=== PATIENT | male | born 1935 | race Caucasian/White ===

== ENCOUNTER 2016-09-28 02:10 | Inpatient (IN) | payer OTHER, MEDICARE ==
--- NOTE | 2016-09-28 02:35 | PDOC ---
History of Present Illness - General History Source: Patient <Alfonzo Thomson - Last Filed: 09/28/16 04:03> - General History Source: Patient Exam Limitations: No Limitations - History of Present Illness Initial Comments: 09/28/16 03:01 The patient is a 80 year old morbidly obese male with significant past medical history of hypertension, hyperlipidemia, CHF, CAD s/p stents x2, PAD, diabetes, CKD, COPD, and GI bleeds who presents to the ED with midsternal chest pain few hours prior to arrival. Patient reports he ate dinner around 7:30 last night and subsequently went to bed. He states he was awoken around 10pm with midsternal chest pain and associated diaphoresis and SOB. He denies lightheadedness, jaw pain, shoulder pain, arm pain, nausea, or vomiting. Subsequently, after going to the bathroom, he started to see black and blue, which lasted about 5 minutes and resolved on its own. He also states his prevention rn has recently been adjusting his lasix dosage. The patient denies fever, chills, cough, abdominal pain, and diarrhea. Allergies: NKDA Social History: No alcohol, tobacco, or drug use reported. Past Surgical History: hernia repair, cardiac stents x2 (March 2014), colonoscopy (2010), endoscopy (August 2014) PCP: Dr. Tucker Lin Cardio: Dr. Rola Del Toro <Dianne Simpson - Last Filed: 09/28/16 04:22> - General Chief Complaint: Chest Pain Stated Complaint: ABD PAIN Time Seen by Provider: 09/28/16 02:35 Past History - Past Medical History Anemia: No Asthma: Yes Cancer: No Cardiac Disorders: Yes (stents) CVA: No COPD: Yes (DIFFICULTY BREATHING) CHF: Yes Dementia: No Diabetes: Yes GI Disorders: Yes (GIB, INTESTINAL OBSTRUCTION, COLON POLYPS) HTN: Yes Hypercholesterolemia: Yes Seizures: No - Surgical History Abdominal Surgery: Yes (HERNIA) Cardiac Surgery: Yes (STENT X 2) - Immunization History Immunization Up to Date: Yes - Psycho/Social/Smoking Cessation Hx Anxiety: No Suicidal Ideation: No Smoking Status: No Smoking History: Never smoked Have you smoked in the past 12 months: No Number of Cigarettes Smoked Daily: 0 If you are a former smoker, when did you quit?: 15 years ago Information on smoking cessation initiated: No Hx Alcohol Use: No Drug/Substance Use Hx: No Substance Use Type: None Hx Substance Use Treatment: No <Alfonzo Thomson - Last Filed: 09/28/16 04:03> <Dianne Simpson - Last Filed: 09/28/16 04:22> - Past Medical History Allergies/Adverse Reactions: Allergies Allergy/AdvReac Type Severity Reaction Status Date / Time No Known Allergies Allergy Verified 09/28/16 02:31 Home Medications: Ambulatory Orders Lisinopril [Prinivil] 2.5 mg PO DAILY 03/26/14 Metoprolol Succinate [Toprol XL -] 50 mg PO DAILY 03/26/14 Albuterol 2.5/Ipratropium 0.5 [Duoneb -] 1 neb NEB Q4H 09/04/15 Atorvastatin Ca [Lipitor] 20 mg PO HS 09/04/15 Dexlansoprazole [Dexilant -] 60 mg PO DAILY 09/04/15 Fluticasone/Salmeterol [Advair 250-50 Diskus] 1 each IH BID 09/04/15 Furosemide 40 mg PO DAILY 09/04/15 Tiotropium [place] [Spiriva] 18 mcg IH DAILY 09/04/15 Ascorbate Calcium [Vitamin C] 500 mg PO DAILY 11/15/15 Clopidogrel Bisulfate [Plavix -] 75 mg PO DAILY #0 11/15/15 Ferrous Sulfate [Feosol] 325 mg PO DAILY 11/15/15 Review of Systems - Review of Systems Able to Perform ROS?: Yes Comments:: 09/28/16 03:01 CONSTITUTIONAL: +diaphoresis Absent: fever, chills, generalized weakness, malaise, loss of appetite HEENT: +visual changes Absent: rhinorrhea, nasal congestion, throat pain, throat swelling, difficulty swallowing, mouth swelling, ear pain, eye pain CARDIOVASCULAR: +midsternal chest pain Absent: syncope, palpitations, irregular heart rate, lightheadedness, peripheral edema RESPIRATORY: +SOB Absent: cough, orthopnea, wheezing, stridor, hemoptysis GASTROINTESTINAL: Absent: abdominal pain, abdominal distension, nausea, vomiting, diarrhea, constipation, melena, hematochezia GENITOURINARY: Absent: dysuria, frequency, urgency, hesitancy, hematuria, flank pain, genital pain MUSCULOSKELETAL: Absent: myalgia, arthralgia, joint swelling SKIN: Absent: rash, itching, pallor NEUROLOGIC: Absent: headache, focal weakness or paresthesias, dizziness, unsteady gait, seizure, mental status changes, bladder or bowel incontinence PSYCHIATRIC: Absent: anxiety, depression, suicidal or homicidal ideation, hallucinations. <Dianne Simpson - Last Filed: 09/28/16 04:22> *Physical Exam - Vital Signs Last Vital Signs Temp Pulse Resp BP Pulse Ox 98.3 F 71 20 118/53 99 09/28/16 02:31 09/28/16 02:31 09/28/16 02:31 09/28/16 02:31 09/28/16 02:31 <Alfonzo Thomson - Last Filed: 09/28/16 04:03> - Vital Signs Last Vital Signs Temp Pulse Resp BP Pulse Ox 98.3 F 71 20 118/53 99 09/28/16 02:31 09/28/16 02:31 09/28/16 02:31 09/28/16 02:31 09/28/16 02:31 - Physical Exam Comments: 09/28/16 03:01 GENERAL: Morbidly obese. Well developed, well nourished. Awake and alert. No acute distress. HEENT: Normocephalic, atraumatic. PERRLA, EOMI. No conjunctival pallor. Sclera are non- icteric. Moist mucous membranes. Oropharynx is clear. NECK: Supple. Full ROM. No JVD. Carotid pulses 2+ and symmetric, without bruits. No thyromegaly. No lymphadenopathy. CARDIOVASCULAR: Regular rate and rhythm. 4/6 systolic murmur. PULMONARY: Mild respiratory distress. Slight decreased breath sounds. No conversational. No retractions. No wheezing, rales or rhonchi. ABDOMINAL: Soft. Non-tender. Non-distended. No rebound or guarding. No organomegaly. Normoactive bowel sounds. MUSCULOSKELETAL Normal range of motion at all joints. No bony deformities or tenderness. No CVA tenderness. EXTREMITIES: No cyanosis. No clubbing. 3+ pitting edema bilateral lower extremities. No calf tenderness. SKIN: Warm and dry. Normal capillary refill. No rashes. No jaundice. NEUROLOGICAL: Alert, awake, appropriate. Cranial nerves 2-12 intact. Moving all extremities. No gross focal neurological deficits. PSYCHIATRIC: Cooperative. Good eye contact. Appropriate mood and affect. <Dianne Simpson - Last Filed: 09/28/16 04:22> Heart Score/ECG Review - ECG Impressions Comment:: 09/28/16 02:43 NSR @76bpm Left axis deviation RBBB Cannot r/o inferior infarct, age undetermined Abnormal ECG <Dianne Simpson - Last Filed: 09/28/16 04:22> ED Treatment Course - LABORATORY CBC & Chemistry Diagram: 09/28/16 02:30 09/28/16 02:30 - RADIOLOGY Radiology Studies Ordered: Category Date Time Status CHEST X-RAY PORTABLE* [RAD] Stat Radiology 09/28/16 02:34 Ordered <Alfonzo Thomson - Last Filed: 09/28/16 04:03> - LABORATORY CBC & Chemistry Diagram: 09/28/16 02:30 09/28/16 02:30 <Dianne Simpson - Last Filed: 09/28/16 04:22> Medical Decision Making - Medical Decision Making 09/28/16 04:03 Dr. Thomson: The scribe's documentation has been prepared under my direction and personally reviewed by me in its entirery. I confirm that the note above accurately reflects all work, treatment, procedures, and medical decision making performed by me. <Alfonzo Thomson - Last Filed: 09/28/16 04:03> - Medical Decision Making 09/28/16 03:[address] Manuel Tinajero who is covering for Dr. Real Booker who is covering for Dr. Tucker Lin (via answering service) at 3:58 Awaiting call back 09/28/16 04:22 Patient's case discussed with Dr. Tinajero at 4:22 <Dianne Simpson - Last Filed: 09/28/16 04:22> *DC/Admit/Observation/Transfer - Discharge Dispostion Admit: Yes <Alfonzo Thomson - Last Filed: 09/28/16 04:03> - Attestations Scribe Attestion: 09/28/16 03:02 Documentation prepared by Dianne Simpson, acting as medical concierge for Alfonzo Thomson MD <Bharrat,Dianne - Last Filed: 09/28/16 04:22> Diagnosis at time of Disposition: Obesity Qualifiers: Obesity severity: morbid Chest pain Qualifiers: Chest pain type: precordial pain Qualified Code(s): R07.2 - Precordial pain - Referrals Referrals: Tucker Lin MD [Primary Care Provider] -
[2016-09-28 02:45] LABS: BASOPHIL 0.6 % (0-2.0); EOSINOPHIL 4.5 % (0-4.5); MCH 25.2 pg (25.7-33.7); MEAN CELL VOLUME 78.8 fl (80-96); MEAN PLT VOLUME 8.8 fl (7.5-11.1); NEUTROPHILS 65.4 % (42.8-82.8); PLATELET COUNT 166 K/MM3 (134-434)
[2016-09-28 03:00] LABS: INR 1.04 (0.82-1.09); PROTHROMBIN TIME (PATIENT) 11.4 SEC (9.98-11.88)
[2016-09-28 03:09] LABS: ALBUMIN 3.3 g/dl (3.4-5.0); BILIRUBIN,TOTAL 0.3 mg/dL (0.2-1.0); CALCIUM 8.5 mg/dL (8.5-10.1); CREATININE 1.3 mg/dL (0.7-1.3); TOT PROT 6.5 g/dl (6.4-8.2)
[2016-09-28 03:12] LABS: TROPONIN I 0.02 ng/ml (0.00-0.05)
[2016-09-28 07:02] VITALS: BMI 38.5
[2016-09-28] MEDS ORDERED: ACETAMINOPHEN 325 MG TABLET (FP) PO PRN (07:20)
[2016-09-28] MEDS ORDERED: ALBUTEROL SO4 2.5/IPRATROPIUM 0.5 INH SOL 3 ML VIAL.NEB. NEB PRN (07:30)
[2016-09-28 09:22] LABS: TROPONIN I 0.07 ng/ml (0.00-0.05)
[2016-09-28] MEDS ORDERED: METOPROLOL SUCCINATE 50 MG TAB.SR.24H (FP) PO SCH (10:00)
[2016-09-28] MEDS ORDERED: LISINOPRIL 5 MG TABLET (FP) PO SCH (10:00)
[2016-09-28] MEDS ORDERED: FUROSEMIDE 20 MG TABLET (FP) PO SCH (10:00)
[2016-09-28] MEDS ORDERED: FERROUS SO4 325 MG TABLET (FP) PO SCH (10:00)
[2016-09-28] MEDS ORDERED: PANTOPRAZOLE 40 MG TABLET (FP) PO SCH (10:00)
[2016-09-28] MEDS ORDERED: CLOPIDOGREL BISULFATE 75 MG TABLET (FP) PO SCH (10:00)
[2016-09-28] MEDS ORDERED: PT OWN MED DRAWER 7, Y5N ONE (10:05)
[2016-09-28] MEDS: ACLIDINIUM BROMIDE 400 MCG/INH AERO.POWD IH SCH ×2 (10:15→21:15)
[2016-09-28] MEDS: BUDESONIDE/FORMETEROL FUMARATE 80/4.5 mcg INHALER IH SCH ×2 (10:15→21:15)
--- NOTE | 2016-09-28 11:25 | CON.CARD ---
Cardiology Consult (text) - Consultation Consultation Note: cc: cp hpi: 80 m hx cad s/p pci (most recent was leonides to mRCA 03/23/14), htn, dm, hld, chronic venuous insuff with le edema, dCHF, severe , HCM with LVOT obstruction , pad s/p right common iliac stent 2008, copd here with cp. Ate dinner last night and then went to bed. He woke up around 10pm with midsternal chest pain and associated diaphoresis and SOB. He also felt a little dizzy. No palps, loc , pnd, orthopnea. LE edema chronic, stable. Sxs occurred intermittently a few times so came to ER. Today feels better, no further cp. He sees Dr Del Toro for Cardio. pmh: per hpi psh: hernia repair ros: per hpi; no nvd, cough, nasal congestion, pruett, vision changes, gib, hematuria, rash, muscle pain social: ex tob fam: non contrib, no premature cad/scd meds: Home Medications Medication Instructions Recorded Lisinopril [Prinivil] 2.5 mg PO DAILY 03/26/14 Metoprolol Succinate [Toprol XL -] 50 mg PO DAILY 03/26/14 Albuterol 2.5/Ipratropium 0.5 1 neb NEB Q4H 09/04/15 [Duoneb -] Atorvastatin Ca [Lipitor] 20 mg PO HS 09/04/15 Dexlansoprazole [Dexilant -] 60 mg PO DAILY 09/04/15 Fluticasone/Salmeterol [Advair 1 each IH BID 09/04/15 250-50 Diskus] Furosemide 40 mg PO DAILY 09/04/15 Tiotropium [place] [Spiriva] 18 mcg IH DAILY 09/04/15 Clopidogrel Bisulfate [Plavix -] 75 mg PO DAILY #0 11/15/15 Ferrous Sulfate [Feosol] 325 mg PO DAILY 11/15/15 pe: Vital Signs Period Temp Pulse Resp BP Sys/Benito Pulse Ox Last 24 Hr 97.4 F-98.3 F 71-74 18-25 108-135/51-74 95-99 nad, no jvd rrr s1 s2 + murmur scattered mild exp wheeze, nl eff aaox3 trace/1+ le edema b/l, no c/c abd nt nd pos bs pos dp/pt no carotid bruits no diaphoresis/jaundice Laboratory Last Values WBC 6.0 K/mm3 (4.0-10.0) 09/28/16 02:30 RBC 4.89 M/mm3 (4.00-5.60) 09/28/16 02:30 Hgb 12.3 GM/dL (11.7-16.9) 09/28/16 02:30 Hct 38.5 % (35.4-49) 09/28/16 02:30 MCV 78.8 fl (80-96) L 09/28/16 02:30 MCHC 32.0 g/dl (32.0-35.9) 09/28/16 02:30 RDW 19.0 % (11.9-15.9) H D 09/28/16 02:30 Plt Count 166 K/MM3 (134-434) D 09/28/16 02:30 MPV 8.8 fl (7.5-11.1) 09/28/16 02:30 Neutrophils % 65.4 % (42.8-82.8) 09/28/16 02:30 Lymphocytes % 20.5 % (8-40) D 09/28/16 02:30 Monocytes % 9.0 % (3.8-10.2) 09/28/16 02:30 Eosinophils % 4.5 % (0-4.5) 09/28/16 02:30 Basophils % 0.6 % (0-2.0) 09/28/16 02:30 INR 1.04 (0.82-1.09) 09/28/16 02:30 Sodium 141 mmol/L (136-145) 09/28/16 02:30 Potassium 4.4 mmol/L (3.5-5.1) 09/28/16 02:30 Chloride 95 mmol/L (98-107) L 09/28/16 02:30 Carbon Dioxide 36 mmol/L (21-32) H 09/28/16 02:30 Anion Gap 10 (8-16) 09/28/16 02:30 BUN 27 mg/dL (7-18) H D 09/28/16 02:30 Creatinine 1.3 mg/dL (0.7-1.3) D 09/28/16 02:30 Creat Clearance w eGFR 52.98 (>60) 09/28/16 02:30 Random Glucose 243 mg/dL (74-106) H D 09/28/16 02:30 Calcium 8.5 mg/dL (8.5-10.1) 09/28/16 02:30 Total Bilirubin 0.3 mg/dL (0.2-1.0) D 09/28/16 02:30 AST 16 U/L (15-37) 09/28/16 02:30 ALT 16 U/L (12-78) 09/28/16 02:30 Alkaline Phosphatase 72 U/L (45-117) 09/28/16 02:30 Creatine Kinase 87 IU/L (39-308) 09/28/16 08:00 Troponin I 0.07 ng/ml (0.00-0.05) H D 09/28/16 08:00 B-Natriuretic Peptide 672.16 pg/ml (5-450) H 09/28/16 02:30 Total Protein 6.5 g/dl (6.4-8.2) 09/28/16 02:30 Albumin 3.3 g/dl (3.4-5.0) L 09/28/16 02:30 cardiac mri 07/2016: moderate basal septal hypertrophy (1.6 cm), nl lv size/fcn , +LVOT obstruction with carlos, nl rv, no scar, mild mr, mild-mod , mild LAE, ao root 3.9 echo 07/2016: majo, nl lvef, mod-sev lvot obst, mild rv dil, nl rv fcn, ana, mild ar, severe , mac, minimal functional MS, mild mr, mild-mod tr, mod-sev phtn echo 07/2014: nl lv/rv, mild ana, mild tr/mr, mod ecg 09/28/16: sr, nl intervals, RBBB (old), no ischemic changes tele: sr, occ pvcs cxr: clear lungs a/p: 80 m hx cad s/p pci (most recent was leonides to mRCA 03/23/14), htn, dm, hld, chronic venuous insuff with le edema, dCHF, severe , HCM with LVOT obstruction , pad s/p right common iliac stent 2008, copd here with cp. cp, sob, dizzy, , HOCM: -so far no signs acs. ecg similar to priors. ce's neg x2. Would continue to trend troponin as in borderline range. monitor on tele. -no signs chf/pulm edema -likely sxs are related to severe , HOCM -pt has been recommended as outpt to be evaluated for and HOCM repair but has been declining. Today he says he will go for eval but wants to go to [facility] because [facility]. Will discuss with his daughter (pt asked that we speak with her) to further clarify preferences/plans. cad, remote pci: -as per above -cont statin, plavix, bb, kota -nl lvef on recent outpt echo htn: -cont home meds hld: -cont statin chronic diastolic chf, le edema: -stable on current po lasix -no signs pulm edema and le edema mild/stable pad, le stent: -stable, cont home cardiac meds
[2016-09-28 14:36] LABS: TROPONIN I 0.07 ng/ml (0.00-0.05)
--- NOTE | 2016-09-28 17:05 | EKG ---
Test Reason : Blood Pressure : / mmHG Vent. Rate : 076 BPM Atrial Rate : 076 BPM P-R Int : 178 ms QRS Dur : 132 ms QT Int : 406 ms P-R-T Axes : 113 -38 009 degrees QTc Int : 456 ms POOR DATA QUALITY, INTERPRETATION MAY BE ADVERSELY AFFECTED NORMAL SINUS RHYTHM LEFT AXIS DEVIATION RIGHT BUNDLE BRANCH BLOCK CANNOT RULE OUT INFERIOR INFARCT (CITED ON OR BEFORE 04-SEP-2015) ABNORMAL ECG WHEN COMPARED WITH ECG OF 04-SEP-2015 18:46, MINIMAL CRITERIA FOR ANTERIOR INFARCT ARE NO LONGER PRESENT ST NOW DEPRESSED IN LATERAL LEADS Confirmed by JULIANNA CAREY MD ([id number]) on 09/28/2016 5:04:43 PM Referred By: Confirmed By:JULIANNA CAREY MD
[2016-09-28] MEDS ORDERED: ATORVASTATIN CA 20 MG TABLET (FP) PO SCH (22:00)
[2016-09-29 06:26] VITALS: BP 109/53; PULSE 65; TEMP 98.1
[2016-09-29 06:41] LABS: BASOPHIL 0.6 % (0-2.0); EOSINOPHIL 4.7 % (0-4.5); MCH 25.1 pg (25.7-33.7); MEAN CELL VOLUME 78.5 fl (80-96); MEAN PLT VOLUME 9.2 fl (7.5-11.1); NEUTROPHILS 62.2 % (42.8-82.8); PLATELET COUNT 157 K/MM3 (134-434); RDW 18.9 % (11.9-15.9); WHITE BLOOD COUNT 5.5 K/mm3 (4.0-10.0)
[2016-09-29 06:46] LABS: ALBUMIN 2.9 g/dl (3.4-5.0); CALCIUM 8.5 mg/dL (8.5-10.1); CREATININE 1.2 mg/dL (0.7-1.3); TOT PROT 5.8 g/dl (6.4-8.2)
[2016-09-29 06:50] LABS: BILIRUBIN,TOTAL 0.3 mg/dL (0.2-1.0)
== END 2016-09-29 08:08 | disposition short-term general hospital (02) | DRG 303 ==
LOC: JER 02:10 → JERBED 04:01 → UNDOADMIN 04:11 → J4W 06:28
PROVIDERS: ADMIT Specialist; ATTEND Specialist
DX: I25.10 Atherosclerotic heart disease of native coronary artery without angina pectoris (principal); I13.0 Hypertensive heart and chronic kidney disease with heart failure and stage 1 through stage 4 chronic kidney disease, or unspecified chronic kidney disease; I50.32 Chronic diastolic (congestive) heart failure; I35.0 Nonrheumatic aortic (valve) stenosis; E78.5 Hyperlipidemia, unspecified; I73.89 Other specified peripheral vascular diseases; K63.5 Polyp of colon; I42.2 Other hypertrophic cardiomyopathy; J44.9 Chronic obstructive pulmonary disease, unspecified; Z95.5 Presence of coronary angioplasty implant and graft; E66.01 Morbid (severe) obesity due to excess calories; Z68.38 Body mass index [BMI] 38.0-38.9, adult; Z71.3 Dietary counseling and surveillance; N18.9 Chronic kidney disease, unspecified; E11.9 Type 2 diabetes mellitus without complications
CPT/HCPCS: 36415; 71010-TC; 80053; 82550; 83880; 84484; 85025; 85610; 93005; 93010; 99285-25

== ENCOUNTER 2019-03-30 12:02 | Inpatient (IN) | payer OTHER, MEDICARE ==
--- NOTE | 2019-03-30 13:51 | PDOC ---
History of Present Illness - General Chief Complaint: Shortness of Breath Stated Complaint: FOOT PAIN Time Seen by Provider: 03/30/19 13:31 History Source: Patient Exam Limitations: No Limitations - History of Present Illness Initial Comments: 03/30/19 13:33 HPI: 80yo obese male with significant past medical history of hypertension, hyperlipidemia, CHF, CAD s/p stents x2, PAD, diabetes, CKD, COPD, and GI bleeds , gout presenting with 2 days of inability to bear weight on left leg 2/2 pain s /p cortisone injection on Sunday. Pain gradually worsened since Sunday - patient currently off indomethacin and on a prednisone taper as of Sunday. No pain control at home including OTC medication. Patient has not been ambulating due to the pain, swelling, warmth, and redness have spread gradually. Feels worse than his typical gout flares. The patient denies fever, chills, cough, diarrhea, or recent illness. Reports unchanged, chronic shortness of breath. No chest or abdominal pain. Allergies: NKDA Social History: Denies alcohol, tobacco, or drug use Past Surgical History: hernia repair, cardiac stents x2 (March 2014), colonoscopy (2010), endoscopy (August 2014) PCP: Dr. Tucker Lin Past History - Travel Traveled outside of the country in the last 30 days: No Close contact w/someone who was outside of country & ill: No - Past Medical History Allergies/Adverse Reactions: Allergies Allergy/AdvReac Type Severity Reaction Status Date / Time No Known Allergies Allergy Verified 09/28/16 02:31 Home Medications: Ambulatory Orders Metoprolol Succinate [Toprol XL -] 100 mg PO BID 03/26/14 Atorvastatin Ca [Lipitor] 20 mg PO HS 09/04/15 Colchicine [Colcrys] 0.6 mg PO DAILY 03/30/19 Glimepiride [Amaryl -] 4 mg PO BID 03/30/19 Indomethacin 25 mg PO TID 03/30/19 Nystatin Cream [Mycostatin Cream -] 1 applic TP PRN PRN 03/30/19 Pantoprazole Sodium [Protonix] 40 mg PO DAILY 03/30/19 Torsemide 2 tab PO HS 03/30/19 metFORMIN HCL [Metformin HCl] 500 mg PO BID 03/30/19 Anemia: Yes Asthma: Yes Cancer: No Cardiac Disorders: Yes (stents) CVA: No COPD: Yes (DIFFICULTY BREATHING) CHF: Yes Dementia: No Diabetes: Yes (NIDDM) GI Disorders: Yes (GIB, INTESTINAL OBSTRUCTION, COLON POLYPS) HTN: Yes Hypercholesterolemia: Yes Seizures: No - Surgical History Abdominal Surgery: Yes (HERNIA) Cardiac Surgery: Yes (STENT X 2, PPM) - Immunization History Immunization Up to Date: Yes - Psycho Social/Smoking Cessation Hx Smoking Status: No Smoking History: Never smoked Have you smoked in the past 12 months: No Number of Cigarettes Smoked Daily: 0 If you are a former smoker, when did you quit?: 15 years ago Hx Alcohol Use: No Drug/Substance Use Hx: No Substance Use Type: None Hx Substance Use Treatment: No Review of Systems - Review of Systems Able to Perform ROS?: Yes Is the patient limited Icelandic proficient: Yes Constitutional: Yes: Unintentional Wgt. Loss (patient eats less due to loss of flavor of foods). No: Chills, Diaphoresis, Fever, Night Sweats, Weakness HEENTM: No: Eye Pain, Recent change in vision, Nose Congestion, Hearing Loss, Throat Pain Respiratory: Yes: Shortness of Breath (chronic, unchanged). No: Cough, Wheezing Cardiac (ROS): Yes: Edema (chronic, baseline). No: Chest Pain, Irregular Heart Rate, Palpitations, Syncope, Chest Tightness ABD/GI: No: Blood Streaked Bowels, Constipated, Diarrhea, Nausea, Rectal Bleeding, Vomiting, Tarry Stools : No: Burning, Dysuria, Frequency Musculoskeletal: Yes: Gout, Joint Pain, Joint Stiffness. No: Back Pain Integumentary: Yes: Erythema (left foot). No: Pruritus, Rash Neurological: No: Headache, Numbness, Tingling, Weakness, Unsteady Gait Psychiatric: Yes: Change in Appetite (2/2 food lacking flavor ). No: Stressors , Emotional Problems, Mood Swings Endocrine: Yes: Change in Weight (see above). No: Excessive Sweating, Flushing Hematologic/Lymphatic: No: Anemia, Blood Clots, Easy Bleeding, Easy Bruising All Other Systems: Reviewed and Negative *Physical Exam - Vital Signs Last Vital Signs Temp Pulse Resp BP Pulse Ox 73 20 108/51 L 97 03/30/19 12:08 03/30/19 12:08 03/30/19 12:08 03/30/19 12:44 - Physical Exam Comments: 03/30/19 13:56 Vitals reviewed, notable for relative hypotension in a baseline hypertensive Gen: obese elderly man, sitting reclined in bed, no acute distress CV: RRR, nls1s2, holosystolic murmur apprecaited Pulm: Breathing comfortably on 2L NC, speaking full sentences, no cough, no accessory muscle use Abd: Obese, soft, nontender, nondistended Ext: left foot warm, bilateral edema and swelling, worse on the left foot, worse near cortisone injection site on lateral foot and near first digit joint. Mild tenderness in left calf - swollen compared to right. Compartments soft, non -tender aside from L calf Neuro: alert and oriented, Cn grossly intact, LE exam limited by pain - sensation intact, movement intact Pulses: 2+ radial bilaterally, difficult to assess LE given edema - capillary refill <2second, warm and well perfused ED Treatment Course - LABORATORY CBC & Chemistry Diagram: 04/02/19 06:35 04/02/19 06:35 Medical Decision Making - Medical Decision Making 03/30/19 14:24 80yo obese male with significant past medical history of hypertension, hyperlipidemia, CHF, CAD s/p stents x2, PAD, diabetes, CKD, COPD, and GI bleeds , gout presenting with 2 days of inability to bear weight on left leg 2/2 pain s /p cortisone injection on Sunday. History notable for recent injections, no systemic symptoms. Exam notable for warmth, erythema, swelling of LLE, stable vitals. DDX: Most likely cellulitis vs acute gout flare vs DVT, less likely osteomyelitis vs necrotizing soft tissue infection. Patient likely candidate for admission due to new inability to ambulate / need for pain control. -CBC, CMP, Uric Acid, BCx -X ray, Doppler US LLE -600mg Clindamycin -5/325 Percocet 03/30/19 15:47 -Ca 6.7, 7.3 with albumin correction -Ca Gluconate 1g -Mg, Phos, PTH, Vitamin D -No leukocytosis -Imaging pending 03/30/19 18:03 -USS Read Pending -Patient updated regarding labs / Ca / admission -Foot Xray without signs of gas producing organism Dispo Planning: Med/Surg Admitted, endorsed to Hospitalist team *DC/Admit/Observation/Transfer Diagnosis at time of Disposition: Hypocalcemia, Inability to ambulate due to left ankle or foot, Cellulitis and abscess of foot - Discharge Dispostion Condition at time of disposition: Guarded Decision to Admit order: Yes - Referrals - Patient Instructions - Post Discharge Activity Discharge - Discharge Information Problems reviewed: Yes Clinical Impression/Diagnosis: Hypocalcemia, Inability to ambulate due to left ankle or foot, Cellulitis and abscess of foot Condition: Guarded
[2019-03-30] MEDS ORDERED: CLINDAMYCIN 600MG PREMIX IVPB 600 MG/50 ML BAG IVPB ONE ×2 (14:15→14:50)
[2019-03-30 15:17] LABS: BASO % 0.4 % (0-2.0); EOS % 2.5 % (0-4.5); HEMATOCRIT 37.6 % (35.4-49); HEMOGLOBIN 12.5 GM/dL (11.7-16.9); LYMPH % 15.4 % (8-40); MCH 30.2 pg (25.7-33.7); MCHC 33.4 g/dl (32.0-35.9); MEAN CELL VOLUME 90.4 fl (80-96); MEAN PLT VOLUME 8.7 fl (7.5-11.1); MONO % 8.7 % (3.8-10.2); PLATELET COUNT 201 K/MM3 (134-434); RBC 4.16 M/mm3 (4.00-5.60); RDW 15.9 % (11.9-15.9); WHITE BLOOD COUNT 7.6 K/mm3 (4.0-10.0)
[2019-03-30 15:39] LABS: ALBUMIN 3.3 g/dl (3.4-5.0); BILIRUBIN,TOTAL 1.1 mg/dL (0.2-1); BLOOD UREA NITROGEN 24.2 mg/dL (7-18); CREATININE 1.3 mg/dL (0.55-1.3); TOT PROT 6.6 g/dl (6.4-8.2); URIC ACID 9.6 mg/dL (2.6-7.2)
[2019-03-30 15:41] LABS: CALCIUM 6.7 mg/dL (8.5-10.1)
[2019-03-30] MEDS ORDERED: CALCIUM GLUCONATE 10% - 1,000 MG/10 ML VIAL IVPB ONE (15:49)
[2019-03-30 16:17] LABS: PHOSPHOROUS 3.6 mg/dL (2.5-4.9)
[2019-03-30] MEDS ORDERED: CALCIUM GLUCONATE 10% - 1,000 MG/10 ML VIAL ONE (17:21)
--- NOTE | 2019-03-30 18:48 | PDOC ---
Attending Attestation - Resident Resident Name: ArnolLionel - ED Attending Attestation I have performed the following: I have examined & evaluated the patient, The case was reviewed & discussed with the resident, I agree w/resident's findings & plan, Exceptions are as noted - HPI HPI: 80 yo M history HTN, HL, CHF, CAD, PAD, DM, CKD, COPD, GIB, gout presents with 2 day history of severe pain to L foot. He had a cortisone injection to the lateral part of his mid-foot 2 days ago. He has been taking OTC medication for pain without relief. He is currently on a steroid taper. Family notes that he has redness and swelling of the foot that looks new. Denies fever. - Physicial Exam PE: GENERAL: Awake, alert, and fully oriented. Appears uncomfortable. HEAD: No signs of trauma EYES: PERRLA, EOMI, sclera anicteric, conjunctiva clear ENT: Auricles normal inspection, hearing grossly normal, nares patent, oropharynx clear without exudates. Moist mucosa NECK: Normal ROM, supple, no lymphadenopathy, JVD, or masses LUNGS: Breath sounds equal, clear to auscultation bilaterally. No wheezes, and no crackles HEART: Regular rate and rhythm, normal S1 and S2, no murmurs, rubs or gallops ABDOMEN: Soft, nontender, normoactive bowel sounds. No guarding, no rebound. No masses EXTREMITIES: L foot with 1+ edema, multiple areas of erythema, particularly the mid-foot near the injection site. +Exquisite tenderness to palpation, +warmth. Remainder of extremities with normal range of motion, no edema. No clubbing or cyanosis. No cords. NEUROLOGICAL: Cranial nerves II through XII grossly intact. Normal speech. Motor and sensation intact. Unable to ambulate due to severe pain in the L foot SKIN: Warm, dry, normal turgor, no rashes or lesions not - Medical Decision Making Pt with erythema, warmth, and severe pain to foot s/p cortisone injection for gout. DDx includes pain due to gout flare, but also includes cellulitis. Patient is high risk for cellulitis as he had a recent injection, has very dry cracked skin in the foot, would be very easy for bacteria to enter the subcutaneous space. Will obtain XR r/o subcutaneous gas, DVT study, and labs. Will plan for admission. Addendum: Patient found to have significant hypocalcemia. Unclear etiology. Will contact renal. Workup started in ED. Will replete Ca.
[2019-03-30] MEDS ORDERED: MAGNESIUM SULF 50% (8.12 MEQ/2 ML-1 GM VIAL) IVPB ONE ×2 (20:07→20:36)
[2019-03-30] MEDS ORDERED: ALBUTEROL SO4 2.5/IPRATROPIUM 0.5 INH SOL 3 ML VIAL.NEB. NEB PRN (20:08)
--- NOTE | 2019-03-30 20:10 | HP ---
CHIEF COMPLAINT: inability to ambulate and L foot pain PCP: Dr. Tucker Lin HISTORY OF PRESENT ILLNESS: Polo Mckeon is an 83 year old male with a past medical history of hypertension, hyperlipidemia, CHF, CAD (s/p 2 stents), PAD, diabetes, chronic kidney disease, COPD, GI bleeds, gout who presents with left foot pain and inability to ambulate due to pain. The patient states that he has chronic pain in both of his feet and legs. He states that he previously has had cortisone injections into his feet without any acute issues. Patient stated that he had a cortisone injection on Sunday on the lateral side of his left foot. Starting the next day he began to notice that he was increased redness, swelling, warmth , and had difficulty ambulating on the left foot. The pain did not remit with any medications. He stated that he did not believe this was an acute gout flare- up as he states that he is usually able to ambulate during an acute episode. Stated that he felt that he had chills, had poor appetite, and some nausea in the last several day. Additionally, stated that he has been having some shortness of breath. Denies chest pain, abdominal pain, vomiting, dizziness, lightheadedness, falls, trauma, dysuria, hematuria. Stated that when he does have increased swelling in his legs he often times takes more of his diuretic than prescribed. 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 Allergies No Known Allergies Allergy (Verified 09/28/16 02:31) HOME MEDICATIONS: Home Medications Medication Instructions Recorded Lisinopril [Prinivil] 2.5 mg PO DAILY 03/26/14 Metoprolol Succinate [Toprol XL -] 50 mg PO DAILY 03/26/14 Albuterol 2.5/Ipratropium 0.5 1 neb NEB Q4H 09/04/15 [Duoneb -] Atorvastatin Ca [Lipitor] 20 mg PO HS 09/04/15 Dexlansoprazole [Dexilant -] 60 mg PO DAILY 09/04/15 Fluticasone/Salmeterol [Advair 1 each IH BID 09/04/15 250-50 Diskus] Furosemide 40 mg PO DAILY 09/04/15 Tiotropium [place] [Spiriva] 18 mcg IH DAILY 09/04/15 Clopidogrel Bisulfate [Plavix -] 75 mg PO DAILY #0 11/15/15 Ferrous Sulfate [Feosol] 325 mg PO DAILY 11/15/15 REVIEW OF SYSTEMS CONSTITUTIONAL: chills, loss of appetite Absent: fever, diaphoresis, generalized weakness, malaise, weight change HEENT: Absent: rhinorrhea, nasal congestion, throat pain, throat swelling, difficulty swallowing, visual changes CARDIOVASCULAR: Absent: chest pain, syncope, palpitations, irregular heart rate, lightheadedness , peripheral edema RESPIRATORY: shortness of breath Absent: cough, dyspnea with exertion, orthopnea, wheezing, hemoptysis GASTROINTESTINAL: nausea Absent: abdominal pain, abdominal distension, vomiting, diarrhea, constipation GENITOURINARY: frequency Absent: dysuria, urgency, hesitancy, hematuria, flank pain MUSCULOSKELETAL: joint swelling, arthralgia, difficulty ambulating Absent: myalgia, back pain, neck pain SKIN: Absent: rash, itching, pallor HEMATOLOGIC/IMMUNOLOGIC: Absent: easy bleeding, easy bruising, lymphadenopathy, frequent infections ENDOCRINE: Absent: unexplained weight gain, unexplained weight loss, heat intolerance, cold intolerance NEUROLOGIC: Absent: headache, focal weakness or paresthesias, dizziness, unsteady gait, seizure, mental status changes, PSYCHIATRIC: Absent: anxiety, depression, suicidal or homicidal ideation, hallucinations. PHYSICAL EXAMINATION Vital Signs - 24 hr 03/30/19 03/30/19 03/30/19 12:08 12:44 19:25 Temperature 98.1 F 98.2 F Pulse Rate 73 Pulse Rate [ 70 65 Left Radial] Respiratory 20 19 19 Rate Blood Pressure 108/51 L Blood Pressure 112/65 104/45 L [Right Arm] O2 Sat by Pulse 86 L 100 99 Oximetry (%) 03/30/19 19:34 Temperature Pulse Rate Pulse Rate [ 66 Left Radial] Respiratory 20 Rate Blood Pressure Blood Pressure 106/52 L [Right Arm] O2 Sat by Pulse 100 Oximetry (%) GENERAL: Awake, alert, and fully oriented, in no acute distress. HEAD: Normal with no signs of trauma. EYES: Pupils equal, round and reactive to light, extraocular movements intact, sclera anicteric, conjunctiva clear. EARS, NOSE, THROAT: Oropharynx clear without exudates. Moist mucous membranes. NECK: Normal range of motion, supple without lymphadenopathy, JVD. LUNGS: Breath sounds equal with prominent expiratory wheezes. No crackles. Some accessory muscle use. HEART: Regular rate and rhythm, normal S1 and S2 with noted systolic ejection murmur. ABDOMEN: Soft, obese, nontender, not distended, normoactive bowel sounds, no guarding, no rebound, no masses. MUSCULOSKELETAL: Decreased range of motion on L and R foot secondary to pain. Warmth, tenderness to palpation, increased swelling noted on R foot on medial aspect on first metatarsal joint. Redness and warmth extending up anterior side of the leg midway up the calf, no tenderness apprecitated. UPPER EXTREMITIES: 2+ pulses, warm, well-perfused. No cyanosis. No clubbing. No peripheral edema. LOWER EXTREMITIES: 2+ pulses, warm, well-perfused. No calf tenderness. 2+ peripheral edema extending past the ankle on the R leg, 1+ edema on the L side. NEUROLOGICAL: Cranial nerves II-XII intact. 5/5 muscle strength bilaterally upper and lower extremities. PSYCHIATRIC: Cooperative. Good eye contact. Appropriate mood and affect. SKIN: Warm, dry, normal turgor. Skin exam as above. Laboratory Results - last 24 hr 03/30/19 03/30/19 15:07 15:07 WBC 7.6 RBC 4.16 Hgb 12.5 Hct 37.6 MCV 90.4 MCH 30.2 D MCHC 33.4 RDW 15.9 D Plt Count 201 D MPV 8.7 Absolute Neuts (auto) 5.6 Neutrophils % 73.0 Lymphocytes % 15.4 D Monocytes % 8.7 Eosinophils % 2.5 Basophils % 0.4 Nucleated RBC % 0 Sodium 144 Potassium 4.0 Chloride 97 L Carbon Dioxide 40 H Anion Gap 7 L BUN 24.2 H Creatinine 1.3 Est GFR (CKD-EPI)AfAm 58.07 Est GFR (CKD-EPI)NonAf 50.10 Random Glucose 100 Uric Acid 9.6 H Calcium 6.7 L* Phosphorus 3.6 Magnesium 1.0 L Total Bilirubin 1.1 H AST 18 ALT 22 Alkaline Phosphatase 69 Total Protein 6.6 Albumin 3.3 L EKG--> NSR, RBBB, no ST segment changes, QTc 469 ASSESSMENT/PLAN: Polo Mckeon is an 83 year old male with a past medical history of hypertension, hyperlipidemia, CHF, CAD (s/p 2 stents), PAD, diabetes, chronic kidney disease, COPD, GI bleeds, gout who is admitted for inability to ambulate due to left foot pain. L foot pain secondary to gout vs cellulitis CHF COPD Hypocalcemia Hypomagnesemia HTN HLD DM L foot pain secondary to gout vs cellulitis - DVT negative, no apparent gaseous process in the foot x-ray - given Clindamycin in ED - continue home colchicine - vancomycin 1g renally dosed - ceftriaxone 1g once daily - holding indomethacin in setting of elevated CRE - physical therapy - highly elevated ESR and CRP, can consider MRI for osteomyelitis evaluation - can consider joint aspiration with orthopedic surgery - podiatry consulted - ID consulted - Tylenol for pain, avoid NSAIDS CHF - continue home torsemide COPD - Duoneb q6h prn - O2 2L as needed Hypocalcemia - possible from extra doses of his home torsemide that he said he takes when he feels more swollen - check PTH - replete with calcium gluconate - oral calcium supplements - continue to trend - Dr. Hernandez consulted, recs appreciated Hypomagnesemia - given 2 doses of 1g IV mag - continue oral supplementation - continue to trend HTN - continue home Toprol and torsemide - meds partially reconciled, as pharmacy unsure of all patient's meds HLD - continue home atorvastatin DM - BGM - ISS - A1c FEN - no standing fluids - continue to monitor electrolytes and replete as necessary, hypocalcemia and hypomagenesemia noted - sodium/diabetic diet Prophylaxis - heparin 5000 units subq tid Code - full code JOSE BARRON DO - PGY-1 Family Medical History Family Hx Nuerologic Problems: Father (CVA) Visit type - Emergency Visit Emergency Visit: Yes ED Registration Date: 03/30/19 Care time: The patient presented to the Emergency Department on the above date and was hospitalized for further evaluation of their emergent condition. - New Patient This patient is new to me today: Yes Date on this admission: 03/31/19 - Critical Care Critical Care patient: No
--- NOTE | 2019-03-30 20:34 | CONSULT ---
Consult Consult Specialty:: Nephrology Reason for Consultation:: hypocalcemia - History of Present Illness Chief Complaint: left leg pain History of Present Illness: Pt is an 80 year old make with pmhx of htn, HLD, CHF, CAD, PAD, DM, CKD, COPD and GI bleed who presents with inabilith to wbear weight on his left leg. He says that the pain gradually increased after a cortisone shot on Sunday. He denies shortness of breath or palpitations. I was called to evaluate him for hypocalcemia. He denies history of hypocalcemia. He denies dysuria or hematuria. - History Source History Provided By: Patient, Medical Record - Past Medical History Cardio/Vascular: Yes: CAD, HTN, Murmur, Other Pulmonary: Yes: COPD Gastrointestinal: Yes: Constipation, Diverticulosis, Hemorrhoids, Hiatal Hernia , Other Musculoskeletal: Yes: Chronic low back pain - Past Surgical History Past Surgical History: Yes: Colonoscopy, Hernia Repair, Upper Endoscopy - Alcohol/Substance Use Hx Alcohol Use: No History of Substance Use: reports: None - Smoking History Smoking history: Never smoked Have you smoked in the past 12 months: No Aproximately how many cigarettes per day: 0 If you are a former smoker, when did you quit?: 15 years ago - Social History ADL: Independent 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 History of Recent Travel: No Home Medications - Allergies Allergies/Adverse Reactions: Allergies Allergy/AdvReac Type Severity Reaction Status Date / Time No Known Allergies Allergy Verified 09/28/16 02:31 - Home Medications Home Medications: Ambulatory Orders Lisinopril [Prinivil] 2.5 mg PO DAILY 03/26/14 Metoprolol Succinate [Toprol XL -] 50 mg PO DAILY 03/26/14 Albuterol 2.5/Ipratropium 0.5 [Duoneb -] 1 neb NEB Q4H 09/04/15 Atorvastatin Ca [Lipitor] 20 mg PO HS 09/04/15 Dexlansoprazole [Dexilant -] 60 mg PO DAILY 09/04/15 Fluticasone/Salmeterol [Advair 250-50 Diskus] 1 each IH BID 09/04/15 Furosemide 40 mg PO DAILY 09/04/15 Tiotropium [place] [Spiriva] 18 mcg IH DAILY 09/04/15 Clopidogrel Bisulfate [Plavix -] 75 mg PO DAILY #0 11/15/15 Ferrous Sulfate [Feosol] 325 mg PO DAILY 11/15/15 Family Medical History Family History: Denies Review of Systems - Review of Systems Constitutional: reports: Malaise Eyes: reports: No Symptoms HENT: reports: No Symptoms Neck: reports: No Symptoms Cardiovascular: reports: No Symptoms Respiratory: reports: SOB on Exertion Genitourinary: reports: No Symptoms Musculoskeletal: reports: Extremity Pain Neurological: reports: No Symptoms Endocrine: reports: No Symptoms Hematology/Lymphatic: reports: No Symptoms Psychiatric: reports: No Symptoms Physical Exam Vital Signs: Vital Signs Temperature 98.2 F 03/30/19 19:25 Pulse Rate 66 03/30/19 19:34 Respiratory Rate 20 03/30/19 19:34 Blood Pressure 106/52 L 03/30/19 19:34 O2 Sat by Pulse Oximetry (%) 100 03/30/19 19:34 Constitutional: Yes: Calm Eyes: Yes: Conjunctiva Clear HENT: Yes: Atraumatic Cardiovascular: Yes: S1, S2 Respiratory: Yes: CTA Bilaterally Gastrointestinal: Yes: Soft Renal/: Yes: WNL Edema: Yes Edema: LLE: 1+, RLE: 1+ Neurological: Yes: Oriented Psychiatric: Yes: Oriented Labs: CBC, BMP 03/30/19 15:07 03/30/19 15:07 Laboratory Tests 03/30/19 15:07 Sodium 144 Potassium 4.0 BUN 24.2 H Creatinine 1.3 Calcium 6.7 L* Phosphorus 3.6 Magnesium 1.0 L Albumin 3.3 L Problem List - Problems (1) Cellulitis and abscess of foot Code(s): L03.119 - CELLULITIS OF UNSPECIFIED PART OF LIMB; L02.619 - CUTANEOUS ABSCESS OF UNSPECIFIED FOOT (2) Hypocalcemia Code(s): E83.51 - HYPOCALCEMIA (3) Inability to ambulate due to left ankle or foot Code(s): R26.2 - DIFFICULTY IN WALKING, NOT ELSEWHERE CLASSIFIED (4) CHF (congestive heart failure) Code(s): I50.9 - HEART FAILURE, UNSPECIFIED (5) CKD (chronic kidney disease) Code(s): N18.9 - CHRONIC KIDNEY DISEASE, UNSPECIFIED Assessment/Plan Current Medications Generic Name Dose Route Start Last Admin Trade Name Freq PRN Reason Stop Dose Admin Albuterol/Ipratropium 1 amp 03/30/19 20:08 Duoneb - NEB Q4H PRN SHORTNESS OF BREATH Heparin Sodium (Porcine) 5,000 unit 03/31/19 06:00 Heparin - SQ TID [facility] Insulin Aspart 1 vial 03/30/19 22:00 Novolog Vial Sliding Scale - SQ ACHS [facility] Protocol Impression 1. hypocalcemia 2. hypomagnesemia 3. chf 4. ckd 5. leg pain 6. PAD 7. DM Plan - replace calcium - check pth - phos normal - replace mag - will start calcium supplements and calcitriol - pt did get calcium gluconate - will give another dose of mag
[2019-03-30] MEDS ORDERED: MAGNESIUM SULF 50% (8.12 MEQ/2 ML-1 GM VIAL) ONE (20:36)
[2019-03-30] MEDS ORDERED: NYSTATIN 100,000 UNIT/GM TOPICAL CREAM 15 GM TUBE TP PRN ×2 (20:37→20:45)
[2019-03-30] MEDS: CALCITRIOL 0.25 MCG CAPSULE (FP) PO SCH (21:30)
[2019-03-30] MEDS: CALCIUM 500MG/VIT-D 200 UNITS COMBO TABLET (FP) PO SCH (21:30)
[2019-03-30] MEDS ORDERED: VANCOMYCIN 1 GM in D5W (PRE-DOCKED) 1,000 MG/250 ML IVPB ONE (22:30)
[2019-03-30] MEDS: MAGNESIUM OXIDE 400 MG TABLET (FP) PO SCH (23:10)
[2019-03-30] MEDS: ATORVASTATIN CA 20 MG TABLET (FP) PO SCH (23:10)
[2019-03-30] MEDS: INSULIN SLIDING SCALE (NOVOLOG) 1 VIAL SQ SCH (23:10)
[2019-03-30] MEDS ORDERED: ATORVASTATIN CA 20 MG TABLET (FP) ONE (23:23)
[2019-03-30] MEDS ORDERED: MAGNESIUM OXIDE 400 MG TABLET (FP) ONE (23:23)
[2019-03-30] MEDS ORDERED: INSULIN (NOVOLOG) ASPART 100 UNITS/ML 10ML VIAL ONE (23:23)
[2019-03-30] MEDS ORDERED: VANCOMYCIN 1 GRAM (PRE-DOCKED) 1,000 MG/250 ML BAG IVPB ONE (23:23)
[2019-03-30] MEDS ORDERED: CEFTRIAXONE 1 GM/50 ML BAG ONE (23:24)
[2019-03-30 23:31] LABS: ERYTHROCYTE SEDIMENTATION RATE 90 mm/hr (0-20)
[2019-03-30] MEDS: CEFTRIAXONE 1 GM in DEXTROSE 5%-WATER - 50 ML IVPB SCH (23:55)
--- NOTE | 2019-03-31 00:27 | PN ---
Teaching Attending Note Name of Resident: Lan Dangelo ATTENDING PHYSICIAN STATEMENT I saw and evaluated the patient. I reviewed the resident's note and discussed the case with the resident. I agree with the resident's findings and plan as documented. SUBJECTIVE: 83 year old male with a past medical history of hypertension, hyperlipidemia, CHF, CAD (s/p 2 stents), PAD, diabetes, ckd, COPD, GI bleeds, gout c/o increased left foot pain and inability to ambulate. Says he gets corticoisteroids injections in his foot. He said b/l knee injctions 1 month ago , and left lateral foot injection this past sunday. Shortly after had increased pain and swelling. Denied any recent injection into left hallux MCP. Denied significant fevers or chills. Denied other trauma to foot. OBJECTIVE: Last Vital Signs Temp Pulse Resp BP Pulse Ox 98.2 F 66 20 106/52 L 100 03/30/19 19:25 03/30/19 19:34 03/30/19 19:34 03/30/19 19:34 03/30/19 19:34 gen -aaox3 heent -atraumatic, no pharyngeal injection neck supple cv-s1+s2+rrr chest clear abd-soft, nt ext -left foot lateral plantar aspect erythematous, warm to touch, tender, hallux mcp erythema Abnormal Lab Results 03/30/19 03/30/19 15:07 15:07 ESR 90 H Chloride 97 L Carbon Dioxide 40 H Anion Gap 7 L BUN 24.2 H Uric Acid 9.6 H Calcium 6.7 L* Magnesium 1.0 L Total Bilirubin 1.1 H C-Reactive Protein 6.7 H Albumin 3.3 L imaging reviewed ASSESSMENT AND PLAN: #Left lateral foot cellulitis vs septic arthitis vs tenosynovitis post corticosteroid injection vs gout. Left Hallux MCP joint is inflammed as well which is likely due to his gout. Would avoid excessive NSIADS due to his underlying CKD. -admit to med/surg -blood cultures -podiatry evaluation - possible joint fluid aspiration, check gram stain, culture, cell count, protein count, crystals -vancomcyin -ceftriaxone -esr -crp -bed rest -fall precautions -pt eval #COPD -controlled -c/w spiriva and advair #CKD -avoid NSAIDS or other nephrotixins #CAD/CHF -asa, clopidogrel, statin, metoprolol, lisinopril -dvt prophylaxis
[2019-03-31] MEDS ORDERED: HEPARIN NA (PORCINE) 5,000 UNITS/ML 1ML VIAL ONE (06:30)
[2019-03-31] MEDS: HEPARIN NA (PORCINE) 5,000 UNITS/ML 1ML VIAL SQ SCH ×3 (06:36→21:28)
[2019-03-31] MEDS: INSULIN SLIDING SCALE (NOVOLOG) 1 VIAL SQ SCH ×4 (07:08→23:19)
[2019-03-31 07:11] LABS: BASO % 0.7 % (0-2.0); HEMATOCRIT 35.5 % (35.4-49); HEMOGLOBIN 11.8 GM/dL (11.7-16.9); LYMPH % 10.3 % (8-40); MCH 30.2 pg (25.7-33.7); MCHC 33.2 g/dl (32.0-35.9); MEAN PLT VOLUME 9.4 fl (7.5-11.1); PLATELET COUNT 181 K/MM3 (134-434); RDW 15.9 % (11.9-15.9); WHITE BLOOD COUNT 7.5 K/mm3 (4.0-10.0)
[2019-03-31 07:22] LABS: ALBUMIN 3.1 g/dl (3.4-5.0); BLOOD UREA NITROGEN 24.6 mg/dL (7-18); CREATININE 1.2 mg/dL (0.55-1.3); MAGNESIUM 1.2 mg/dL (1.8-2.4); PHOSPHOROUS 4.5 mg/dL (2.5-4.9); POTASSIUM 3.3 mmol/L (3.5-5.1); TOT PROT 6.4 g/dl (6.4-8.2)
[2019-03-31] MEDS ORDERED: POTASSIUM CHLORIDE TABS 20 MEQ TABLET.ER (FP) PO ONE ×2 (07:37→12:15)
[2019-03-31] MEDS ORDERED: MAGNESIUM SULF 50% (8.12 MEQ/2 ML-1 GM VIAL) IVPB ONE ×2 (07:37→12:15)
[2019-03-31] MEDS ORDERED: CALCIUM GLUCONATE 10% - 1,000 MG/10 ML VIAL IVPB ONE ×2 (07:38→12:15)
--- NOTE | 2019-03-31 10:27 | EKG ---
Test Reason : Blood Pressure : / mmHG Vent. Rate : 078 BPM Atrial Rate : 078 BPM P-R Int : 186 ms QRS Dur : 142 ms QT Int : 412 ms P-R-T Axes : 084 -56 059 degrees QTc Int : 469 ms NORMAL SINUS RHYTHM RIGHT BUNDLE BRANCH BLOCK LEFT ANTERIOR FASCICULAR BLOCK BIFASCICULAR BLOCK ABNORMAL ECG WHEN COMPARED WITH ECG OF 28-SEP-2016 02:26, MINIMAL CRITERIA FOR INFERIOR INFARCT ARE NO LONGER PRESENT Confirmed by MOHIT ROJAS MD ([id number]) on 03/31/2019 10:27:18 AM Referred By: Confirmed By:MOHIT ROJAS MD
--- NOTE | 2019-03-31 10:58 | PN ---
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 on Sunday and has an injection of steroids in the lateral aspect of the foot he also complains that the big toe is painful he was started on prednisone as well on Sunday possible cellulitis of the left foot probable gout-uric acid of 9.6 agree with podiatry evaluation continue vanco/ceftriaxone treat the gout history of CAD/CHF Problem List - Problems (1) Cellulitis Code(s): L03.90 - CELLULITIS, UNSPECIFIED (2) Gout Code(s): M10.9 - GOUT, UNSPECIFIED (3) CHF (congestive heart failure) Code(s): I50.9 - HEART FAILURE, UNSPECIFIED (4) CAD (coronary artery disease) Code(s): I25.10 - ATHSCL HEART DISEASE OF [place] CORONARY ARTERY W/O ANG PCTRS Qualifiers: Coronary Disease-Associated Artery/Lesion type: [place] coronary artery Associated angina: without angina pectoris
--- NOTE | 2019-03-31 11:28 | PN ---
Physical Exam: SUBJECTIVE: Patient seen and examined at the bedside. having some discomfort of left foot. also had bilateral knee injections apx one month ago. OBJECTIVE: patient is an 80 year old male with a significant past medical history of hypertension, hyperlipidemia, CHF, CAD s/p stents x2, PAD, diabetes, CKD, COPD, and GI bleeds and gout. Presents to the Ed with 2 days of inability to bear weight on left leg 2/2 pain s/p cortisone injection on Sunday. Pain gradually worsened since Sunday. Patient has not been ambulating due to the pain and discomfort. Also reports history of bilteral steroid knee injections about one month ago. he reports he uses home oxygen as needed. Vital Signs Period Temp Pulse Resp BP Sys/[place] Pulse Ox Last 24 Hr 98.1 F-98.3 F 65-95 16-20 104-112/45-65 86-100 GENERAL: The patient is awake, alert, and fully oriented, in no acute distress. HEAD: Normal with no signs of trauma. EYES: PERRL, extraocular movements intact, sclera anicteric, conjunctiva clear. No ptosis. ENT: Ears normal, nares patent, oropharynx clear without exudates, moist mucous membranes. NECK: Trachea midline, full range of motion, supple. LUNGS: scattered wheezing. HEART: Regular rate and rhythm ABDOMEN: Soft, nontender, nondistended, normoactive bowel sounds, no guarding, no rebound, no hepatosplenomegaly, no masses. EXTREMITIES: no edema. NEUROLOGICAL: Normal speech, gait not observed. PSYCH: Normal mood, normal affect. SKIN: left lower ext edema, foot cellulits of the left foot, vs gout. Laboratory Results - last 24 hr 03/30/19 03/30/19 03/30/19 15:07 15:07 23:31 WBC 7.6 RBC 4.16 Hgb 12.5 Hct 37.6 MCV 90.4 MCH 30.2 D MCHC 33.4 RDW 15.9 D Plt Count 201 D MPV 8.7 Absolute Neuts (auto) 5.6 Neutrophils % 73.0 Lymphocytes % 15.4 D Monocytes % 8.7 Eosinophils % 2.5 Basophils % 0.4 Nucleated RBC % 0 ESR 90 H Sodium 144 Potassium 4.0 Chloride 97 L Carbon Dioxide 40 H Anion Gap 7 L BUN 24.2 H Creatinine 1.3 Est GFR (CKD-EPI)AfAm 58.07 Est GFR (CKD-EPI)NonAf 50.10 POC Glucometer 79 Random Glucose 100 Hemoglobin A1c % Uric Acid 9.6 H Calcium 6.7 L* Phosphorus 3.6 Magnesium 1.0 L Total Bilirubin 1.1 H AST 18 ALT 22 Alkaline Phosphatase 69 C-Reactive Protein 6.7 H Total Protein 6.6 Albumin 3.3 L 03/31/19 03/31/19 03/31/19 06:00 06:00 06:00 WBC 7.5 RBC 3.90 L Hgb 11.8 Hct 35.5 MCV 91.0 MCH 30.2 MCHC 33.2 RDW 15.9 Plt Count 181 MPV 9.4 Absolute Neuts (auto) 6.0 Neutrophils % 80.0 Lymphocytes % 10.3 D Monocytes % 7.0 Eosinophils % 2.0 Basophils % 0.7 Nucleated RBC % 0 ESR Sodium 143 Potassium 3.3 L Chloride 96 L Carbon Dioxide 36 H Anion Gap 10 BUN 24.6 H Creatinine 1.2 Est GFR (CKD-EPI)AfAm 63.97 Est GFR (CKD-EPI)NonAf 55.20 POC Glucometer Random Glucose 134 H Hemoglobin A1c % 6.8 H Uric Acid Calcium 7.0 L Phosphorus 4.5 Magnesium 1.2 L Total Bilirubin 1.0 AST 17 ALT 17 Alkaline Phosphatase 70 C-Reactive Protein Total Protein 6.4 Albumin 3.1 L 03/31/19 07:06 WBC RBC Hgb Hct MCV MCH MCHC RDW Plt Count MPV Absolute Neuts (auto) Neutrophils % Lymphocytes % Monocytes % Eosinophils % Basophils % Nucleated RBC % ESR Sodium Potassium Chloride Carbon Dioxide Anion Gap BUN Creatinine Est GFR (CKD-EPI)AfAm Est GFR (CKD-EPI)NonAf POC Glucometer 110 Random Glucose Hemoglobin A1c % Uric Acid Calcium Phosphorus Magnesium Total Bilirubin AST ALT Alkaline Phosphatase C-Reactive Protein Total Protein Albumin Active Medications Generic Name Dose Route Start Last Admin Trade Name Freq PRN Reason Stop Dose Admin Acetaminophen 650 mg 03/31/19 06:02 Tylenol - PO Q6H PRN PAIN OR FEVER Albuterol/Ipratropium 1 amp 03/30/19 20:08 Duoneb - NEB Q4H PRN SHORTNESS OF BREATH Aspirin 81 mg 03/31/19 10:00 Asa - PO DAILY GAVIN Atorvastatin Calcium 20 mg 03/30/19 22:00 03/30/19 23:10 Lipitor - PO 20 mg HS GAVIN Administration Calcitriol 0.25 mcg 03/30/19 20:45 03/30/19 21:30 Rocaltrol - PO 0.25 mcg DAILY GAVIN Administration Calcium Carbonate/Cholecalciferol 2 tab 03/30/19 20:45 03/30/19 21:30 [place] 500+D - PO 2 tab DAILY GAVIN Administration Clopidogrel Bisulfate 75 mg 03/31/19 10:00 Plavix - PO DAILY [facility] Colchicine 0.6 mg 03/31/19 10:00 Colcrys PO DAILY [facility] Heparin Sodium (Porcine) 5,000 unit 03/31/19 06:00 03/31/19 06:36 Heparin - SQ 5,000 unit TID [facility] Administration Ceftriaxone Sodium 1 gm/ 50 mls @ 100 mls/hr 03/30/19 22:30 03/30/19 23:55 Dextrose IVPB 100 mls/hr DAILY [facility] Administration Protocol Insulin Aspart 1 vial 03/30/19 22:00 03/31/19 07:08 Novolog Vial Sliding Scale - SQ Not Given ACHS [facility] Protocol Magnesium Oxide 400 mg 03/30/19 22:00 03/30/19 23:10 Mag-Ox - PO 400 mg BID GAVIN Administration Metoprolol Succinate 100 mg 03/30/19 22:00 03/30/19 23:10 Toprol Xl - PO 100 mg BID [facility] Administration Nystatin 1 applic 03/30/19 20:45 Mycostatin Cream - TP DAILY PRN WOUND CARE Pantoprazole Sodium 40 mg 03/31/19 10:00 Protonix - PO DAILY [facility] Torsemide 20 mg 03/31/19 10:00 Demadex - PO DAILY [facility] Vancomycin HCl 1,000 mg 03/31/19 22:00 Vancomycin (Pre-Docked) IVPB DAILY@2200 [facility] Protocol ASSESSMENT/PLAN: Problem List - Problems (1) Cellulitis Code(s): L03.90 - CELLULITIS, UNSPECIFIED (2) Gout Code(s): M10.9 - GOUT, UNSPECIFIED (3) History of adenomatous polyp of colon Code(s): Z86.010 - PERSONAL HISTORY OF COLONIC POLYPS (4) Inability to ambulate due to left ankle or foot Code(s): R26.2 - DIFFICULTY IN WALKING, NOT ELSEWHERE CLASSIFIED (5) Obesity Code(s): E66.9 - OBESITY, UNSPECIFIED Visit type - Emergency Visit Emergency Visit: Yes ED Registration Date: 03/30/19 Care time: The patient presented to the Emergency Department on the above date and was hospitalized for further evaluation of their emergent condition. - New Patient This patient is new to me today: Yes Date on this admission: 04/06/19 - Critical Care Critical Care patient: No
[2019-03-31] MEDS: CALCITRIOL 0.25 MCG CAPSULE (FP) PO SCH (11:56)
[2019-03-31] MEDS: MAGNESIUM OXIDE 400 MG TABLET (FP) PO SCH ×2 (11:56→21:29)
[2019-03-31] MEDS: PANTOPRAZOLE 40 MG TABLET (FP) PO SCH (11:56)
[2019-03-31] MEDS: COLCHICINE 0.6 MG CAP PO SCH (11:57)
[2019-03-31] MEDS: CALCIUM 500MG/VIT-D 200 UNITS COMBO TABLET (FP) PO SCH (11:57)
[2019-03-31] MEDS: TORSEMIDE 20 MG TABLET (FP) PO SCH (11:57)
[2019-03-31] MEDS: CLOPIDOGREL BISULFATE 75 MG TABLET (FP) PO SCH (11:57)
[2019-03-31] MEDS: ASPIRIN 81 MG CHEWABLE TABLETS PO SCH (11:57)
[2019-03-31] MEDS ORDERED: DEXTROSE 5%-WATER - 50 ML IVPB ONE (12:05)
[2019-03-31] MEDS ORDERED: cefTRIAXone SODIUM 1 GM VIAL ONE (12:05)
[2019-03-31] MEDS ORDERED: PT OWN MED DRAWER 7, Y5N ONE ×4 (12:06→16:09)
[2019-03-31] MEDS: CEFTRIAXONE 1 GM in DEXTROSE 5%-WATER - 50 ML IVPB SCH (12:19)
--- NOTE | 2019-03-31 12:31 | CONSULT ---
Consult - text type - Consultation Consultation Note: Podiatry Consultation: 83 year old diabetic male presents with left foot redness, severe pain, inability to walk. Patient notes that he has had gout flare ups in the past. 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 Denies F/V/N/C/SOB/CP. Afebrile. Notes his blood sugars have been well controlled. Patient also notes pain to multiple joints. PMHx: hypertension, hyperlipidemia, CHF, CAD (s/p 2 stents), PAD, diabetes, chronic kidney disease, COPD, GI bleeds, gout Meds: noted ALL: NKMA TREVA: L foot: pedal pulses palpable 2/4, TG wnl, CFT brisk to toes. There is significant tenderness to palpation of the 1st MTPJ. There is tenderness elicited on range of motion. There is significant tenderness to palpation of the lateral midfoot. There is significant edema. There is no fluctuance, there is no soft tissue crepitus. There is no signs of acute infection. There are no ischemic changes to the foot. ESR: 90 Uric Acid: 9.5% L foot XR: no evidence for pathology Imp: 83 year old diabetic male with acute gout left foot 1. Abx per infectious disease 2. Recommend IV colchicine 0.6 mg until symptoms persist 3. Pain control 4. Will need rheumatological workup, as patient has multiple joint pains for quite some time. 5. If symptoms persist despite use of IV colchcine, may need MRI to evaluate for underlying pathology. 6. Thank you for the courtesy of this consultation. Yan Lu DPM
--- NOTE | 2019-03-31 15:42 | PN ---
Progress Note, Physician History of Present Illness: Pt seen and examined at bedside. He is awake and alert. He still has left leg pain. - Current Medication List Current Medications: Active Medications Acetaminophen (Tylenol -) 650 mg PO Q6H PRN PRN Reason: PAIN OR FEVER Albuterol/Ipratropium (Duoneb -) 1 amp NEB Q4H PRN PRN Reason: SHORTNESS OF BREATH Aspirin (Asa -) 81 mg PO DAILY [facility] Last Admin: 03/31/19 11:57 Dose: 81 mg Atorvastatin Calcium (Lipitor -) 20 mg PO HS [facility] Last Admin: 03/30/19 23:10 Dose: 20 mg Calcitriol (Rocaltrol -) 0.25 mcg PO DAILY [facility] Last Admin: 03/31/19 11:56 Dose: 0.25 mcg Calcium Carbonate/Cholecalciferol (Os-Sawyer 500+D -) 2 tab PO DAILY [facility] Last Admin: 03/31/19 11:57 Dose: 2 tab Clopidogrel Bisulfate (Plavix -) 75 mg PO DAILY [facility] Last Admin: 03/31/19 11:57 Dose: 75 mg Colchicine (Colcrys) 0.6 mg PO DAILY [facility] Last Admin: 03/31/19 11:57 Dose: 0.6 mg Heparin Sodium (Porcine) (Heparin -) 5,000 unit SQ TID [facility] Last Admin: 03/31/19 14:48 Dose: 5,000 unit Ceftriaxone Sodium 1 gm/ (Dextrose) 50 mls @ 100 mls/hr IVPB DAILY [facility]; Protocol Last Admin: 03/31/19 12:19 Dose: 100 mls/hr Insulin Aspart (Novolog Vial Sliding Scale -) 1 vial SQ ACHS [facility]; Protocol Last Admin: 03/31/19 12:59 Dose: Not Given Magnesium Oxide (Mag-Ox -) 400 mg PO BID [facility] Last Admin: 03/31/19 11:56 Dose: 400 mg Metoprolol Succinate (Toprol Xl -) 100 mg PO BID [facility] Last Admin: 03/31/19 12:11 Dose: 100 mg Nystatin (Mycostatin Cream -) 1 applic TP DAILY PRN PRN Reason: WOUND CARE Pantoprazole Sodium (Protonix -) 40 mg PO DAILY [facility] Last Admin: 03/31/19 11:56 Dose: 40 mg Torsemide (Demadex -) 20 mg PO DAILY [facility] Last Admin: 03/31/19 11:57 Dose: 20 mg Vancomycin HCl (Vancomycin (Pre-Docked)) 1,000 mg IVPB DAILY@2200 [facility]; Protocol - Objective Vital Signs: Vital Signs Temperature 98.4 F 03/31/19 11:00 Pulse Rate 87 03/31/19 11:00 Respiratory Rate 20 03/31/19 11:00 Blood Pressure 134/64 03/31/19 11:00 O2 Sat by Pulse Oximetry (%) 98 03/31/19 09:56 Constitutional: Yes: Calm Eyes: Yes: Conjunctiva Clear HENT: Yes: Atraumatic Neck: Yes: Supple Cardiovascular: Yes: S1, S2 Respiratory: Yes: CTA Bilaterally Gastrointestinal: Yes: Soft Genitourinary: Yes: WNL Musculoskeletal: Yes: Other (left knee pain) Edema: LLE: Trace, RLE: Trace Neurological: Yes: Oriented Psychiatric: Yes: Oriented Labs: CBC, BMP 03/31/19 06:00 03/31/19 06:00 Problem List - Problems (1) Cellulitis and abscess of foot Code(s): L03.119 - CELLULITIS OF UNSPECIFIED PART OF LIMB; L02.619 - CUTANEOUS ABSCESS OF UNSPECIFIED FOOT (2) Hypocalcemia Code(s): E83.51 - HYPOCALCEMIA (3) Inability to ambulate due to left ankle or foot Code(s): R26.2 - DIFFICULTY IN WALKING, NOT ELSEWHERE CLASSIFIED (4) CHF (congestive heart failure) Code(s): I50.9 - HEART FAILURE, UNSPECIFIED (5) CKD (chronic kidney disease) Code(s): N18.9 - CHRONIC KIDNEY DISEASE, UNSPECIFIED Assessment/Plan Current Medications Generic Name Dose Route Start Last Admin Trade Name Freq PRN Reason Stop Dose Admin Acetaminophen 650 mg 03/31/19 06:02 Tylenol - PO Q6H PRN PAIN OR FEVER Albuterol/Ipratropium 1 amp 03/30/19 20:08 Duoneb - NEB Q4H PRN SHORTNESS OF BREATH Aspirin 81 mg 03/31/19 10:00 03/31/19 11:57 Asa - PO 81 mg DAILY [facility] Administration Atorvastatin Calcium 20 mg 03/30/19 22:00 03/30/19 23:10 Lipitor - PO 20 mg HS [facility] Administration Calcitriol 0.25 mcg 03/30/19 20:45 03/31/19 11:56 Rocaltrol - PO 0.25 mcg DAILY [facility] Administration Calcium Carbonate/Cholecalciferol 2 tab 03/30/19 20:45 03/31/19 11:57 Os-Sawyer 500+D - PO 2 tab DAILY [facility] Administration Clopidogrel Bisulfate 75 mg 03/31/19 10:00 03/31/19 11:57 Plavix - PO 75 mg DAILY [facility] Administration Colchicine 0.6 mg 03/31/19 10:00 03/31/19 11:57 Colcrys PO 0.6 mg DAILY [facility] Administration Heparin Sodium (Porcine) 5,000 unit 03/31/19 06:00 03/31/19 14:48 Heparin - SQ 5,000 unit TID [facility] Administration Ceftriaxone Sodium 1 gm/ 50 mls @ 100 mls/hr 03/30/19 22:30 03/31/19 12:19 Dextrose IVPB 100 mls/hr DAILY [facility] Administration Protocol Insulin Aspart 1 vial 03/30/19 22:00 03/31/19 12:59 Novolog Vial Sliding Scale - SQ Not Given ACHS [facility] Protocol Magnesium Oxide 400 mg 03/30/19 22:00 03/31/19 11:56 Mag-Ox - PO 400 mg BID [facility] Administration Metoprolol Succinate 100 mg 03/30/19 22:00 03/31/19 12:11 Toprol Xl - PO 100 mg BID [facility] Administration Nystatin 1 applic 03/30/19 20:45 Mycostatin Cream - TP DAILY PRN WOUND CARE Pantoprazole Sodium 40 mg 03/31/19 10:00 03/31/19 11:56 Protonix - PO 40 mg DAILY [facility] Administration Torsemide 20 mg 03/31/19 10:00 03/31/19 11:57 Demadex - PO 20 mg DAILY [facility] Administration Vancomycin HCl 1,000 mg 03/31/19 22:00 Vancomycin (Pre-Docked) IVPB DAILY@2200 [facility] Protocol Impression 1. hypocalcemia 2. hypomagnesemia 3. chf 4. ckd 5. leg pain 6. PAD 7. DM Plan - replace calcium - replace mag - replace potassium - follow up pth level - monitor lytes closely
--- NOTE | 2019-03-31 17:03 | CONS ---
INFECTIOUS DISEASE CONSULTATION DATE OF CONSULTATION: DATE OF DICTATION: 03/31/2019 HISTORY: This is an 83-year-old male who presents to the emergency room with complaints of leg pain. He has a prior history of hypertension, hyperlipidemia, coronary artery disease, and gout. He has chronic kidney disease as well. He complains of pain in his left foot and inability to ambulate. He has chronic pain in his legs and knees. A month ago, he had both his knees injected by Dr. May. He went on Sunday to his pharmaceutical salesperson, and at that point, he had left foot pain. He had his toenails trimmed, and he had an injection injected on the lateral side of his left side. He never had any fevers or chills. He always has a little swelling of both his feet. Over the course of the weekend, the pain worsened, and he is unable to walk. He has never had any fevers or chills. There is no nausea, vomiting, diarrhea, or dysuria. He has chronic swelling, and he is on diuretics. He was given clindamycin in the emergency room and then switched to vancomycin and ceftriaxone. There is no history of any travel. PAST MEDICAL HISTORY: Notable for hypertension, hyperlipidemia, CHF, coronary artery disease status post 2 stents. He has a history of CAD, diabetes, CKD, COPD. He has oxygen at home, which he does not use, a history of GI bleed and gout. SURGICAL HISTORY: Notable for a hernia repair and he has had a GI bleed. SOCIAL HISTORY: He is a former smoker. He lives at home with his . 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 ALLERGIES: He has no known drug allergies. MEDICATIONS: Include Prinivil, Toprol XL, DuoNeb, Lipitor, Dexilant, Advair, furosemide, Spiriva, Plavix, and Feosol. REVIEW OF SYSTEMS: Notable for the leg pain. He notes as well that his big toe on the left foot is swollen. PHYSICAL EXAMINATION: General: He is awake and alert. Vital Signs: Temperature is 98.3, pulse of 95, blood pressure 109/51, respiratory rate 16. HEENT: He is normocephalic. His eyes are anicteric. Neck: Supple. Lungs: Clear to auscultation. Heart: Regular rate and rhythm. Abdomen: Protuberant and soft. I cannot palpate any organomegaly. Extremities: Notable for swelling of his left foot and leg. He has got pain on moving his big toe. He has some mild edema of the foot both laterally and mildly of the big toe. He has swelling extending to his ankle. He has no swelling of either knee. STUDIES IN THE EMERGENCY ROOM: Include a duplex of his left leg that was negative for DVT. It was notable for soft tissue swelling. There was no Winters cyst. He had an x-ray of the foot done as well that showed loss of bone density with degenerative changes. No acute fracture was seen. In summary, this is an 83-year-old man with possible cellulitis of the left foot, probable gout with a history of CKD, hypertension, hyperlipidemia, and coronary artery disease. Labs are notable for a white count of 7.5, hemoglobin 11.8, platelets are 181. His sedimentation rate is 90. BUN 24, creatinine 1.2 with normal LFTs. His CRP is 6.7. Blood cultures have been sent and are pending. I would agree with Podiatry evaluation at this time. Would continue vancomycin and ceftriaxone. He reports as well on the weekend he was started on prednisone for gout. Would give consideration to resuming that as well. Further recommendations to follow. BALJINDER ROSALES M.D. [id number]
[2019-03-31] MEDS: ACETAMINOPHEN 325 MG TABLET (FP) PO PRN (17:15)
[2019-03-31] MEDS: VANCOMYCIN 1 GM in D5W (PRE-DOCKED) 1,000 MG/250 ML IVPB SCH (21:28)
[2019-03-31] MEDS: ATORVASTATIN CA 20 MG TABLET (FP) PO SCH (21:29)
--- NOTE | 2019-03-31 21:30 | CONSULT ---
Consult Consult Specialty:: Rheumatology - History of Present Illness History of Present Illness: 83 year old male with a past medical history of hypertension, hyperlipidemia, CHF, CAD (s/p 2 stents), PAD, diabetes, chronic kidney disease, COPD, GI bleeds , osteoarthritis of both knees and gout, admitted with pain in his feet and inability to walk. HPI. The patient is a poor historian. He has a 4 year history of gouty arthritis apparently involving mainly the 1st MTP in both feet. He has chronic pain in both knees treated with hyaluronate and steroid injections probably related to osteoarthritis and not gout. Three days ago he was seen by his recycling tech apparently with pain in the left foot who injected the lateral aspect of the foot. Since then he continues having pain in both feet. On admission CBC had a WBC of 7.6, Hgb 12.5, HCT 37.6 and platelets 201. ESR 90 and CRP 6.7 (N<0.3). Creatinine 1.4, eGFR 55, glucose 134 and HgbA1C 6.8. LFT were normal and uric acid 9.6. Duplex US was negative for DVT and X rays of the left foot revealed degenerative changes and an erosion in the base of the 5th metatarsal bone (tarsal- 5th metatarsal joint). Based on the differential diagnosis of cellulitis and gout, he was started on Colchicine 0.6 mg/d, Vancomycin and Ceftriaxone. - History Source History Provided By: Patient, Medical Record - Past Medical History Cardio/Vascular: Yes: CAD, HTN, Murmur, Other Pulmonary: Yes: COPD Gastrointestinal: Yes: Constipation, Diverticulosis, Hemorrhoids, Hiatal Hernia , Other Musculoskeletal: Yes: Chronic low back pain - Past Surgical History Past Surgical History: Yes: Colonoscopy, Hernia Repair, Upper Endoscopy - Alcohol/Substance Use Hx Alcohol Use: No History of Substance Use: reports: None - Smoking History Smoking history: Never smoked Have you smoked in the past 12 months: No Aproximately how many cigarettes per day: 0 If you are a former smoker, when did you quit?: 15 years ago - Social History ADL: Independent 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 History of Recent Travel: No Home Medications - Allergies Allergies/Adverse Reactions: Allergies Allergy/AdvReac Type Severity Reaction Status Date / Time No Known Allergies Allergy Verified 09/28/16 02:31 - Home Medications Home Medications: Ambulatory Orders Metoprolol Succinate [Toprol XL -] 100 mg PO BID 03/26/14 Atorvastatin Ca [Lipitor] 20 mg PO HS 09/04/15 Colchicine [Colcrys] 0.6 mg PO DAILY 03/30/19 Glimepiride [Amaryl -] 4 mg PO BID 03/30/19 Indomethacin 25 mg PO TID 03/30/19 Nystatin Cream [Mycostatin Cream -] 1 applic TP PRN PRN 03/30/19 Pantoprazole Sodium [Protonix] 40 mg PO DAILY 03/30/19 Torsemide 2 tab PO HS 03/30/19 metFORMIN HCL [Metformin HCl] 500 mg PO BID 03/30/19 Review of Systems - Review of Systems Constitutional: reports: Malaise Eyes: reports: No Symptoms HENT: reports: No Symptoms Neck: reports: No Symptoms Cardiovascular: reports: No Symptoms Respiratory: reports: SOB Gastrointestinal: reports: No Symptoms Musculoskeletal: reports: Other (See HPI) Physical Exam Vital Signs: Vital Signs Temperature 101.5 F H 03/31/19 18:30 Pulse Rate 88 03/31/19 16:30 Respiratory Rate 20 03/31/19 16:30 Blood Pressure 136/65 03/31/19 16:30 O2 Sat by Pulse Oximetry (%) 97 03/31/19 11:00 Constitutional: Yes: Moderate Distress Eyes: Yes: WNL HENT: Yes: WNL Neck: Yes: WNL Cardiovascular: Yes: WNL Respiratory: Yes: WNL Gastrointestinal: Yes: WNL Musculoskeletal: Yes: Other (Significant tenderness in the mid-tarsla and in the 1st to 5 th metatarsal joints in both feet. There was no obvious joint effusion.) Labs: CBC, BMP 03/31/19 06:00 03/31/19 06:00 Laboratory Tests 03/30/19 03/30/19 03/31/19 15:07 15:07 06:00 ESR 90 H Est GFR (CKD-EPI)NonAf 55.20 Hemoglobin A1c % Uric Acid 9.6 H Calcium 7.0 L Phosphorus 4.5 Magnesium 1.2 L Total Bilirubin 1.0 AST 17 ALT 17 Alkaline Phosphatase 70 C-Reactive Protein 6.7 H Total Protein 6.4 Albumin 3.1 L 03/31/19 06:00 ESR Est GFR (CKD-EPI)NonAf Hemoglobin A1c % 6.8 H Uric Acid Calcium Phosphorus Magnesium Total Bilirubin AST ALT Alkaline Phosphatase C-Reactive Protein Total Protein Albumin Laboratory Tests 03/31/19 06:00 Hemoglobin A1c % 6.8 H Problem List - Problems (1) Gout Assessment/Plan: 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 It is less likely that he has cellulitis. Chronic kidney disease. Plan: Prednisone 40 mg/d for 3 days then tapering schedule. Continue Colchicine 0.6 mg/d. In the next 3 days (as outpatient) start Allopurinol 100 mg/d to be increased until uric acid is <6.0. Code(s): M10.9 - GOUT, UNSPECIFIED
[2019-03-31] MEDS ORDERED: predniSONE 20 MG TABLET (UD) PO SCH (21:45)
[2019-03-31] MEDS ORDERED: INSULIN (NOVOLOG) ASPART 100 UNITS/ML 10ML VIAL ONE (22:54)
[2019-03-31] MEDS: predniSONE 20 MG TABLET (UD) PO SCH (23:19)
[2019-04-01] MEDS: HEPARIN NA (PORCINE) 5,000 UNITS/ML 1ML VIAL SQ SCH ×3 (05:53→21:50)
[2019-04-01] MEDS: INSULIN SLIDING SCALE (NOVOLOG) 1 VIAL SQ SCH ×4 (06:18→21:55)
[2019-04-01 08:07] LABS: PHOSPHOROUS 4.1 mg/dL (2.5-4.9)
--- NOTE | 2019-04-01 09:17 | PN ---
Progress Note, Physician Chief Complaint: c/o swelling of feet and inability to walk History of Present Illness: Polo Mckeon is an 83 year old male with a past medical history of hypertension, hyperlipidemia, CHF, CAD (s/p 2 stents), PAD, diabetes, chronic kidney disease, COPD, GI bleeds, gout who presents with left foot pain and inability to ambulate due to pain. The patient states that he has chronic pain in both of his feet and legs. He states that he previously has had cortisone injections into his feet without any acute issues. Patient stated that he had a cortisone injection on Sunday on the lateral side of his left foot. Starting the next day he began to notice that he was increased redness, swelling, warmth , and had difficulty ambulating on the left foot. The pain did not remit with any medications. He stated that he did not believe this was an acute gout flare- up as he states that he is usually able to ambulate during an acute episode. Stated that he felt that he had chills, had poor appetite, and some nausea in the last several day. Additionally, stated that he has been having some shortness of breath. Denies chest pain, abdominal pain, vomiting, dizziness, lightheadedness, falls, trauma, dysuria, hematuria. Stated that when he does have increased swelling in his legs he often times takes more of his diuretic than prescribed. Reported left lateral foot injection this past sunday. PAST SURGICAL HISTORY: hernia repair stents x2 (recent 2013) colonoscopy endoscopy - Current Medication List Current Medications: Active Medications Acetaminophen (Tylenol -) 650 mg PO Q6H PRN PRN Reason: PAIN OR FEVER Last Admin: 03/31/19 17:15 Dose: 650 mg Albuterol/Ipratropium (Duoneb -) 1 amp NEB Q4H PRN PRN Reason: SHORTNESS OF BREATH Aspirin (Asa -) 81 mg PO DAILY [facility] Last Admin: 03/31/19 11:57 Dose: 81 mg Atorvastatin Calcium (Lipitor -) 20 mg PO HS [facility] Last Admin: 03/31/19 21:29 Dose: 20 mg Calcitriol (Rocaltrol -) 0.25 mcg PO DAILY [facility] Last Admin: 03/31/19 11:56 Dose: 0.25 mcg Calcium Carbonate/Cholecalciferol (Os-Sawyer 500+D -) 2 tab PO DAILY [facility] Last Admin: 03/31/19 11:57 Dose: 2 tab Clopidogrel Bisulfate (Plavix -) 75 mg PO DAILY [facility] Last Admin: 03/31/19 11:57 Dose: 75 mg Colchicine (Colcrys) 0.6 mg PO DAILY [facility] Last Admin: 03/31/19 11:57 Dose: 0.6 mg Heparin Sodium (Porcine) (Heparin -) 5,000 unit SQ TID [facility] Last Admin: 04/01/19 05:53 Dose: 5,000 unit Ceftriaxone Sodium 1 gm/ (Dextrose) 50 mls @ 100 mls/hr IVPB DAILY [facility]; Protocol Last Admin: 03/31/19 12:19 Dose: 100 mls/hr Insulin Aspart (Novolog Vial Sliding Scale -) 1 vial SQ ACHS [facility]; Protocol Last Admin: 04/01/19 06:18 Dose: 2 units Magnesium Oxide (Mag-Ox -) 400 mg PO BID [facility] Last Admin: 03/31/19 21:29 Dose: 400 mg Metoprolol Succinate (Toprol Xl -) 100 mg PO BID [facility] Last Admin: 03/31/19 21:29 Dose: 100 mg Nystatin (Mycostatin Cream -) 1 applic TP DAILY PRN PRN Reason: WOUND CARE Pantoprazole Sodium (Protonix -) 40 mg PO DAILY [facility] Last Admin: 03/31/19 11:56 Dose: 40 mg Prednisone (Deltasone -) 40 mg PO DAILY [facility] Last Admin: 03/31/19 23:19 Dose: 40 mg Torsemide (Demadex -) 20 mg PO DAILY [facility] Last Admin: 03/31/19 11:57 Dose: 20 mg Vancomycin HCl (Vancomycin (Pre-Docked)) 1,000 mg IVPB DAILY@2200 [facility]; Protocol Last Admin: 03/31/19 21:28 Dose: 1,000 mg - Objective Vital Signs: Vital Signs Temperature 99.3 F 04/01/19 06:24 Pulse Rate 80 04/01/19 06:24 Respiratory Rate 20 04/01/19 06:24 Blood Pressure 129/59 L 04/01/19 06:24 O2 Sat by Pulse Oximetry (%) 100 03/31/19 21:00 Constitutional: Yes: Well Nourished, No Distress, Calm HENT: Yes: WNL, Atraumatic, Normocephalic Neck: Yes: WNL, Supple, Trachea Midline Cardiovascular: Yes: WNL, Regular Rate and Rhythm Respiratory: Yes: Wheezes (B/L) Gastrointestinal: Yes: WNL, Normal Bowel Sounds ...Rectal Exam: Yes: Deferred Genitourinary: Yes: WNL Breast(s): Yes: WNL Musculoskeletal: Yes: Muscle Weakness (to LE BL) Extremities: Yes: Delayed Capillary Refill Edema: Yes Edema: LLE: 2+, RLE: 1+ Peripheral Pulses WNL: Yes Integumentary: Yes: WNL Neurological: Yes: WNL, Alert, Oriented ...Motor Strength: LLE, RLE (weak) Psychiatric: Yes: WNL Labs: CBC, BMP 03/31/19 06:00 03/31/19 06:00 - ....Imaging X-ray: Report Reviewed (L foot XR: no evidence for pathology) Problem List - Problems (1) HLD (hyperlipidemia) Assessment/Plan: c/w lipitor low fat/cholesterol diet Code(s): E78.5 - HYPERLIPIDEMIA, UNSPECIFIED (2) Stented coronary artery Assessment/Plan: c/w asa, plavix Code(s): Z95.5 - PRESENCE OF CORONARY ANGIOPLASTY IMPLANT AND GRAFT (3) History of GI bleed Assessment/Plan: c/w PPI Code(s): Z87.19 - PERSONAL HISTORY OF OTHER DISEASES OF THE DIGESTIVE SYSTEM (4) CAD (coronary artery disease) Assessment/Plan: c/w asa Code(s): I25.10 - ATHSCL HEART DISEASE OF [place] CORONARY ARTERY W/O ANG PCTRS Qualifiers: Coronary Disease-Associated Artery/Lesion type: [place] coronary artery Associated angina: without angina pectoris (5) CHF (congestive heart failure) Assessment/Plan: c/w torsemide c/w metoprolol Code(s): I50.9 - HEART FAILURE, UNSPECIFIED (6) CKD (chronic kidney disease) Assessment/Plan: appreciate nephrology consultation monitor electrolytes abnd replete as needed pth level pending avoid nephrotoxic agents Code(s): N18.9 - CHRONIC KIDNEY DISEASE, UNSPECIFIED (7) COPD (chronic obstructive pulmonary disease) Assessment/Plan: c/w duonebs Code(s): J44.9 - CHRONIC OBSTRUCTIVE PULMONARY DISEASE, UNSPECIFIED Qualifiers: COPD type: chronic bronchitis (8) Diabetes Assessment/Plan: BDM AC/HS with novolog sliding scale diabetic diet Code(s): E11.9 - TYPE 2 DIABETES MELLITUS WITHOUT COMPLICATIONS Qualifiers: Diabetes mellitus type: type 2 (9) HTN (hypertension) Assessment/Plan: normotensive c/w metoprolol Code(s): I10 - ESSENTIAL (PRIMARY) HYPERTENSION Qualifiers: Hypertension type: essential hypertension Qualified Code(s): I10 - Essential (primary) hypertension (10) PAD (peripheral artery disease) Assessment/Plan: elevate legs while in bed Code(s): I73.9 - PERIPHERAL VASCULAR DISEASE, UNSPECIFIED (11) Cellulitis Assessment/Plan: appreciate podiatry and ID consultation Left lateral foot cellulitis vs septic arthitis vs tenosynovitis post corticosteroid injection vs gout. Left Hallux MCP joint is inflammed as well which is likely due to his gout. avoids excessive NSIADS due to his underlying CKD. c/w vancomcyin/ceftriaxone Code(s): L03.90 - CELLULITIS, UNSPECIFIED (12) Gout Assessment/Plan: appreciate endocrinology consultation c/w Prednisone 40 mg/d for 3 days then tapering schedule. c/w Colchicine 0.6 mg/d. on 04/03 or as outpatient start Allopurinol 100 mg/d to be increased until uric acid is <6.[address] Ventura Code(s): M10.9 - GOUT, UNSPECIFIED (13) Prophylactic measure Assessment/Plan: FEN diabetic/low sodium diet monitor electrolytes and replete prn DVT heparin sq Dispo maintain as inpatient full code discharge planning Code(s): Z29.9 - ENCOUNTER FOR PROPHYLACTIC MEASURES, UNSPECIFIED Visit type - Emergency Visit Emergency Visit: Yes ED Registration Date: 03/30/19 Care time: The patient presented to the Emergency Department on the above date and was hospitalized for further evaluation of their emergent condition. - New Patient This patient is new to me today: Yes Date on this admission: 04/01/19 - Critical Care Critical Care patient: No - Discharge Referral Referred to [facility] Med [facility] No
[2019-04-01] MEDS ORDERED: cefTRIAXone SODIUM 1 GM VIAL ONE (09:32)
[2019-04-01] MEDS ORDERED: PT OWN MED DRAWER 7, Y5N ONE (09:32)
[2019-04-01] MEDS ORDERED: DEXTROSE 5%-WATER - 50 ML IVPB ONE (09:33)
[2019-04-01] MEDS: predniSONE 20 MG TABLET (UD) PO SCH (10:26)
[2019-04-01] MEDS: CEFTRIAXONE 1 GM in DEXTROSE 5%-WATER - 50 ML IVPB SCH (10:26)
[2019-04-01] MEDS: CLOPIDOGREL BISULFATE 75 MG TABLET (FP) PO SCH (10:26)
[2019-04-01] MEDS: CALCITRIOL 0.25 MCG CAPSULE (FP) PO SCH (10:27)
[2019-04-01] MEDS: COLCHICINE 0.6 MG CAP PO SCH (10:27)
[2019-04-01] MEDS: MAGNESIUM OXIDE 400 MG TABLET (FP) PO SCH ×2 (10:27→21:50)
[2019-04-01] MEDS: TORSEMIDE 20 MG TABLET (FP) PO SCH (10:27)
[2019-04-01] MEDS: CALCIUM 500MG/VIT-D 200 UNITS COMBO TABLET (FP) PO SCH (10:27)
[2019-04-01] MEDS: ASPIRIN 81 MG CHEWABLE TABLETS PO SCH (10:27)
[2019-04-01] MEDS: PANTOPRAZOLE 40 MG TABLET (FP) PO SCH (10:28)
[2019-04-01 12:23] LABS: BASO % 0.4 % (0-2.0); HEMATOCRIT 34.8 % (35.4-49); HEMOGLOBIN 11.6 GM/dL (11.7-16.9); LYMPH % 4.9 % (8-40); MCH 30.5 pg (25.7-33.7); MCHC 33.3 g/dl (32.0-35.9); MEAN CELL VOLUME 91.4 fl (80-96); MEAN PLT VOLUME 9.6 fl (7.5-11.1); MONO % 4.8 % (3.8-10.2); NEUT % 89.9 % (42.8-82.8); PLATELET COUNT 177 K/MM3 (134-434); RBC 3.81 M/mm3 (4.00-5.60); RDW 15.8 % (11.9-15.9); WHITE BLOOD COUNT 8.8 K/mm3 (4.0-10.0)
[2019-04-01 12:34] LABS: ALBUMIN 2.7 g/dl (3.4-5.0); BILIRUBIN,TOTAL 0.8 mg/dL (0.2-1); BLOOD UREA NITROGEN 23.6 mg/dL (7-18); CALCIUM 7.7 mg/dL (8.5-10.1); CREATININE 1.2 mg/dL (0.55-1.3); POTASSIUM 4.3 mmol/L (3.5-5.1); TOT PROT 5.8 g/dl (6.4-8.2)
--- NOTE | 2019-04-01 13:23 | PN ---
Progress Note, Physician History of Present Illness: Pt seen and examined at bedside. He complains of knee pain. - Current Medication List Current Medications: Active Medications Acetaminophen (Tylenol -) 650 mg PO Q6H PRN PRN Reason: PAIN OR FEVER Last Admin: 03/31/19 17:15 Dose: 650 mg Albuterol/Ipratropium (Duoneb -) 1 amp NEB Q4H PRN PRN Reason: SHORTNESS OF BREATH Aspirin (Asa -) 81 mg PO DAILY [facility] Last Admin: 04/01/19 10:27 Dose: 81 mg Atorvastatin Calcium (Lipitor -) 20 mg PO HS [facility] Last Admin: 03/31/19 21:29 Dose: 20 mg Calcitriol (Rocaltrol -) 0.25 mcg PO DAILY [facility] Last Admin: 04/01/19 10:27 Dose: 0.25 mcg Calcium Carbonate/Cholecalciferol (Os-Sawyer 500+D -) 2 tab PO DAILY [facility] Last Admin: 04/01/19 10:27 Dose: 2 tab Clopidogrel Bisulfate (Plavix -) 75 mg PO DAILY [facility] Last Admin: 04/01/19 10:26 Dose: 75 mg Colchicine (Colcrys) 0.6 mg PO DAILY [facility] Last Admin: 04/01/19 10:27 Dose: 0.6 mg Heparin Sodium (Porcine) (Heparin -) 5,000 unit SQ TID [facility] Last Admin: 04/01/19 05:53 Dose: 5,000 unit Ceftriaxone Sodium 1 gm/ (Dextrose) 50 mls @ 100 mls/hr IVPB DAILY [facility]; Protocol Last Admin: 04/01/19 10:26 Dose: 100 mls/hr Insulin Aspart (Novolog Vial Sliding Scale -) 1 vial SQ ACHS [facility]; Protocol Last Admin: 04/01/19 12:48 Dose: 4 units Magnesium Oxide (Mag-Ox -) 400 mg PO BID [facility] Last Admin: 04/01/19 10:27 Dose: 400 mg Metoprolol Succinate (Toprol Xl -) 100 mg PO BID [facility] Last Admin: 04/01/19 10:28 Dose: Not Given Nystatin (Mycostatin Cream -) 1 applic TP DAILY PRN PRN Reason: WOUND CARE Pantoprazole Sodium (Protonix -) 40 mg PO DAILY [facility] Last Admin: 04/01/19 10:28 Dose: 40 mg Prednisone (Deltasone -) 40 mg PO DAILY [facility] Last Admin: 04/01/19 10:26 Dose: 40 mg Torsemide (Demadex -) 20 mg PO DAILY [facility] Last Admin: 04/01/19 10:27 Dose: 20 mg Vancomycin HCl (Vancomycin (Pre-Docked)) 1,000 mg IVPB DAILY@2200 [facility]; Protocol Last Admin: 03/31/19 21:28 Dose: 1,000 mg - Objective Vital Signs: Vital Signs Temperature 97.6 F 04/01/19 10:00 Pulse Rate 82 04/01/19 10:00 Respiratory Rate 18 04/01/19 10:00 Blood Pressure 97/55 L 04/01/19 10:00 O2 Sat by Pulse Oximetry (%) 100 03/31/19 21:00 Constitutional: Yes: Calm Eyes: Yes: Conjunctiva Clear HENT: Yes: Atraumatic Neck: Yes: Supple Cardiovascular: Yes: S1, S2 Respiratory: Yes: CTA Bilaterally Gastrointestinal: Yes: Soft Genitourinary: Yes: WNL Musculoskeletal: Yes: Other (right knee pain) Edema: Yes Integumentary: Yes: WNL Neurological: Yes: Oriented Psychiatric: Yes: Oriented Labs: CBC, BMP 04/01/19 06:50 04/01/19 06:50 Problem List - Problems (1) Cellulitis and abscess of foot Code(s): L03.119 - CELLULITIS OF UNSPECIFIED PART OF LIMB; L02.619 - CUTANEOUS ABSCESS OF UNSPECIFIED FOOT (2) Hypocalcemia Code(s): E83.51 - HYPOCALCEMIA (3) Inability to ambulate due to left ankle or foot Code(s): R26.2 - DIFFICULTY IN WALKING, NOT ELSEWHERE CLASSIFIED (4) CHF (congestive heart failure) Code(s): I50.9 - HEART FAILURE, UNSPECIFIED (5) CKD (chronic kidney disease) Code(s): N18.9 - CHRONIC KIDNEY DISEASE, UNSPECIFIED Assessment/Plan Current Medications Generic Name Dose Route Start Last Admin Trade Name Freq PRN Reason Stop Dose Admin Acetaminophen 650 mg 03/31/19 06:02 03/31/19 17:15 Tylenol - PO 650 mg Q6H PRN Administration PAIN OR FEVER Albuterol/Ipratropium 1 amp 03/30/19 20:08 Duoneb - NEB Q4H PRN SHORTNESS OF BREATH Aspirin 81 mg 03/31/19 10:00 04/01/19 10:27 Asa - PO 81 mg DAILY [facility] Administration Atorvastatin Calcium 20 mg 03/30/19 22:00 03/31/19 21:29 Lipitor - PO 20 mg HS [facility] Administration Calcitriol 0.25 mcg 03/30/19 20:45 04/01/19 10:27 Rocaltrol - PO 0.25 mcg DAILY [facility] Administration Calcium Carbonate/Cholecalciferol 2 tab 03/30/19 20:45 04/01/19 10:27 Os-Sawyer 500+D - PO 2 tab DAILY [facility] Administration Clopidogrel Bisulfate 75 mg 03/31/19 10:00 04/01/19 10:26 Plavix - PO 75 mg DAILY [facility] Administration Colchicine 0.6 mg 03/31/19 10:00 04/01/19 10:27 Colcrys PO 0.6 mg DAILY [facility] Administration Heparin Sodium (Porcine) 5,000 unit 03/31/19 06:00 04/01/19 05:53 Heparin - SQ 5,000 unit TID [facility] Administration Ceftriaxone Sodium 1 gm/ 50 mls @ 100 mls/hr 03/30/19 22:30 04/01/19 10:26 Dextrose IVPB 100 mls/hr DAILY [facility] Administration Protocol Insulin Aspart 1 vial 03/30/19 22:00 04/01/19 12:48 Novolog Vial Sliding Scale - SQ 4 units ACHS [facility] Administration Protocol Magnesium Oxide 400 mg 03/30/19 22:00 04/01/19 10:27 Mag-Ox - PO 400 mg BID [facility] Administration Metoprolol Succinate 100 mg 03/30/19 22:00 04/01/19 10:28 Toprol Xl - PO Not Given BID [facility] Nystatin 1 applic 03/30/19 20:45 Mycostatin Cream - TP DAILY PRN [facility] Pantoprazole Sodium 40 mg 03/31/19 10:00 04/01/19 10:28 Protonix - PO 40 mg DAILY [facility] Administration Prednisone 40 mg 03/31/19 22:00 04/01/19 10:26 Deltasone - PO 40 mg DAILY [facility] Administration Torsemide 20 mg 03/31/19 10:00 04/01/19 10:27 Demadex - PO 20 mg DAILY [facility] Administration Vancomycin HCl 1,000 mg 03/31/19 22:00 03/31/19 21:28 Vancomycin (Pre-Docked) IVPB 1,000 mg DAILY@2200 [facility] Administration Protocol Impression 1. hypocalcemia 2. hypomagnesemia 3. chf 4. ckd 5. leg pain 6. PAD 7. DM Plan - lytes improving - cont diuretics - cont calcium supplements - follow up pth level - monitor lytes closely - rheum input appreciated
--- NOTE | 2019-04-01 15:43 | PN ---
Progress Note (short form) - Note Progress Note: Podiatry F/U: Seen/evaluated at bedside NAD. Pain with marginal improvement to the left foot , denies F/V/N/C/SOB/CP. Afebrile. Notes persistent pain to both knees. TREVA: L foot: pedal pulses palpable, TG wnl, CFT brisk to all toes. There is decreasing tenderness to palpation and range of motion of the 1st MTPJ. There is decreased erythema to the joint space. There is minimal improvement in tenderness to the lateral forefoot. There is no purulence, no fluctuance, no streaking cellulitis, no signs of active infection. Range of motion 1st MTPJ is restricted and guarded. Imp: 83 year old diabetic male with gouty arthropathy left foot 1. Abx per ID 2. Continue colchicine/PDN 3. Rheumatology input appreciated 4. No acute podiatric intervention at this time, can f/u for outpatient management of gout. [phone]. Yan Lu DPM
[2019-04-01] MEDS: ACETAMINOPHEN 325 MG TABLET (FP) PO PRN (17:44)
--- NOTE | 2019-04-01 18:15 | PN ---
Progress Note (short form) - Note Progress Note: he has less foot pain but more right knee pain Vital Signs Period Temp Pulse Resp BP Sys/Benito Pulse Ox Last 24 Hr 97.6 F-101.5 F 77-88 18-20 97-129/51-59 94-100 cor-rrr lungs clear abd soft,nt ext +edema of the left foot, right knee is warm, no effusion less erythema of the left foot CBC, BMP 04/01/19 06:50 04/01/19 06:50 Microbiology 03/30/19 15:00 Blood - Peripheral Venous Blood Culture - Preliminary NO GROWTH OBTAINED AFTER 48 HOURS, INCUBATION TO CONTINUE FOR 3 DAYS. 03/30/19 15:07 Blood - Peripheral Venous Blood Culture - Preliminary NO GROWTH OBTAINED AFTER 48 HOURS, INCUBATION TO CONTINUE FOR 3 DAYS. a/p possible cellulitis of the left foot probable gout-uric acid of 9.6 agree with podiatry evaluation continue vanco/ceftriaxone treat the gout- rheum eval noted-prednisone added history of CAD/CHF Problem List - Problems (1) Cellulitis Code(s): L03.90 - CELLULITIS, UNSPECIFIED (2) Gout Code(s): M10.9 - GOUT, UNSPECIFIED (3) CHF (congestive heart failure) Code(s): I50.9 - HEART FAILURE, UNSPECIFIED (4) CAD (coronary artery disease) Code(s): I25.10 - ATHSCL HEART DISEASE OF [place] CORONARY ARTERY W/O ANG PCTRS Qualifiers: Coronary Disease-Associated Artery/Lesion type: [place] coronary artery Associated angina: without angina pectoris
[2019-04-01] MEDS ORDERED: INSULIN (NOVOLOG) ASPART 100 UNITS/ML 10ML VIAL ONE (18:31)
[2019-04-01] MEDS: ATORVASTATIN CA 20 MG TABLET (FP) PO SCH (21:50)
[2019-04-01] MEDS: VANCOMYCIN 1 GM in D5W (PRE-DOCKED) 1,000 MG/250 ML IVPB SCH (21:55)
[2019-04-02] MEDS: HEPARIN NA (PORCINE) 5,000 UNITS/ML 1ML VIAL SQ SCH ×3 (06:39→21:50)
[2019-04-02] MEDS: INSULIN SLIDING SCALE (NOVOLOG) 1 VIAL SQ SCH ×4 (06:40→21:50)
[2019-04-02 08:12] LABS: ALBUMIN 2.5 g/dl (3.4-5.0); BILIRUBIN,TOTAL 0.4 mg/dL (0.2-1); BLOOD UREA NITROGEN 36.5 mg/dL (7-18); CALCIUM 8.5 mg/dL (8.5-10.1); CREATININE 1.2 mg/dL (0.55-1.3); MAGNESIUM 2.3 mg/dL (1.8-2.4); POTASSIUM 4.4 mmol/L (3.5-5.1); TOT PROT 5.7 g/dl (6.4-8.2)
--- NOTE | 2019-04-02 08:13 | PN ---
Progress Note, Physician Chief Complaint: c/o knee pain History of Present Illness: Polo Mckeon is an 83 year old male with a past medical history of hypertension, hyperlipidemia, CHF, CAD (s/p 2 stents), PAD, diabetes, chronic kidney disease, COPD, GI bleeds, gout who presents with left foot pain and inability to ambulate due to pain. The patient states that he has chronic pain in both of his feet and legs. He states that he previously has had cortisone injections into his feet without any acute issues. Patient stated that he had a cortisone injection on Sunday on the lateral side of his left foot. Starting the next day he began to notice that he was increased redness, swelling, warmth , and had difficulty ambulating on the left foot. The pain did not remit with any medications. He stated that he did not believe this was an acute gout flare- up as he states that he is usually able to ambulate during an acute episode. Stated that he felt that he had chills, had poor appetite, and some nausea in the last several day. Additionally, stated that he has been having some shortness of breath. Denies chest pain, abdominal pain, vomiting, dizziness, lightheadedness, falls, trauma, dysuria, hematuria. Stated that when he does have increased swelling in his legs he often times takes more of his diuretic than prescribed. Reported left lateral foot injection this past sunday. PAST SURGICAL HISTORY: hernia repair stents x2 (recent 2013) colonoscopy endoscopy - Current Medication List Current Medications: Active Medications Acetaminophen (Tylenol -) 650 mg PO Q6H PRN PRN Reason: PAIN OR FEVER Last Admin: 04/01/19 17:44 Dose: 650 mg Albuterol/Ipratropium (Duoneb -) 1 amp NEB Q4H PRN PRN Reason: SHORTNESS OF BREATH Allopurinol (Zyloprim -) 100 mg PO DAILY [facility] Aspirin (Asa -) 81 mg PO DAILY [facility] Last Admin: 04/01/19 10:27 Dose: 81 mg Atorvastatin Calcium (Lipitor -) 20 mg PO HS [facility] Last Admin: 04/01/19 21:50 Dose: 20 mg Calcitriol (Rocaltrol -) 0.25 mcg PO DAILY [facility] Last Admin: 04/01/19 10:27 Dose: 0.25 mcg Calcium Carbonate/Cholecalciferol (Os-Sawyer 500+D -) 2 tab PO DAILY [facility] Last Admin: 04/01/19 10:27 Dose: 2 tab Clopidogrel Bisulfate (Plavix -) 75 mg PO DAILY [facility] Last Admin: 04/01/19 10:26 Dose: 75 mg Colchicine (Colcrys) 0.6 mg PO DAILY [facility] Last Admin: 04/01/19 10:27 Dose: 0.6 mg Heparin Sodium (Porcine) (Heparin -) 5,000 unit SQ TID [facility] Last Admin: 04/02/19 06:39 Dose: 5,000 unit Ceftriaxone Sodium 1 gm/ (Dextrose) 50 mls @ 100 mls/hr IVPB DAILY [facility]; Protocol Last Admin: 04/01/19 10:26 Dose: 100 mls/hr Insulin Aspart (Novolog Vial Sliding Scale -) 1 vial SQ ACHS [facility]; Protocol Last Admin: 04/02/19 06:40 Dose: Not Given Lidocaine (Lidoderm Patch -) 1 patch TP DAILY [facility] Magnesium Oxide (Mag-Ox -) 400 mg PO BID [facility] Last Admin: 04/01/19 21:50 Dose: 400 mg Metoprolol Succinate (Toprol Xl -) 100 mg PO BID [facility] Last Admin: 04/01/19 21:50 Dose: 100 mg Miscellaneous (Lidoderm Patch Removal) 1 each MC DAILY@2200 [facility] Nystatin (Mycostatin Cream -) 1 applic TP DAILY PRN PRN Reason: WOUND CARE Pantoprazole Sodium (Protonix -) 40 mg PO DAILY [facility] Last Admin: 04/01/19 10:28 Dose: 40 mg Prednisone (Deltasone -) 40 mg PO DAILY [facility] Stop: 04/02/19 10:01 Last Admin: 04/01/19 10:26 Dose: 40 mg Prednisone (Deltasone -) 10 mg PO DAILY [facility] Stop: 04/12/19 10:01 Prednisone (Deltasone -) 20 mg PO DAILY [facility] Stop: 04/09/19 10:01 Prednisone (Deltasone -) 30 mg PO DAILY [facility] Stop: 04/06/19 10:01 Prednisone (Deltasone -) 5 mg PO DAILY [facility] Stop: 04/11/19 10:01 Torsemide (Demadex -) 20 mg PO DAILY [facility] Last Admin: 04/01/19 10:27 Dose: 20 mg Vancomycin HCl (Vancomycin (Pre-Docked)) 1,000 mg IVPB DAILY@2200 [facility]; Protocol Last Admin: 04/01/19 21:55 Dose: 1,000 mg - Objective Vital Signs: Vital Signs Temperature 98.2 F 04/02/19 07:47 Pulse Rate 66 04/02/19 07:47 Respiratory Rate 20 04/02/19 07:47 Blood Pressure 94/52 L 04/02/19 07:47 O2 Sat by Pulse Oximetry (%) 98 04/01/19 21:00 Constitutional: Yes: Well Nourished, No Distress, Calm Eyes: Yes: WNL, Conjunctiva Clear HENT: Yes: WNL, Atraumatic, Normocephalic Neck: Yes: WNL, Supple, Trachea Midline Cardiovascular: Yes: WNL, Regular Rate and Rhythm Respiratory: Yes: Regular, Wheezes (scattered) Gastrointestinal: Yes: WNL, Normal Bowel Sounds Genitourinary: Yes: WNL Breast(s): Yes: WNL Musculoskeletal: Yes: Joint Stiffness (knee) Edema: Yes Edema: LLE: 2+, RLE: 2+ Peripheral Pulses WNL: Yes Integumentary: Yes: WNL Neurological: Yes: WNL, Alert, Oriented ...Motor Strength: WNL Psychiatric: Yes: WNL Labs: CBC, BMP 04/02/19 06:35 - ....Imaging Chest X-ray: Image Reviewed (enlarged heart, blunting CVA on right, no acute pathology) Problem List - Problems (1) HLD (hyperlipidemia) Assessment/Plan: c/w lipitor low fat/cholesterol diet Code(s): E78.5 - HYPERLIPIDEMIA, UNSPECIFIED (2) Stented coronary artery Assessment/Plan: c/w asa, plavix Code(s): Z95.5 - PRESENCE OF CORONARY ANGIOPLASTY IMPLANT AND GRAFT (3) History of GI bleed Assessment/Plan: c/w PPI Code(s): Z87.19 - PERSONAL HISTORY OF OTHER DISEASES OF THE DIGESTIVE SYSTEM (4) CAD (coronary artery disease) Assessment/Plan: c/w asa Code(s): I25.10 - ATHSCL HEART DISEASE OF [place] CORONARY ARTERY W/O ANG PCTRS Qualifiers: Coronary Disease-Associated Artery/Lesion type: [place] coronary artery Associated angina: without angina pectoris (5) CHF (congestive heart failure) Assessment/Plan: scattered wheezing most likely fluid related will send BNP CXR with increased interstitial markings increased torsemide to 40ng c/w metoprolol Code(s): I50.9 - HEART FAILURE, UNSPECIFIED (6) CKD (chronic kidney disease) Assessment/Plan: appreciate nephrology consultation monitor electrolytes abnd replete as needed pth still level pending avoid nephrotoxic agents Code(s): N18.9 - CHRONIC KIDNEY DISEASE, UNSPECIFIED (7) COPD (chronic obstructive pulmonary disease) Assessment/Plan: c/w duonebs Code(s): J44.9 - CHRONIC OBSTRUCTIVE PULMONARY DISEASE, UNSPECIFIED Qualifiers: COPD type: chronic bronchitis (8) Diabetes Assessment/Plan: BDM AC/HS with novolog sliding scale diabetic diet Code(s): E11.9 - TYPE 2 DIABETES MELLITUS WITHOUT COMPLICATIONS Qualifiers: Diabetes mellitus type: type 2 (9) HTN (hypertension) Assessment/Plan: normotensive c/w metoprolol Code(s): I10 - ESSENTIAL (PRIMARY) HYPERTENSION Qualifiers: Hypertension type: essential hypertension Qualified Code(s): I10 - Essential (primary) hypertension (10) PAD (peripheral artery disease) Assessment/Plan: elevate legs while in bed Code(s): I73.9 - PERIPHERAL VASCULAR DISEASE, UNSPECIFIED (11) Cellulitis Assessment/Plan: appreciate podiatry and ID consultation Left lateral foot cellulitis vs septic arthitis vs tenosynovitis post corticosteroid injection vs gout. Left Hallux MCP joint is inflammed as well which is likely due to his gout. avoids excessive NSIADS due to his underlying CKD. abx dc'd as per ID, will monitor off Code(s): L03.90 - CELLULITIS, UNSPECIFIED (12) Gout Assessment/Plan: appreciate endocrinology consultation c/w Prednisone 40 mg/d for 3 days then tapering schedule. c/w Colchicine 0.6 mg/d. on 04/03 or as outpatient start Allopurinol 100 mg/d to be increased until uric acid is <6.[address] Ventura Code(s): M10.9 - GOUT, UNSPECIFIED (13) Prophylactic measure Assessment/Plan: FEN diabetic/low sodium diet monitor electrolytes and replete prn DVT heparin sq Dispo maintain as inpatient full code discharge planning Code(s): Z29.9 - ENCOUNTER FOR PROPHYLACTIC MEASURES, UNSPECIFIED Visit type - Emergency Visit Emergency Visit: Yes ED Registration Date: 03/30/19 Care time: The patient presented to the Emergency Department on the above date and was hospitalized for further evaluation of their emergent condition. - New Patient This patient is new to me today: No - Critical Care Critical Care patient: No - Discharge Referral Referred to [facility] No
[2019-04-02 08:16] LABS: BASO % 0.1 % (0-2.0); HEMATOCRIT 32.6 % (35.4-49); HEMOGLOBIN 11.1 GM/dL (11.7-16.9); LYMPH % 6.2 % (8-40); MCH 30.5 pg (25.7-33.7); MCHC 33.9 g/dl (32.0-35.9); MEAN PLT VOLUME 9.7 fl (7.5-11.1); MONO % 8.2 % (3.8-10.2); NEUT % 85.5 % (42.8-82.8); PLATELET COUNT 195 K/MM3 (134-434); RBC 3.62 M/mm3 (4.00-5.60); RDW 15.9 % (11.9-15.9); WHITE BLOOD COUNT 8.7 K/mm3 (4.0-10.0)
[2019-04-02] MEDS ORDERED: cefTRIAXone SODIUM 1 GM VIAL ONE (10:28)
[2019-04-02] MEDS ORDERED: DEXTROSE 5%-WATER - 50 ML IVPB ONE (10:28)
[2019-04-02] MEDS ORDERED: PT OWN MED DRAWER 7, Y5N ONE (10:28)
[2019-04-02] MEDS: LIDOCAINE 5% TOPICAL PATCH TP SCH (10:49)
[2019-04-02] MEDS: PANTOPRAZOLE 40 MG TABLET (FP) PO SCH (10:50)
[2019-04-02] MEDS: CALCIUM 500MG/VIT-D 200 UNITS COMBO TABLET (FP) PO SCH (10:50)
[2019-04-02] MEDS: CEFTRIAXONE 1 GM in DEXTROSE 5%-WATER - 50 ML IVPB SCH (10:50)
[2019-04-02] MEDS: CLOPIDOGREL BISULFATE 75 MG TABLET (FP) PO SCH (10:50)
[2019-04-02] MEDS: ASPIRIN 81 MG CHEWABLE TABLETS PO SCH (10:51)
[2019-04-02] MEDS: ACETAMINOPHEN 325 MG TABLET (FP) PO PRN (10:51)
[2019-04-02] MEDS: COLCHICINE 0.6 MG CAP PO SCH (10:52)
[2019-04-02] MEDS: predniSONE 20 MG TABLET (UD) PO SCH (10:52)
[2019-04-02] MEDS: MAGNESIUM OXIDE 400 MG TABLET (FP) PO SCH ×2 (10:52→23:34)
[2019-04-02] MEDS: CALCITRIOL 0.25 MCG CAPSULE (FP) PO SCH (10:53)
--- NOTE | 2019-04-02 11:23 | PN ---
Progress Note (short form) - Note Progress Note: still with knee pain and swelling walked to the bathroom Vital Signs Period Temp Pulse Resp BP Sys/Benito Pulse Ox Last 24 Hr 97.9 F-98.3 F 66-79 18-20 94-106/51-59 98 cor-rrr lungs decreased bs at bases abd soft,nt ext +swelling right knee less swelling of foot, erythema has resolved CBC, BMP 04/02/19 06:35 04/02/19 06:35 Microbiology 03/30/19 15:00 Blood - Peripheral Venous Blood Culture - Preliminary NO GROWTH OBTAINED AFTER 48 HOURS, INCUBATION TO CONTINUE FOR 3 DAYS. 03/30/19 15:07 Blood - Peripheral Venous Blood Culture - Preliminary NO GROWTH OBTAINED AFTER 48 HOURS, INCUBATION TO CONTINUE FOR 3 DAYS. a/p possible cellulitis of the left foot-erythema resolved probable gout-uric acid of 9.6 will d/c antibioitcs continue gout treatment history of CAD/CHF Problem List - Problems (1) Cellulitis Code(s): L03.90 - CELLULITIS, UNSPECIFIED (2) Gout Code(s): M10.9 - GOUT, UNSPECIFIED (3) CHF (congestive heart failure) Code(s): I50.9 - HEART FAILURE, UNSPECIFIED (4) CAD (coronary artery disease) Code(s): I25.10 - ATHSCL HEART DISEASE OF [place] CORONARY ARTERY W/O ANG PCTRS Qualifiers: Coronary Disease-Associated Artery/Lesion type: [place] coronary artery Associated angina: without angina pectoris
[2019-04-02] MEDS: TORSEMIDE 20 MG TABLET (FP) PO SCH ×2 (11:27)
--- NOTE | 2019-04-02 13:46 | PN ---
Progress Note, Physician History of Present Illness: Pt seen and examined at bedside. He is awake and alert. He denies shortness of breath. - Current Medication List Current Medications: Active Medications Acetaminophen (Tylenol -) 650 mg PO Q6H PRN PRN Reason: PAIN OR FEVER Last Admin: 04/02/19 10:51 Dose: 650 mg Albuterol/Ipratropium (Duoneb -) 1 amp NEB Q4H PRN PRN Reason: SHORTNESS OF BREATH Allopurinol (Zyloprim -) 100 mg PO DAILY [facility] Aspirin (Asa -) 81 mg PO DAILY [facility] Last Admin: 04/02/19 10:51 Dose: 81 mg Atorvastatin Calcium (Lipitor -) 20 mg PO HS [facility] Last Admin: 04/01/19 21:50 Dose: 20 mg Calcitriol (Rocaltrol -) 0.25 mcg PO DAILY [facility] Last Admin: 04/02/19 10:53 Dose: 0.25 mcg Calcium Carbonate/Cholecalciferol (Os-Sawyer 500+D -) 2 tab PO DAILY [facility] Last Admin: 04/02/19 10:50 Dose: 2 tab Clopidogrel Bisulfate (Plavix -) 75 mg PO DAILY [facility] Last Admin: 04/02/19 10:50 Dose: 75 mg Colchicine (Colcrys) 0.6 mg PO DAILY [facility] Last Admin: 04/02/19 10:52 Dose: 0.6 mg Heparin Sodium (Porcine) (Heparin -) 5,000 unit SQ TID [facility] Last Admin: 04/02/19 06:39 Dose: 5,000 unit Insulin Aspart (Novolog Vial Sliding Scale -) 1 vial SQ ACHS [facility]; Protocol Last Admin: 04/02/19 11:26 Dose: 4 units Lidocaine (Lidoderm Patch -) 1 patch TP DAILY [facility] Last Admin: 04/02/19 10:49 Dose: 1 patch Magnesium Oxide (Mag-Ox -) 400 mg PO BID [facility] Last Admin: 04/02/19 10:52 Dose: 400 mg Metoprolol Succinate (Toprol Xl -) 100 mg PO BID [facility] Last Admin: 04/02/19 10:53 Dose: Not Given Miscellaneous (Lidoderm Patch Removal) 1 each MC DAILY@2200 [facility] Nystatin (Mycostatin Cream -) 1 applic TP DAILY PRN PRN Reason: WOUND CARE Pantoprazole Sodium (Protonix -) 40 mg PO DAILY [facility] Last Admin: 04/02/19 10:50 Dose: 40 mg Prednisone (Deltasone -) 10 mg PO DAILY [facility] Stop: 04/12/19 10:01 Prednisone (Deltasone -) 20 mg PO DAILY [facility] Stop: 04/09/19 10:01 Prednisone (Deltasone -) 30 mg PO DAILY [facility] Stop: 04/06/19 10:01 Prednisone (Deltasone -) 5 mg PO DAILY [facility] Stop: 04/11/19 10:01 Torsemide (Demadex -) 40 mg PO DAILY [facility] Last Admin: 04/02/19 11:27 Dose: 40 mg - Objective Vital Signs: Vital Signs Temperature 97.6 F 04/02/19 11:00 Pulse Rate 68 04/02/19 11:00 Respiratory Rate 18 04/02/19 11:00 Blood Pressure 104/52 L 04/02/19 11:00 O2 Sat by Pulse Oximetry (%) 98 04/01/19 21:00 Constitutional: Yes: Calm Eyes: Yes: Conjunctiva Clear HENT: Yes: Atraumatic Neck: Yes: Supple Cardiovascular: Yes: S1, S2 Respiratory: Yes: CTA Bilaterally Gastrointestinal: Yes: Soft Genitourinary: Yes: WNL Musculoskeletal: Yes: Other (right knee pain) Edema: Yes Edema: LLE: Trace, RLE: Trace Neurological: Yes: Oriented Psychiatric: Yes: Oriented Labs: CBC, BMP 04/02/19 06:35 04/02/19 06:35 Problem List - Problems (1) Cellulitis and abscess of foot Code(s): L03.119 - CELLULITIS OF UNSPECIFIED PART OF LIMB; L02.619 - CUTANEOUS ABSCESS OF UNSPECIFIED FOOT (2) Hypocalcemia Code(s): E83.51 - HYPOCALCEMIA (3) Inability to ambulate due to left ankle or foot Code(s): R26.2 - DIFFICULTY IN WALKING, NOT ELSEWHERE CLASSIFIED (4) CHF (congestive heart failure) Code(s): I50.9 - HEART FAILURE, UNSPECIFIED (5) CKD (chronic kidney disease) Code(s): N18.9 - CHRONIC KIDNEY DISEASE, UNSPECIFIED Assessment/Plan Current Medications Generic Name Dose Route Start Last Admin Trade Name Freq PRN Reason Stop Dose Admin Acetaminophen 650 mg 03/31/19 06:02 04/02/19 10:51 Tylenol - PO 650 mg Q6H PRN Administration PAIN OR FEVER Albuterol/Ipratropium 1 amp 03/30/19 20:08 Duoneb - NEB Q4H PRN SHORTNESS OF BREATH Allopurinol 100 mg 04/04/19 10:00 Zyloprim - PO DAILY [facility] Aspirin 81 mg 03/31/19 10:00 04/02/19 10:51 Asa - PO 81 mg DAILY [facility] Administration Atorvastatin Calcium 20 mg 03/30/19 22:00 04/01/19 21:50 Lipitor - PO 20 mg HS [facility] Administration Calcitriol 0.25 mcg 03/30/19 20:45 04/02/19 10:53 Rocaltrol - PO 0.25 mcg DAILY [facility] Administration Calcium Carbonate/Cholecalciferol 2 tab 03/30/19 20:45 04/02/19 10:50 Os-Sawyer 500+D - PO 2 tab DAILY [facility] Administration Clopidogrel Bisulfate 75 mg 03/31/19 10:00 04/02/19 10:50 Plavix - PO 75 mg DAILY [facility] Administration Colchicine 0.6 mg 03/31/19 10:00 04/02/19 10:52 Colcrys PO 0.6 mg DAILY [facility] Administration Heparin Sodium (Porcine) 5,000 unit 03/31/19 06:00 04/02/19 06:39 Heparin - SQ 5,000 unit TID [facility] Administration Insulin Aspart 1 vial 03/30/19 22:00 04/02/19 11:26 Novolog Vial Sliding Scale - SQ 4 units ACHS [facility] Administration Protocol Lidocaine 1 patch 04/02/19 10:00 04/02/19 10:49 Lidoderm Patch - TP 1 patch DAILY [facility] Administration Magnesium Oxide 400 mg 03/30/19 22:00 04/02/19 10:52 Mag-Ox - PO 400 mg BID [facility] Administration Metoprolol Succinate 100 mg 03/30/19 22:00 04/02/19 10:53 Toprol Xl - PO Not Given BID [facility] Miscellaneous 1 each 04/02/19 22:00 Lidoderm Patch Removal [facility] DAILY@2200 [facility] Nystatin 1 applic 03/30/19 20:45 Mycostatin Cream - TP DAILY [facility] Pantoprazole Sodium 40 mg 03/31/19 10:00 04/02/19 10:50 Protonix - PO 40 mg DAILY [facility] Administration Prednisone 10 mg 04/10/19 10:00 Deltasone - PO 04/12/19 10:01 DAILY [facility] Prednisone 20 mg 04/07/19 10:00 Deltasone - PO 04/09/19 10:01 DAILY [facility] Prednisone 30 mg 04/04/19 10:00 Deltasone - PO 04/06/19 10:01 DAILY [facility] Prednisone 5 mg 04/11/19 10:00 Deltasone - PO 04/11/19 10:01 DAILY [facility] Torsemide 40 mg 04/02/19 10:37 04/02/19 11:27 Demadex - PO 40 mg DAILY [facility] Administration Impression 1. hypocalcemia 2. hypomagnesemia 3. chf 4. ckd 5. leg pain 6. PAD 7. DM Plan - calcium is improving - pth is appropriately elevated - can stp calcitriol - monitory leigh
[2019-04-02] MEDS ORDERED: INSULIN (NOVOLOG) ASPART 100 UNITS/ML 10ML VIAL ONE ×2 (18:04→21:29)
[2019-04-02] MEDS: LIDOCAINE PATCH REMOVAL MC SCH (23:34)
[2019-04-02] MEDS: ATORVASTATIN CA 20 MG TABLET (FP) PO SCH (23:35)
[2019-04-03] MEDS: HEPARIN NA (PORCINE) 5,000 UNITS/ML 1ML VIAL SQ SCH ×3 (07:10→21:57)
[2019-04-03] MEDS: INSULIN SLIDING SCALE (NOVOLOG) 1 VIAL SQ SCH ×4 (07:10→21:59)
--- NOTE | 2019-04-03 08:53 | PN ---
Progress Note, Physician Chief Complaint: knee pain is better, swelling in feet remains History of Present Illness: Polo Mckeon is an 83 year old male with a past medical history of hypertension, hyperlipidemia, CHF, CAD (s/p 2 stents), PAD, diabetes, chronic kidney disease, COPD, GI bleeds, gout who presents with left foot pain and inability to ambulate due to pain. The patient states that he has chronic pain in both of his feet and legs. He states that he previously has had cortisone injections into his feet without any acute issues. Patient stated that he had a cortisone injection on Sunday on the lateral side of his left foot. Starting the next day he began to notice that he was increased redness, swelling, warmth , and had difficulty ambulating on the left foot. The pain did not remit with any medications. He stated that he did not believe this was an acute gout flare- up as he states that he is usually able to ambulate during an acute episode. Stated that he felt that he had chills, had poor appetite, and some nausea in the last several day. Additionally, stated that he has been having some shortness of breath. Denies chest pain, abdominal pain, vomiting, dizziness, lightheadedness, falls, trauma, dysuria, hematuria. Stated that when he does have increased swelling in his legs he often times takes more of his diuretic than prescribed. Reported left lateral foot injection this past sunday. PAST SURGICAL HISTORY: hernia repair stents x2 (recent 2013) colonoscopy endoscopy - Current Medication List Current Medications: Active Medications Acetaminophen (Tylenol -) 650 mg PO Q6H PRN PRN Reason: PAIN OR FEVER Last Admin: 04/02/19 10:51 Dose: 650 mg Albuterol/Ipratropium (Duoneb -) 1 amp NEB Q4H PRN PRN Reason: SHORTNESS OF BREATH Allopurinol (Zyloprim -) 100 mg PO DAILY [facility] Aspirin (Asa -) 81 mg PO DAILY [facility] Last Admin: 04/02/19 10:51 Dose: 81 mg Atorvastatin Calcium (Lipitor -) 20 mg PO HS [facility] Last Admin: 04/02/19 23:35 Dose: 20 mg Calcium Carbonate/Cholecalciferol (Os-Sawyer 500+D -) 2 tab PO DAILY [facility] Last Admin: 04/02/19 10:50 Dose: 2 tab Clopidogrel Bisulfate (Plavix -) 75 mg PO DAILY [facility] Last Admin: 04/02/19 10:50 Dose: 75 mg Colchicine (Colcrys) 0.6 mg PO DAILY [facility] Last Admin: 04/02/19 10:52 Dose: 0.6 mg Heparin Sodium (Porcine) (Heparin -) 5,000 unit SQ TID [facility] Last Admin: 04/03/19 07:10 Dose: 5,000 unit Insulin Aspart (Novolog Vial Sliding Scale -) 1 vial SQ ACHS [facility]; Protocol Last Admin: 04/03/19 07:10 Dose: Not Given Lidocaine (Lidoderm Patch -) 1 patch TP DAILY [facility] Last Admin: 04/02/19 10:49 Dose: 1 patch Magnesium Oxide (Mag-Ox -) 400 mg PO BID [facility] Last Admin: 04/02/19 23:34 Dose: 400 mg Metoprolol Succinate (Toprol Xl -) 100 mg PO BID [facility] Last Admin: 04/02/19 23:35 Dose: 100 mg Miscellaneous (Lidoderm Patch Removal) 1 each MC DAILY@2200 [facility] Last Admin: 04/02/19 23:34 Dose: Not Given Nystatin (Mycostatin Cream -) 1 applic TP DAILY PRN PRN Reason: WOUND CARE Pantoprazole Sodium (Protonix -) 40 mg PO DAILY [facility] Last Admin: 04/02/19 10:50 Dose: 40 mg Prednisone (Deltasone -) 10 mg PO DAILY [facility] Stop: 04/12/19 10:01 Prednisone (Deltasone -) 20 mg PO DAILY [facility] Stop: 04/09/19 10:01 Prednisone (Deltasone -) 30 mg PO DAILY [facility] Stop: 04/06/19 10:01 Prednisone (Deltasone -) 5 mg PO DAILY [facility] Stop: 04/11/19 10:01 Torsemide (Demadex -) 40 mg PO DAILY [facility] Last Admin: 04/02/19 11:27 Dose: 40 mg - Objective Vital Signs: Vital Signs Temperature 97.6 F 04/03/19 07:44 Pulse Rate 68 04/03/19 07:44 Respiratory Rate 20 04/03/19 07:44 Blood Pressure 116/88 04/03/19 07:44 O2 Sat by Pulse Oximetry (%) 96 04/02/19 21:00 Additional Findings/Remarks: Constitutional: Yes: Well Nourished, No Distress, Calm Eyes: Yes: WNL, Conjunctiva Clear HENT: Yes: WNL, Atraumatic, Normocephalic Neck: Yes: WNL, Supple, Trachea Midline Cardiovascular: Yes: WNL, Regular Rate and Rhythm Respiratory: Yes: Regular, Wheezes (scattered) Gastrointestinal: Yes: WNL, Normal Bowel Sounds Genitourinary: Yes: WNL Breast(s): Yes: WNL Musculoskeletal: Yes: Joint Stiffness (knee) Edema: Yes Edema: LLE: 2+, RLE: 2+ Peripheral Pulses WNL: Yes Integumentary: Yes: WNL Neurological: Yes: WNL, Alert, Oriented ...Motor Strength: WNL Psychiatric: Yes: WNL - ....Imaging Other: Other (EKG 11/2018 sinus, RBBB, LAFB, unchanged from prior EKG 06/2016 : SR, 94 bpm. LAD. LAFB. RBBB. No ischemic changes. 07/2016 cardiac MRI: moderate basal septal hypertrophy (up to 1.6 cm). nl lv size/fn. (EF 73%). + LVOT flow acceleration and CARLOS. Nl RV. No scar/edema. + CARLOS, mild MR. mild- mod (1.5 cm2 by planimetry). mild lae. mild asc ao dil (3.9 cm). TTE [facility] 10/2016: mild lvh. nl lv/rv. size/fn. grade I diastolic dysfunction. lvot vti/Ao vti 0.3. mod as (sev calc), jossy 1.3 (47/26). no carlos. rvsp 32 echo 2016: HR 69 bpm. Asymmetric septal hypertrophy (predom basal) 1.5 cm. EF 65-70% . Mod-sev LVOT obs at rest (3.7, PG 55/MG 28), unable to assess for CARLOS. Mild RV dil. Nl RV fn. Mild ana. 1+ AR. Very Severe (5.1, PG 104/MG 65), Mod MAC , mimimal functional MS, 1+ MR. Mild-mod TR, mod-sev pHTN. 08/2015 ADRIAN: Nl lv/rv, CARLOS. LVOT obstruction (although envelope suggested predominantly from ) . Moderate (PG 50 mmHg). Minimal MR. Mod-sev atheroma of aorta. mild pHTN 2015 TTE: Hyperdynamic LV. Sigmoid septum with dynamic LVOT obstruction. + CARLOS ( no MR). Pseudonormalizaiton. Nl RV. Mod . RVSP 54. L/RHC 03/22: wedge 18, PA 45/18, RA 10, CI 2.5; patent dRCA stent; 70-80% mRCA--Promus; mild dz LAD and CFX; nl EF MIBI 10/19 (maria eugenia): no STs, no isch; nl EF.eg ebody) Problem List - Problems (1) HLD (hyperlipidemia) Assessment/Plan: c/w lipitor low fat/cholesterol diet Code(s): E78.5 - HYPERLIPIDEMIA, UNSPECIFIED (2) Stented coronary artery Assessment/Plan: c/w asa, plavix Code(s): Z95.5 - PRESENCE OF CORONARY ANGIOPLASTY IMPLANT AND GRAFT (3) History of GI bleed Assessment/Plan: c/w PPI Code(s): Z87.19 - PERSONAL HISTORY OF OTHER DISEASES OF THE DIGESTIVE SYSTEM (4) CAD (coronary artery disease) Assessment/Plan: s/p BMS to dRCA 2006, TONY to mRCA 2013, nonobstructive CAD on cath 10/2016 -cont statin, plavix, bb -c/w asa Code(s): I25.10 - ATHSCL HEART DISEASE OF [place] CORONARY ARTERY W/O ANG PCTRS Qualifiers: Coronary Disease-Associated Artery/Lesion type: [place] coronary artery Associated angina: without angina pectoris (5) CHF (congestive heart failure) Assessment/Plan: scattered wheezing most likely fluid related BNP elevated to 2218 CXR with increased interstitial markings increased torsemide to 40ng, if symptoms persists will increase to BID c/w metoprolol appreciate cardiology consultation with Dr Ortiz Code(s): I50.9 - HEART FAILURE, UNSPECIFIED (6) CKD (chronic kidney disease) Assessment/Plan: appreciate nephrology consultation monitor electrolytes and replete as needed pth 112 avoid nephrotoxic agents Code(s): N18.9 - CHRONIC KIDNEY DISEASE, UNSPECIFIED (7) COPD (chronic obstructive pulmonary disease) Assessment/Plan: c/w duonebs Code(s): J44.9 - CHRONIC OBSTRUCTIVE PULMONARY DISEASE, UNSPECIFIED Qualifiers: COPD type: chronic bronchitis (8) Diabetes Assessment/Plan: BDM AC/HS with novolog sliding scale diabetic diet Code(s): E11.9 - TYPE 2 DIABETES MELLITUS WITHOUT COMPLICATIONS Qualifiers: Diabetes mellitus type: type 2 (9) HTN (hypertension) Assessment/Plan: normotensive c/w metoprolol Code(s): I10 - ESSENTIAL (PRIMARY) HYPERTENSION Qualifiers: Hypertension type: essential hypertension Qualified Code(s): I10 - Essential (primary) hypertension (10) PAD (peripheral artery disease) Assessment/Plan: elevate legs while in bed Code(s): I73.9 - PERIPHERAL VASCULAR DISEASE, UNSPECIFIED (11) Cellulitis Assessment/Plan: appreciate podiatry and ID consultation Left lateral foot cellulitis vs septic arthitis vs tenosynovitis post corticosteroid injection vs gout. Left Hallux MCP joint is inflammed as well which is likely due to his gout. avoids excessive NSIADS due to his underlying CKD. abx dc'd as per ID, will monitor off Code(s): L03.90 - CELLULITIS, UNSPECIFIED (12) Gout Assessment/Plan: appreciate endocrinology consultation c/w Prednisone 40 mg/d for 3 days then tapering schedule. 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 - New Patient This patient is new to me today: No - Critical Care Critical Care patient: No - Discharge Referral Referred to [facility] Med P.C.: No
[2019-04-03 09:07] LABS: ALBUMIN 2.4 g/dl (3.4-5.0); BILIRUBIN,TOTAL 0.2 mg/dL (0.2-1); BLOOD UREA NITROGEN 40.5 mg/dL (7-18); CALCIUM 8.5 mg/dL (8.5-10.1); CREATININE 1.1 mg/dL (0.55-1.3); MAGNESIUM 2.2 mg/dL (1.8-2.4); POTASSIUM 4.2 mmol/L (3.5-5.1); TOT PROT 5.6 g/dl (6.4-8.2)
[2019-04-03 09:09] LABS: BASO % 0.1 % (0-2.0); EOS % 0.3 % (0-4.5); HEMATOCRIT 32.8 % (35.4-49); LYMPH % 10.4 % (8-40); MCH 30.5 pg (25.7-33.7); MCHC 33.6 g/dl (32.0-35.9); MEAN CELL VOLUME 90.8 fl (80-96); MEAN PLT VOLUME 9.6 fl (7.5-11.1); MONO % 8.1 % (3.8-10.2); NEUT % 81.1 % (42.8-82.8); PLATELET COUNT 196 K/MM3 (134-434); RBC 3.61 M/mm3 (4.00-5.60); RDW 15.8 % (11.9-15.9); WHITE BLOOD COUNT 6.6 K/mm3 (4.0-10.0)
[2019-04-03] MEDS: MAGNESIUM OXIDE 400 MG TABLET (FP) PO SCH ×2 (11:40→21:58)
[2019-04-03] MEDS: CLOPIDOGREL BISULFATE 75 MG TABLET (FP) PO SCH (11:40)
[2019-04-03] MEDS: ASPIRIN 81 MG CHEWABLE TABLETS PO SCH (11:41)
[2019-04-03] MEDS: CALCIUM 500MG/VIT-D 200 UNITS COMBO TABLET (FP) PO SCH (11:41)
[2019-04-03] MEDS: TORSEMIDE 20 MG TABLET (FP) PO SCH ×2 (11:41→21:57)
[2019-04-03] MEDS: COLCHICINE 0.6 MG CAP PO SCH (11:42)
[2019-04-03] MEDS: LIDOCAINE 5% TOPICAL PATCH TP SCH (11:42)
[2019-04-03] MEDS: PANTOPRAZOLE 40 MG TABLET (FP) PO SCH (12:22)
[2019-04-03] MEDS ORDERED: DOCUSATE SODIUM 100 MG CAPSULE (FP) PO PRN (14:20)
[2019-04-03] MEDS ORDERED: BISACODYL 5 MG TABLET.DR (FP) PO ONE (14:20)
--- NOTE | 2019-04-03 15:18 | CON.CARD ---
Cardiology Consult (text) - Consultation Consultation Note: Consultation Note: cc: foot pain hpi: 83 m hx cad s/p pci (most recent was leonides to mRCA 03/23/14), htn, dm, hld, chronic venuous insuff with le edema, dCHF, severe , HCM with LVOT obstruction s/p septal ablation, s/p PPM, pad s/p right common iliac stent 2008 , copd p/w L foot pain, inability to ambulate. While here has received injections, steroids, evaluated by podiatry and rheum. In the last couple of days has had L foot swelling after getting injections, but noticed had RLE swelling as well in the last couple of days. Complains of orthopnea and short of breath when moving around, torsemide was increased to 40 mg daily, has been urinating a lot. pmh: per hpi psh: hernia repair ros: per hpi; no nvd, cough, nasal congestion, pruett, vision changes, gib, hematuria, rash, muscle pain social: ex tob fam: non contrib, no premature cad/scd meds: Ambulatory Orders Metoprolol Succinate [Toprol XL -] 100 mg PO BID 03/26/14 Atorvastatin Ca [Lipitor] 20 mg PO HS 09/04/15 Colchicine [Colcrys] 0.6 mg PO DAILY 03/30/19 Glimepiride [Amaryl -] 4 mg PO BID 03/30/19 Indomethacin 25 mg PO TID 03/30/19 Nystatin Cream [Mycostatin Cream -] 1 applic TP PRN PRN 03/30/19 Pantoprazole Sodium [Protonix] 40 mg PO DAILY 03/30/19 Torsemide 2 tab PO HS 03/30/19 metFORMIN HCL [Metformin HCl] 500 mg PO BID 03/30/19 Vital Signs Period Temp Pulse Resp BP Sys/Benito Pulse Ox Last 24 Hr 97.6 F-98.2 F 68-76 20-20 100-116/50-88 96-98 nad, no jvd rrr s1 s2 + murmur scattered mild exp wheeze, nl eff aaox3 trace/1+ le edema b/l, no c/c abd nt nd pos bs pos dp/pt no carotid bruits no diaphoresis/jaundice Laboratory Last Values WBC 6.6 K/mm3 (4.0-10.0) 04/03/19 07:35 RBC 3.61 M/mm3 (4.00-5.60) L 04/03/19 07:35 Hgb 11.0 GM/dL (11.7-16.9) L 04/03/19 07:35 Hct 32.8 % (35.4-49) L 04/03/19 07:35 MCV 90.8 fl (80-96) 04/03/19 07:35 MCH 30.5 pg (25.7-33.7) 04/03/19 07:35 MCHC 33.6 g/dl (32.0-35.9) 04/03/19 07:35 RDW 15.8 % (11.9-15.9) 04/03/19 07:35 Plt Count 196 K/MM3 (134-434) 04/03/19 07:35 MPV 9.6 fl (7.5-11.1) 04/03/19 07:35 Absolute Neuts (auto) 5.4 K/mm3 (1.5-8.0) 04/03/19 07:35 Neutrophils % 81.1 % (42.8-82.8) 04/03/19 07:35 Lymphocytes % 10.4 % (8-40) D 04/03/19 07:35 Monocytes % 8.1 % (3.8-10.2) 04/03/19 07:35 Eosinophils % 0.3 % (0-4.5) D 04/03/19 07:35 Basophils % 0.1 % (0-2.0) 04/03/19 07:35 Nucleated RBC % 0 % (0-0) 04/03/19 07:35 ESR 90 mm/hr (0-20) H 03/30/19 15:07 Sodium 145 mmol/L (136-145) 04/03/19 07:35 Potassium 4.2 mmol/L (3.5-5.1) 04/03/19 07:35 Chloride 101 mmol/L (98-107) 04/03/19 07:35 Carbon Dioxide 39 mmol/L (21-32) H 04/03/19 07:35 Anion Gap 5 MMOL/L (8-16) L 04/03/19 07:35 BUN 40.5 mg/dL (7-18) H 04/03/19 07:35 Creatinine 1.1 mg/dL (0.55-1.3) 04/03/19 07:35 Est GFR (CKD-EPI)AfAm 71.07 04/03/19 07:35 Est GFR (CKD-EPI)NonAf 61.32 04/03/19 07:35 POC Glucometer 144 UNITS (80-120) 04/03/19 07:08 Random Glucose 156 mg/dL (74-106) H 04/03/19 07:35 Hemoglobin A1c % 6.8 % (4.2-6.3) H 03/31/19 06:00 Lactic Acid 0.9 mmol/L (0.4-2.0) 03/31/19 20:15 Uric Acid 9.6 mg/dL (2.6-7.2) H 03/30/19 15:07 Calcium 8.5 mg/dL (8.5-10.1) 04/03/19 07:35 Phosphorus 4.1 mg/dL (2.5-4.9) 04/01/19 06:50 Magnesium 2.2 mg/dL (1.8-2.4) 04/03/19 07:35 Total Bilirubin 0.2 mg/dL (0.2-1) 04/03/19 07:35 AST 18 U/L (15-37) 04/03/19 07:35 ALT 21 U/L (13-61) 04/03/19 07:35 Alkaline Phosphatase 64 U/L (45-117) 04/03/19 07:35 C-Reactive Protein 6.7 MG/DL (0.00-0.3) H 03/30/19 15:07 B-Natriuretic Peptide 2218.2 pg/ml (5-450) H 04/03/19 07:35 Total Protein 5.6 g/dl (6.4-8.2) L 04/03/19 07:35 Albumin 2.4 g/dl (3.4-5.0) L 04/03/19 07:35 Vitamin D 25-Hydroxy 22.6 03/31/19 05:00 PTH Intact 112 pg/mL (15-65) H 03/31/19 08:00 PTH Intact Intraop 0 m (.) 03/31/19 08:00 EKG 11/2018 sinus, RBBB, LAFB, unchanged from prior EKG 06/2016: SR, 94 bpm. LAD. LAFB. RBBB. No ischemic changes. 07/2016 cardiac MRI: moderate basal septal hypertrophy (up to 1.6 cm). nl lv size/fn. (EF 73%). +LVOT flow acceleration and CARLOS. Nl RV. No scar/edema. + CARLOS, mild MR. mild-mod (1.5 cm2 by planimetry). mild lae. mild asc ao dil (3.9 cm). TTE [facility] 10/2016: mild lvh. nl lv/rv. size/fn. grade I diastolic dysfunction. lvot vti/Ao vti 0.3. mod as (sev calc), jossy 1.3 (47/26). no carlos. rvsp 32 echo 07/2016: HR 69 bpm. Asymmetric septal hypertrophy (predom basal) 1.5 cm. EF 65-70%. Mod-sev LVOT obs at rest (3.7, PG 55/MG 28), unable to assess for CARLOS. Mild RV dil. Nl RV fn. Mild ana. 1+ AR. Very Severe (5.1, PG 104/MG 65 ), Mod MAC, mimimal functional MS, 1+ MR. Mild-mod TR, mod-sev pHTN. 08/2015 ADRIAN: Nl lv/rv, CARLOS. LVOT obstruction (although envelope suggested predominantly from ). Moderate (PG 50 mmHg). Minimal MR. Mod-sev atheroma of aorta. mild pHTN 07/2015 TTE: Hyperdynamic LV. Sigmoid septum with dynamic LVOT obstruction. + CARLOS (no MR). Pseudonormalizaiton. Nl RV. Mod . RVSP 54. L/RHC 03/22: wedge 18, PA 45/18, RA 10, CI 2.5; patent dRCA stent; 70-80% mRCA-- Promus; mild dz LAD and CFX; nl EF MIBI 10/19 (maria eugenia): no STs, no isch; nl EF.eg ebody tele: sr, occ pvcs cxr: clear lungs a/p: 80 m hx cad s/p pci (most recent was leonides to mRCA 03/23/14), htn, dm, hld, chronic venuous insuff with le edema, dCHF, severe , HCM with LVOT obstruction , pad s/p right common iliac stent 2008, copd here with cp. chronic diastolic chf, le edema: - torsemide increased to 40 mg daily with increased urine output, feels better - he was prescribed 40 mg daily torsemide at home, unclear if he was taking - if symptoms of orthopnea, edema not improving would increase torsemide to BID HCM with severe LVOT obstruction/CARLOS - s/p septal ablation [facility] 10/2016 s/p PPM - outpatient follow up Aortic stenosis - mod to severe, has refused TAVR evaluation recently cad, remote pci: - s/p BMS to dRCA 2006, LEONIDES to mRCA 2013, nonobstructive CAD on cath 10/2016 -cont statin, plavix, bb - not on ACEI due to prior low BPs -nl lvef on recent outpt echo htn: -cont home meds hld: -cont statin pad, le stent: -stable, cont home cardiac meds
--- NOTE | 2019-04-03 15:41 | ECHO ---
Name: HELEN ROTHMAN Exam:Adult Echocardiogram Study Date: 04/03/2019 12:07 PM Age: 83 yrs Reason For Study: HX OF HEART FAILURE Height: 65 in Weight: 186 lb BSA: 1.9 m2 MMode/2D Measurements & Calculations IVSd: 1.0 cm Ao root diam: 2.6 cm LVIDd: 4.4 cm LA dimension: 3.7 cm LVIDs: 3.3 cm LVPWd: 0.93 cm EDV(Teich): 88.5 ml LVOT diam: 2.0 cm ESV(Teich): 43.2 ml Doppler Measurements & Calculations MV E max reese: 93.3 cm/sec Ao V2 max: 284.5 cm/sec MV A max reese: 71.1 cm/sec Ao max P.4 mmHg MV E/A: 1.3 Ao V2 mean: 204.7 cm/sec MV dec time: 0.21 sec Ao mean P.0 mmHg Ao V2 VTI: 69.8 cm LG(I,D): 0.91 cm2 AI P1/2t: 474.1 msec LG(V,D): 0.97 cm2 AI max reese: 266.5 cm/sec LV V1 max P.0 mmHg AI max P.5 mmHg LV V1 mean P.6 mmHg AI dec slope: 164.6 cm/sec2 LV V1 max: 87.1 cm/sec LV V1 mean: 59.4 cm/sec LV V1 VTI: 20.1 cm SV(LVOT): 63.6 ml TR max reese: 276.9 cm/sec TR max P.8 mmHg Med Peak E' Reese: 6.1 cm/sec Med E/e': 15.4 Lat Peak E' Reese: 6.3 cm/sec Lat E/e': 14.8 Procedure A complete two-dimensional transthoracic echocardiogram was performed (2D, M-mode, Doppler and color flow Doppler). Left Ventricle The left ventricular size, thickness and function are normal. The left ventricular ejection fraction is normal. Ejection Fraction = 60-65%. The left ventricular wall motion is normal. Right Ventricle The right ventricle is normal in size and function. There is a pacemaker lead in the right ventricle. Atria Normal left and right atrial size and function. There is a catheter/pacemaker lead seen in the right atrium. Mitral Valve There is no mitral regurgitation noted. Tricuspid Valve There is mild tricuspid regurgitation. Right ventricular systolic pressure is elevated at 30-40mmHg. Aortic Valve Moderate valvular aortic stenosis. Mild aortic regurgitation. Pulmonic Valve There is no pulmonic valvular regurgitation. Great Vessels The aortic root is normal size. Pericardium/Pleura There is no pericardial effusion. Interpretation Summary The left ventricular size, thickness and function are normal The right ventricle is normal in size and function. There is a pacemaker lead in the right ventricle. There is a catheter/pacemaker lead seen in the right atrium. There is mild tricuspid regurgitation. Right ventricular systolic pressure is elevated at 30-40mmHg. Mild aortic regurgitation. Moderate valvular aortic stenosis. MD Jose Roberto Tong 04/03/2019 03:41 PM
[2019-04-03] MEDS ORDERED: INSULIN (NOVOLOG) ASPART 100 UNITS/ML 10ML VIAL ONE (17:50)
--- NOTE | 2019-04-03 19:15 | PN ---
Progress Note, Physician History of Present Illness: Pt seen and examined at bedside. He is awake and alert. He denies shortness of breath. He feels that knee pain is starting to improve. - Current Medication List Current Medications: Active Medications Acetaminophen (Tylenol -) 650 mg PO Q6H PRN PRN Reason: PAIN OR FEVER Last Admin: 04/02/19 10:51 Dose: 650 mg Albuterol/Ipratropium (Duoneb -) 1 amp NEB Q4H PRN PRN Reason: SHORTNESS OF BREATH Allopurinol (Zyloprim -) 100 mg PO DAILY [facility] Aspirin (Asa -) 81 mg PO DAILY [facility] Last Admin: 04/03/19 11:41 Dose: 81 mg Atorvastatin Calcium (Lipitor -) 20 mg PO HS [facility] Last Admin: 04/02/19 23:35 Dose: 20 mg Calcium Carbonate/Cholecalciferol (Os-Sawyer 500+D -) 2 tab PO DAILY [facility] Last Admin: 04/03/19 11:41 Dose: 2 tab Clopidogrel Bisulfate (Plavix -) 75 mg PO DAILY [facility] Last Admin: 04/03/19 11:40 Dose: 75 mg Docusate Sodium (Colace -) 100 mg PO BID PRN PRN Reason: CONSTIPATION Last Admin: 04/03/19 15:01 Dose: 100 mg Heparin Sodium (Porcine) (Heparin -) 5,000 unit SQ TID [facility] Last Admin: 04/03/19 14:53 Dose: 5,000 unit Insulin Aspart (Novolog Vial Sliding Scale -) 1 vial SQ ACHS [facility]; Protocol Last Admin: 04/03/19 17:32 Dose: 2 units Lidocaine (Lidoderm Patch -) 1 patch TP DAILY [facility] Last Admin: 04/03/19 11:42 Dose: 1 patch Magnesium Oxide (Mag-Ox -) 400 mg PO BID [facility] Last Admin: 04/03/19 11:40 Dose: 400 mg Metoprolol Succinate (Toprol Xl -) 100 mg PO BID [facility] Last Admin: 04/03/19 11:41 Dose: 100 mg Miscellaneous (Lidoderm Patch Removal) 1 each MC DAILY@2200 [facility] Last Admin: 04/02/19 23:34 Dose: Not Given Nystatin (Mycostatin Cream -) 1 applic TP DAILY PRN PRN Reason: WOUND CARE Pantoprazole Sodium (Protonix -) 40 mg PO DAILY [facility] Last Admin: 04/03/19 12:22 Dose: 40 mg Prednisone (Deltasone -) 10 mg PO DAILY [facility] Stop: 04/12/19 10:01 Prednisone (Deltasone -) 20 mg PO DAILY [facility] Stop: 04/09/19 10:01 Prednisone (Deltasone -) 30 mg PO DAILY [facility] Stop: 04/06/19 10:01 Prednisone (Deltasone -) 5 mg PO DAILY [facility] Stop: 04/11/19 10:01 Torsemide (Demadex -) 40 mg PO BID [facility] - Objective Vital Signs: Vital Signs Temperature 98.6 F 04/03/19 17:19 Pulse Rate 76 04/03/19 17:19 Respiratory Rate 20 04/03/19 17:19 Blood Pressure 103/52 L 04/03/19 17: O2 Sat by Pulse Oximetry (%) 98 04/03/19 09:00 Constitutional: Yes: Calm Eyes: Yes: Conjunctiva Clear HENT: Yes: Atraumatic Neck: Yes: Supple Cardiovascular: Yes: S1, S2 Respiratory: Yes: CTA Bilaterally Gastrointestinal: Yes: Soft, Abdomen, Obese Genitourinary: Yes: WNL Musculoskeletal: Yes: Other (right knee pain) Edema: Yes Edema: LLE: 1+, RLE: 1+ Neurological: Yes: Oriented Psychiatric: Yes: Oriented Labs: CBC, BMP 04/03/19 07:35 04/03/19 07:35 Problem List - Problems (1) Cellulitis and abscess of foot Code(s): L03.119 - CELLULITIS OF UNSPECIFIED PART OF LIMB; L02.619 - CUTANEOUS ABSCESS OF UNSPECIFIED FOOT (2) Hypocalcemia Code(s): E83.51 - HYPOCALCEMIA (3) Inability to ambulate due to left ankle or foot Code(s): R26.2 - DIFFICULTY IN WALKING, NOT ELSEWHERE CLASSIFIED (4) CHF (congestive heart failure) Code(s): I50.9 - HEART FAILURE, UNSPECIFIED (5) CKD (chronic kidney disease) Code(s): N18.9 - CHRONIC KIDNEY DISEASE, UNSPECIFIED Assessment/Plan Current Medications Generic Name Dose Route Start Last Admin Trade Name Freq PRN Reason Stop Dose Admin Acetaminophen 650 mg 03/31/19 06:02 04/02/19 10:51 Tylenol - PO 650 mg Q6H PRN Administration PAIN OR FEVER Albuterol/Ipratropium 1 amp 03/30/19 20:08 Duoneb - NEB Q4H PRN SHORTNESS OF BREATH Allopurinol 100 mg 04/04/19 10:00 Zyloprim - PO DAILY [facility] Aspirin 81 mg 03/31/19 10:00 04/03/19 11:41 Asa - PO 81 mg DAILY [facility] Administration Atorvastatin Calcium 20 mg 03/30/19 22:00 04/02/19 23:35 Lipitor - PO 20 mg HS [facility] Administration Calcium Carbonate/Cholecalciferol 2 tab 03/30/19 20:45 04/03/19 11:41 Os-Sawyer 500+D - PO 2 tab DAILY [facility] Administration Clopidogrel Bisulfate 75 mg 03/31/19 10:00 04/03/19 11:40 Plavix - PO 75 mg DAILY [facility] Administration Docusate Sodium 100 mg 04/03/19 14:20 04/03/19 15:01 Colace - PO 100 mg BID PRN Administration CONSTIPATION Heparin Sodium (Porcine) 5,000 unit 03/31/19 06:00 04/03/19 14:53 Heparin - SQ 5,000 unit TID [facility] Administration Insulin Aspart 1 vial 03/30/19 22:00 04/03/19 17:32 Novolog Vial Sliding Scale - SQ 2 units ACHS [facility] Administration Protocol Lidocaine 1 patch 04/02/19 10:00 04/03/19 11:42 Lidoderm Patch - TP 1 patch DAILY [facility] Administration Magnesium Oxide 400 mg 03/30/19 22:00 04/03/19 11:40 Mag-Ox - PO 400 mg BID [facility] Administration Metoprolol Succinate 100 mg 03/30/19 22:00 04/03/19 11:41 Toprol Xl - PO 100 mg BID [facility] Administration Miscellaneous 1 each 04/02/19 22:00 04/02/19 23:34 Lidoderm Patch Removal MC Not Given DAILY@2200 [facility] Nystatin 1 applic 03/30/19 20:45 Mycostatin Cream - TP DAILY PRN WOUND CARE Pantoprazole Sodium 40 mg 03/31/19 10:00 04/03/19 12:22 Protonix - PO 40 mg DAILY [facility] Administration Prednisone 10 mg 04/10/19 10:00 Deltasone - PO 04/12/19 10:01 DAILY [facility] Prednisone 20 mg 04/07/19 10:00 Deltasone - PO 04/09/19 10:01 DAILY [facility] Prednisone 30 mg 04/04/19 10:00 Deltasone - PO 04/06/19 10:01 DAILY [facility] Prednisone 5 mg 04/11/19 10:00 Deltasone - PO 04/11/19 10:01 DAILY [facility] Torsemide 40 mg 04/03/19 22:00 Demadex - PO BID [facility] Impression 1. hypocalcemia 2. hypomagnesemia 3. chf 4. ckd 5. leg pain 6. PAD 7. DM Plan - cont torsemide - discussed with cardio - monitor volume status - monitor leigh
[2019-04-03] MEDS: LIDOCAINE PATCH REMOVAL MC SCH (21:58)
[2019-04-03] MEDS: ATORVASTATIN CA 20 MG TABLET (FP) PO SCH (21:58)
[2019-04-04] MEDS: HEPARIN NA (PORCINE) 5,000 UNITS/ML 1ML VIAL SQ SCH ×3 (06:18→21:29)
[2019-04-04] MEDS: INSULIN SLIDING SCALE (NOVOLOG) 1 VIAL SQ SCH ×4 (06:18→21:50)
--- NOTE | 2019-04-04 08:05 | PN ---
Progress Note, Physician Chief Complaint: continues with c/o swelling in feet History of Present Illness: Polo Mckeon is an 83 year old male with a past medical history of hypertension, hyperlipidemia, CHF, CAD (s/p 2 stents), PAD, diabetes, chronic kidney disease, COPD, GI bleeds, gout who presents with left foot pain and inability to ambulate due to pain. The patient states that he has chronic pain in both of his feet and legs. He states that he previously has had cortisone injections into his feet without any acute issues. Patient stated that he had a cortisone injection on Sunday on the lateral side of his left foot. Starting the next day he began to notice that he was increased redness, swelling, warmth , and had difficulty ambulating on the left foot. The pain did not remit with any medications. He stated that he did not believe this was an acute gout flare- up as he states that he is usually able to ambulate during an acute episode. Stated that he felt that he had chills, had poor appetite, and some nausea in the last several day. Additionally, stated that he has been having some shortness of breath. Denies chest pain, abdominal pain, vomiting, dizziness, lightheadedness, falls, trauma, dysuria, hematuria. Stated that when he does have increased swelling in his legs he often times takes more of his diuretic than prescribed. Reported left lateral foot injection this past sunday. PAST SURGICAL HISTORY: hernia repair stents x2 (recent 2013) colonoscopy endoscopy - Current Medication List Current Medications: Active Medications Acetaminophen (Tylenol -) 650 mg PO Q6H PRN PRN Reason: PAIN OR FEVER Last Admin: 04/02/19 10:51 Dose: 650 mg Albuterol/Ipratropium (Duoneb -) 1 amp NEB Q4H PRN PRN Reason: SHORTNESS OF BREATH Allopurinol (Zyloprim -) 100 mg PO DAILY [facility] Aspirin (Asa -) 81 mg PO DAILY [facility] Last Admin: 04/03/19 11:41 Dose: 81 mg Atorvastatin Calcium (Lipitor -) 20 mg PO HS [facility] Last Admin: 04/03/19 21:58 Dose: 20 mg Calcium Carbonate/Cholecalciferol (Os-Sawyer 500+D -) 2 tab PO DAILY [facility] Last Admin: 04/03/19 11:41 Dose: 2 tab Clopidogrel Bisulfate (Plavix -) 75 mg PO DAILY [facility] Last Admin: 04/03/19 11:40 Dose: 75 mg Docusate Sodium (Colace -) 100 mg PO BID PRN PRN Reason: CONSTIPATION Last Admin: 04/03/19 15:01 Dose: 100 mg Heparin Sodium (Porcine) (Heparin -) 5,000 unit SQ TID [facility] Last Admin: 04/04/19 06:18 Dose: 5,000 unit Insulin Aspart (Novolog Vial Sliding Scale -) 1 vial SQ ACHS [facility]; Protocol Last Admin: 04/04/19 06:18 Dose: Not Given Lidocaine (Lidoderm Patch -) 1 patch TP DAILY [facility] Last Admin: 04/03/19 11:42 Dose: 1 patch Magnesium Oxide (Mag-Ox -) 400 mg PO BID [facility] Last Admin: 04/03/19 21:58 Dose: 400 mg Metoprolol Succinate (Toprol Xl -) 100 mg PO BID [facility] Last Admin: 04/03/19 21:57 Dose: 100 mg Miscellaneous (Lidoderm Patch Removal) 1 each MC DAILY@2200 [facility] Last Admin: 04/03/19 21:58 Dose: Not Given Nystatin (Mycostatin Cream -) 1 applic TP DAILY PRN PRN Reason: WOUND CARE Pantoprazole Sodium (Protonix -) 40 mg PO DAILY [facility] Last Admin: 04/03/19 12:22 Dose: 40 mg Prednisone (Deltasone -) 10 mg PO DAILY [facility] Stop: 04/12/19 10:01 Prednisone (Deltasone -) 20 mg PO DAILY [facility] Stop: 04/09/19 10:01 Prednisone (Deltasone -) 30 mg PO DAILY [facility] Stop: 04/06/19 10:01 Prednisone (Deltasone -) 5 mg PO DAILY [facility] Stop: 04/11/19 10:01 Torsemide (Demadex -) 40 mg PO BID [facility] Last Admin: 04/03/19 21:57 Dose: 40 mg - Objective Vital Signs: Vital Signs Temperature 98.4 F 04/04/19 06:00 Pulse Rate 79 04/04/19 06:00 Respiratory Rate 20 04/04/19 06:00 Blood Pressure 128/60 04/04/19 06:00 O2 Sat by Pulse Oximetry (%) 98 04/03/19 21:00 Additional Findings/Remarks: Constitutional: Yes: Well Nourished, No Distress, Calm Eyes: Yes: WNL, Conjunctiva Clear HENT: Yes: WNL, Atraumatic, Normocephalic Neck: Yes: WNL, Supple, Trachea Midline Cardiovascular: Yes: WNL, Regular Rate and Rhythm Respiratory: Yes: Regular, Wheezes (scattered) Gastrointestinal: Yes: WNL, Normal Bowel Sounds Genitourinary: Yes: WNL Breast(s): Yes: WNL Musculoskeletal: Yes: Joint Stiffness (knee) Edema: Yes Edema: LLE: 2+, RLE: 2+ Peripheral Pulses WNL: Yes Integumentary: Yes: WNL Neurological: Yes: WNL, Alert, Oriented ...Motor Strength: WNL Psychiatric: Yes: WNL - ....Imaging EKG: Report Reviewed (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 LAD. LAFB. RBBB. No ischemic changes.) Other: Report Reviewed ( 07/2016 cardiac MRI: moderate basal septal hypertrophy ( up to 1.6 cm). nl lv size/fn. (EF 73%). +LVOT flow acceleration and CARLOS. Nl RV. No scar/edema. + CARLOS, mild MR. mild-mod (1.5 cm2 by planimetry). mild lae. mild asc ao dil (3.9 cm). [facility] 10/2016: mild lvh. nl lv/rv. size/fn. grade I diastolic dysfunction. lvot vti/Ao vti 0.3. mod as (sev calc), jossy 1.3 (47/26). no carlos. rvsp 32 echo 07/2016: HR 69 bpm. Asymmetric septal hypertrophy (predom basal) 1.5 cm. EF 65-70%. Mod-sev LVOT obs at rest (3.7, PG 55/MG 28), unable to assess for CARLOS. Mild RV dil. Nl RV fn. Mild ana. 1+ AR. Very Severe (5.1, PG 104/MG 65), Mod MAC, mimimal functional MS, 1+ MR. Mild-mod TR, mod-sev pHTN. 08/2015 [facility]: Nl lv/rv, CARLOS. LVOT obstruction (although envelope suggested predominantly from ). Moderate ( PG 50 mmHg). Minimal MR. Mod-sev atheroma of aorta. mild pHTN 07/2015 [facility]: Hyperdynamic LV. Sigmoid septum with dynamic LVOT obstruction. + CARLOS (no MR). Pseudonormalizaiton. Nl RV. Mod . RVSP 54. L/RHC 03/22: wedge 18, PA 45/18 , RA 10, CI 2.5; patent dRCA stent; 70-80% mRCA--Promus; mild dz LAD and CFX; nl EF MIBI 10/19 (maria eugenia): no STs, no isch; nl EF.eg ebody) Problem List - Problems (1) HLD (hyperlipidemia) Assessment/Plan: c/w lipitor low fat/cholesterol diet Code(s): E78.5 - HYPERLIPIDEMIA, UNSPECIFIED (2) Stented coronary artery Assessment/Plan: c/w asa, plavix Code(s): Z95.5 - PRESENCE OF CORONARY ANGIOPLASTY IMPLANT AND GRAFT (3) History of GI bleed Assessment/Plan: c/w PPI Code(s): Z87.19 - PERSONAL HISTORY OF OTHER DISEASES OF THE DIGESTIVE SYSTEM (4) CAD (coronary artery disease) Assessment/Plan: s/p BMS to dRCA 2006, TONY to mRCA 2013, nonobstructive CAD on cath 10/2016 -cont statin, plavix, bb -c/w asa Code(s): I25.10 - ATHSCL HEART DISEASE OF [place] CORONARY ARTERY W/O ANG PCTRS Qualifiers: Coronary Disease-Associated Artery/Lesion type: [place] coronary artery Associated angina: without angina pectoris (5) CHF (congestive heart failure) Assessment/Plan: less wheezing on exam BNP elevated to 2218 CXR with increased interstitial markings increased torsemide to 40mg bid with decrease in weight c/w metoprolol appreciate cardiology consultation with Dr Lyons Code(s): I50.9 - HEART FAILURE, UNSPECIFIED (6) CKD (chronic kidney disease) Assessment/Plan: appreciate nephrology consultation monitor electrolytes and replete as needed pth 112 avoid nephrotoxic agents cr 1.2 Code(s): N18.9 - CHRONIC KIDNEY DISEASE, UNSPECIFIED (7) COPD (chronic obstructive pulmonary disease) Assessment/Plan: c/w duoneelder Code(s): J44.9 - CHRONIC OBSTRUCTIVE PULMONARY DISEASE, UNSPECIFIED Qualifiers: COPD type: chronic bronchitis (8) Diabetes Assessment/Plan: BDM AC/HS with novolog sliding scale diabetic diet Code(s): E11.9 - TYPE 2 DIABETES MELLITUS WITHOUT COMPLICATIONS Qualifiers: Diabetes mellitus type: type 2 (9) HTN (hypertension) Assessment/Plan: normotensive c/w metoprolol Code(s): I10 - ESSENTIAL (PRIMARY) HYPERTENSION Qualifiers: Hypertension type: essential hypertension Qualified Code(s): I10 - Essential (primary) hypertension (10) PAD (peripheral artery disease) Assessment/Plan: elevate legs while in bed Code(s): I73.9 - PERIPHERAL VASCULAR DISEASE, UNSPECIFIED (11) Cellulitis Assessment/Plan: appreciate podiatry and ID consultation Left lateral foot cellulitis vs septic arthitis vs tenosynovitis post corticosteroid injection vs gout. Left Hallux MCP joint is inflammed as well which is likely due to his gout. avoids excessive NSIADS due to his underlying CKD. abx dc'd as per ID, will monitor off Code(s): L03.90 - CELLULITIS, UNSPECIFIED (12) Gout Assessment/Plan: appreciate endocrinology consultation c/w Prednisone 40 mg/d for 3 days then tapering schedule. c/w Colchicine 0.6 mg/d until 04/03 started Allopurinol 100 mg/d Code(s): M10.9 - GOUT, UNSPECIFIED (13) Prophylactic measure Assessment/Plan: FEN diabetic/low sodium diet monitor electrolytes and replete prn DVT heparin sq Dispo maintain as inpatient full code discharge planning Code(s): Z29.9 - ENCOUNTER FOR PROPHYLACTIC MEASURES, UNSPECIFIED Visit type - Emergency Visit Emergency Visit: Yes ED Registration Date: 03/30/19 Care time: The patient presented to the Emergency Department on the above date and was hospitalized for further evaluation of their emergent condition. - New Patient This patient is new to me today: No - Critical Care Critical Care patient: No - Discharge Referral Referred to [facility] No
[2019-04-04 08:19] LABS: BASO % 0.5 % (0-2.0); EOS % 4.6 % (0-4.5); HEMOGLOBIN 12.9 GM/dL (11.7-16.9); LYMPH % 17.9 % (8-40); MCH 30.5 pg (25.7-33.7); MCHC 33.1 g/dl (32.0-35.9); MEAN CELL VOLUME 92.2 fl (80-96); MEAN PLT VOLUME 9.4 fl (7.5-11.1); MONO % 7.4 % (3.8-10.2); NEUT % 69.6 % (42.8-82.8); PLATELET COUNT 274 K/MM3 (134-434); RBC 4.22 M/mm3 (4.00-5.60); RDW 15.8 % (11.9-15.9); WHITE BLOOD COUNT 6.1 K/mm3 (4.0-10.0)
[2019-04-04 08:40] LABS: ALBUMIN 3.1 g/dl (3.4-5.0); BILIRUBIN,TOTAL 0.4 mg/dL (0.2-1); BLOOD UREA NITROGEN 41.2 mg/dL (7-18); CALCIUM 9.2 mg/dL (8.5-10.1); CREATININE 1.2 mg/dL (0.55-1.3); MAGNESIUM 2.2 mg/dL (1.8-2.4); TOT PROT 6.9 g/dl (6.4-8.2)
[2019-04-04] MEDS: TORSEMIDE 20 MG TABLET (FP) PO SCH (09:40)
[2019-04-04] MEDS: MAGNESIUM OXIDE 400 MG TABLET (FP) PO SCH ×2 (09:41→21:29)
[2019-04-04] MEDS: CALCIUM 500MG/VIT-D 200 UNITS COMBO TABLET (FP) PO SCH (09:41)
[2019-04-04] MEDS: LIDOCAINE 5% TOPICAL PATCH TP SCH (09:41)
[2019-04-04] MEDS: ASPIRIN 81 MG CHEWABLE TABLETS PO SCH (09:41)
[2019-04-04] MEDS: PANTOPRAZOLE 40 MG TABLET (FP) PO SCH (09:41)
[2019-04-04] MEDS: ALLOPURINOL 100 MG TABLET (FP) PO SCH (09:41)
[2019-04-04] MEDS: CLOPIDOGREL BISULFATE 75 MG TABLET (FP) PO SCH (09:41)
[2019-04-04] MEDS: predniSONE 10 MG TABLET (UD) PO SCH (09:41)
--- NOTE | 2019-04-04 10:54 | PN ---
Progress Note, Physician Chief Complaint: sitting in chair Denies CP C/o edematous legs History of Present Illness: weight down 187 to 185 - Current Medication List Current Medications: Active Medications Acetaminophen (Tylenol -) 650 mg PO Q6H PRN PRN Reason: PAIN OR FEVER Last Admin: 04/02/19 10:51 Dose: 650 mg Albuterol/Ipratropium (Duoneb -) 1 amp NEB Q4H PRN PRN Reason: SHORTNESS OF BREATH Allopurinol (Zyloprim -) 100 mg PO DAILY [facility] Last Admin: 04/04/19 09:41 Dose: 100 mg Aspirin (Asa -) 81 mg PO DAILY [facility] Last Admin: 04/04/19 09:41 Dose: 81 mg Atorvastatin Calcium (Lipitor -) 20 mg PO HS [facility] Last Admin: 04/03/19 21:58 Dose: 20 mg Calcium Carbonate/Cholecalciferol (Os-Sawyer 500+D -) 2 tab PO DAILY [facility] Last Admin: 04/04/19 09:41 Dose: 2 tab Clopidogrel Bisulfate (Plavix -) 75 mg PO DAILY [facility] Last Admin: 04/04/19 09:41 Dose: 75 mg Docusate Sodium (Colace -) 100 mg PO BID PRN PRN Reason: CONSTIPATION Last Admin: 04/03/19 15:01 Dose: 100 mg Heparin Sodium (Porcine) (Heparin -) 5,000 unit SQ TID [facility] Last Admin: 04/04/19 06:18 Dose: 5,000 unit Insulin Aspart (Novolog Vial Sliding Scale -) 1 vial SQ [facility]; Protocol Last Admin: 04/04/19 06:18 Dose: Not Given Lidocaine (Lidoderm Patch -) 1 patch TP DAILY [facility] Last Admin: 04/04/19 09:41 Dose: 1 patch Magnesium Oxide (Mag-Ox -) 400 mg PO BID [facility] Last Admin: 04/04/19 09:41 Dose: 400 mg Metoprolol Succinate (Toprol Xl -) 100 mg PO BID [facility] Last Admin: 04/04/19 09:40 Dose: 100 mg Miscellaneous (Lidoderm Patch Removal) 1 each MC DAILY@2200 [facility] Last Admin: 04/03/19 21:58 Dose: Not Given Nystatin (Mycostatin Cream -) 1 applic TP DAILY PRN PRN Reason: WOUND CARE Pantoprazole Sodium (Protonix -) 40 mg PO DAILY [facility] Last Admin: 04/04/19 09:41 Dose: 40 mg Prednisone (Deltasone -) 10 mg PO DAILY [facility] Stop: 04/12/19 10:01 Prednisone (Deltasone -) 20 mg PO DAILY [facility] Stop: 04/09/19 10:01 Prednisone (Deltasone -) 30 mg PO DAILY [facility] Stop: 04/06/19 10:01 Last Admin: 04/04/19 09:41 Dose: 30 mg Prednisone (Deltasone -) 5 mg PO DAILY [facility] Stop: 04/11/19 10:01 Torsemide (Demadex -) 40 mg PO BID [facility] Last Admin: 04/04/19 09:40 Dose: 40 mg - Objective Vital Signs: Vital Signs Temperature 98.4 F 04/04/19 06:00 Pulse Rate 79 04/04/19 06:00 Respiratory Rate 20 04/04/19 06:00 Blood Pressure 128/60 04/04/19 06:00 O2 Sat by Pulse Oximetry (%) 98 04/03/19 21:00 Constitutional: Yes: No Distress Eyes: Yes: Conjunctiva Clear Cardiovascular: Yes: Regular Rate and Rhythm, Murmur (2/6 KEN[place] RSB) Respiratory: Yes: Other (mild b/l expiratory wheezing) Gastrointestinal: Yes: Soft, Abdomen, Obese Edema: Yes Edema: LLE: 1+, RLE: 1+ Neurological: Yes: Alert, Oriented Labs: CBC, BMP 04/04/19 07:50 04/04/19 07:50 Assessment/Plan a/p: 80 m hx cad s/p pci (most recent was [facility] to [facility] 03/23/14), htn, dm, hld, chronic venuous insuff with le edema, dCHF, severe , HCM with LVOT obstruction , pad s/p right common iliac stent 2008, copd here with SOB, LE edema and decompensated acute diastolic and valvular CHF chronic diastolic chf, le edema: - torsemide increased to 40 mg BID with increased urine output, feels better, weight down - he was prescribed 40 mg daily torsemide at home, unclear if he was taking HCM with severe LVOT obstruction/LONNY - s/p septal ablation [facility] 10/2016 s/p PPM - outpatient follow up Aortic stenosis - mod to severe, has refused TAVR evaluation recently cad, remote pci: - s/p BMS to dRCA 2006, LEONIDES to mRCA 2013, nonobstructive CAD on cath 10/2016 -cont statin, plavix, bb - not on ACEI due to prior low BPs -nl lvef on recent outpt echo htn: -cont home meds hld: -cont statin pad, le stent: -stable, cont home cardiac meds
--- NOTE | 2019-04-04 18:16 | PN ---
Progress Note, Physician History of Present Illness: Pt seen and examined at bedside. he complains of weakness today. He feels edema is improved. - Current Medication List Current Medications: Active Medications Acetaminophen (Tylenol -) 650 mg PO Q6H PRN PRN Reason: PAIN OR FEVER Last Admin: 04/02/19 10:51 Dose: 650 mg Albuterol/Ipratropium (Duoneb -) 1 amp NEB Q4H PRN PRN Reason: SHORTNESS OF BREATH Allopurinol (Zyloprim -) 100 mg PO DAILY [facility] Last Admin: 04/04/19 09:41 Dose: 100 mg Aspirin (Asa -) 81 mg PO DAILY [facility] Last Admin: 04/04/19 09:41 Dose: 81 mg Atorvastatin Calcium (Lipitor -) 20 mg PO HS [facility] Last Admin: 04/03/19 21:58 Dose: 20 mg Calcium Carbonate/Cholecalciferol (Os-Sawyer 500+D -) 2 tab PO DAILY [facility] Last Admin: 04/04/19 09:41 Dose: 2 tab Clopidogrel Bisulfate (Plavix -) 75 mg PO DAILY [facility] Last Admin: 04/04/19 09:41 Dose: 75 mg Docusate Sodium (Colace -) 100 mg PO BID PRN PRN Reason: CONSTIPATION Last Admin: 04/03/19 15:01 Dose: 100 mg Heparin Sodium (Porcine) (Heparin -) 5,000 unit SQ TID [facility] Last Admin: 04/04/19 14:20 Dose: 5,000 unit Insulin Aspart (Novolog Vial Sliding Scale -) 1 vial SQ ACHS [facility]; Protocol Last Admin: 04/04/19 17:20 Dose: 8 units Lidocaine (Lidoderm Patch -) 1 patch TP DAILY [facility] Last Admin: 04/04/19 09:41 Dose: 1 patch Magnesium Oxide (Mag-Ox -) 400 mg PO BID [facility] Last Admin: 04/04/19 09:41 Dose: 400 mg Metoprolol Succinate (Toprol Xl -) 100 mg PO BID [facility] Last Admin: 04/04/19 09:40 Dose: 100 mg Miscellaneous (Lidoderm Patch Removal) 1 each MC DAILY@2200 [facility] Last Admin: 04/03/19 21:58 Dose: Not Given Nystatin (Mycostatin Cream -) 1 applic TP DAILY PRN PRN Reason: WOUND CARE Pantoprazole Sodium (Protonix -) 40 mg PO DAILY [facility] Last Admin: 04/04/19 09:41 Dose: 40 mg Prednisone (Deltasone -) 10 mg PO DAILY [facility] Stop: 04/12/19 10:01 Prednisone (Deltasone -) 20 mg PO DAILY [facility] Stop: 04/09/19 10:01 Prednisone (Deltasone -) 30 mg PO DAILY [facility] Stop: 04/06/19 10:01 Last Admin: 04/04/19 09:41 Dose: 30 mg Prednisone (Deltasone -) 5 mg PO DAILY [facility] Stop: 04/11/19 10:01 Torsemide (Demadex -) 40 mg PO BID [facility] Last Admin: 04/04/19 09:40 Dose: 40 mg - Objective Vital Signs: Vital Signs Temperature 98 F 04/04/19 18:12 Pulse Rate 74 04/04/19 18:12 Respiratory Rate 18 04/04/19 18:12 Blood Pressure 101/75 04/04/19 18:12 O2 Sat by Pulse Oximetry (%) 97 04/04/19 09:00 Constitutional: Yes: Calm Eyes: Yes: Conjunctiva Clear HENT: Yes: Atraumatic Neck: Yes: Supple Cardiovascular: Yes: S1, S2 Respiratory: Yes: CTA Bilaterally Gastrointestinal: Yes: Soft Genitourinary: Yes: WNL Musculoskeletal: Yes: Other (right knee pain) Edema: Yes Edema: LLE: Trace, RLE: Trace Neurological: Yes: Oriented Psychiatric: Yes: Oriented Labs: CBC, BMP 04/04/19 07:50 04/04/19 07:50 Problem List - Problems (1) Cellulitis and abscess of foot Code(s): L03.119 - CELLULITIS OF UNSPECIFIED PART OF LIMB; L02.619 - CUTANEOUS ABSCESS OF UNSPECIFIED FOOT (2) Hypocalcemia Code(s): E83.51 - HYPOCALCEMIA (3) Inability to ambulate due to left ankle or foot Code(s): R26.2 - DIFFICULTY IN WALKING, NOT ELSEWHERE CLASSIFIED (4) CHF (congestive heart failure) Code(s): I50.9 - HEART FAILURE, UNSPECIFIED (5) CKD (chronic kidney disease) Code(s): N18.9 - CHRONIC KIDNEY DISEASE, UNSPECIFIED Assessment/Plan Current Medications Generic Name Dose Route Start Last Admin Trade Name Freq PRN Reason Stop Dose Admin Acetaminophen 650 mg 03/31/19 06:02 04/02/19 10:51 Tylenol - PO 650 mg Q6H PRN Administration PAIN OR FEVER Albuterol/Ipratropium 1 amp 03/30/19 20:08 Duoneb - NEB Q4H PRN SHORTNESS OF BREATH Allopurinol 100 mg 04/04/19 10:00 04/04/19 09:41 Zyloprim - PO 100 mg DAILY [facility] Administration Aspirin 81 mg 03/31/19 10:00 04/04/19 09:41 Asa - PO 81 mg DAILY [facility] Administration Atorvastatin Calcium 20 mg 03/30/19 22:00 04/03/19 21:58 Lipitor - PO 20 mg HS [facility] Administration Calcium Carbonate/Cholecalciferol 2 tab 03/30/19 20:45 04/04/19 09:41 Os-Sawyer 500+D - PO 2 tab DAILY [facility] Administration Clopidogrel Bisulfate 75 mg 03/31/19 10:00 04/04/19 09:41 Plavix - PO 75 mg DAILY [facility] Administration Docusate Sodium 100 mg 04/03/19 14:20 04/03/19 15:01 Colace - PO 100 mg BID PRN Administration CONSTIPATION Heparin Sodium (Porcine) 5,000 unit 03/31/19 06:00 04/04/19 14:20 Heparin - SQ 5,000 unit TID [facility] Administration Insulin Aspart 1 vial 03/30/19 22:00 04/04/19 17:20 Novolog Vial Sliding Scale - SQ 8 units ACHS [facility] Administration Protocol Lidocaine 1 patch 04/02/19 10:00 04/04/19 09:41 Lidoderm Patch - TP 1 patch DAILY [facility] Administration Magnesium Oxide 400 mg 03/30/19 22:00 04/04/19 09:41 Mag-Ox - PO 400 mg BID [facility] Administration Metoprolol Succinate 100 mg 03/30/19 22:00 04/04/19 09:40 Toprol Xl - PO 100 mg BID [facility] Administration Miscellaneous 1 each 04/02/19 22:00 04/03/19 21:58 Lidoderm Patch Removal MC Not Given DAILY@2200 [facility] Nystatin 1 applic 03/30/19 20:45 Mycostatin Cream - TP DAILY PRN WOUND CARE Pantoprazole Sodium 40 mg 03/31/19 10:00 04/04/19 09:41 Protonix - PO 40 mg DAILY [facility] Administration Prednisone 10 mg 04/10/19 10:00 Deltasone - PO 04/12/19 10:01 DAILY [facility] Prednisone 20 mg 04/07/19 10:00 Deltasone - PO 04/09/19 10:01 DAILY [facility] Prednisone 30 mg 04/04/19 10:00 04/04/19 09:41 Deltasone - PO 04/06/19 10:01 30 mg DAILY [facility] Administration Prednisone 5 mg 04/11/19 10:00 Deltasone - PO 04/11/19 10:01 DAILY [facility] Torsemide 40 mg 04/03/19 22:00 04/04/19 09:40 Demadex - PO 40 mg BID [facility] Administration Impression 1. hypocalcemia 2. hypomagnesemia 3. chf 4. ckd 5. leg pain 6. PAD 7. DM Plan - cont torsemide, change back to daily dose as his bp is low - monitor volume status daily and evaluate for second torsemide dose daily - 2 gram sodium diet - monitor lytes - knee pain is improving - steroids with taper
[2019-04-04] MEDS: ATORVASTATIN CA 20 MG TABLET (FP) PO SCH (21:29)
[2019-04-04] MEDS ORDERED: INSULIN (NOVOLOG) ASPART 100 UNITS/ML 10ML VIAL ONE (21:46)
[2019-04-04] MEDS: LIDOCAINE PATCH REMOVAL MC SCH (22:05)
[2019-04-05] MEDS: HEPARIN NA (PORCINE) 5,000 UNITS/ML 1ML VIAL SQ SCH ×3 (05:59→21:10)
[2019-04-05] MEDS: INSULIN SLIDING SCALE (NOVOLOG) 1 VIAL SQ SCH ×4 (06:41→21:14)
[2019-04-05 07:57] LABS: BASO % 0.3 % (0-2.0); EOS % 2.7 % (0-4.5); HEMATOCRIT 35.1 % (35.4-49); HEMOGLOBIN 11.8 GM/dL (11.7-16.9); LYMPH % 20.5 % (8-40); MCH 30.5 pg (25.7-33.7); MCHC 33.6 g/dl (32.0-35.9); MEAN CELL VOLUME 90.9 fl (80-96); MEAN PLT VOLUME 9.6 fl (7.5-11.1); MONO % 9.5 % (3.8-10.2); PLATELET COUNT 202 K/MM3 (134-434); RBC 3.86 M/mm3 (4.00-5.60); RDW 15.7 % (11.9-15.9); WHITE BLOOD COUNT 5.9 K/mm3 (4.0-10.0)
[2019-04-05 08:10] LABS: ALBUMIN 2.6 g/dl (3.4-5.0); BILIRUBIN,TOTAL 0.4 mg/dL (0.2-1); BLOOD UREA NITROGEN 48.8 mg/dL (7-18); CREATININE 1.2 mg/dL (0.55-1.3); MAGNESIUM 2.2 mg/dL (1.8-2.4); TOT PROT 5.8 g/dl (6.4-8.2)
[2019-04-05] MEDS: ALLOPURINOL 100 MG TABLET (FP) PO SCH (09:27)
[2019-04-05] MEDS: PANTOPRAZOLE 40 MG TABLET (FP) PO SCH (09:27)
[2019-04-05] MEDS: ASPIRIN 81 MG CHEWABLE TABLETS PO SCH (09:27)
[2019-04-05] MEDS: CALCIUM 500MG/VIT-D 200 UNITS COMBO TABLET (FP) PO SCH (09:28)
[2019-04-05] MEDS: MAGNESIUM OXIDE 400 MG TABLET (FP) PO SCH ×2 (09:28→21:11)
[2019-04-05] MEDS: CLOPIDOGREL BISULFATE 75 MG TABLET (FP) PO SCH (09:28)
[2019-04-05] MEDS: predniSONE 10 MG TABLET (UD) PO SCH (09:29)
[2019-04-05] MEDS: TORSEMIDE 20 MG TABLET (FP) PO SCH (09:29)
[2019-04-05] MEDS: LIDOCAINE 5% TOPICAL PATCH TP SCH (09:30)
--- NOTE | 2019-04-05 11:32 | PN ---
Physical Exam: Chief Complaint: continues with c/o swelling in feet History of Present Illness: Polo Mckeon is an 83 year old male with a past medical history of hypertension, hyperlipidemia, CHF, CAD (s/p 2 stents), PAD, diabetes, chronic kidney disease, COPD, GI bleeds, gout who presents with left foot pain and inability to ambulate due to pain. The patient states that he has chronic pain in both of his feet and legs. He states that he previously has had cortisone injections into his feet without any acute issues. Patient stated that he had a cortisone injection on Sunday on the lateral side of his left foot. Starting the next day he began to notice that he was increased redness, swelling, warmth , and had difficulty ambulating on the left foot. The pain did not remit with any medications. He stated that he did not believe this was an acute gout flare- up as he states that he is usually able to ambulate during an acute episode. Stated that he felt that he had chills, had poor appetite, and some nausea in the last several day. Additionally, stated that he has been having some shortness of breath. Denies chest pain, abdominal pain, vomiting, dizziness, lightheadedness, falls, trauma, dysuria, hematuria. Stated that when he does have increased swelling in his legs he often times takes more of his diuretic than prescribed. Reported left lateral foot injection this past sunday. SUBJECTIVE: Patient seen and examined. Complaints of Dypsnea on Exertion. Denies CP, SHOB, n/V/d. OBJECTIVE: Vital Signs Period Temp Pulse Resp BP Sys/Benito Pulse Ox Last 24 Hr 98 F-98.4 F 66-79 16-20 98-113/48-75 96 Constitutional: Yes: Well Nourished, No Distress, Calm Eyes: Yes: WNL, Conjunctiva Clear HENT: Yes: WNL, Atraumatic, Normocephalic Neck: Yes: WNL, Supple, Trachea Midline Cardiovascular: Yes: WNL, Regular Rate and Rhythm Respiratory: Yes: Regular, Wheezes (scattered) Gastrointestinal: Yes: WNL, Normal Bowel Sounds Genitourinary: Yes: WNL Breast(s): Yes: WNL Musculoskeletal: Yes: Joint Stiffness (knee) Edema: Yes Edema: LLE: 2+, RLE: 2+ Peripheral Pulses WNL: Yes Integumentary: Yes: WNL Neurological: Yes: WNL, Alert, Oriented ...Motor Strength: WNL Psychiatric: Yes: WNL Laboratory Results - last 24 hr 04/04/19 04/04/19 04/04/19 11:36 17:18 21:42 WBC RBC Hgb Hct MCV MCH MCHC RDW Plt Count MPV Absolute Neuts (auto) Neutrophils % Lymphocytes % Monocytes % Eosinophils % Basophils % Nucleated RBC % Sodium Potassium Chloride Carbon Dioxide Anion Gap BUN Creatinine Est GFR (CKD-EPI)AfAm Est GFR (CKD-EPI)NonAf POC Glucometer 225 308 267 Random Glucose Calcium Magnesium Total Bilirubin AST ALT Alkaline Phosphatase Total Protein Albumin 04/05/19 04/05/19 04/05/19 05:57 06:44 06:44 WBC 5.9 RBC 3.86 L Hgb 11.8 Hct 35.1 L MCV 90.9 MCH 30.5 MCHC 33.6 RDW 15.7 Plt Count 202 D MPV 9.6 Absolute Neuts (auto) 3.9 Neutrophils % 67.0 Lymphocytes % 20.5 Monocytes % 9.5 Eosinophils % 2.7 Basophils % 0.3 Nucleated RBC % 0 Sodium 143 Potassium 4.0 Chloride 94 L Carbon Dioxide 44 H Anion Gap 5 L BUN 48.8 H Creatinine 1.2 Est GFR (CKD-EPI)AfAm 63.97 Est GFR (CKD-EPI)NonAf 55.20 POC Glucometer 137 Random Glucose 155 H Calcium 9.0 Magnesium 2.2 Total Bilirubin 0.4 AST 25 ALT 27 Alkaline Phosphatase 66 Total Protein 5.8 L Albumin 2.6 L Active Medications Generic Name Dose Route Start Last Admin Trade Name Ranjanq PRN Reason Stop Dose Admin Acetaminophen 650 mg 03/31/19 06:02 04/02/19 10:51 Tylenol - PO 650 mg Q6H PRN Administration PAIN OR FEVER Allopurinol 100 mg 04/04/19 10:00 04/05/19 09:27 Zyloprim - PO 100 mg DAILY [facility] Administration Aspirin 81 mg 03/31/19 10:00 04/05/19 09:27 Asa - PO 81 mg DAILY [facility] Administration Atorvastatin Calcium 20 mg 03/30/19 22:00 04/04/19 21:29 Lipitor - PO 20 mg HS [facility] Administration Calcium Carbonate/Cholecalciferol 2 tab 03/30/19 20:45 04/05/19 09:28 Os-Sawyer 500+D - PO 2 tab DAILY [facility] Administration Clopidogrel Bisulfate 75 mg 03/31/19 10:00 04/05/19 09:28 Plavix - PO 75 mg DAILY [facility] Administration Docusate Sodium 100 mg 04/03/19 14:20 04/03/19 15:01 Colace - PO 100 mg BID PRN Administration CONSTIPATION Heparin Sodium (Porcine) 5,000 unit 03/31/19 06:00 04/05/19 05:59 Heparin - SQ 5,000 unit TID [facility] Administration Insulin Aspart 1 vial 03/30/19 22:00 04/05/19 06:41 Novolog Vial Sliding Scale - SQ Not Given ACHS [facility] Protocol Lidocaine 1 patch 04/02/19 10:00 04/05/19 09:30 Lidoderm Patch - TP 1 patch DAILY [facility] Administration Magnesium Oxide 400 mg 03/30/19 22:00 04/05/19 09:28 Mag-Ox - PO 400 mg BID [facility] Administration Metoprolol Succinate 100 mg 03/30/19 22:00 04/04/19 21:29 Toprol Xl - PO 100 mg BID [facility] Administration Miscellaneous 1 each 04/02/19 22:00 04/04/19 22:05 Lidoderm Patch Removal MC 1 each DAILY@2200 [facility] Administration Nystatin 1 applic 03/30/19 20:45 Mycostatin Cream - TP DAILY [facility] Pantoprazole Sodium 40 mg 03/31/19 10:00 04/05/19 09:27 Protonix - PO 40 mg DAILY [facility] Administration Prednisone 10 mg 04/10/19 10:00 Deltasone - PO 04/12/19 10:01 DAILY [facility] Prednisone 20 mg 04/07/19 10:00 Deltasone - PO 04/09/19 10:01 DAILY [facility] Prednisone 30 mg 04/04/19 10:00 04/05/19 09:29 Deltasone - PO 04/06/19 10:01 30 mg DAILY [facility] Administration Prednisone 5 mg 04/11/19 10:00 Deltasone - PO 04/11/19 10:01 DAILY [facility] Torsemide 40 mg 04/05/19 10:00 04/05/19 09:29 Demadex - PO 40 mg DAILY [facility] Administration Imaging EKG: Report Reviewed (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 LAD. LAFB. RBBB. No ischemic changes.) Other: Report Reviewed ( 07/2016 cardiac MRI: moderate basal septal hypertrophy ( up to 1.6 cm). nl lv size/fn. (EF 73%). +LVOT flow acceleration and CARLOS. Nl RV. No scar/edema. + CARLOS, mild MR. mild-mod (1.5 cm2 by planimetry). mild lae. mild asc ao dil (3.9 cm). TTE [facility] 10/2016: mild lvh. nl lv/rv. size/fn. grade I diastolic dysfunction. lvot vti/Ao vti 0.3. mod as (sev calc), jossy 1.3 (47/). no carlos. rvsp 32 echo 07/2016: HR 69 bpm. Asymmetric septal hypertrophy (predom basal) 1.5 cm. EF 65-70%. Mod-sev LVOT obs at rest (3.7, PG 55/MG 28), unable to assess for CARLOS. Mild RV dil. Nl RV fn. Mild ana. 1+ AR. Very Severe (5.1, PG 104/MG 65), Mod MAC, mimimal functional MS, 1+ MR. Mild-mod TR, mod-sev pHTN. 08/2015 ADRIAN: Nl lv/rv, CARLOS. LVOT obstruction (although envelope suggested predominantly from ). Moderate ( PG 50 mmHg). Minimal MR. Mod-sev atheroma of aorta. mild pHTN 07/2015 TTE: Hyperdynamic LV. Sigmoid septum with dynamic LVOT obstruction. + CARLOS (no MR). Pseudonormalizaiton. Nl RV. Mod . RVSP 54. L/RHC 03/22: wedge 18, PA 45/18 , RA 10, CI 2.5; patent dRCA stent; 70-80% mRCA--Promus; mild dz LAD and CFX; nl EF MIBI 10/19 (maria eugenia): no STs, no isch; nl EF.eg ebody) ASSESSMENT/PLAN: Problem List - Problems (1) HLD (hyperlipidemia) Assessment/Plan: c/w lipitor low fat/cholesterol diet Code(s): E78.5 - HYPERLIPIDEMIA, UNSPECIFIED (2) Stented coronary artery Assessment/Plan: c/w asa, plavix Code(s): Z95.5 - PRESENCE OF CORONARY ANGIOPLASTY IMPLANT AND GRAFT (3) History of GI bleed Assessment/Plan: c/w PPI Code(s): Z87.19 - PERSONAL HISTORY OF OTHER DISEASES OF THE DIGESTIVE SYSTEM (4) CAD (coronary artery disease) Assessment/Plan: s/p BMS to dRCA 2006, TONY to mRCA 2013, nonobstructive CAD on cath 10/2016 -cont statin, plavix, bb -c/w asa Code(s): I25.10 - ATHSCL HEART DISEASE OF [place] CORONARY ARTERY W/O ANG PCTRS Qualifiers: Coronary Disease-Associated Artery/Lesion type: [place] coronary artery Associated angina: without angina pectoris (5) CHF (congestive heart failure) Assessment/Plan: wheezing YOSELIN and LLL on exam BNP elevated to 2218 CXR with increased interstitial markings increased torsemide to 40mg bid with decrease in weight c/w metoprolol appreciate cardiology consultation with Dr Lyons Code(s): I50.9 - HEART FAILURE, UNSPECIFIED (6) CKD (chronic kidney disease) Assessment/Plan: appreciate nephrology consultation monitor electrolytes and replete as needed pth 112 avoid nephrotoxic agents cr 1.2 Code(s): N18.9 - CHRONIC KIDNEY DISEASE, UNSPECIFIED (7) COPD (chronic obstructive pulmonary disease) Assessment/Plan: c/w duonebs Code(s): J44.9 - CHRONIC OBSTRUCTIVE PULMONARY DISEASE, UNSPECIFIED Qualifiers: COPD type: chronic bronchitis (8) Diabetes Assessment/Plan: BDM AC/HS with novolog sliding scale diabetic diet Code(s): E11.9 - TYPE 2 DIABETES MELLITUS WITHOUT COMPLICATIONS Qualifiers: Diabetes mellitus type: type 2 (9) HTN (hypertension) Assessment/Plan: normotensive c/w metoprolol Code(s): I10 - ESSENTIAL (PRIMARY) HYPERTENSION Qualifiers: Hypertension type: essential hypertension Qualified Code(s): I10 - Essential (primary) hypertension (10) PAD (peripheral artery disease) Assessment/Plan: elevate legs while in bed Code(s): I73.9 - PERIPHERAL VASCULAR DISEASE, UNSPECIFIED (11) Cellulitis Assessment/Plan: appreciate podiatry and ID consultation Left lateral foot cellulitis vs septic arthitis vs tenosynovitis post corticosteroid injection vs gout. Left Hallux MCP joint is inflammed as well which is likely due to his gout. avoids excessive NSIADS due to his underlying CKD. abx dc'd as per ID, will monitor off Code(s): L03.90 - CELLULITIS, UNSPECIFIED (12) Gout Assessment/Plan: appreciate endocrinology consultation c/w Prednisone 40 mg/d for 3 days then tapering schedule. c/w Colchicine 0.6 mg/d until 04/03 started Allopurinol 100 mg/d Code(s): M10.9 - GOUT, UNSPECIFIED (13) Prophylactic measure Assessment/Plan: FEN diabetic/low sodium diet monitor electrolytes and replete prn DVT heparin sq Dispo maintain as inpatient full code discharge planning Code(s): Z29.9 - ENCOUNTER FOR PROPHYLACTIC MEASURES, UNSPECIFIED Visit type - Emergency Visit Emergency Visit: Yes ED Registration Date: 03/30/19 Care time: The patient presented to the Emergency Department on the above date and was hospitalized for further evaluation of their emergent condition. - New Patient This patient is new to me today: Yes Date on this admission: 04/05/19 - Critical Care Critical Care patient: No - Discharge Referral Referred to [facility] Med P.C.: No
--- NOTE | 2019-04-05 11:40 | PN ---
Progress Note (short form) - Note Progress Note: s: no cp sob palps dizzy Current Medications Generic Name Dose Route Start Last Admin Trade Name Freq PRN Reason Stop Dose Admin Acetaminophen 650 mg 03/31/19 06:02 04/02/19 10:51 Tylenol - PO 650 mg Q6H PRN Administration PAIN OR FEVER Allopurinol 100 mg 04/04/19 10:00 04/05/19 09:27 Zyloprim - PO 100 mg DAILY [facility] Administration Aspirin 81 mg 03/31/19 10:00 04/05/19 09:27 Asa - PO 81 mg DAILY [facility] Administration Atorvastatin Calcium 20 mg 03/30/19 22:00 04/04/19 21:29 Lipitor - PO 20 mg HS [facility] Administration Calcium Carbonate/Cholecalciferol 2 tab 03/30/19 20:45 04/05/19 09:28 Os-Sawyer 500+D - PO 2 tab DAILY [facility] Administration Clopidogrel Bisulfate 75 mg 03/31/19 10:00 04/05/19 09:28 Plavix - PO 75 mg DAILY [facility] Administration Docusate Sodium 100 mg 04/03/19 14:20 04/03/19 15:01 Colace - PO 100 mg BID PRN Administration CONSTIPATION Heparin Sodium (Porcine) 5,000 unit 03/31/19 06:00 04/05/19 05:59 Heparin - SQ 5,000 unit TID [facility] Administration Insulin Aspart 1 vial 03/30/19 22:00 04/05/19 06:41 Novolog Vial Sliding Scale - SQ Not Given ACHS [facility] Protocol Lidocaine 1 patch 04/02/19 10:00 04/05/19 09:30 Lidoderm Patch - TP 1 patch DAILY [facility] Administration Magnesium Oxide 400 mg 03/30/19 22:00 04/05/19 09:28 Mag-Ox - PO 400 mg BID [facility] Administration Metoprolol Succinate 100 mg 03/30/19 22:00 04/04/19 21:29 Toprol Xl - PO 100 mg BID [facility] Administration Miscellaneous 1 each 04/02/19 22:00 04/04/19 22:05 Lidoderm Patch Removal MC 1 each DAILY@2200 [facility] Administration Nystatin 1 applic 03/30/19 20:45 Mycostatin Cream - TP DAILY PRN WOUND CARE Pantoprazole Sodium 40 mg 03/31/19 10:00 04/05/19 09:27 Protonix - PO 40 mg DAILY [facility] Administration Prednisone 10 mg 04/10/19 10:00 Deltasone - PO 04/12/19 10:01 DAILY [facility] Prednisone 20 mg 04/07/19 10:00 Deltasone - PO 04/09/19 10:01 DAILY [facility] Prednisone 30 mg 04/04/19 10:00 04/05/19 09:29 Deltasone - PO 04/06/19 10:01 30 mg DAILY [facility] Administration Prednisone 5 mg 04/11/19 10:00 Deltasone - PO 04/11/19 10:01 DAILY [facility] Torsemide 40 mg 04/05/19 10:00 04/05/19 09:29 Demadex - PO 40 mg DAILY [facility] Administration Vital Signs Period Temp Pulse Resp BP Sys/Benito Pulse Ox Last 24 Hr 98 F-98.4 F 66-79 16-20 98-113/48-75 96 Constitutional: Yes: No Distress Eyes: Yes: Conjunctiva Clear Cardiovascular: Yes: Regular Rate and Rhythm, Murmur (2/6 KENYON RSB) Respiratory: Yes: Other (mild b/l expiratory wheezing) Gastrointestinal: Yes: Soft, Abdomen, Obese Edema: trace le edema bl Neurological: Yes: Alert, Oriented no jaundice diaphoresis CBC, BMP 04/05/19 06:44 04/05/19 06:44 Assessment/Plan a/p: 80 m hx cad s/p pci (most recent was leonides to mRCA 03/23/14), htn, dm, hld, chronic venuous insuff with le edema, dCHF, severe , HCM with LVOT obstruction , pad s/p right common iliac stent 2008, copd here with SOB, LE edema and decompensated acute diastolic and valvular CHF chronic diastolic chf, le edema: - torsemide increased to 40 mg BID but had hypotension so back on qd now 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
--- NOTE | 2019-04-05 18:58 | PN ---
Progress Note (short form) - Note Progress Note: covering dr courtney isaacs 1. hypocalcemia 2. hypomagnesemia 3. chf 4. ckd 5. leg pain 6. PAD 7. DM Current Medications Acetaminophen (Tylenol -) 650 mg PO Q6H PRN PRN Reason: PAIN OR FEVER Last Admin: 04/02/19 10:51 Dose: 650 mg Allopurinol (Zyloprim -) 100 mg PO DAILY [facility] Last Admin: 04/05/19 09:27 Dose: 100 mg Aspirin (Asa -) 81 mg PO DAILY [facility] Last Admin: 04/05/19 09:27 Dose: 81 mg Atorvastatin Calcium (Lipitor -) 20 mg PO HS [facility] Last Admin: 04/04/19 21:29 Dose: 20 mg Calcium Carbonate/Cholecalciferol (Os-Sawyer 500+D -) 2 tab PO DAILY [facility] Last Admin: 04/05/19 09:28 Dose: 2 tab Clopidogrel Bisulfate (Plavix -) 75 mg PO DAILY [facility] Last Admin: 04/05/19 09:28 Dose: 75 mg Docusate Sodium (Colace -) 100 mg PO BID PRN PRN Reason: CONSTIPATION Last Admin: 04/03/19 15:01 Dose: 100 mg Heparin Sodium (Porcine) (Heparin -) 5,000 unit SQ TID [facility] Last Admin: 04/05/19 14:39 Dose: 5,000 unit Insulin Aspart (Novolog Vial Sliding Scale -) 1 vial SQ ACHS [facility]; Protocol Last Admin: 04/05/19 17:50 Dose: 6 units Lidocaine (Lidoderm Patch -) 1 patch TP DAILY [facility] Last Admin: 04/05/19 09:30 Dose: 1 patch Magnesium Oxide (Mag-Ox -) 400 mg PO BID [facility] Last Admin: 04/05/19 09:28 Dose: 400 mg Metoprolol Succinate (Toprol Xl -) 100 mg PO BID [facility] Last Admin: 04/05/19 11:59 Dose: Not Given Miscellaneous (Lidoderm Patch Removal) 1 each MC DAILY@2200 [facility] Last Admin: 04/04/19 22:05 Dose: 1 each Nystatin (Mycostatin Cream -) 1 applic TP DAILY PRN PRN Reason: WOUND CARE Pantoprazole Sodium (Protonix -) 40 mg PO DAILY [facility] Last Admin: 04/05/19 09:27 Dose: 40 mg Prednisone (Deltasone -) 10 mg PO DAILY [facility] Stop: 10/05/19 10:01 Prednisone (Deltasone -) 20 mg PO DAILY [facility] Stop: 04/09/19 10:01 Prednisone (Deltasone -) 30 mg PO DAILY [facility] Stop: 04/06/19 10:01 Last Admin: 04/05/19 09:29 Dose: 30 mg Prednisone (Deltasone -) 5 mg PO DAILY [facility] Stop: 04/11/19 10:01 Torsemide (Demadex -) 40 mg PO DAILY [facility] Last Admin: 04/05/19 09:29 Dose: 40 mg Last Vital Signs Temp Pulse Resp BP Pulse Ox 98.3 F 63 20 94/67 97 04/05/19 17:18 04/05/19 17:18 04/05/19 17:18 04/05/19 17:18 04/05/19 09:00 CBC, BMP 04/05/19 06:44 04/05/19 06:44 met alkalosis prerenal azotemia
[2019-04-05] MEDS: LIDOCAINE PATCH REMOVAL MC SCH (21:10)
[2019-04-05] MEDS: ATORVASTATIN CA 20 MG TABLET (FP) PO SCH (21:11)
[2019-04-06] MEDS: HEPARIN NA (PORCINE) 5,000 UNITS/ML 1ML VIAL SQ SCH ×3 (05:53→22:30)
[2019-04-06] MEDS: INSULIN SLIDING SCALE (NOVOLOG) 1 VIAL SQ SCH ×4 (06:08→22:32)
[2019-04-06 08:14] LABS: BASO % 0.2 % (0-2.0); EOS % 3.5 % (0-4.5); HEMATOCRIT 35.9 % (35.4-49); HEMOGLOBIN 11.8 GM/dL (11.7-16.9); LYMPH % 22.7 % (8-40); MCH 29.8 pg (25.7-33.7); MCHC 32.9 g/dl (32.0-35.9); MEAN CELL VOLUME 90.6 fl (80-96); MEAN PLT VOLUME 9.8 fl (7.5-11.1); MONO % 6.3 % (3.8-10.2); NEUT % 67.3 % (42.8-82.8); PLATELET COUNT 192 K/MM3 (134-434); RBC 3.96 M/mm3 (4.00-5.60); RDW 15.8 % (11.9-15.9)
--- NOTE | 2019-04-06 08:20 | PN ---
Progress Note, Physician Chief Complaint: continues with c/o swelling in feet and weakness, requesting to go to "rehab" upon discharge History of Present Illness: Polo Mckeon is an 83 year old male with a past medical history of hypertension, hyperlipidemia, CHF, CAD (s/p 2 stents), PAD, diabetes, chronic kidney disease, COPD, GI bleeds, gout who presents with left foot pain and inability to ambulate due to pain. The patient states that he has chronic pain in both of his feet and legs. He states that he previously has had cortisone injections into his feet without any acute issues. Patient stated that he had a cortisone injection on Sunday on the lateral side of his left foot. Starting the next day he began to notice that he was increased redness, swelling, warmth , and had difficulty ambulating on the left foot. The pain did not remit with any medications. He stated that he did not believe this was an acute gout flare- up as he states that he is usually able to ambulate during an acute episode. Stated that he felt that he had chills, had poor appetite, and some nausea in the last several day. Additionally, stated that he has been having some shortness of breath. Denies chest pain, abdominal pain, vomiting, dizziness, lightheadedness, falls, trauma, dysuria, hematuria. Stated that when he does have increased swelling in his legs he often times takes more of his diuretic than prescribed. Reported left lateral foot injection this past sunday. PAST SURGICAL HISTORY: hernia repair stents x2 (recent 2013) colonoscopy endoscopy - Current Medication List Current Medications: Active Medications Acetaminophen (Tylenol -) 650 mg PO Q6H PRN PRN Reason: PAIN OR FEVER Last Admin: 04/02/19 10:51 Dose: 650 mg Allopurinol (Zyloprim -) 100 mg PO DAILY [facility] Last Admin: 04/05/19 09:27 Dose: 100 mg Aspirin (Asa -) 81 mg PO DAILY [facility] Last Admin: 04/05/19 09:27 Dose: 81 mg Atorvastatin Calcium (Lipitor -) 20 mg PO HS [facility] Last Admin: 04/05/19 21:11 Dose: 20 mg Calcium Carbonate/Cholecalciferol (Os-Sawyer 500+D -) 2 tab PO DAILY [facility] Last Admin: 04/05/19 09:28 Dose: 2 tab Clopidogrel Bisulfate (Plavix -) 75 mg PO DAILY [facility] Last Admin: 04/05/19 09:28 Dose: 75 mg Docusate Sodium (Colace -) 100 mg PO BID PRN PRN Reason: CONSTIPATION Last Admin: 04/03/19 15:01 Dose: 100 mg Heparin Sodium (Porcine) (Heparin -) 5,000 unit SQ TID [facility] Last Admin: 04/06/19 05:53 Dose: 5,000 unit Insulin Aspart (Novolog Vial Sliding Scale -) 1 vial SQ ACHS [facility]; Protocol Last Admin: 04/06/19 06:08 Dose: 2 units Lidocaine (Lidoderm Patch -) 1 patch TP DAILY [facility] Last Admin: 04/05/19 09:30 Dose: 1 patch Magnesium Oxide (Mag-Ox -) 400 mg PO BID [facility] Last Admin: 04/05/19 21:11 Dose: 400 mg Metoprolol Succinate (Toprol Xl -) 100 mg PO BID [facility] Last Admin: 04/05/19 21:11 Dose: 100 mg Miscellaneous (Lidoderm Patch Removal) 1 each MC DAILY@2200 [facility] Last Admin: 04/05/19 21:10 Dose: 1 each Nystatin (Mycostatin Cream -) 1 applic TP DAILY PRN PRN Reason: WOUND CARE Pantoprazole Sodium (Protonix -) 40 mg PO DAILY [facility] Last Admin: 04/05/19 09:27 Dose: 40 mg Prednisone (Deltasone -) 10 mg PO DAILY [facility] Stop: 04/12/19 10:01 Prednisone (Deltasone -) 20 mg PO DAILY [facility] Stop: 04/09/19 10:01 Prednisone (Deltasone -) 30 mg PO DAILY [facility] Stop: 04/06/19 10:01 Last Admin: 04/05/19 09:29 Dose: 30 mg Prednisone (Deltasone -) 5 mg PO DAILY [facility] Stop: 04/11/19 10:01 Torsemide (Demadex -) 40 mg PO DAILY [facility] Last Admin: 04/05/19 09:29 Dose: 40 mg - Objective Vital Signs: Vital Signs Temperature 98.9 F 04/06/19 07:01 Pulse Rate 86 04/06/19 07:01 Respiratory Rate 20 04/06/19 07:01 Blood Pressure 136/70 04/06/19 07:01 O2 Sat by Pulse Oximetry (%) 97 04/05/19 21:00 Additional Findings/Remarks: Constitutional: Yes: Well Nourished, No Distress, Calm Eyes: Yes: WNL, Conjunctiva Clear HENT: Yes: WNL, Atraumatic, Normocephalic Neck: Yes: WNL, Supple, Trachea Midline Cardiovascular: Yes: WNL, Regular Rate and Rhythm Respiratory: Yes: Regular, no wheezing today Gastrointestinal: Yes: WNL, Normal Bowel Sounds Genitourinary: Yes: WNL Breast(s): Yes: WNL Musculoskeletal: Yes: Joint Stiffness (knee) Edema: Yes Edema: LLE: 2+, RLE: 2+ Peripheral Pulses WNL: Yes Integumentary: Yes: WNL Neurological: Yes: WNL, Alert, Oriented ...Motor Strength: WNL Psychiatric: Yes: WNL Labs: CBC, BMP 04/06/19 07:02 - ....Imaging EKG: Report Reviewed (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 LAD. LAFB. RBBB. No ischemic changes.)) Other: Report Reviewed ( 07/2016 cardiac MRI: moderate basal septal hypertrophy (up to 1.6 cm). nl lv size/fn. (EF 73%). +LVOT flow acceleration and CARLOS. Nl RV. No scar/edema. + CARLOS, mild MR. mild-mod (1.5 cm2 by planimetry). mild lae. mild asc ao dil (3.9 cm). TTE [facility] 10/2016: mild lvh. nl lv/rv. size/fn. grade I diastolic dysfunction. lvot vti/Ao vti 0.3. mod as (sev calc), jossy 1.3 (47/). no carlos. rvsp 32 echo 07/2016: HR 69 bpm. Asymmetric septal hypertrophy (predom basal) 1.5 cm. EF 65-70%. Mod-sev LVOT obs at rest (3.7, PG 55/MG 28), unable to assess for CARLOS. Mild RV dil. Nl RV fn. Mild ana. 1+ AR. Very Severe (5.1, PG 104/MG 65), Mod MAC, mimimal functional MS, 1+ MR. Mild-mod TR, mod-sev pHTN. 08/2015 ADRIAN: Nl lv/rv, CARLOS. LVOT obstruction (although envelope suggested predominantly from ). Moderate ( PG 50 mmHg). Minimal MR. Mod-sev atheroma of aorta. mild pHTN 07/2015 TTE: Hyperdynamic LV. Sigmoid septum with dynamic LVOT obstruction. + CARLOS (no MR). Pseudonormalizaiton. Nl RV. Mod . RVSP 54. L/RHC 03/22: wedge 18, PA 45/18 , RA 10, CI 2.5; patent dRCA stent; 70-80% mRCA--Promus; mild dz LAD and CFX; nl EF MIBI 10/19 (maria eugenia): no STs, no isch; nl EF.eg ebody)) Problem List - Problems (1) HLD (hyperlipidemia) Assessment/Plan: c/w lipitor low fat/cholesterol diet Code(s): E78.5 - HYPERLIPIDEMIA, UNSPECIFIED (2) Stented coronary artery Assessment/Plan: c/w asa, plavix Code(s): Z95.5 - PRESENCE OF CORONARY ANGIOPLASTY IMPLANT AND GRAFT (3) History of GI bleed Assessment/Plan: c/w PPI Code(s): Z87.19 - PERSONAL HISTORY OF OTHER DISEASES OF THE DIGESTIVE SYSTEM (4) CAD (coronary artery disease) Assessment/Plan: s/p BMS to dRCA 2006, TONY to mRCA 2013, nonobstructive CAD on cath 10/2016 -cont statin, plavix decrease metoprolol suucinate to 50mg bid given low BPs -c/w asa Code(s): I25.10 - ATHSCL HEART DISEASE OF [place] CORONARY ARTERY W/O ANG PCTRS Qualifiers: Coronary Disease-Associated Artery/Lesion type: [place] coronary artery Associated angina: without angina pectoris (5) CHF (congestive heart failure) Assessment/Plan: less wheezing on exam BNP dreased to 1400 CXR with increased interstitial markings c/w torsemide to 40mg daily, decreased from bid with low BPs c/w metoprolol at decreased dose appreciate cardiology consultation Code(s): I50.9 - HEART FAILURE, UNSPECIFIED (6) CKD (chronic kidney disease) Assessment/Plan: appreciate nephrology consultation monitor electrolytes and replete as needed pth 112 avoid nephrotoxic agents cr 1.2, BUN 48 Code(s): N18.9 - CHRONIC KIDNEY DISEASE, UNSPECIFIED (7) COPD (chronic obstructive pulmonary disease) Assessment/Plan: c/w duonebs Code(s): J44.9 - CHRONIC OBSTRUCTIVE PULMONARY DISEASE, UNSPECIFIED Qualifiers: COPD type: chronic bronchitis (8) Diabetes Assessment/Plan: BDM AC/HS with novolog sliding scale diabetic diet Code(s): E11.9 - TYPE 2 DIABETES MELLITUS WITHOUT COMPLICATIONS Qualifiers: Diabetes mellitus type: type 2 (9) HTN (hypertension) Assessment/Plan: normotensive c/w metoprolol at decreased dose Code(s): I10 - ESSENTIAL (PRIMARY) HYPERTENSION Qualifiers: Hypertension type: essential hypertension Qualified Code(s): I10 - Essential (primary) hypertension (10) PAD (peripheral artery disease) Assessment/Plan: elevate legs while in bed Code(s): I73.9 - PERIPHERAL VASCULAR DISEASE, UNSPECIFIED (11) Cellulitis Assessment/Plan: appreciate podiatry and ID consultation Left lateral foot cellulitis vs septic arthitis vs tenosynovitis post corticosteroid injection vs gout. Left Hallux MCP joint is inflammed as well which is likely due to his gout. avoids excessive NSIADS due to his underlying CKD. abx dc'd as per ID, will monitor off Code(s): L03.90 - CELLULITIS, UNSPECIFIED (12) Gout Assessment/Plan: appreciate endocrinology consultation c/w Prednisone 40 mg/d for 3 days then tapering schedule. c/w Allopurinol 100 mg/d Code(s): M10.9 - GOUT, UNSPECIFIED (13) Prophylactic measure Assessment/Plan: FEN diabetic/low sodium diet monitor electrolytes and replete prn DVT heparin sq Dispo maintain as inpatient full code discharge planning-patient requesting to go to SNF now, previous plan was to return home with VNS. Pt was admitted to another hospital and feels going home will be too much on his daughter. [facility]): Z29.9 - ENCOUNTER FOR PROPHYLACTIC MEASURES, UNSPECIFIED Visit type - Emergency Visit Emergency Visit: Yes ED Registration Date: 03/30/19 Care time: The patient presented to the Emergency Department on the above date and was hospitalized for further evaluation of their emergent condition. - New Patient This patient is new to me today: No - Critical Care Critical Care patient: No - Discharge Referral Referred to [facility] Med P.C.: No
[2019-04-06] MEDS: LIDOCAINE 5% TOPICAL PATCH TP SCH (09:36)
[2019-04-06] MEDS: CALCIUM 500MG/VIT-D 200 UNITS COMBO TABLET (FP) PO SCH (09:36)
[2019-04-06] MEDS: MAGNESIUM OXIDE 400 MG TABLET (FP) PO SCH ×2 (09:36→22:30)
[2019-04-06] MEDS: CLOPIDOGREL BISULFATE 75 MG TABLET (FP) PO SCH (09:37)
[2019-04-06] MEDS: ALLOPURINOL 100 MG TABLET (FP) PO SCH (09:37)
[2019-04-06] MEDS: PANTOPRAZOLE 40 MG TABLET (FP) PO SCH (09:37)
[2019-04-06] MEDS: ASPIRIN 81 MG CHEWABLE TABLETS PO SCH (09:37)
[2019-04-06] MEDS: TORSEMIDE 20 MG TABLET (FP) PO SCH (09:37)
[2019-04-06 09:40] LABS: ALBUMIN 2.7 g/dl (3.4-5.0); BILIRUBIN,TOTAL 0.4 mg/dL (0.2-1); CREATININE 1.2 mg/dL (0.55-1.3); MAGNESIUM 2.3 mg/dL (1.8-2.4); N-TERMINAL BNP 1420.8 pg/ml (5-450); POTASSIUM 3.6 mmol/L (3.5-5.1); TOT PROT 5.9 g/dl (6.4-8.2)
[2019-04-06] MEDS ORDERED: PT OWN MED DRAWER 7, Y5N ONE (09:41)
[2019-04-06] MEDS: predniSONE 10 MG TABLET (UD) PO SCH (09:43)
--- NOTE | 2019-04-06 11:44 | PN ---
Progress Note (short form) - Note Progress Note: s: no cp sob palps dizzy Current Medications Generic Name Dose Route Start Last Admin Trade Name Freq PRN Reason Stop Dose Admin Acetaminophen 650 mg 03/31/19 06:02 04/02/19 10:51 Tylenol - PO 650 mg Q6H PRN Administration PAIN OR FEVER Allopurinol 100 mg 04/04/19 10:00 04/06/19 09:37 Zyloprim - PO 100 mg DAILY [facility] Administration Aspirin 81 mg 03/31/19 10:00 04/06/19 09:37 Asa - PO 81 mg DAILY [facility] Administration Atorvastatin Calcium 20 mg 03/30/19 22:00 04/05/19 21:11 Lipitor - PO 20 mg HS [facility] Administration Calcium Carbonate/Cholecalciferol 2 tab 03/30/19 20:45 04/06/19 09:36 Os-Sawyer 500+D - PO 2 tab DAILY [facility] Administration Clopidogrel Bisulfate 75 mg 03/31/19 10:00 04/06/19 09:37 Plavix - PO 75 mg DAILY [facility] Administration Docusate Sodium 100 mg 04/03/19 14:20 04/03/19 15:01 Colace - PO 100 mg BID PRN Administration CONSTIPATION Heparin Sodium (Porcine) 5,000 unit 03/31/19 06:00 04/06/19 05:53 Heparin - SQ 5,000 unit TID [facility] Administration Insulin Aspart 1 vial 03/30/19 22:00 04/06/19 06:08 Novolog Vial Sliding Scale - SQ 2 units ACHS [facility] Administration Protocol Lidocaine 1 patch 04/02/19 10:00 04/06/19 09:36 Lidoderm Patch - TP 1 patch DAILY [facility] Administration Magnesium Oxide 400 mg 03/30/19 22:00 04/06/19 09:36 Mag-Ox - PO 400 mg BID [facility] Administration Metoprolol Succinate 50 mg 04/06/19 10:00 04/06/19 09:37 Toprol Xl - PO 50 mg BID [facility] Administration Miscellaneous 1 each 04/02/19 22:00 04/05/19 21:10 Lidoderm Patch Removal MC 1 each DAILY@2200 [facility] Administration Nystatin 1 applic 03/30/19 20:45 Mycostatin Cream - TP DAILY [facility] Pantoprazole Sodium 40 mg 03/31/19 10:00 04/06/19 09:37 Protonix - PO 40 mg DAILY [facility] Administration Prednisone 10 mg 04/10/19 10:00 Deltasone - PO 04/12/19 10:01 DAILY [facility] Prednisone 20 mg 04/07/19 10:00 Deltasone - PO 04/09/19 10:01 DAILY [facility] Prednisone 5 mg 04/11/19 10:00 Deltasone - PO 04/11/19 10:01 DAILY [facility] Torsemide 40 mg 04/05/19 10:00 04/06/19 09:37 Demadex - PO 40 mg DAILY [facility] Administration Vital Signs Period Temp Pulse Resp BP Sys/Benito Pulse Ox Last 24 Hr 98.2 F-98.9 F 63-86 18-20 94-136/45-70 97 Constitutional: Yes: No Distress Eyes: Yes: Conjunctiva Clear Cardiovascular: Yes: Regular Rate and Rhythm, Murmur (2/6 KENYON RSB) Respiratory: Yes: Other (mild b/l expiratory wheezing) Gastrointestinal: Yes: Soft, Abdomen, Obese Edema: trace le edema bl Neurological: Yes: Alert, Oriented no jaundice diaphoresis CBC, BMP 04/06/19 07:02 04/06/19 07:02 Assessment/Plan a/p: 80 m hx cad [facility] htn, dm, hld, chronic venuous insuff with le edema, dCHF, severe , HCM with LVOT obstruction , pad s/p right common iliac stent 2008, copd here with SOB, LE edema and decompensated acute diastolic and valvular CHF chronic diastolic chf, le edema: - torsemide increased to 40 mg BID but had hypotension so back on qd now 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
[2019-04-06 12:50] VITALS: BMI 27.6
--- NOTE | 2019-04-06 16:26 | PN ---
Progress Note (short form) - Note Progress Note: covering dr courtney isaacs 1. hypocalcemia 2. hypomagnesemia 3. chf 4. ckd 5. leg pain 6. PAD 7. DM Active Medications Acetaminophen (Tylenol -) 650 mg PO Q6H PRN PRN Reason: PAIN OR FEVER Last Admin: 04/02/19 10:51 Dose: 650 mg Allopurinol (Zyloprim -) 100 mg PO DAILY [facility] Last Admin: 04/06/19 09:37 Dose: 100 mg Aspirin (Asa -) 81 mg PO DAILY [facility] Last Admin: 04/06/19 09:37 Dose: 81 mg Atorvastatin Calcium (Lipitor -) 20 mg PO HS [facility] Last Admin: 04/05/19 21:11 Dose: 20 mg Calcium Carbonate/Cholecalciferol (Os-Sawyer 500+D -) 2 tab PO DAILY [facility] Last Admin: 04/06/19 09:36 Dose: 2 tab Clopidogrel Bisulfate (Plavix -) 75 mg PO DAILY [facility] Last Admin: 04/06/19 09:37 Dose: 75 mg Docusate Sodium (Colace -) 100 mg PO BID PRN PRN Reason: CONSTIPATION Last Admin: 04/03/19 15:01 Dose: 100 mg Heparin Sodium (Porcine) (Heparin -) 5,000 unit SQ TID [facility] Last Admin: 04/06/19 15:05 Dose: 5,000 unit Insulin Aspart (Novolog Vial Sliding Scale -) 1 vial SQ ACHS [facility]; Protocol Last Admin: 04/06/19 12:31 Dose: 4 units Lidocaine (Lidoderm Patch -) 1 patch TP DAILY [facility] Last Admin: 04/06/19 09:36 Dose: 1 patch Magnesium Oxide (Mag-Ox -) 400 mg PO BID [facility] Last Admin: 04/06/19 09:36 Dose: 400 mg Metoprolol Succinate (Toprol Xl -) 50 mg PO BID [facility] Last Admin: 04/06/19 09:37 Dose: 50 mg Miscellaneous (Lidoderm Patch Removal) 1 each MC DAILY@2200 [facility] Last Admin: 04/05/19 21:10 Dose: 1 each Nystatin (Mycostatin Cream -) 1 applic TP DAILY PRN PRN Reason: WOUND CARE Pantoprazole Sodium (Protonix -) 40 mg PO DAILY [facility] Last Admin: 04/06/19 09:37 Dose: 40 mg Prednisone (Deltasone -) 10 mg PO DAILY [facility] Stop: 10/05/19 10:01 Prednisone (Deltasone -) 20 mg PO DAILY [facility] Stop: 04/09/19 10:01 Prednisone (Deltasone -) 5 mg PO DAILY [facility] Stop: 04/11/19 10:01 Torsemide (Demadex -) 40 mg PO DAILY [facility] Last Admin: 04/06/19 09:37 Dose: 40 mg Last Vital Signs Temp Pulse Resp BP Pulse Ox 98.4 F 73 20 131/59 L 97 04/06/19 14:00 04/06/19 14:00 04/06/19 14:00 04/06/19 14:00 04/05/19 21:00 CBC, BMP 04/06/19 07:02 04/06/19 07:02 CBC, BMP 04/05/19 06:44 04/05/19 06:44 CKD met alkalosis prerenal azotemia Plan- same rx
[2019-04-06] MEDS: ATORVASTATIN CA 20 MG TABLET (FP) PO SCH (22:29)
[2019-04-06] MEDS: LIDOCAINE PATCH REMOVAL MC SCH (22:31)
[2019-04-07] MEDS: INSULIN SLIDING SCALE (NOVOLOG) 1 VIAL SQ SCH ×4 (06:17→22:36)
[2019-04-07] MEDS: HEPARIN NA (PORCINE) 5,000 UNITS/ML 1ML VIAL SQ SCH ×3 (06:17→22:37)
[2019-04-07] MEDS ORDERED: PT OWN MED DRAWER 7, Y5N ONE (09:36)
[2019-04-07] MEDS: ASPIRIN 81 MG CHEWABLE TABLETS PO SCH (09:42)
[2019-04-07] MEDS: TORSEMIDE 20 MG TABLET (FP) PO SCH (09:42)
[2019-04-07] MEDS: predniSONE 20 MG TABLET (UD) PO SCH (09:42)
[2019-04-07] MEDS: CLOPIDOGREL BISULFATE 75 MG TABLET (FP) PO SCH (09:43)
[2019-04-07] MEDS: CALCIUM 500MG/VIT-D 200 UNITS COMBO TABLET (FP) PO SCH (09:43)
[2019-04-07] MEDS: PANTOPRAZOLE 40 MG TABLET (FP) PO SCH (09:43)
[2019-04-07] MEDS: MAGNESIUM OXIDE 400 MG TABLET (FP) PO SCH ×2 (09:43→22:37)
[2019-04-07] MEDS: ALLOPURINOL 100 MG TABLET (FP) PO SCH (09:44)
[2019-04-07] MEDS: LIDOCAINE 5% TOPICAL PATCH TP SCH (09:45)
--- NOTE | 2019-04-07 10:57 | PN ---
Progress Note (short form) - Note Progress Note: s: no cp sob palps dizzy Current Medications Generic Name Dose Route Start Last Admin Trade Name Freq PRN Reason Stop Dose Admin Acetaminophen 650 mg 03/31/19 06:02 04/02/19 10:51 Tylenol - PO 650 mg Q6H PRN Administration PAIN OR FEVER Allopurinol 100 mg 04/04/19 10:00 04/07/19 09:44 Zyloprim - PO 100 mg DAILY [facility] Administration Aspirin 81 mg 03/31/19 10:00 04/07/19 09:42 Asa - PO 81 mg DAILY [facility] Administration Atorvastatin Calcium 20 mg 03/30/19 22:00 04/06/19 22:29 Lipitor - PO 20 mg HS [facility] Administration Calcium Carbonate/Cholecalciferol 2 tab 03/30/19 20:45 04/07/19 09:43 Os-Sawyer 500+D - PO 2 tab DAILY [facility] Administration Clopidogrel Bisulfate 75 mg 03/31/19 10:00 04/07/19 09:43 Plavix - PO 75 mg DAILY [facility] Administration Docusate Sodium 100 mg 04/03/19 14:20 04/03/19 15:01 Colace - PO 100 mg BID PRN Administration CONSTIPATION Heparin Sodium (Porcine) 5,000 unit 03/31/19 06:00 04/07/19 06:17 Heparin - SQ 5,000 unit TID [facility] Administration Insulin Aspart 1 vial 03/30/19 22:00 04/07/19 06:17 Novolog Vial Sliding Scale - SQ Not Given ACHS [facility] Protocol Lidocaine 1 patch 04/02/19 10:00 04/07/19 09:45 Lidoderm Patch - TP 1 patch DAILY [facility] Administration Magnesium Oxide 400 mg 03/30/19 22:00 04/07/19 09:43 Mag-Ox - PO 400 mg BID [facility] Administration Metoprolol Succinate 50 mg 04/06/19 10:00 04/07/19 09:44 Toprol Xl - PO 50 mg BID [facility] Administration Miscellaneous 1 each 04/02/19 22:00 04/06/19 22:31 Lidoderm Patch Removal MC 1 each DAILY@2200 [facility] Administration Nystatin 1 applic 03/30/19 20:45 Mycostatin Cream - TP DAILY [facility] Pantoprazole Sodium 40 mg 03/31/19 10:00 04/07/19 09:43 Protonix - PO 40 mg DAILY [facility] Administration Prednisone 10 mg 04/10/19 10:00 Deltasone - PO 04/12/19 10:01 DAILY [facility] Prednisone 20 mg 04/07/19 10:00 04/07/19 09:42 Deltasone - PO 04/09/19 10:01 20 mg DAILY [facility] Administration Prednisone 5 mg 04/11/19 10:00 Deltasone - PO 04/11/19 10:01 DAILY [facility] Torsemide 40 mg 04/05/19 10:00 04/07/19 09:42 Demadex - PO 40 mg DAILY [facility] Administration Vital Signs Period Temp Pulse Resp BP Sys/Benito Pulse Ox Last 24 Hr 97.5 F-98.6 F 60-73 18-20 104-131/48-59 99 Constitutional: Yes: No Distress Eyes: Yes: Conjunctiva Clear Cardiovascular: Yes: Regular Rate and Rhythm, Murmur (2/6 KENYON RSB) Respiratory: Yes: Other (mild b/l expiratory wheezing) Gastrointestinal: Yes: Soft, Abdomen, Obese Edema: trace le edema bl Neurological: Yes: Alert, Oriented no jaundice diaphoresis CBC, BMP 04/06/19 07:02 04/06/19 07:02 Assessment/Plan a/p: 80 m hx cad s[facility] htn, dm, hld, chronic venuous insuff with le edema, dCHF, severe , HCM with LVOT obstruction , pad s/p right common iliac stent 2008, copd here with SOB, LE edema and decompensated acute diastolic and valvular CHF chronic diastolic chf, le edema: - torsemide increased to 40 mg BID but had hypotension so back on qd now 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
[2019-04-07 11:59] LABS: HEMATOCRIT 36.2 % (35.4-49); MCH 30.4 pg (25.7-33.7); MCHC 33.3 g/dl (32.0-35.9); MEAN CELL VOLUME 91.5 fl (80-96); MEAN PLT VOLUME 9.6 fl (7.5-11.1); PLATELET COUNT 224 K/MM3 (134-434); RBC 3.95 M/mm3 (4.00-5.60); RDW 16.2 % (11.9-15.9)
[2019-04-07 12:34] LABS: ALBUMIN 2.8 g/dl (3.4-5.0); BILIRUBIN,TOTAL 0.4 mg/dL (0.2-1); CALCIUM 9.1 mg/dL (8.5-10.1); CREATININE 1.3 mg/dL (0.55-1.3); POTASSIUM 4.2 mmol/L (3.5-5.1); TOT PROT 6.1 g/dl (6.4-8.2)
[2019-04-07] MEDS ORDERED: INSULIN (NOVOLOG) ASPART 100 UNITS/ML 10ML VIAL ONE (13:07)
--- NOTE | 2019-04-07 14:22 | PN ---
Progress Note, Physician History of Present Illness: Pt seen and examined at bedside. He is awake and alert. He does get shortness of breath at times. - Current Medication List Current Medications: Active Medications Acetaminophen (Tylenol -) 650 mg PO Q6H PRN PRN Reason: PAIN OR FEVER Last Admin: 04/02/19 10:51 Dose: 650 mg Allopurinol (Zyloprim -) 100 mg PO DAILY [facility] Last Admin: 04/07/19 09:44 Dose: 100 mg Aspirin (Asa -) 81 mg PO DAILY [facility] Last Admin: 04/07/19 09:42 Dose: 81 mg Atorvastatin Calcium (Lipitor -) 20 mg PO HS [facility] Last Admin: 04/06/19 22:29 Dose: 20 mg Calcium Carbonate/Cholecalciferol (Os-Sawyer 500+D -) 2 tab PO DAILY [facility] Last Admin: 04/07/19 09:43 Dose: 2 tab Clopidogrel Bisulfate (Plavix -) 75 mg PO DAILY [facility] Last Admin: 04/07/19 09:43 Dose: 75 mg Docusate Sodium (Colace -) 100 mg PO BID PRN PRN Reason: CONSTIPATION Last Admin: 04/03/19 15:01 Dose: 100 mg Heparin Sodium (Porcine) (Heparin -) 5,000 unit SQ TID [facility] Last Admin: 04/07/19 13:59 Dose: 5,000 unit Insulin Aspart (Novolog Vial Sliding Scale -) 1 vial SQ ACHS [facility]; Protocol Last Admin: 04/07/19 12:44 Dose: 4 units Lidocaine (Lidoderm Patch -) 1 patch TP DAILY [facility] Last Admin: 04/07/19 09:45 Dose: 1 patch Magnesium Oxide (Mag-Ox -) 400 mg PO BID [facility] Last Admin: 04/07/19 09:43 Dose: 400 mg Metoprolol Succinate (Toprol Xl -) 50 mg PO BID [facility] Last Admin: 04/07/19 09:44 Dose: 50 mg Miscellaneous (Lidoderm Patch Removal) 1 each MC DAILY@2200 [facility] Last Admin: 04/06/19 22:31 Dose: 1 each Nystatin (Mycostatin Cream -) 1 applic TP DAILY PRN PRN Reason: WOUND CARE Pantoprazole Sodium (Protonix -) 40 mg PO DAILY [facility] Last Admin: 04/07/19 09:43 Dose: 40 mg Prednisone (Deltasone -) 10 mg PO DAILY [facility] Stop: 04/12/19 10:01 Prednisone (Deltasone -) 20 mg PO DAILY [facility] Stop: 04/09/19 10:01 Last Admin: 04/07/19 09:42 Dose: 20 mg Prednisone (Deltasone -) 5 mg PO DAILY [facility] Stop: 04/11/19 10:01 Torsemide (Demadex -) 40 mg PO DAILY [facility] Last Admin: 04/07/19 09:42 Dose: 40 mg - Objective Vital Signs: Vital Signs Temperature 97.5 F L 04/07/19 06:55 Pulse Rate 60 04/07/19 06:55 Respiratory Rate 18 04/07/19 06:55 Blood Pressure 112/50 L 04/07/19 06:55 O2 Sat by Pulse Oximetry (%) 99 04/06/19 21:00 Constitutional: Yes: Calm Eyes: Yes: Conjunctiva Clear HENT: Yes: Atraumatic Neck: Yes: Supple Cardiovascular: Yes: S1, S2 Respiratory: Yes: CTA Bilaterally, On Nasal O2 Gastrointestinal: Yes: Soft Genitourinary: Yes: WNL Musculoskeletal: Yes: WNL Edema: Yes Edema: LLE: 1+, RLE: 1+ Neurological: Yes: Oriented Psychiatric: Yes: Oriented Labs: CBC, BMP 04/07/19 11:38 04/07/19 11:38 Problem List - Problems (1) Cellulitis and abscess of foot Code(s): L03.119 - CELLULITIS OF UNSPECIFIED PART OF LIMB; L02.619 - CUTANEOUS ABSCESS OF UNSPECIFIED FOOT (2) Hypocalcemia Code(s): E83.51 - HYPOCALCEMIA (3) Inability to ambulate due to left ankle or foot Code(s): R26.2 - DIFFICULTY IN WALKING, NOT ELSEWHERE CLASSIFIED (4) CHF (congestive heart failure) Code(s): I50.9 - HEART FAILURE, UNSPECIFIED (5) CKD (chronic kidney disease) Code(s): N18.9 - CHRONIC KIDNEY DISEASE, UNSPECIFIED Assessment/Plan Current Medications Generic Name Dose Route Start Last Admin Trade Name Freq PRN Reason Stop Dose Admin Acetaminophen 650 mg 03/31/19 06:02 04/02/19 10:51 Tylenol - PO 650 mg Q6H PRN Administration PAIN OR FEVER Allopurinol 100 mg 04/04/19 10:00 04/07/19 09:44 Zyloprim - PO 100 mg DAILY [facility] Administration Aspirin 81 mg 03/31/19 10:00 04/07/19 09:42 Asa - PO 81 mg DAILY [facility] Administration Atorvastatin Calcium 20 mg 03/30/19 22:00 04/06/19 22:29 Lipitor - PO 20 mg HS [facility] Administration Calcium Carbonate/Cholecalciferol 2 tab 03/30/19 20:45 04/07/19 09:43 Os-Sawyer 500+D - PO 2 tab DAILY [facility] Administration Clopidogrel Bisulfate 75 mg 03/31/19 10:00 04/07/19 09:43 Plavix - PO 75 mg DAILY [facility] Administration Docusate Sodium 100 mg 04/03/19 14:20 04/03/19 15:01 Colace - PO 100 mg BID PRN Administration CONSTIPATION Heparin Sodium (Porcine) 5,000 unit 03/31/19 06:00 04/07/19 13:59 Heparin - SQ 5,000 unit TID [facility] Administration Insulin Aspart 1 vial 03/30/19 22:00 04/07/19 12:44 Novolog Vial Sliding Scale - SQ 4 units ACHS [facility] Administration Protocol Lidocaine 1 patch 04/02/19 10:00 04/07/19 09:45 Lidoderm Patch - TP 1 patch DAILY [facility] Administration Magnesium Oxide 400 mg 03/30/19 22:00 04/07/19 09:43 Mag-Ox - PO 400 mg BID [facility] Administration Metoprolol Succinate 50 mg 04/06/19 10:00 04/07/19 09:44 Toprol Xl - PO 50 mg BID [facility] Administration Miscellaneous 1 each 04/02/19 22:00 04/06/19 22:31 Lidoderm Patch Removal MC 1 each DAILY@2200 [facility] Administration Nystatin 1 applic 03/30/19 20:45 Mycostatin Cream - TP DAILY PRN WOUND CARE Pantoprazole Sodium 40 mg 03/31/19 10:00 04/07/19 09:43 Protonix - PO 40 mg DAILY [facility] Administration Prednisone 10 mg 04/10/19 10:00 Deltasone - PO 04/12/19 10:01 DAILY [facility] Prednisone 20 mg 04/07/19 10:00 04/07/19 09:42 Deltasone - PO 04/09/19 10:01 20 mg DAILY [facility] Administration Prednisone 5 mg 04/11/19 10:00 Deltasone - PO 04/11/19 10:01 DAILY [facility] Torsemide 40 mg 04/05/19 10:00 04/07/19 09:42 Demadex - PO 40 mg DAILY [facility] Administration Impression 1. hypocalcemia 2. hypomagnesemia 3. chf 4. ckd 5. leg pain 6. PAD 7. DM Plan - cont torsemide - monitor lytes - cardio input appreciated - 2 gram sodium diet - monitor lytes - knee pain is improving
[2019-04-07] MEDS: guaiFENesin 600 MG TABLET.ER (FP) PO SCH ×2 (16:13→22:36)
--- NOTE | 2019-04-07 18:58 | PN ---
Progress Note, Physician Chief Complaint: pt voiced no complaints - he remains unsteady in his feet and is now interested in rehab placement. - Current Medication List Current Medications: Active Medications Acetaminophen (Tylenol -) 650 mg PO Q6H PRN PRN Reason: PAIN OR FEVER Last Admin: 04/02/19 10:51 Dose: 650 mg Allopurinol (Zyloprim -) [address] [facility] Last Admin: 04/07/19 09:44 Dose: 100 mg Aspirin (Asa -) [address] [facility] Last Admin: 04/07/19 09:42 Dose: 81 mg Atorvastatin Calcium (Lipitor -) [address] [facility] Last Admin: 04/06/19 22:29 Dose: 20 mg Calcium Carbonate/Cholecalciferol (Os-Sawyer 500+D -) [address] [facility] Last Admin: 04/07/19 09:43 Dose: 2 tab Clopidogrel Bisulfate (Plavix -) [address] [facility] Last Admin: 04/07/19 09:43 Dose: 75 mg Docusate Sodium (Colace -) 100 mg PO BID PRN PRN Reason: CONSTIPATION Last Admin: 04/03/19 15:01 Dose: 100 mg Guaifenesin (Mucinex -) [address] [facility] Last Admin: 04/07/19 16:13 Dose: 600 mg Heparin Sodium (Porcine) (Heparin -) 5,[address] [facility] Last Admin: 04/07/19 13:59 Dose: 5,000 unit Insulin Aspart (Novolog Vial Sliding Scale -) [address] [facility]; Protocol Last Admin: 04/07/19 17:30 Dose: 8 units Lidocaine (Lidoderm Patch -) [address] [facility] Last Admin: 04/07/19 09:45 Dose: 1 patch Magnesium Oxide (Mag-Ox -) [address] [facility] Last Admin: 04/07/19 09:43 Dose: 400 mg Metoprolol Succinate (Toprol Xl -) [address] [facility] Last Admin: 04/07/19 09:44 Dose: 50 mg Miscellaneous (Lidoderm Patch Removal) 1 each MC DAILY@2200 [facility] Last Admin: 04/06/19 22:31 Dose: 1 each Nystatin (Mycostatin Cream -) 1 applic TP DAILY PRN PRN Reason: WOUND CARE Pantoprazole Sodium (Protonix -) [address] [facility] Last Admin: 04/07/19 09:43 Dose: 40 mg Prednisone (Deltasone -) [address] [facility] Stop: 04/12/19 10:01 Prednisone (Deltasone -) [address] [facility] Stop: 04/09/19 10:01 Last Admin: 04/07/19 09:42 Dose: 20 mg Prednisone (Deltasone -) [address] [facility] Stop: 04/11/19 10:01 Torsemide (Demadex -) [address] [facility] Last Admin: 04/07/19 09:42 Dose: 40 mg - Objective Vital Signs: Vital Signs Temperature 98.5 F 04/07/19 16:30 Pulse Rate 74 04/07/19 16:30 Respiratory Rate 18 04/07/19 16:30 Blood Pressure 127/78 04/07/19 16:30 O2 Sat by Pulse Oximetry (%) 96 04/07/19 09:00 Constitutional: Yes: No Distress, Calm Eyes: Yes: Conjunctiva Clear, PERRL HENT: Yes: Atraumatic, Normocephalic Neck: Yes: Supple Cardiovascular: Yes: Regular Rate and Rhythm Respiratory: Yes: Regular, CTA Bilaterally Gastrointestinal: Yes: Normal Bowel Sounds, Soft, Other (increased abd girth) ...Rectal Exam: Yes: Deferred Musculoskeletal: Yes: Joint Stiffness, Muscle Weakness Edema: No Peripheral Pulses WNL: Yes Peripheral Pulses: Left Radial: 2+, Right Radial: 2+, Left Doralis Pedis: 2+, Right Dorsalis Pedis: 2+ Neurological: Yes: Alert, Oriented, Unsteady Gait, Weakness Psychiatric: Yes: Alert, Oriented Labs: CBC, BMP 04/07/19 11:38 04/07/19 11:38 Impression/Plan Impression/Plan: 83 year old male with a past medical history of hypertension, hyperlipidemia, CHF, CAD (s/p 2 stents), PAD, diabetes, chronic kidney disease, COPD, GI bleeds , gout who presents with left foot pain and inability to ambulate due to pain. (1) HLD (hyperlipidemia) c/w lipitor low fat/cholesterol diet Code(s): E78.5 - HYPERLIPIDEMIA, UNSPECIFIED (2) coronary artery disease c/w asa, plavix metoprolol suucinate to 50mg bid Code(s): Z95.5 - PRESENCE OF CORONARY ANGIOPLASTY IMPLANT AND GRAFT (3) History of GI bleed c/w PPI Code(s): Z87.19 - PERSONAL HISTORY OF OTHER DISEASES OF THE DIGESTIVE SYSTEM (4) CHF (congestive heart failure) c/w torsemide to 40mg daily, c/w metoprolol appreciate cardiology consultation Code(s): I50.9 - HEART FAILURE, UNSPECIFIED (5) CKD (chronic kidney disease) appreciate nephrology consultation monitor electrolytes and replete as needed avoid nephrotoxic agents Code(s): N18.9 - CHRONIC KIDNEY DISEASE, UNSPECIFIED (6) COPD (chronic obstructive pulmonary disease) c/w duonebs pred taper Code(s): J44.9 - CHRONIC OBSTRUCTIVE PULMONARY DISEASE, UNSPECIFIED Qualifiers: COPD type: chronic bronchitis (7) Diabetes BDM AC/HS novolog sliding scale adjusted due to poor glucose control diabetic diet Code(s): E11.9 - TYPE 2 DIABETES MELLITUS WITHOUT COMPLICATIONS Qualifiers: Diabetes mellitus type: type 2 (8) HTN (hypertension) c/w metoprolol Code(s): I10 - ESSENTIAL (PRIMARY) HYPERTENSION Qualifiers: Hypertension type: essential hypertension Qualified Code(s): I10 - Essential (primary) hypertension (9) PAD (peripheral artery disease) ASA daily Code(s): I73.9 - PERIPHERAL VASCULAR DISEASE, UNSPECIFIED (10) Cellulitis - resolved Code(s): L03.90 - CELLULITIS, UNSPECIFIED (11) Gout c/w Prednisone 40 mg/d for 3 days then tapering schedule. c/w Allopurinol 100 mg/d Code(s): M10.9 - GOUT, UNSPECIFIED (12) Prophylactic measure FEN diabetic/low sodium diet monitor electrolytes and replete prn DVT -heparin sq full code discharge planning- SNF placed discussed with patient and daughter who are both in agreement Code(s): Z29.9 - ENCOUNTER FOR PROPHYLACTIC MEASURES, UNSPECIFIED Visit type - Emergency Visit Emergency Visit: Yes ED Registration Date: 03/30/19 Care time: The patient presented to the Emergency Department on the above date and was hospitalized for further evaluation of their emergent condition. - New Patient This patient is new to me today: Yes Date on this admission: 04/07/19 - Critical Care Critical Care patient: No - Discharge Referral Referred to [facility] Med P.C.: No
[2019-04-07] MEDS: ATORVASTATIN CA 20 MG TABLET (FP) PO SCH (22:37)
[2019-04-07] MEDS: LIDOCAINE PATCH REMOVAL MC SCH (22:37)
[2019-04-08] MEDS: HEPARIN NA (PORCINE) 5,000 UNITS/ML 1ML VIAL SQ SCH ×3 (06:28→21:55)
[2019-04-08] MEDS: INSULIN SLIDING SCALE (NOVOLOG) 1 VIAL SQ SCH ×4 (06:28→22:00)
[2019-04-08] MEDS: CLOPIDOGREL BISULFATE 75 MG TABLET (FP) PO SCH (09:55)
[2019-04-08] MEDS: TORSEMIDE 20 MG TABLET (FP) PO SCH (09:55)
[2019-04-08] MEDS: CALCIUM 500MG/VIT-D 200 UNITS COMBO TABLET (FP) PO SCH (09:55)
[2019-04-08] MEDS: guaiFENesin 600 MG TABLET.ER (FP) PO SCH ×2 (09:55→21:57)
[2019-04-08] MEDS: MAGNESIUM OXIDE 400 MG TABLET (FP) PO SCH ×2 (09:55→21:57)
[2019-04-08] MEDS: ALLOPURINOL 100 MG TABLET (FP) PO SCH (09:55)
[2019-04-08] MEDS: predniSONE 20 MG TABLET (UD) PO SCH (09:55)
[2019-04-08] MEDS: ASPIRIN 81 MG CHEWABLE TABLETS PO SCH (09:56)
[2019-04-08] MEDS: LIDOCAINE 5% TOPICAL PATCH TP SCH (09:56)
[2019-04-08] MEDS: PANTOPRAZOLE 40 MG TABLET (FP) PO SCH (09:56)
--- NOTE | 2019-04-08 12:05 | PN ---
Progress Note (short form) - Note Progress Note: s: no cp sob palps dizzy Current Medications Acetaminophen (Tylenol -) 650 mg PO Q6H PRN PRN Reason: PAIN OR FEVER Last Admin: 04/02/19 10:51 Dose: 650 mg Allopurinol (Zyloprim -) 100 mg PO DAILY [facility] Last Admin: 04/08/19 09:55 Dose: 100 mg Aspirin (Asa -) 81 mg PO DAILY [facility] Last Admin: 04/08/19 09:56 Dose: 81 mg Atorvastatin Calcium (Lipitor -) 20 mg PO HS [facility] Last Admin: 04/07/19 22:37 Dose: 20 mg Calcium Carbonate/Cholecalciferol (Os-Sawyer 500+D -) 2 tab PO DAILY [facility] Last Admin: 04/08/19 09:55 Dose: 2 tab Clopidogrel Bisulfate (Plavix -) 75 mg PO DAILY [facility] Last Admin: 04/08/19 09:55 Dose: 75 mg Docusate Sodium (Colace -) 100 mg PO BID PRN PRN Reason: CONSTIPATION Last Admin: 04/03/19 15:01 Dose: 100 mg Guaifenesin (Mucinex -) 600 mg PO BID [facility] Last Admin: 04/08/19 09:55 Dose: 600 mg Heparin Sodium (Porcine) (Heparin -) 5,000 unit SQ TID [facility] Last Admin: 04/08/19 06:28 Dose: 5,000 unit Insulin Aspart (Novolog Vial Sliding Scale -) 1 vial SQ ACHS [facility]; Protocol Last Admin: 04/08/19 06:28 Dose: Not Given Lidocaine (Lidoderm Patch -) 1 patch TP DAILY [facility] Last Admin: 04/08/19 09:56 Dose: 1 patch Magnesium Oxide (Mag-Ox -) 400 mg PO BID [facility] Last Admin: 04/08/19 09:55 Dose: 400 mg Metoprolol Succinate (Toprol Xl -) 50 mg PO BID [facility] Last Admin: 04/08/19 09:56 Dose: 50 mg Miscellaneous (Lidoderm Patch Removal) 1 each MC DAILY@2200 [facility] Last Admin: 04/07/19 22:37 Dose: 1 each Nystatin (Mycostatin Cream -) 1 applic TP DAILY PRN PRN Reason: WOUND CARE Pantoprazole Sodium (Protonix -) 40 mg PO DAILY [facility] Last Admin: 04/08/19 09:56 Dose: 40 mg Prednisone (Deltasone -) 10 mg PO DAILY [facility] Stop: 04/12/19 10:01 Prednisone (Deltasone -) 20 mg PO DAILY [facility] Stop: 04/09/19 10:01 Last Admin: 04/08/19 09:55 Dose: 20 mg Prednisone (Deltasone -) 5 mg PO DAILY [facility] Stop: 04/11/19 10:01 Torsemide (Demadex -) 40 mg PO DAILY [facility] Last Admin: 04/08/19 09:55 Dose: 40 mg Vital Signs Period Temp Pulse Resp BP Sys/Benito Pulse Ox Last 24 Hr 98.1 F-98.5 F 68-94 18-20 92-127/53-78 95 Constitutional: Yes: No Distress Eyes: Yes: Conjunctiva Clear Cardiovascular: Yes: Regular Rate and Rhythm, Murmur (2/6 KEN[place] RSB) Respiratory: Yes: Other (mild b/l expiratory wheezing) Gastrointestinal: Yes: Soft, Abdomen, Obese Edema: trace le edema bl Neurological: Yes: Alert, Oriented no jaundice diaphoresis Assessment/Plan a/p: 80 m hx cad s/p pci (most recent was [facility]onides to mRCA 03/23/14), htn, dm, hld, chronic venuous insuff with le edema, dCHF, severe , HCM with LVOT obstruction , pad s/p right common iliac stent 2008, copd here with SOB, LE edema and decompensated acute diastolic and valvular CHF chronic diastolic chf, le edema: - torsemide increased to 40 mg BID but had hypotension so back on qd now, continue 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
--- NOTE | 2019-04-08 14:19 | DS ---
Physical Exam: SUBJECTIVE: Patient seen and examined. for discharge today to [facility]. OBJECTIVE: rehab today to [facility]. Vital Signs Period Temp Pulse Resp BP Sys/Benito Pulse Ox Last 24 Hr 97.2 F-98.5 F 61-94 18-20 92-127/53-78 95-99 PHYSICAL EXAM Constitutional: Yes: No Distress, Calm Eyes: Yes: Conjunctiva Clear, PERRL HENT: Yes: Atraumatic, Normocephalic Neck: Yes: Supple Cardiovascular: Yes: Regular Rate and Rhythm Respiratory: Yes: Regular, CTA Bilaterally Gastrointestinal: Yes: Normal Bowel Sounds, Soft Musculoskeletal: Yes: Joint Stiffness, Muscle Weakness Edema: No Peripheral Pulses WNL: Yes Peripheral Pulses: Left Radial: 2+, Right Radial: 2+, Left Doralis Pedis: 2+, Right Dorsalis Pedis: 2+ Neurological: Yes: Alert, Oriented, Unsteady Gait, Weakness Psychiatric: Yes: Alert, Oriented Labs: LABS Laboratory Results - last 24 hr 04/07/19 04/07/19 04/08/19 16:50 22:33 06:27 POC Glucometer 322 278 147 04/08/19 12:08 POC Glucometer 191 HOSPITAL COURSE: Date of Admission:03/30/19 Date of Discharge: 04/08/19 83 year old male with a past medical history of hypertension, hyperlipidemia, CHF, CAD (s/p 2 stents), PAD, diabetes, chronic kidney disease, COPD, GI bleeds , gout who presents with left foot pain and inability to ambulate due to pain. (1) HLD (hyperlipidemia) c/w lipitor low fat/cholesterol diet Code(s): E78.5 - HYPERLIPIDEMIA, UNSPECIFIED (2) coronary artery disease c/w asa, plavix metoprolol suucinate to 50mg bid Code(s): Z95.5 - PRESENCE OF CORONARY ANGIOPLASTY IMPLANT AND GRAFT (3) History of GI bleed c/w PPI Code(s): Z87.19 - PERSONAL HISTORY OF OTHER DISEASES OF THE DIGESTIVE SYSTEM (4) CHF (congestive heart failure) c/w torsemide to 40mg daily, c/w metoprolol appreciate cardiology consultation Code(s): I50.9 - HEART FAILURE, UNSPECIFIED (5) CKD (chronic kidney disease) appreciate nephrology consultation monitor electrolytes and replete as needed avoid nephrotoxic agents Code(s): N18.9 - CHRONIC KIDNEY DISEASE, UNSPECIFIED (6) COPD (chronic obstructive pulmonary disease) c/w duonebs pred taper Code(s): J44.9 - CHRONIC OBSTRUCTIVE PULMONARY DISEASE, UNSPECIFIED Qualifiers: COPD type: chronic bronchitis (7) Diabetes BDM AC/HS novolog sliding scale adjusted due to poor glucose control diabetic diet Code(s): E11.9 - TYPE 2 DIABETES MELLITUS WITHOUT COMPLICATIONS Qualifiers: Diabetes mellitus type: type 2 (8) HTN (hypertension) c/w metoprolol Code(s): I10 - ESSENTIAL (PRIMARY) HYPERTENSION Qualifiers: Hypertension type: essential hypertension Qualified Code(s): I10 - Essential (primary) hypertension (9) PAD (peripheral artery disease) ASA daily Code(s): I73.9 - PERIPHERAL VASCULAR DISEASE, UNSPECIFIED (10) Cellulitis - resolved Code(s): L03.90 - CELLULITIS, UNSPECIFIED (11) Gout c/w Prednisone 40 mg/d for 3 days then tapering schedule. c/w Allopurinol 100 mg/d Code(s): M10.9 - GOUT, UNSPECIFIED Minutes to complete discharge: 60 Discharge Summary Problems reviewed: Yes Reason For Visit: INABILITY TO AMBULATE DUE TO LEFT ANKLE OR FOOT Current Active Problems Cellulitis (Acute) Gout (Acute) HLD (hyperlipidemia) (Acute) History of GI bleed (Acute) Prophylactic measure (Acute) Stented coronary artery (Acute) Condition: Guarded - Instructions Diet, Activity, Other Instructions: On A prednisone taper to be completed as follows: Prednisone 20mg daily on 04/09/2019 Prednisone 10mg 04/10/19 through 04/12/19 Referrals: Jerrell Lu MD [Staff Physician] - Disposition: [facility] - Home Medications Comprehensive Discharge Medication List: Ambulatory Orders Metoprolol Succinate [Toprol XL -] 100 mg PO BID 03/26/14 Atorvastatin Ca [Lipitor] 20 mg PO HS 09/04/15 Colchicine [Colcrys] 0.6 mg PO DAILY 03/30/19 Glimepiride [Amaryl -] 4 mg PO BID 03/30/19 Indomethacin 25 mg PO TID 03/30/19 Nystatin Cream [Mycostatin Cream -] 1 applic TP PRN PRN 03/30/19 Pantoprazole Sodium [Protonix] 40 mg PO DAILY 03/30/19 Torsemide 2 tab PO HS 03/30/19 metFORMIN HCL [Metformin HCl] 500 mg PO BID 03/30/19 Allopurinol [Zyloprim -] 100 mg PO DAILY tablet 04/08/19 Aspirin [ASA -] 81 mg PO DAILY tab.chew 04/08/19 Calcium 500Mg/Vit-D 200 Units [Os-Sawyer 500+D -] 2 tab PO DAILY tab 04/08/19 Clopidogrel Bisulfate [Plavix -] 75 mg PO DAILY tablet 04/08/19 Docusate Sodium [Colace -] 100 mg PO BID PRN capsule 04/08/19 Guaifenesin [Mucinex -] 600 mg PO BID tablet.er 04/08/19 Insulin Sliding Scale [Novolog Vial Sliding Scale -] 1 vial SQ ACHS units 04/08 Insulin Sliding Scale [Novolog Vial Sliding Scale -] 1 vial SQ ACHS units 04/08 Lidocaine 5% Patch [Lidoderm -] 1 patch TP DAILY patch 04/08/19 Lidocaine Patch Removal [Lidoderm Patch Removal] 1 each MC DAILY@2200 each 07/27 Magnesium Oxide [Mag-Ox -] 400 mg PO BID tablet 04/08/19 predniSONE [Deltasone -] 5 mg PO DAILY tablet 04/08/19 predniSONE [Deltasone -] 10 mg PO DAILY tablet 04/08/19 predniSONE [Deltasone -] 20 mg PO DAILY tablet 04/08/19 Prescription Drug Monitoring Program (I-STOP) results: I-STOP not reviewed Problem List - Problems (1) Cellulitis Code(s): L03.90 - CELLULITIS, UNSPECIFIED (2) Gout Code(s): M10.9 - GOUT, UNSPECIFIED (3) History of adenomatous polyp of colon Code(s): Z86.010 - PERSONAL HISTORY OF COLONIC POLYPS (4) Inability to ambulate due to left ankle or foot Code(s): R26.2 - DIFFICULTY IN WALKING, NOT ELSEWHERE CLASSIFIED (5) Obesity Code(s): E66.9 - OBESITY, UNSPECIFIED This patient is new to me today: No Emergency Visit: Yes ED Registration Date: 03/30/19 Care time: The patient presented to the Emergency Department on the above date and was hospitalized for further evaluation of their emergent condition. Critical Care patient: No - Discharge Referral Referred to [facility] Med P.C.: No
--- NOTE | 2019-04-08 15:13 | PN ---
Progress Note, Physician History of Present Illness: Pt seen and examined at bedside. He is awake and alert. He denies shortness of breath. He feels his lower ext edema is at baseline. - Current Medication List Current Medications: Active Medications Acetaminophen (Tylenol -) 650 mg PO Q6H PRN PRN Reason: PAIN OR FEVER Last Admin: 04/02/19 10:51 Dose: 650 mg Allopurinol (Zyloprim -) 100 mg PO DAILY [facility] Last Admin: 04/08/19 09:55 Dose: 100 mg Aspirin (Asa -) 81 mg PO DAILY [facility] Last Admin: 04/08/19 09:56 Dose: 81 mg Atorvastatin Calcium (Lipitor -) 20 mg PO HS [facility] Last Admin: 04/07/19 22:37 Dose: 20 mg Calcium Carbonate/Cholecalciferol (Os-Sawyer 500+D -) 2 tab PO DAILY [facility] Last Admin: 04/08/19 09:55 Dose: 2 tab Clopidogrel Bisulfate (Plavix -) 75 mg PO DAILY [facility] Last Admin: 04/08/19 09:55 Dose: 75 mg Docusate Sodium (Colace -) 100 mg PO BID PRN PRN Reason: CONSTIPATION Last Admin: 04/03/19 15:01 Dose: 100 mg Guaifenesin (Mucinex -) 600 mg PO BID [facility] Last Admin: 04/08/19 09:55 Dose: 600 mg Heparin Sodium (Porcine) (Heparin -) 5,000 unit SQ TID [facility] Last Admin: 04/08/19 14:20 Dose: 5,000 unit Insulin Aspart (Novolog Vial Sliding Scale -) 1 vial SQ ACHS [facility]; Protocol Last Admin: 04/08/19 12:29 Dose: 3 units Lidocaine (Lidoderm Patch -) 1 patch TP DAILY [facility] Last Admin: 04/08/19 09:56 Dose: 1 patch Magnesium Oxide (Mag-Ox -) 400 mg PO BID [facility] Last Admin: 04/08/19 09:55 Dose: 400 mg Metoprolol Succinate (Toprol Xl -) 50 mg PO BID [facility] Last Admin: 04/08/19 09:56 Dose: 50 mg Miscellaneous (Lidoderm Patch Removal) 1 each MC DAILY@2200 [facility] Last Admin: 04/07/19 22:37 Dose: 1 each Nystatin (Mycostatin Cream -) 1 applic TP DAILY PRN PRN Reason: WOUND CARE Pantoprazole Sodium (Protonix -) 40 mg PO DAILY [facility] Last Admin: 04/08/19 09:56 Dose: 40 mg Prednisone (Deltasone -) 10 mg PO DAILY [facility] Stop: 04/12/19 10:01 Prednisone (Deltasone -) 20 mg PO DAILY [facility] Stop: 04/09/19 10:01 Last Admin: 04/08/19 09:55 Dose: 20 mg Prednisone (Deltasone -) 5 mg PO DAILY [facility] Stop: 04/11/19 10:01 Torsemide (Demadex -) 40 mg PO DAILY [facility] Last Admin: 04/08/19 09:55 Dose: 40 mg - Objective Vital Signs: Vital Signs Temperature 97.2 F L 04/08/19 10:00 Pulse Rate 61 04/08/19 10:00 Respiratory Rate 20 04/08/19 10:00 Blood Pressure 111/54 L 04/08/19 10:00 O2 Sat by Pulse Oximetry (%) 99 04/08/19 09:00 Constitutional: Yes: Calm Eyes: Yes: Conjunctiva Clear HENT: Yes: Atraumatic Neck: Yes: Supple Cardiovascular: Yes: S1, S2 Respiratory: Yes: CTA Bilaterally Gastrointestinal: Yes: Normal Bowel Sounds, Soft Genitourinary: Yes: WNL Edema: Yes Edema: LLE: Trace, RLE: Trace Neurological: Yes: Oriented Psychiatric: Yes: Oriented Labs: CBC, BMP 04/07/19 11:38 04/07/19 11:38 Problem List - Problems (1) Cellulitis and abscess of foot Code(s): L03.119 - CELLULITIS OF UNSPECIFIED PART OF LIMB; L02.619 - CUTANEOUS ABSCESS OF UNSPECIFIED FOOT (2) Hypocalcemia Code(s): E83.51 - HYPOCALCEMIA (3) Inability to ambulate due to left ankle or foot Code(s): R26.2 - DIFFICULTY IN WALKING, NOT ELSEWHERE CLASSIFIED (4) CHF (congestive heart failure) Code(s): I50.9 - HEART FAILURE, UNSPECIFIED (5) CKD (chronic kidney disease) Code(s): N18.9 - CHRONIC KIDNEY DISEASE, UNSPECIFIED Assessment/Plan Current Medications Generic Name Dose Route Start Last Admin Trade Name Freq PRN Reason Stop Dose Admin Acetaminophen 650 mg 03/31/19 06:02 04/02/19 10:51 Tylenol - PO 650 mg Q6H PRN Administration PAIN OR FEVER Allopurinol 100 mg 04/04/19 10:00 04/08/19 09:55 Zyloprim - PO 100 mg DAILY [facility] Administration Aspirin 81 mg 03/31/19 10:00 04/08/19 09:56 Asa - PO 81 mg DAILY [facility] Administration Atorvastatin Calcium 20 mg 03/30/19 22:00 04/07/19 22:37 Lipitor - PO 20 mg HS [facility] Administration Calcium Carbonate/Cholecalciferol 2 tab 03/30/19 20:45 04/08/19 09:55 Os-Sawyer 500+D - PO 2 tab DAILY [facility] Administration Clopidogrel Bisulfate 75 mg 03/31/19 10:00 04/08/19 09:55 Plavix - PO 75 mg DAILY [facility] Administration Docusate Sodium 100 mg 04/03/19 14:20 04/03/19 15:01 Colace - PO 100 mg BID PRN Administration CONSTIPATION Guaifenesin 600 mg 04/07/19 14:22 04/08/19 09:55 Mucinex - PO 600 mg BID [facility] Administration Heparin Sodium (Porcine) 5,000 unit 03/31/19 06:00 04/08/19 14:20 Heparin - SQ 5,000 unit TID [facility] Administration Insulin Aspart 1 vial 04/07/19 18:54 04/08/19 12:29 Novolog Vial Sliding Scale - SQ 3 units ACHS [facility] Administration Protocol Lidocaine 1 patch 04/02/19 10:00 04/08/19 09:56 Lidoderm Patch - TP 1 patch DAILY [facility] Administration Magnesium Oxide 400 mg 03/30/19 22:00 04/08/19 09:55 Mag-Ox - PO 400 mg BID [facility] Administration Metoprolol Succinate 50 mg 04/06/19 10:00 04/08/19 09:56 Toprol Xl - PO 50 mg BID [facility] Administration Miscellaneous 1 each 04/02/19 22:00 04/07/19 22:37 Lidoderm Patch Removal MC 1 each DAILY@2200 [facility] Administration Nystatin 1 applic 03/30/19 20:45 Mycostatin Cream - TP DAILY PRN WOUND CARE Pantoprazole Sodium 40 mg 03/31/19 10:00 04/08/19 09:56 Protonix - PO 40 mg DAILY [facility] Administration Prednisone 10 mg 04/10/19 10:00 Deltasone - PO 04/12/19 10:01 DAILY [facility] Prednisone 20 mg 04/07/19 10:00 04/08/19 09:55 Deltasone - PO 04/09/19 10:01 20 mg DAILY [facility] Administration Prednisone 5 mg 04/11/19 10:00 Deltasone - PO 04/11/19 10:01 DAILY [facility] Torsemide 40 mg 04/05/19 10:00 04/08/19 09:55 Demadex - PO 40 mg DAILY [facility] Administration Impression 1. hypocalcemia 2. hypomagnesemia 3. chf 4. ckd 5. leg pain 6. PAD 7. DM Plan - cont at torsemide daily, pt takes 2 tabs when his edema worsens at home - will need to monitor renal function - monitor lytes - 2 gram sodium diet - knee pain is improving
--- NOTE | 2019-04-08 16:10 | FALL ---
Fall Exam - Event Witnessed fall: Yes Location of Fall: Patient Room Fall from: Bed - Pre-Fall Mental Status: Alert, Oriented, Cooperative Current Medications: Current Medications Generic Name Dose Route Start Last Admin Trade Name Freq PRN Reason Stop Dose Admin Acetaminophen 650 mg 03/31/19 06:02 04/02/19 10:51 Tylenol - PO 650 mg Q6H PRN Administration PAIN OR FEVER Allopurinol 100 mg 04/04/19 10:00 04/08/19 09:55 Zyloprim - PO 100 mg DAILY [facility] Administration Aspirin 81 mg 03/31/19 10:00 04/08/19 09:56 Asa - PO 81 mg DAILY [facility] Administration Atorvastatin Calcium 20 mg 03/30/19 22:00 04/07/19 22:37 Lipitor - PO 20 mg HS [facility] Administration Calcium Carbonate/Cholecalciferol 2 tab 03/30/19 20:45 04/08/19 09:55 Os-Sawyer 500+D - PO 2 tab DAILY [facility] Administration Clopidogrel Bisulfate 75 mg 03/31/19 10:00 04/08/19 09:55 Plavix - PO 75 mg DAILY [facility] Administration Docusate Sodium 100 mg 04/03/19 14:20 04/03/19 15:01 Colace - PO 100 mg BID PRN Administration CONSTIPATION Guaifenesin 600 mg 04/07/19 14:22 04/08/19 09:55 Mucinex - PO 600 mg BID [facility] Administration Heparin Sodium (Porcine) 5,000 unit 03/31/19 06:00 04/08/19 14:20 Heparin - SQ 5,000 unit TID [facility] Administration Insulin Aspart 1 vial 04/07/19 18:54 04/08/19 12:29 Novolog Vial Sliding Scale - SQ 3 units ACHS [facility] Administration Protocol Lidocaine 1 patch 04/02/19 10:00 04/08/19 09:56 Lidoderm Patch - TP 1 patch DAILY [facility] Administration Magnesium Oxide 400 mg 03/30/19 22:00 04/08/19 09:55 Mag-Ox - PO 400 mg BID [facility] Administration Metoprolol Succinate 50 mg 04/06/19 10:00 04/08/19 09:56 Toprol Xl - PO 50 mg BID [facility] Administration Miscellaneous 1 each 04/02/19 22:00 04/07/19 22:37 Lidoderm Patch Removal MC 1 each DAILY@2200 [facility] Administration Nystatin 1 applic 03/30/19 20:45 Mycostatin Cream - TP DAILY PRN WOUND CARE Pantoprazole Sodium 40 mg 03/31/19 10:00 04/08/19 09:56 Protonix - PO 40 mg DAILY [facility] Administration Prednisone 10 mg 04/10/19 10:00 Deltasone - PO 04/12/19 10:01 DAILY [facility] Prednisone 20 mg 04/07/19 10:00 04/08/19 09:55 Deltasone - PO 04/09/19 10:01 20 mg DAILY [facility] Administration Prednisone 5 mg 04/11/19 10:00 Deltasone - PO 04/11/19 10:01 DAILY [facility] Torsemide 40 mg 04/05/19 10:00 04/08/19 09:55 Demadex - PO 40 mg DAILY [facility] Administration - Post-Fall Patient Outcome: No Injury Treatment: None Vital Signs: Vital Signs Temperature 98.9 F 04/08/19 14:00 Pulse Rate 73 04/08/19 14:00 Respiratory Rate 20 04/08/19 14:00 Blood Pressure 117/47 L 04/08/19 14:00 O2 Sat by Pulse Oximetry (%) 99 04/08/19 09:00 LOC Post-Fall: Unchanged Identify factors for HIGH RISK for Head Injury: Pt on anticoagulant Critical Care Total Critical Care Time (in minutes): 45 Critical Care Statement: The care of this patient involved high complexity decision making to prevent further life threatening deterioration of the patient 's condition and/or to evaluate & treat vital organ system(s) failure or risk of failure.
--- NOTE | 2019-04-08 18:35 | RAPID ---
<Maria De Jesus Carney - Last Filed: 04/08/19 18:35> Physical Examination Vital Signs: Vital Signs Temperature 98 F 04/08/19 16:05 Pulse Rate 73 04/08/19 16:05 Respiratory Rate 20 04/08/19 16:05 Blood Pressure 103/50 L 04/08/19 16:05 O2 Sat by Pulse Oximetry (%) 99 04/08/19 09:00 Labs: CBC, BMP 04/07/19 11:38 04/07/19 11:38 Rapid Response - Rapid Response Assessment: A rapid response was called today at 3:52pm, the rapid response team responded immediately. EMS was attempting to transfer the patient when the stretcher tipped over and the EMS team "lowered him to the floor gently" per their report. On physical exam the patient was AOx2 but not to month. On arrival his vital signs were bp 145/65, pulse 76, sattin 90% on RA. The physical exam was unremarkable except for a small cut on the patient's ear which was reportedly present prior to the incident. The neuro exam was unremarkable. The primary team arrived to assess the patient and took over care. <Alfreda Bush - Last Filed: 04/12/19 13:08> Physical Examination Vital Signs: Labs: CBC, BMP 04/07/19 11:38 04/07/19 11:38 Critical Care Total Critical Care Time (in minutes): 25
[2019-04-08] MEDS: LIDOCAINE PATCH REMOVAL MC SCH (21:56)
[2019-04-08] MEDS: ATORVASTATIN CA 20 MG TABLET (FP) PO SCH (21:57)
[2019-04-08] MEDS ORDERED: INSULIN (NOVOLOG) ASPART 100 UNITS/ML 10ML VIAL ONE (22:00)
[2019-04-09] MEDS: INSULIN SLIDING SCALE (NOVOLOG) 1 VIAL SQ SCH ×2 (06:13→11:37)
[2019-04-09] MEDS: HEPARIN NA (PORCINE) 5,000 UNITS/ML 1ML VIAL SQ SCH ×2 (06:14→13:55)
--- NOTE | 2019-04-09 09:11 | HOSP ---
Physical Examination Vital Signs: Vital Signs Temperature 98.2 F 04/09/19 06:52 Pulse Rate 59 L 04/09/19 06:52 Respiratory Rate 20 04/09/19 06:52 Blood Pressure 100/42 L 04/09/19 06:52 O2 Sat by Pulse Oximetry (%) 97 04/08/19 21:00 Constitutional: Yes: Well Nourished, No Distress, Calm Eyes: Yes: WNL HENT: Yes: Atraumatic Neck: Yes: WNL Cardiovascular: Yes: Regular Rate and Rhythm Respiratory: Yes: Diminished, On Nasal O2 Gastrointestinal: Yes: WNL ...Rectal Exam: Yes: Deferred Musculoskeletal: Yes: WNL Extremities: Yes: WNL Edema: No Edema: LLE: Trace, RLE: Trace Wound/Incision: Yes: Clean/Dry Neurological: Yes: WNL, Alert, Oriented ...Motor Strength: WNL Psychiatric: Yes: Alert, Oriented Labs: CBC, BMP 04/07/19 11:38 04/07/19 11:38 Hospitalist Encounter Assessment: Patient s/p fall on 04/08/19 when attempting to be moved from his bed to the stretcher with EMS. Patient was scheduled to go to [facility] yesterday and discharge cancelled secondary to fall witnessed by empress. He was monitored x 24 hours per hospital protocol. Head ct negative mentation at baseline no signs of injury or trauma patient denies pain/malaise vitals stable will discharge today to [facility] for rehab.
[2019-04-09] MEDS: ASPIRIN 81 MG CHEWABLE TABLETS PO SCH (10:39)
[2019-04-09] MEDS: PANTOPRAZOLE 40 MG TABLET (FP) PO SCH (10:39)
[2019-04-09] MEDS: guaiFENesin 600 MG TABLET.ER (FP) PO SCH (10:39)
[2019-04-09] MEDS: CALCIUM 500MG/VIT-D 200 UNITS COMBO TABLET (FP) PO SCH (10:40)
[2019-04-09] MEDS: ALLOPURINOL 100 MG TABLET (FP) PO SCH (10:40)
[2019-04-09] MEDS: MAGNESIUM OXIDE 400 MG TABLET (FP) PO SCH (10:40)
[2019-04-09] MEDS: LIDOCAINE 5% TOPICAL PATCH TP SCH (10:40)
[2019-04-09] MEDS: CLOPIDOGREL BISULFATE 75 MG TABLET (FP) PO SCH (10:40)
[2019-04-09] MEDS: TORSEMIDE 20 MG TABLET (FP) PO SCH (10:40)
[2019-04-09] MEDS: predniSONE 20 MG TABLET (UD) PO SCH (10:40)
--- NOTE | 2019-04-09 11:35 | PN ---
Progress Note (short form) - Note Progress Note: s: no cp sob palps dizzy Current Medications Acetaminophen (Tylenol -) 650 mg PO Q6H PRN PRN Reason: PAIN OR FEVER Last Admin: 04/02/19 10:51 Dose: 650 mg Allopurinol (Zyloprim -) 100 mg PO DAILY [facility] Last Admin: 04/09/19 10:40 Dose: 100 mg Aspirin (Asa -) 81 mg PO DAILY [facility] Last Admin: 04/09/19 10:39 Dose: 81 mg Atorvastatin Calcium (Lipitor -) 20 mg PO HS [facility] Last Admin: 04/08/19 21:57 Dose: 20 mg Calcium Carbonate/Cholecalciferol (Os-Sawyer 500+D -) 2 tab PO DAILY [facility] Last Admin: 04/09/19 10:40 Dose: 2 tab Clopidogrel Bisulfate (Plavix -) 75 mg PO DAILY [facility] Last Admin: 04/09/19 10:40 Dose: 75 mg Docusate Sodium (Colace -) 100 mg PO BID PRN PRN Reason: CONSTIPATION Last Admin: 04/03/19 15:01 Dose: 100 mg Guaifenesin (Mucinex -) 600 mg PO BID [facility] Last Admin: 04/09/19 10:39 Dose: 600 mg Heparin Sodium (Porcine) (Heparin -) 5,000 unit SQ TID [facility] Last Admin: 04/09/19 06:14 Dose: 5,000 unit Insulin Aspart (Novolog Vial Sliding Scale -) 1 vial SQ ACHS [facility]; Protocol Last Admin: 04/09/19 06:13 Dose: Not Given Lidocaine (Lidoderm Patch -) 1 patch TP DAILY [facility] Last Admin: 04/09/19 10:40 Dose: 1 patch Magnesium Oxide (Mag-Ox -) 400 mg PO BID [facility] Last Admin: 04/09/19 10:40 Dose: 400 mg Metoprolol Succinate (Toprol Xl -) 50 mg PO BID [facility] Last Admin: 04/09/19 10:47 Dose: 50 mg Miscellaneous (Lidoderm Patch Removal) 1 each MC DAILY@2200 [facility] Last Admin: 04/08/19 21:56 Dose: 1 each Nystatin (Mycostatin Cream -) 1 applic TP DAILY PRN PRN Reason: WOUND CARE Pantoprazole Sodium (Protonix -) 40 mg PO DAILY [facility] Last Admin: 04/09/19 10:39 Dose: 40 mg Prednisone (Deltasone -) 10 mg PO DAILY [facility] Stop: 04/12/19 10:01 Prednisone (Deltasone -) 5 mg PO DAILY [facility] Stop: 04/11/19 10:01 Torsemide (Demadex -) 40 mg PO DAILY [facility] Last Admin: 04/09/19 10:40 Dose: 40 mg Vital Signs Period Temp Pulse Resp BP Sys/Benito Pulse Ox Last 24 Hr 97.9 F-98.9 F 55-77 18-20 100-145/42-65 95-97 Constitutional: Yes: No Distress Eyes: Yes: Conjunctiva Clear Cardiovascular: Yes: Regular Rate and Rhythm, Murmur (2/6 KEN[place]ON RSB) Respiratory: Yes: Other (mild b/l expiratory wheezing) Gastrointestinal: Yes: Soft, Abdomen, Obese Edema: trace le edema bl Neurological: Yes: Alert, Oriented no jaundice diaphoresis Assessment/Plan a/p: 80 m hx cad s/p pci ([facility] htn, dm, hld, chronic venuous insuff with le edema, dCHF, severe , HCM with LVOT obstruction , pad s/p right common iliac stent 2008, copd here with SOB, LE edema and decompensated acute diastolic and valvular CHF chronic diastolic chf, le edema: - torsemide increased to 40 mg BID but had hypotension so back on qd now, 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
--- NOTE | 2019-04-09 14:03 | PN ---
Progress Note, Physician History of Present Illness: Pt seen and examined at bedside. He fell yesterday before discharge and was observed overnight. He feels that his edema is stable. - Current Medication List Current Medications: Active Medications Acetaminophen (Tylenol -) 650 mg PO Q6H PRN PRN Reason: PAIN OR FEVER Last Admin: 04/02/19 10:51 Dose: 650 mg Allopurinol (Zyloprim -) 100 mg PO DAILY [facility] Last Admin: 04/09/19 10:40 Dose: 100 mg Aspirin (Asa -) 81 mg PO DAILY [facility] Last Admin: 04/09/19 10:39 Dose: 81 mg Atorvastatin Calcium (Lipitor -) 20 mg PO HS [facility] Last Admin: 04/08/19 21:57 Dose: 20 mg Calcium Carbonate/Cholecalciferol (Os-Sawyer 500+D -) 2 tab PO DAILY [facility] Last Admin: 04/09/19 10:40 Dose: 2 tab Clopidogrel Bisulfate (Plavix -) 75 mg PO DAILY [facility] Last Admin: 04/09/19 10:40 Dose: 75 mg Docusate Sodium (Colace -) 100 mg PO BID PRN PRN Reason: CONSTIPATION Last Admin: 04/03/19 15:01 Dose: 100 mg Guaifenesin (Mucinex -) 600 mg PO BID [facility] Last Admin: 04/09/19 10:39 Dose: 600 mg Heparin Sodium (Porcine) (Heparin -) 5,000 unit SQ TID [facility] Last Admin: 04/09/19 13:55 Dose: 5,000 unit Insulin Aspart (Novolog Vial Sliding Scale -) 1 vial SQ ACHS [facility]; Protocol Last Admin: 04/09/19 11:37 Dose: 5 units Lidocaine (Lidoderm Patch -) 1 patch TP DAILY [facility] Last Admin: 04/09/19 10:40 Dose: 1 patch Magnesium Oxide (Mag-Ox -) 400 mg PO BID [facility] Last Admin: 04/09/19 10:40 Dose: 400 mg Metoprolol Succinate (Toprol Xl -) 50 mg PO BID [facility] Last Admin: 04/09/19 10:47 Dose: 50 mg Miscellaneous (Lidoderm Patch Removal) 1 each MC DAILY@2200 [facility] Last Admin: 04/08/19 21:56 Dose: 1 each Nystatin (Mycostatin Cream -) 1 applic TP DAILY PRN PRN Reason: WOUND CARE Pantoprazole Sodium (Protonix -) 40 mg PO DAILY [facility] Last Admin: 04/09/19 10:39 Dose: 40 mg Prednisone (Deltasone -) 10 mg PO DAILY [facility] Stop: 04/12/19 10:01 Prednisone (Deltasone -) 5 mg PO DAILY [facility] Stop: 04/11/19 10:01 Torsemide (Demadex -) 40 mg PO DAILY [facility] Last Admin: 04/09/19 10:40 Dose: 40 mg - Objective Vital Signs: Vital Signs Temperature 98.3 F 04/09/19 10:12 Pulse Rate 72 04/09/19 10:12 Respiratory Rate 20 04/09/19 10:12 Blood Pressure 103/52 L 04/09/19 10:12 O2 Sat by Pulse Oximetry (%) 95 04/09/19 09:00 Constitutional: Yes: Calm Eyes: Yes: Conjunctiva Clear HENT: Yes: Atraumatic Neck: Yes: Supple Cardiovascular: Yes: S1, S2 Respiratory: Yes: CTA Bilaterally Gastrointestinal: Yes: Soft Genitourinary: Yes: WNL Musculoskeletal: Yes: WNL Edema: Yes Edema: LLE: 1+, RLE: 1+ Neurological: Yes: Oriented Psychiatric: Yes: Oriented Labs: CBC, BMP 04/07/19 11:38 04/07/19 11:38 Problem List - Problems (1) Cellulitis and abscess of foot Code(s): L03.119 - CELLULITIS OF UNSPECIFIED PART OF LIMB; L02.619 - CUTANEOUS ABSCESS OF UNSPECIFIED FOOT (2) Hypocalcemia Code(s): E83.51 - HYPOCALCEMIA (3) Inability to ambulate due to left ankle or foot Code(s): R26.2 - DIFFICULTY IN WALKING, NOT ELSEWHERE CLASSIFIED (4) CHF (congestive heart failure) Code(s): I50.9 - HEART FAILURE, UNSPECIFIED (5) CKD (chronic kidney disease) Code(s): N18.9 - CHRONIC KIDNEY DISEASE, UNSPECIFIED Assessment/Plan Current Medications Generic Name Dose Route Start Last Admin Trade Name Freq PRN Reason Stop Dose Admin Acetaminophen 650 mg 03/31/19 06:02 04/02/19 10:51 Tylenol - PO 650 mg Q6H PRN Administration PAIN OR FEVER Allopurinol 100 mg 04/04/19 10:00 04/09/19 10:40 Zyloprim - PO 100 mg DAILY [facility] Administration Aspirin 81 mg 03/31/19 10:00 04/09/19 10:39 Asa - PO 81 mg DAILY [facility] Administration Atorvastatin Calcium 20 mg 03/30/19 22:00 04/08/19 21:57 Lipitor - PO 20 mg HS [facility] Administration Calcium Carbonate/Cholecalciferol 2 tab 03/30/19 20:45 04/09/19 10:40 Os-Sawyer 500+D - PO 2 tab DAILY [facility] Administration Clopidogrel Bisulfate 75 mg 03/31/19 10:00 04/09/19 10:40 Plavix - PO 75 mg DAILY [facility] Administration Docusate Sodium 100 mg 04/03/19 14:20 04/03/19 15:01 Colace - PO 100 mg BID PRN Administration CONSTIPATION Guaifenesin 600 mg 04/07/19 14:22 04/09/19 10:39 Mucinex - PO 600 mg BID [facility] Administration Heparin Sodium (Porcine) 5,000 unit 03/31/19 06:00 04/09/19 13:55 Heparin - SQ 5,000 unit TID [facility] Administration Insulin Aspart 1 vial 04/07/19 18:54 04/09/19 11:37 Novolog Vial Sliding Scale - SQ 5 units ACHS [facility] Administration Protocol Lidocaine 1 patch 04/02/19 10:00 04/09/19 10:40 Lidoderm Patch - TP 1 patch DAILY [facility] Administration Magnesium Oxide 400 mg 03/30/19 22:00 04/09/19 10:40 Mag-Ox - PO 400 mg BID [facility] Administration Metoprolol Succinate 50 mg 04/06/19 10:00 04/09/19 10:47 Toprol Xl - PO 50 mg BID [facility] Administration Miscellaneous 1 each 04/02/19 22:00 04/08/19 21:56 Lidoderm Patch Removal MC 1 each DAILY@2200 [facility] Administration Nystatin 1 applic 03/30/19 20:45 Mycostatin Cream - TP DAILY [facility]N WOUND CARE Pantoprazole Sodium 40 mg 03/31/19 10:00 04/09/19 10:39 Protonix - PO 40 mg DAILY [facility] Administration Prednisone 10 mg 04/10/19 10:00 Deltasone - PO 04/12/19 10:01 DAILY [facility] Prednisone 5 mg 04/11/19 10:00 Deltasone - PO 04/11/19 10:01 DAILY [facility] Torsemide 40 mg 04/05/19 10:00 04/09/19 10:40 Demadex - PO 40 mg DAILY [facility] Administration Impression 1. hypocalcemia 2. hypomagnesemia 3. chf 4. ckd 5. leg pain 6. PAD 7. DM Plan - cont torsemide - will need outpt follow up - monitor lytes in [place] - 2 gram sodium diet - knee pain is improving
[2019-04-09 15:38] VITALS: BP 109/56; PULSE 65; TEMP 98.6
[2019-04-10] MEDS ORDERED: predniSONE 10 MG TABLET (UD) PO SCH (10:00)
[2019-04-11] MEDS ORDERED: predniSONE 5 MG TABLET (UD) PO SCH (10:00)
== END 2019-04-09 16:09 | DRG 602 ==
LOC: JER 12:02 → JERBED 18:09 → J8W 03-31 10:03
PROVIDERS: ADMIT Internal Medicine; ATTEND Nurse Practitioner Family
DX: L03.116 Cellulitis of left lower limb (principal); I50.33 Acute on chronic diastolic (congestive) heart failure; M00.9 Pyogenic arthritis, unspecified; E87.1 Hypo-osmolality and hyponatremia; I13.0 Hypertensive heart and chronic kidney disease with heart failure and stage 1 through stage 4 chronic kidney disease, or unspecified chronic kidney disease; E87.3 Alkalosis; M10.9 Gout, unspecified; M65.9 Synovitis and tenosynovitis, unspecified; E83.51 Hypocalcemia; I25.10 Atherosclerotic heart disease of native coronary artery without angina pectoris; E11.9 Type 2 diabetes mellitus without complications; J44.9 Chronic obstructive pulmonary disease, unspecified; N18.9 Chronic kidney disease, unspecified; E83.42 Hypomagnesemia; R26.2 Difficulty in walking, not elsewhere classified; E11.51 Type 2 diabetes mellitus with diabetic peripheral angiopathy without gangrene; I35.0 Nonrheumatic aortic (valve) stenosis; Z98.61 Coronary angioplasty status; E78.5 Hyperlipidemia, unspecified; I73.9 Peripheral vascular disease, unspecified
CPT/HCPCS: 36415; 70450-TC; 71045-TC-FY; 73630-TC-LT; 80053; 82306; 82310; 82962; 83036; 83605; 83735; 83880; 83970; 84100; 84550; 85025; 85027; 85651; 86140; 87040; 93005; 93010; 93306-TC; 93971-TC; 97116-GP; 97162-GP; 99284-25; J1644

== ENCOUNTER 2019-04-30 05:56 | Inpatient (IN) | payer OTHER, MEDICARE ==
[2019-04-30] MEDS ORDERED: methylPREDNISolone NA SUCC 125 MG/2 ML VIAL IVPB ONE (06:08)
[2019-04-30] MEDS ORDERED: ALBUTEROL SO4 2.5/IPRATROPIUM 0.5 INH SOL 3 ML VIAL.NEB. NEB ONE ×5 (06:08→07:25)
[2019-04-30 07:10] LABS: BASO % 0.6 % (0-2.0); HEMOGLOBIN 9.8 GM/dL (11.7-16.9); LYMPH % 9.9 % (8-40); MCH 30.3 pg (25.7-33.7); MCHC 32.8 g/dl (32.0-35.9); MEAN CELL VOLUME 92.3 fl (80-96); MEAN PLT VOLUME 9.2 fl (7.5-11.1); MONO % 6.2 % (3.8-10.2); NEUT % 80.3 % (42.8-82.8); PLATELET COUNT 178 K/MM3 (134-434); RBC 3.24 M/mm3 (4.00-5.60); RDW 16.7 % (11.9-15.9); WHITE BLOOD COUNT 4.8 K/mm3 (4.0-10.0)
[2019-04-30 07:26] LABS: ALBUMIN 2.7 g/dl (3.4-5.0); ALK PHOS 95 U/L (45-117); ANION GAP 4 MMOL/L (8-16); BILIRUBIN,TOTAL 0.6 mg/dL (0.2-1); CALCIUM 8.7 mg/dL (8.5-10.1); CHLORIDE 106 mmol/L (98-107); CO2 28 mmol/L (21-32); CREATININE 1.1 mg/dL (0.55-1.3); GLUCOSE,RANDOM 185 mg/dL (74-106); N-TERMINAL BNP 1706.3 pg/ml (5-450); POTASSIUM 5.5 mmol/L (3.5-5.1); SGOT/AST 14 U/L (15-37); SGPT/ALT 27 U/L (13-61); SODIUM 138 mmol/L (136-145); TOT PROT 6.1 g/dl (6.4-8.2)
[2019-04-30] MEDS ORDERED: ALBUTEROL SO4 0.083% IH SOL 2.5 MG/3 ML VIAL.NEB. NEB ONE ×4 (07:26→09:28)
[2019-04-30] MEDS ORDERED: FUROSEMIDE 40 MG/4 ML INJECTABLE VIAL ONE (07:27)
[2019-04-30] MEDS ORDERED: FUROSEMIDE 40 MG/4 ML INJECTABLE VIAL IVPUSH ONE (07:27)
[2019-04-30 07:59] LABS: INR 1.14 (0.83-1.09); PROTHROMBIN TIME (PATIENT) 13.5 SEC (9.7-13.0)
[2019-04-30 08:02] LABS: ACTIVATED PTT 33.9 SECONDS (25.2-36.5)
[2019-04-30] MEDS ORDERED: AZITHROMYCIN IVPB 500 MG in DEXTROSE 5%-WATER - 250 ML IVPB ONE (08:35)
[2019-04-30] MEDS ORDERED: CEFTRIAXONE 1,000 MG in DEXTROSE 5%-WATER - 50 ML IVPB ONE (08:35)
[2019-04-30] MEDS ORDERED: CEFTRIAXONE 1 GM/50 ML BAG ONE (09:08)
--- NOTE | 2019-04-30 10:00 | EKG ---
Test Reason : Blood Pressure : / mmHG Vent. Rate : 072 BPM Atrial Rate : 072 BPM P-R Int : 180 ms QRS Dur : 128 ms QT Int : 398 ms P-R-T Axes : 053 -43 036 degrees QTc Int : 435 ms NORMAL SINUS RHYTHM LEFT AXIS DEVIATION RIGHT BUNDLE BRANCH BLOCK ABNORMAL ECG WHEN COMPARED WITH ECG OF 31-MAR-2019 00:51, NO SIGNIFICANT CHANGE WAS FOUND Confirmed by GELY ZAZUETA MD ([id number]) on 04/30/2019 10:00:05 AM Referred By: Confirmed By:GELY ZAZUETA MD
--- NOTE | 2019-04-30 10:14 | PDOC ---
Documentation entered by Neetu Cartwright SCRIBE, acting as scribe for Frank Kim MD. Frank Kim MD: This documentation has been prepared by the Gabbie alfaro Sammi, SCRIBE, under my direction and personally reviewed by me in its entirety. I confirm that the documentation accurately reflects all work, treatment, procedures, and medical decision making performed by me. History of Present Illness - General Chief Complaint: Shortness of Breath Stated Complaint: S.O.B. Time Seen by Provider: 04/30/19 07:15 - History of Present Illness Initial Comments: 04/30/19 07:35 The patient is an 83 year old male who presents to the emergency department for evaluation of about 4 days of shortness of breath, At rest and with minimal exertion. with associated cough and subjective fever. Patient denies chest pain /nausea/vomiting/melena/bright red blood per rectum. Patient also endorses bilateral lower extremity edema that has worsened over the past several days. Social history: former smoker Past History - Past Medical History Allergies/Adverse Reactions: Allergies Allergy/AdvReac Type Severity Reaction Status Date / Time No Known Allergies Allergy Verified 09/28/16 02:31 Home Medications: Ambulatory Orders Acetaminophen [Tylenol] 650 mg PO QID PRN 04/30/19 Albuterol 2.5/Ipratropium 0.5 [Duoneb -] 1 amp NEB BID 04/30/19 Allopurinol [Zyloprim -] 100 mg PO DAILY 04/30/19 Arginine/Ascorbate Sod/Poonam AC [Arginaid Powder] 1 each PO DAILY 04/30/19 Aspirin 81 mg PO AM 04/30/19 Atorvastatin Ca [Lipitor] 20 mg PO HS 04/30/19 Clopidogrel Bisulfate [Plavix -] 75 mg PO DAILY 04/30/19 Colchicine 0.6 mg PO Q2D 04/30/19 Docusate Sodium [Colace] 100 mg PO BID 04/30/19 Furosemide [Lasix] 40 mg PO BID 04/30/19 Guaifenesin [Mucinex -] 600 mg PO BID 04/30/19 Insulin Lispro [Humalog] 100 unit SQ AC 04/30/19 Isosorbide Mononitrate [Isosorbide Mononitrate ER] 30 mg PO DAILY 04/30/19 Lidocaine 5% Patch [Lidoderm Patch -] 1 patch TP DAILY 04/30/19 Metoprolol Succinate [Toprol Xl] 100 mg PO BID 04/30/19 Multivitamin,Ther and Minerals [Vitamin and Minerals] 1 each PO DAILY 04/30/19 Pantoprazole Sodium 40 mg PO DAILY 04/30/19 Salmeterol/Fluticasone [Advair 100Mcg/50Mcg -] 1 inh IH AM 04/30/19 Tiotropium [place] [Spiriva] 1 inh PO DAILY 04/30/19 Anemia: Yes Asthma: Yes Cancer: No Cardiac Disorders: Yes (stents) CVA: No COPD: Yes (DIFFICULTY BREATHING) CHF: Yes Dementia: No Diabetes: Yes (NIDDM) GI Disorders: Yes (GIB, INTESTINAL OBSTRUCTION, COLON POLYPS) HTN: Yes Hypercholesterolemia: Yes Seizures: No - Surgical History Abdominal Surgery: Yes (HERNIA) Cardiac Surgery: Yes (STENT X 2, PPM) - Immunization History Td Vaccination: Yes TDAP Vaccination: Yes Immunization Up to Date: Yes - Psycho Social/Smoking Cessation Hx Smoking Status: No Smoking History: Never smoked Have you smoked in the past 12 months: No Number of Cigarettes Smoked Daily: 0 If you are a former smoker, when did you quit?: 15 years ago Information on smoking cessation initiated: No Hx Alcohol Use: No Drug/Substance Use Hx: No Substance Use Type: None Hx Substance Use Treatment: No Review of Systems - Review of Systems Comments:: 04/30/19 07:36 CONSTITUTIONAL: +subjective fever. no chills, no fatigue EYES: No visual changes ENT: No ear pain, no sore throat CARDIOVASCULAR: No chest pain, no palpitations RESPIRATORY: +SOB, +cough GI: No abdominal pain, no nausea, no vomiting, no constipation, no diarrhea GENITOURINARY: No dysuria, no frequency, no hematuria MUSKULOSKELETAL: No backpain, no joint pain, no myalgias SKIN: No rash NEURO: No headache *Physical Exam - Vital Signs Last Vital Signs Temp Pulse Resp BP Pulse Ox 98.9 F 74 22 H 126/45 L 95 04/30/19 06:02 04/30/19 06:02 04/30/19 06:02 04/30/19 06:02 04/30/19 06:02 - Physical Exam Comments: 04/30/19 10:02 CONSTITUTIONAL: Awake, alert, +tachypneic, dyspneic, moderate respiratory distress EYES: PERRL; EOM intact NECK: +JVD. Supple; non-tender; no cervical lymphadenopathy CARD: Normal S1, S2; no murmurs, rubs, or gallops RESP: +Decreased air entry bilaterally with expiratory wheezing. +Decreased breath sounds at bases bilaterally ABD: Soft, non-distended; non-tender; no palpable organomegaly, no palpable hernias EXT: + +2 pitting edema of bilateral lower extremities. Normal ROM in all four extremities; non-tender to palpation; distal pulses intact SKIN: +chronic venous stasis dermatitis NEURO: No focal neurological deficiencies. Heart Score/ECG Review - ECG Impressions Comment:: 04/30/19 08:50 normal sinus rhythm left axis deviation right bundle branch block abnormal ECG ED Treatment Course - LABORATORY CBC & Chemistry Diagram: 04/30/19 06:12 04/30/19 06:12 - ADDITIONAL ORDERS Additional order review: Laboratory Results 04/30/19 04/30/19 06:12 06:12 PT with INR 13.50 H INR 1.14 H PTT (Actin FS) 33.9 Sodium 138 Potassium 5.5 H Chloride 106 Carbon Dioxide 28 Anion Gap 4 L BUN 16.0 Creatinine 1.1 Est GFR (CKD-EPI)AfAm 71.07 Est GFR (CKD-EPI)NonAf 61.32 Random Glucose 185 H Calcium 8.7 Total Bilirubin 0.6 AST 14 L ALT 27 Alkaline Phosphatase 95 Creatine Kinase 35 Troponin I < 0.02 B-Natriuretic Peptide 1706.3 H Total Protein 6.1 L Albumin 2.7 L 04/30/19 06:12 RBC 3.24 L MCV 92.3 MCHC 32.8 RDW 16.7 H MPV 9.2 Neutrophils % 80.3 Lymphocytes % 9.9 D Monocytes % 6.2 Eosinophils % 3.0 Basophils % 0.6 - Medications Given in the ED: ED Medications Discontinued Medications Generic Name Dose Route Start Last Admin Trade Name Freq PRN Reason Stop Dose Admin Albuterol/Ipratropium 1 amp 04/30/19 06:08 04/30/19 06:15 Duoneb - NEB 04/30/19 06:09 1 amp ONCE ONE Administration Albuterol/Ipratropium 1 amp 04/30/19 06:16 04/30/19 06:45 Duoneb - NEB 04/30/19 06:17 1 amp ONCE ONE Administration Albuterol/Ipratropium 1 amp 04/30/19 06:16 04/30/19 06:45 Duoneb - NEB 04/30/19 06:17 1 amp ONCE ONE Administration Methylprednisolone Sodium Succinate 125 mg 04/30/19 06:08 04/30/19 06:15 Solu-Medrol - IVPB 04/30/19 06:09 Not Given ONCE ONE Medical Decision Making - Medical Decision Making 04/30/19 10:10 Patient is an 83-year-old male with multiple comorbidities who presents to the ER with shortness of breath and coarse nonproductive cough for the past several days. In the ER, patient is noted to be tachypneic and dyspneic, with O2 saturation on room air of 89 to 90%, improving to 93-94% on supplemental O2 via nasal cannula at 3 L/min. Diffuse expiratory wheezing is noted bilaterally, with decreased air entry, most pronounced at the bases, with JVD and bilateral lower extremity edema. Chest x-ray reveals cephalization, bilateral pleural effusions, fluid in the fissure on the right, as well as a suspected right lower lobe infiltrate. Patient received Combivent and Decadron in route by EMS and received several Combivent nebulizer treatments prior to my evaluation. Solu-Medrol iv was also administered. Patient additionally received IV Lasix, and after obtaining blood cultures, patient received ceftriaxone and Zithromax. At this time, patient is resting comfortably, his oxygen saturation on supplemental O2 via nasal cannula at 3 L/min is noted to be 94%. Patient will be admitted to [facility] for further evaluation and treatment Discharge - Discharge Information Problems reviewed: Yes Clinical Impression/Diagnosis: Acute exacerbation of chronic obstructive pulmonary disease (COPD) Pneumonia Qualifiers: Pneumonia type: due to unspecified organism Laterality: right Lung location: lower lobe of lung Qualified Code(s): J18.1 - Lobar pneumonia, unspecified organism CHF exacerbation Qualifiers: Heart failure type: unspecified Qualified Code(s): I50.9 - Heart failure, unspecified Condition: Fair - Admission Yes - Follow up/Referral Referrals: Jose Aguirre MD [Primary Care Provider] - - Patient Discharge Instructions - Post Discharge Activity
--- NOTE | 2019-04-30 11:12 | HP ---
Admitting History and Physical - Primary Care Physician PCP: Rufino Mccall - Admission Chief Complaint: sob History of Present Illness: ER HISTORY - History of Present Illness Initial Comments: 04/30/19 07:35 The patient is an 83 year old male who presents to the emergency department for evaluation of about 4 days of shortness of breath, At rest and with minimal exertion. with associated cough and subjective fever. Patient denies chest pain /nausea/vomiting/melena/bright red blood per rectum. Patient also endorses bilateral lower extremity edema that has worsened over the past several days. Social history: former smoker Pt evaluated by me in the ER-- progressive sob for almost 1 week-- cough-- not productive -- chest tightness No dizziness, palpitations Had subjective fevers Worsening leg edema >3 weeks Difficult to ambulate due to SOB-- usually walks with walker but now not able to do so due to SOB Orthopnea+ History Source: Patient Limitations to Obtaining History: No Limitations - Past Medical History Cardiovascular: Yes: CAD (s/p 2 stents), CHF, HTN, Murmur, Other Pulmonary: Yes: COPD Gastrointestinal: Yes: Constipation, Diverticulosis, Hemorrhoids, Hiatal Hernia , Other Musculoskeletal: Yes: Chronic low back pain - Past Surgical History Past Surgical History: Yes: Colonoscopy, Hernia Repair, Upper Endoscopy - Smoking History Smoking history: Never smoked Have you smoked in the past 12 months: No Aproximately how many cigarettes per day: 0 If you are a former smoker, when did you quit?: 15 years ago - Alcohol/Substance Use Hx Alcohol Use: No History of Substance Use: reports: None - Social History ADL: Independent 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 History of Recent Travel: No Home Medications - Allergies Allergies/Adverse Reactions: Allergies Allergy/AdvReac Type Severity Reaction Status Date / Time No Known Allergies Allergy Verified 09/28/16 02:31 - Home Medications Home Medications: Ambulatory Orders Acetaminophen [Tylenol] 650 mg PO QID PRN 04/30/19 Albuterol 2.5/Ipratropium 0.5 [Duoneb -] 1 amp NEB BID 04/30/19 Allopurinol [Zyloprim -] 100 mg PO DAILY 04/30/19 Arginine/Ascorbate Sod/Poonam AC [Arginaid Powder] 1 each PO DAILY 04/30/19 Aspirin 81 mg PO AM 04/30/19 Atorvastatin Ca [Lipitor] 20 mg PO HS 04/30/19 Clopidogrel Bisulfate [Plavix -] 75 mg PO DAILY 04/30/19 Colchicine 0.6 mg PO Q2D 04/30/19 Docusate Sodium [Colace] 100 mg PO BID 04/30/19 Furosemide [Lasix] 40 mg PO BID 04/30/19 Guaifenesin [Mucinex -] 600 mg PO BID 04/30/19 Insulin Lispro [Humalog] 100 unit SQ AC 04/30/19 Isosorbide Mononitrate [Isosorbide Mononitrate ER] 30 mg PO DAILY 04/30/19 Lidocaine 5% Patch [Lidoderm Patch -] 1 patch TP DAILY 04/30/19 Metoprolol Succinate [Toprol Xl] 100 mg PO BID 04/30/19 Multivitamin,Ther and Minerals [Vitamin and Minerals] 1 each PO DAILY 04/30/19 Pantoprazole Sodium 40 mg PO DAILY 04/30/19 Salmeterol/Fluticasone [Advair 100Mcg/50Mcg -] 1 inh IH AM 04/30/19 Tiotropium [place] [Spiriva] 1 inh PO DAILY 04/30/19 Review of Systems - Review of Systems Constitutional: reports: Chills, Weakness. denies: Fever Cardiovascular: reports: Edema, Shortness of Breath. denies: Chest Pain, Palpitations Respiratory: reports: Cough, Exercise Intolerance, Orthopnea, SOB, SOB on Exertion Physical Examination Vital Signs: Vital Signs Temperature 98.9 F 04/30/19 07:24 Pulse Rate 75 04/30/19 07:24 Respiratory Rate 20 04/30/19 07:24 Blood Pressure 109/43 L 04/30/19 07:24 O2 Sat by Pulse Oximetry (%) 95 04/30/19 07:24 Constitutional: Yes: No Distress Cardiovascular: Yes: Regular Rate and Rhythm, Murmur Respiratory: Yes: Diminished, Rhonchi Gastrointestinal: Yes: Normal Bowel Sounds, Soft, Abdomen, Obese. No: Tenderness Edema: Yes Edema: LLE: 2+, RLE: 2+ Neurological: Yes: Alert, Oriented ...Motor Strength: WNL Psychiatric: Yes: WNL Labs: CBC, BMP 04/30/19 06:12 04/30/19 06:12 Imaging - Results Chest X-ray: Image Reviewed (congested+) EKG: Image Reviewed (NSR) Problem List - Problems (1) Acute exacerbation of chronic obstructive pulmonary disease (COPD) Code(s): J44.1 - CHRONIC OBSTRUCTIVE PULMONARY DISEASE W (ACUTE) EXACERBATION (2) CHF exacerbation Code(s): I50.9 - HEART FAILURE, UNSPECIFIED Qualifiers: Heart failure type: unspecified Qualified Code(s): I50.9 - Heart failure, unspecified (3) Pneumonia Code(s): J18.9 - PNEUMONIA, UNSPECIFIED ORGANISM Qualifiers: Pneumonia type: due to unspecified organism Laterality: right Lung location: lower lobe of lung Qualified Code(s): J18.1 - Lobar pneumonia, unspecified organism (4) CAD (coronary artery disease) Code(s): I25.10 - ATHSCL HEART DISEASE OF [place] CORONARY ARTERY W/O ANG PCTRS Qualifiers: Coronary Disease-Associated Artery/Lesion type: [place] coronary artery Associated angina: without angina pectoris (5) CKD (chronic kidney disease) Code(s): N18.9 - CHRONIC KIDNEY DISEASE, UNSPECIFIED Assessment/Plan PLAN received antibiotics, solumedrol lasix in ER Start duonebs lasix daily-- monitor renal function, I ad O and daily weights Echo ordered Cardiology eval Solumedrol q6h iv antibiotics continue with home meds Pulmonary eval DVT prophylaxis-- Lovenox sc
[2019-04-30] MEDS ORDERED: AZITHROMYCIN IVPB 500 MG/250 ML BAG IVPB ONE (11:17)
[2019-04-30 14:28] LABS: BLOOD UREA NITROGEN 19.4 mg/dL (7-18); CALCIUM 8.4 mg/dL (8.5-10.1); CREATININE 1.3 mg/dL (0.55-1.3); POTASSIUM 5.4 mmol/L (3.5-5.1)
--- NOTE | 2019-04-30 15:00 | CON.CARD ---
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 No cp palps dizzy loc pnd orthopnea. +le edema worse. pmh: per hpi psh: hernia repair ros: per hpi; +cough. no nvd, nasal congestion, pruett, vision changes, gib, hematuria, rash, muscle pain, wt loss, rash, fever social: ex tob fam: non contrib, no premature cad/scd meds: Current Medications Generic Name Dose Route Start Last Admin Trade Name Freq PRN Reason Stop Dose Admin Acetaminophen 650 mg 04/30/19 11:16 Tylenol - PO Q6H PRN PAIN Albuterol/Ipratropium 1 amp 04/30/19 11:14 Duoneb - NEB Q4H PRN SHORTNESS OF BREATH Allopurinol 100 mg 05/01/19 10:00 Zyloprim - PO DAILY [facility] Aspirin 81 mg 05/01/19 07:00 Asa - PO AM [facility] Atorvastatin Calcium 20 mg 04/30/19 22:00 Lipitor - PO HS [facility] Clopidogrel Bisulfate 75 mg 05/01/19 10:00 Plavix - PO DAILY [facility] Docusate Sodium 100 mg 04/30/19 22:00 Colace - PO BID [facility] Enoxaparin Sodium 40 mg 05/01/19 10:00 Lovenox - SQ DAILY [facility] Furosemide 40 mg 05/01/19 10:00 Lasix Injection - IVPUSH DAILY [facility] Azithromycin 500 mg in 250 mls @ 250 mls/hr 05/01/19 10:00 Zithromax 500mg Ivpb (Pre-Docked) IVPB DAILY [facility] Ceftriaxone Sodium 1 gm/ 50 mls @ 100 mls/hr 05/01/19 10:00 Dextrose IVPB DAILY [facility] Isosorbide Mononitrate 30 mg 05/01/19 10:00 Imdur - PO DAILY [facility] Methylprednisolone Sodium Succinate 60 mg 04/30/19 15:00 Solu-Medrol - IVPUSH Q6H-IV [facility] Metoprolol Succinate 100 mg 04/30/19 22:00 Toprol Xl - PO BID [facility] Pantoprazole Sodium 40 mg 05/01/19 10:00 Protonix - PO DAILY [facility] Home Medications Medication Instructions Recorded Acetaminophen [Tylenol] 650 mg PO QID PRN 04/30/19 Albuterol 2.5/Ipratropium 0.5 1 amp NEB BID 04/30/19 [Duoneb -] Allopurinol [Zyloprim -] 100 mg PO DAILY 04/30/19 Arginine/Ascorbate Sod/Poonam AC 1 each PO DAILY 04/30/19 [Arginaid Powder] Aspirin 81 mg PO AM 04/30/19 Atorvastatin Ca [Lipitor] 20 mg PO HS 04/30/19 Clopidogrel Bisulfate [Plavix -] 75 mg PO DAILY 04/30/19 Colchicine 0.6 mg PO Q2D 04/30/19 Docusate [place]odium [Colace] 100 mg PO BID 04/30/19 Furosemide [Lasix] 40 mg PO BID 04/30/19 Guaifenesin [Mucinex -] 600 mg PO BID 04/30/19 Insulin Lispro [Humalog] 100 unit SQ AC 04/30/19 Isosorbide Mononitrate [Isosorbide 30 mg PO DAILY 04/30/19 Mononitrate ER] Lidocaine 5% Patch [Lidoderm Patch 1 patch TP DAILY 04/30/19 -] Metoprolol Succinate [Toprol Xl] 100 mg PO BID 04/30/19 Multivitamin,Ther and Minerals 1 each PO DAILY 04/30/19 [Vitamin and Minerals] Pantoprazole Sodium 40 mg PO DAILY 04/30/19 Salmeterol/Fluticasone [Advair 1 inh IH AM 04/30/19 100Mcg/50Mcg -] Tiotropium [place] [Spiriva] 1 inh PO DAILY 04/30/19 Vital Signs Period Temp Pulse Resp BP Sys/[place] Pulse Ox Last 24 Hr 98.9 F-98.9 F 74-75 20-22 109-126/43-45 95-95 nad, no jvd rrr s1 s2 + murmur scattered mild exp wheeze, and rhonchi, nl eff aaox3 1+ le edema b/l, no c/c abd nt nd pos bs pos dp/pt no carotid bruits no diaphoresis/jaundice Laboratory Last Values WBC 4.8 K/mm3 (4.0-10.0) 04/30/19 06:12 RBC 3.24 M/mm3 (4.00-5.60) L 04/30/19 06:12 Hgb 9.8 GM/dL (11.7-16.9) L 04/30/19 06:12 Hct 30.0 % (35.4-49) L D 04/30/19 06:12 MCV 92.3 fl (80-96) 04/30/19 06:12 MCH 30.3 pg (25.7-33.7) 04/30/19 06:12 MCHC 32.8 g/dl (32.0-35.9) 04/30/19 06:12 RDW 16.7 % (11.9-15.9) H 04/30/19 06:12 Plt Count 178 K/MM3 (134-434) D 04/30/19 06:12 MPV 9.2 fl (7.5-11.1) 04/30/19 06:12 Absolute Neuts (auto) 3.9 K/mm3 (1.5-8.0) 04/30/19 06:12 Neutrophils % 80.3 % (42.8-82.8) 04/30/19 06:12 Lymphocytes % 9.9 % (8-40) D 04/30/19 06:12 Monocytes % 6.2 % (3.8-10.2) 04/30/19 06:12 Eosinophils % 3.0 % (0-4.5) 04/30/19 06:12 Basophils % 0.6 % (0-2.0) 04/30/19 06:12 Nucleated RBC % 0 % (0-0) 04/30/19 06:12 PT with INR 13.50 SEC (9.7-13.0) H 04/30/19 06:12 INR 1.14 (0.83-1.09) H 04/30/19 06:12 PTT (Actin FS) 33.9 SECONDS (25.2-36.5) 04/30/19 06:12 Sodium 139 mmol/L (136-145) 04/30/19 13:32 Potassium 5.4 mmol/L (3.5-5.1) H 04/30/19 13:32 Chloride 106 mmol/L (98-107) 04/30/19 13:32 Carbon Dioxide 26 mmol/L (21-32) 04/30/19 13:32 Anion Gap 7 MMOL/L (8-16) L 04/30/19 13:32 BUN 19.4 mg/dL (7-18) H 04/30/19 13:32 Creatinine 1.3 mg/dL (0.55-1.3) 04/30/19 13:32 Est GFR (CKD-EPI)AfAm 58.07 04/30/19 13:32 Est GFR (CKD-EPI)NonAf 50.10 04/30/19 13:32 POC Glucometer 238 UNITS (80-120) 04/30/19 13:19 Random Glucose 265 mg/dL (74-106) H 04/30/19 13:32 Calcium 8.4 mg/dL (8.5-10.1) L 04/30/19 13:32 Total Bilirubin 0.6 mg/dL (0.2-1) 04/30/19 06:12 AST 14 U/L (15-37) L 04/30/19 06:12 ALT 27 U/L (13-61) 04/30/19 06:12 Alkaline Phosphatase 95 U/L (45-117) 04/30/19 06:12 Creatine Kinase 35 U/L (26-308) 04/30/19 06:12 Troponin I < 0.02 ng/ml (0.00-0.05) 04/30/19 06:12 B-Natriuretic Peptide 1706.3 pg/ml (5-450) H 04/30/19 06:12 Total Protein 6.1 g/dl (6.4-8.2) L 04/30/19 06:12 Albumin 2.7 g/dl (3.4-5.0) L 04/30/19 06:12 EKG: sinus, old RBBB, LAFB, no sig change from prior 07/2016 cardiac MRI: moderate basal septal hypertrophy (up to 1.6 cm). nl lv size/fn. (EF 73%). +LVOT flow acceleration and CARLOS. Nl RV. No scar/edema. + CARLOS, mild MR. mild-mod (1.5 cm2 by planimetry). mild lae. mild asc ao dil (3.9 cm). TTE [facility] 10/2016: mild lvh. nl lv/rv. size/fn. grade I diastolic dysfunction. lvot vti/Ao vti 0.3. mod as (sev calc), jossy 1.3 (47/26). no carlos. rvsp 32 echo 07/2016: HR 69 bpm. Asymmetric septal hypertrophy (predom basal) 1.5 cm. EF 65-70%. Mod-sev LVOT obs at rest (3.7, PG 55/MG 28), unable to assess for CARLOS. Mild RV dil. Nl RV fn. Mild ana. 1+ AR. Very Severe (5.1, PG 104/MG 65 ), Mod MAC, mimimal functional MS, 1+ MR. Mild-mod TR, mod-sev pHTN. 08/2015 ADRIAN: Nl lv/rv, CARLOS. LVOT obstruction (although envelope suggested predominantly from ). Moderate (PG 50 mmHg). Minimal MR. Mod-sev atheroma of aorta. mild pHTN 07/2015 TTE: Hyperdynamic LV. Sigmoid septum with dynamic LVOT obstruction. + CARLOS (no MR). Pseudonormalizaiton. Nl RV. Mod . RVSP 54. 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 acute diastolic chf, le edema, copd: -was on torsemide 40 qd -here with vol overload now, agree with lasix 40 iv qd, monitor daily wts, chem7 -copd tx per pulm HCM with severe LVOT obstruction/CARLOS - s/p septal ablation [facility] 10/2016 s/p PPM - outpatient follow up Aortic stenosis - mod to severe, has refused TAVR evaluation recently cad, remote pci: - s/p BMS to dRCA 2006, LEONIDES to mRCA 2013, nonobstructive CAD on cath 10/2016 -cont statin, plavix, bb, imdur, asa - not on ACEI due to prior low BPs -nl lvef on recent outpt echo -no signs acs, delmer on tele htn: -cont home meds hld: -cont statin pad, le stent: -stable, cont home cardiac meds
--- NOTE | 2019-04-30 15:07 | ECHO ---
Name: HELEN ROTHMAN Exam:Adult Echocardiogram Study Date: 04/30/2019 01:52 PM Age: 83 yrs Reason For Study: CHF Height: 65 in Weight: 191 lb BSA: 1.9 m2 MMode/2D Measurements & Calculations IVSd: 1.2 cm Ao root diam: 3.1 cm LVIDd: 4.2 cm LA dimension: 3.9 cm LVIDs: 2.8 cm LVPWd: 1.4 cm LVPWs: 1.4 cm EDV(Teich): 79.1 ml ESV(Teich): 30.3 ml LVOT diam: 2.0 cm LAV (MOD-bp): 53.0 ml Doppler Measurements & Calculations MV E max reese: 100.2 cm/sec Ao V2 max: 379.0 cm/sec MV A max reese: 70.6 cm/sec Ao max P.7 mmHg MV E/A: 1.4 Ao V2 mean: 274.3 cm/sec MV dec time: 0.22 sec Ao mean P.1 mmHg Ao V2 VTI: 84.6 cm LG(I,D): 1.2 cm2 LG(V,D): 1.2 cm2 LV V1 max P.4 mmHg SV(LVOT): 101.6 ml LV V1 mean P.3 mmHg LV V1 max: 153.0 cm/sec LV V1 mean: 107.6 cm/sec LV V1 VTI: 33.0 cm TR max reese: 346.6 cm/sec PA V2 max: 135.7 cm/sec TR max P.3 mmHg PA max P.4 mmHg Med Peak E' Reese: 5.3 cm/sec Med E/e': 19.0 Lat Peak E' Reese: 5.6 cm/sec Lat E/e': 17.9 Procedure A two-dimensional transthoracic echocardiogram with color flow and Doppler was performed. Left Ventricle The left ventricular size, thickness and function are normal. The left ventricular ejection fraction is normal. The left ventricular wall motion is normal. Right Ventricle The right ventricle is normal in size and function. There is a pacemaker lead in the right ventricle. Atria The left atrium is borderline dilated. The right atrium is borderline dilated. Mitral Valve There is moderate mitral valve thickening. There is no mitral valve stenosis. There is trace to mild mitral regurgitation. Tricuspid Valve There is trivial tricuspid valve thickening. There is no tricuspid stenosis. There is mild tricuspid regurgitation. Right ventricular systolic pressure is elevated at 50-60mmHg. Aortic Valve The aortic valve is not well visualized. There is moderate aortic valve thickening. There is moderate aortic sclerosis.;. Moderate valvular aortic stenosis. No aortic regurgitation is present. Pulmonic Valve The pulmonic valve is not well visualized. Great Vessels The aortic root is normal size. Pericardium/Pleura There is no pericardial effusion. Interpretation Summary The left ventricular size, thickness and function are normal The left ventricular ejection fraction is normal. The left ventricular wall motion is normal. The left atrium is borderline dilated. The right atrium is borderline dilated. There is moderate aortic valve thickening. There is moderate aortic sclerosis.; Moderate valvular aortic stenosis. There is mild tricuspid regurgitation. Right ventricular systolic pressure is elevated at 50-60mmHg. There is a pacemaker lead in the right ventricle. There is trace to mild mitral regurgitation. There is moderate mitral valve thickening. The aortic valve is not well visualized. MD Balaji Glez 04/30/2019 03:06 PM
--- NOTE | 2019-04-30 15:14 | CON.PULM ---
Consult Consult Specialty:: PULMONARY Referred by:: Dr German Reason for Consultation:: shortness of breath - History of Present Illness Chief Complaint: shortness of breath History of Present Illness: 83yo male with h/o HTN, DM, hyperlipidemia, LV diastolic dysfunction, severe aortic stenosis, s/p PPM, PAD, COPD who was admitted with worsening shortness of breath x 1 week. Reports some chest tightness. +nonproductive cough and wheezing. No fevers, chills or sweats. Does report an increase in leg swelling. Reports compliance with medications. He is a former smoker. - History Source History Provided By: Patient, Medical Record Limitations to Obtaining History: No Limitations - Past Medical History Cardio/Vascular: Yes: CAD (s/p 2 stents), CHF, HTN, Murmur, Other Pulmonary: Yes: COPD Gastrointestinal: Yes: Constipation, Diverticulosis, Hemorrhoids, Hiatal Hernia , Other Musculoskeletal: Yes: Chronic low back pain - Past Surgical History Past Surgical History: Yes: Colonoscopy, Hernia Repair, Upper Endoscopy - Alcohol/Substance Use Hx Alcohol Use: No History of Substance Use: reports: None - Smoking History Smoking history: Never smoked Have you smoked in the past 12 months: No Aproximately how many cigarettes per day: 0 If you are a former smoker, when did you quit?: 15 years ago - Social History ADL: Independent 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 History of Recent Travel: No Home Medications - Allergies Allergies/Adverse Reactions: Allergies Allergy/AdvReac Type Severity Reaction Status Date / Time No Known Allergies Allergy Verified 09/28/16 02:31 - Home Medications Home Medications: Ambulatory Orders Acetaminophen [Tylenol] 650 mg PO QID PRN 04/30/19 Albuterol 2.5/Ipratropium 0.5 [Duoneb -] 1 amp NEB BID 04/30/19 Allopurinol [Zyloprim -] 100 mg PO DAILY 04/30/19 Arginine/Ascorbate Sod/Poonam AC [Arginaid Powder] 1 each PO DAILY 04/30/19 Aspirin 81 mg PO AM 04/30/19 Atorvastatin Ca [Lipitor] 20 mg PO HS 04/30/19 Clopidogrel Bisulfate [Plavix -] 75 mg PO DAILY 04/30/19 Colchicine 0.6 mg PO Q2D 04/30/19 Docusate Sodium [Colace] 100 mg PO BID 04/30/19 Furosemide [Lasix] 40 mg PO BID 04/30/19 Guaifenesin [Mucinex -] 600 mg PO BID 04/30/19 Insulin Lispro [Humalog] 100 unit SQ AC 04/30/19 Isosorbide Mononitrate [Isosorbide Mononitrate ER] 30 mg PO DAILY 04/30/19 Lidocaine 5% Patch [Lidoderm Patch -] 1 patch TP DAILY 04/30/19 Metoprolol Succinate [Toprol Xl] 100 mg PO BID 04/30/19 Multivitamin,Ther and Minerals [Vitamin and Minerals] 1 each PO DAILY 04/30/19 Pantoprazole Sodium 40 mg PO DAILY 04/30/19 Salmeterol/Fluticasone [Advair 100Mcg/50Mcg -] 1 inh IH AM 04/30/19 Tiotropium [place] [Spiriva] 1 inh PO DAILY 04/30/19 Review of Systems - Review of Systems Constitutional: reports: Weakness. denies: Chills, Fever Eyes: denies: Recent Change in Vision HENT: denies: Nasal Congestion, Throat Pain Neck: denies: Stiffness, Tenderness Cardiovascular: reports: Chest Pain, Edema, Shortness of Breath Respiratory: reports: Cough, Exercise Intolerance, SOB on Exertion, Wheezing. denies: Hemoptysis Gastrointestinal: denies: Abdominal Pain, Nausea, Vomiting Genitourinary: denies: Dysuria, Hematuria Neurological: denies: Dizziness, Headache Endocrine: denies: Unexplained Weight Loss Physical Exam Vital Sings: Vital Signs Temperature 98.9 F 04/30/19 07:24 Pulse Rate 75 04/30/19 07:24 Respiratory Rate 20 04/30/19 07:24 Blood Pressure 109/43 L 04/30/19 07:24 O2 Sat by Pulse Oximetry (%) 95 04/30/19 07:24 Constitutional: Yes: Calm Eyes: Yes: Conjunctiva Clear, EOM Intact HENT: Yes: Atraumatic, Normocephalic Neck: Yes: Supple, Trachea Midline Cardiovascular: Yes: Regular Rate and Rhythm, Murmur Respiratory: Yes: Diminished (decreased breath sounds at the bases) ...Clubbing: No Gastrointestinal: Yes: Normal Bowel Sounds, Soft. No: Tenderness Edema: Yes Neurological: Yes: Alert, Oriented Labs: CBC, BMP 04/30/19 06:12 04/30/19 13:32 Imaging - Results Chest X-ray: Report Reviewed, Image Reviewed (pulmonary vascular congestion) Assessment/Plan Acute on Chronic Diastolic Heart Failure Hypertrophic Cardiomyopathy Aortic Stenosis s/p PPM CAD PAD COPD HTN DM Hyperlipidemia - IV lasix - monitor urine output, creatinine - daily weights - O2 to keep SpO2 >90% - inhaled bronchodilators as needed - on empiric antibiotics, less likely pneumonia, can d/c if cultures negative - DVT prophylaxis Thank you for this consult Alexandro Anne MD
[2019-04-30] MEDS: methylPREDNISolone NA SUCC 40 MG/1 ML VIAL IVPUSH SCH ×2 (17:33→21:44)
[2019-04-30] MEDS: DOCUSATE SODIUM 100 MG CAPSULE (FP) PO SCH (22:44)
[2019-04-30] MEDS: ATORVASTATIN CA 20 MG TABLET (FP) PO SCH (22:44)
[2019-05-01] MEDS: methylPREDNISolone NA SUCC 40 MG/1 ML VIAL IVPUSH SCH ×4 (03:34→21:16)
[2019-05-01] MEDS: ALBUTEROL SO4 2.5/IPRATROPIUM 0.5 INH SOL 3 ML VIAL.NEB. NEB PRN ×2 (05:37→20:00)
[2019-05-01] MEDS: ASPIRIN 81 MG CHEWABLE TABLETS PO SCH (07:19)
[2019-05-01 07:51] LABS: BASO % 0.1 % (0-2.0); HEMATOCRIT 28.4 % (35.4-49); HEMOGLOBIN 9.3 GM/dL (11.7-16.9); LYMPH % 6.9 % (8-40); MCHC 32.9 g/dl (32.0-35.9); MEAN CELL VOLUME 91.2 fl (80-96); MEAN PLT VOLUME 9.5 fl (7.5-11.1); MONO % 1.9 % (3.8-10.2); NEUT % 91.1 % (42.8-82.8); PLATELET COUNT 187 K/MM3 (134-434); RBC 3.11 M/mm3 (4.00-5.60); RDW 16.5 % (11.9-15.9); WHITE BLOOD COUNT 4.4 K/mm3 (4.0-10.0)
[2019-05-01 09:01] LABS: ALBUMIN 2.7 g/dl (3.4-5.0); BILIRUBIN,TOTAL 0.3 mg/dL (0.2-1); BLOOD UREA NITROGEN 24.1 mg/dL (7-18); CALCIUM 8.8 mg/dL (8.5-10.1); CREATININE 1.2 mg/dL (0.55-1.3); TOT PROT 5.9 g/dl (6.4-8.2)
[2019-05-01 09:04] LABS: POTASSIUM 6.1 mmol/L (3.5-5.1)
[2019-05-01] MEDS ORDERED: cefTRIAXone SODIUM 1 GM VIAL ONE (09:10)
[2019-05-01] MEDS ORDERED: PT OWN MED DRAWER 7, Y5N ONE (09:10)
[2019-05-01] MEDS ORDERED: DEXTROSE 5%-WATER - 50 ML IVPB ONE (09:11)
[2019-05-01] MEDS: DOCUSATE SODIUM 100 MG CAPSULE (FP) PO SCH ×2 (09:24→21:16)
[2019-05-01] MEDS: PANTOPRAZOLE 40 MG TABLET (FP) PO SCH (09:24)
[2019-05-01] MEDS: CLOPIDOGREL BISULFATE 75 MG TABLET (FP) PO SCH (09:24)
[2019-05-01] MEDS: ISOSORBIDE MONONITRATE 30 MG TAB.SR.24H (FP) PO SCH (09:24)
[2019-05-01] MEDS: CEFTRIAXONE 1 GM in DEXTROSE 5%-WATER - 50 ML IVPB SCH (09:25)
[2019-05-01] MEDS: ALLOPURINOL 100 MG TABLET (FP) PO SCH (09:25)
[2019-05-01] MEDS: FUROSEMIDE 40 MG/4 ML INJECTABLE VIAL IVPUSH SCH (09:26)
[2019-05-01] MEDS: ENOXAPARIN NA (PORCINE) 40 MG/0.4 ML DISP.SYRIN SQ SCH (09:27)
[2019-05-01 10:29] LABS: ANISOCYTOSIS 1+; OVALOCYTE 1+; PLATELET ESTIMATE NORMAL
[2019-05-01] MEDS: AZITHROMYCIN IVPB 500 MG/250 ML BAG IVPB SCH (10:58)
--- NOTE | 2019-05-01 11:09 | PN ---
Progress Note (short form) - Note Progress Note: feels better Vital Signs - 24 hr 04/30/19 04/30/19 05/01/19 15:54 21:00 02:10 Temperature 98.3 F 98.1 F Pulse Rate 71 64 Respiratory 18 20 Rate Blood Pressure 103/51 L 104/44 L O2 Sat by Pulse 96 98 Oximetry (%) 05/01/19 07:15 Temperature 98 F Pulse Rate 62 Respiratory 20 Rate Blood Pressure 117/52 L O2 Sat by Pulse Oximetry (%) Current Medications Generic Name Dose Route Start Last Admin Trade Name Freq PRN Reason Stop Dose Admin Acetaminophen 650 mg 04/30/19 11:16 Tylenol - PO Q6H PRN PAIN Albuterol/Ipratropium 1 amp 04/30/19 11:14 05/01/19 05:37 Duoneb - NEB 1 amp Q4H PRN Administration SHORTNESS OF BREATH Allopurinol 100 mg 05/01/19 10:00 05/01/19 09:25 Zyloprim - PO 100 mg DAILY GAVIN Administration Aspirin 81 mg 05/01/19 07:00 05/01/19 07:19 Asa - PO 81 mg AM GAVIN Administration Atorvastatin Calcium 20 mg 04/30/19 22:00 04/30/19 22:44 Lipitor - PO 20 mg HS GAVIN Administration Clopidogrel Bisulfate 75 mg 05/01/19 10:00 05/01/19 09:24 Plavix - PO 75 mg DAILY GAVIN Administration Docusate Sodium 100 mg 04/30/19 22:00 05/01/19 09:24 Colace - PO 100 mg BID GAVIN Administration Enoxaparin Sodium 40 mg 05/01/19 10:00 05/01/19 09:27 Lovenox - SQ 40 mg DAILY GAVIN Administration Furosemide 40 mg 05/01/19 10:00 05/01/19 09:26 Lasix Injection - IVPUSH 40 mg DAILY GAVIN Administration Azithromycin 500 mg in 250 mls @ 250 mls/hr 05/01/19 10:00 05/01/19 10:58 Zithromax 500mg Ivpb (Pre-Docked) IVPB 250 mls/hr DAILY GAVIN Administration Ceftriaxone Sodium 1 gm/ 50 mls @ 100 mls/hr 05/01/19 10:00 05/01/19 09:25 Dextrose IVPB 100 mls/hr DAILY GAVIN Administration Isosorbide Mononitrate 30 mg 05/01/19 10:00 05/01/19 09:24 Imdur - PO 30 mg DAILY GAVIN Administration Methylprednisolone Sodium Succinate 60 mg 04/30/19 15:00 05/01/19 09:20 Solu-Medrol - IVPUSH 60 mg Q6H-IV GAVIN Administration Metoprolol Succinate 100 mg 04/30/19 22:00 05/01/19 09:25 Toprol Xl - PO 100 mg BID GAVIN Administration Pantoprazole Sodium 40 mg 05/01/19 10:00 05/01/19 09:24 Protonix - PO 40 mg DAILY GAVIN Administration Sodium Polystyrene Sulfonate 30 gm 05/01/19 11:07 Kayexalate - PO 05/01/19 11:08 ONCE ONE Laboratory Results - last 24 hr 04/30/19 04/30/19 05/01/19 13:19 13:32 04:34 WBC RBC Hgb Hct MCV MCH MCHC RDW Plt Count MPV Absolute Neuts (auto) Neutrophils % Lymphocytes % Monocytes % Eosinophils % Basophils % Nucleated RBC % Sodium 139 Potassium 5.4 H Chloride 106 Carbon Dioxide 26 Anion Gap 7 L BUN 19.4 H Creatinine 1.3 Est GFR (CKD-EPI)AfAm 58.07 Est GFR (CKD-EPI)NonAf 50.10 POC Glucometer 238 205 Random Glucose 265 H Calcium 8.4 L Total Bilirubin AST ALT Alkaline Phosphatase Total Protein Albumin 05/01/19 05/01/19 07:05 07:05 WBC 4.4 RBC 3.11 L Hgb 9.3 L Hct 28.4 L MCV 91.2 MCH 30.0 MCHC 32.9 RDW 16.5 H Plt Count 187 MPV 9.5 Absolute Neuts (auto) 4.0 Neutrophils % 91.1 H Lymphocytes % 6.9 L D Monocytes % 1.9 L Eosinophils % 0.0 D Basophils % 0.1 Nucleated RBC % 0 Sodium 140 Potassium 6.1 H* Chloride 107 Carbon Dioxide 28 Anion Gap 6 L BUN 24.1 H Creatinine 1.2 Est GFR (CKD-EPI)AfAm 63.97 Est GFR (CKD-EPI)NonAf 55.20 POC Glucometer Random Glucose 219 H Calcium 8.8 Total Bilirubin 0.3 AST 8 L ALT 23 Alkaline Phosphatase 84 Total Protein 5.9 L Albumin 2.7 L Intake & Output 1004/29/19 04/30/19 05/01/19 23:59 23:59 23:59 23:59 Intake Total 100 0 Balance 100 0 Weight 198 lb 1 oz 202 lb 6 oz S1 s2 RRR Lungs ronchi+ Abd-soft, NT edema decreased PLAn continue iv lasix iv solumedrol kayexalate today repeat BMP tomorrow cardiology and Pulmonary eval noted Echo-- EF normal Problem List - Problems (1) Acute exacerbation of chronic obstructive pulmonary disease (COPD) Code(s): J44.1 - CHRONIC OBSTRUCTIVE PULMONARY DISEASE W (ACUTE) EXACERBATION (2) CHF exacerbation Code(s): I50.9 - HEART FAILURE, UNSPECIFIED Qualifiers: Heart failure type: unspecified Qualified Code(s): I50.9 - Heart failure, unspecified (3) Pneumonia Code(s): J18.9 - PNEUMONIA, UNSPECIFIED ORGANISM Qualifiers: Pneumonia type: due to unspecified organism Laterality: right Lung location: lower lobe of lung Qualified Code(s): J18.1 - Lobar pneumonia, unspecified organism (4) CAD (coronary artery disease) Code(s): I25.10 - ATHSCL HEART DISEASE OF [place] CORONARY ARTERY W/O ANG PCTRS Qualifiers: Coronary Disease-Associated Artery/Lesion type: ute coronary artery Associated angina: without angina pectoris (5) CKD (chronic kidney disease) Code(s): N18.9 - CHRONIC KIDNEY DISEASE, UNSPECIFIED
[2019-05-01] MEDS ORDERED: SODIUM POLYSTYRENE SULFONATE 15 GM/60 ML BOTTLE PO ONE (11:30)
--- NOTE | 2019-05-01 13:20 | PN ---
Progress Note (short form) - Note Progress Note: s: sob improving. no cp palps dizzy Current Medications Acetaminophen (Tylenol -) 650 mg PO Q6H PRN PRN Reason: PAIN Albuterol/Ipratropium (Duoneb -) 1 amp NEB Q4H PRN PRN Reason: SHORTNESS OF BREATH Last Admin: 05/01/19 05:37 Dose: 1 amp Allopurinol (Zyloprim -) 100 mg PO DAILY [facility] Last Admin: 05/01/19 09:25 Dose: 100 mg Aspirin (Asa -) 81 mg PO AM [facility] Last Admin: 05/01/19 07:19 Dose: 81 mg Atorvastatin Calcium (Lipitor -) 20 mg PO HS [facility] Last Admin: 04/30/19 22:44 Dose: 20 mg Clopidogrel Bisulfate (Plavix -) 75 mg PO DAILY [facility] Last Admin: 05/01/19 09:24 Dose: 75 mg Docusate Sodium (Colace -) 100 mg PO BID [facility] Last Admin: 05/01/19 09:24 Dose: 100 mg Enoxaparin Sodium (Lovenox -) 40 mg SQ DAILY [facility] Last Admin: 05/01/19 09:27 Dose: 40 mg Furosemide (Lasix Injection -) 40 mg IVPUSH DAILY [facility] Last Admin: 05/01/19 09:26 Dose: 40 mg Azithromycin (Zithromax 500mg Ivpb (Pre-Docked)) 500 mg in 250 mls @ 250 mls/ hr IVPB DAILY [facility] Last Admin: 05/01/19 10:58 Dose: 250 mls/hr Ceftriaxone Sodium 1 gm/ (Dextrose) 50 mls @ 100 mls/hr IVPB DAILY [facility] Last Admin: 05/01/19 09:25 Dose: 100 mls/hr Isosorbide Mononitrate (Imdur -) 30 mg PO DAILY [facility] Last Admin: 05/01/19 09:24 Dose: 30 mg Methylprednisolone Sodium Succinate (Solu-Medrol -) 60 mg IVPUSH Q6H-IV [facility] Last Admin: 05/01/19 09:20 Dose: 60 mg Metoprolol Succinate (Toprol Xl -) 100 mg PO BID [facility] Last Admin: 05/01/19 09:25 Dose: 100 mg Pantoprazole Sodium (Protonix -) 40 mg PO DAILY [facility] Last Admin: 05/01/19 09:24 Dose: 40 mg Vital Signs Period Temp Pulse Resp BP Sys/Benito Pulse Ox Last 24 Hr 98 F-98.3 F 61-71 18-20 103-117/44-72 96-98 nad, no jvd rrr s1 s2 + murmur scattered mild exp wheeze, and rhonchi, nl eff aaox3 1+ le edema b/l, no c/c abd nt nd pos bs no diaphoresis/jaundice CBC, BMP 05/01/19 07:05 05/01/19 07:05 EKG: sinus, old RBBB, LAFB, no sig change from prior 07/2016 cardiac MRI: moderate basal septal hypertrophy (up to 1.6 cm). nl lv size/fn. (EF 73%). +LVOT flow acceleration and CARLOS. Nl RV. No scar/edema. + CARLOS, mild MR. mild-mod (1.5 cm2 by planimetry). mild lae. mild asc ao dil (3.9 cm). TTE [facility] 10/2016: mild lvh. nl lv/rv. size/fn. grade I diastolic dysfunction. lvot vti/Ao vti 0.3. mod as (sev calc), jossy 1.3 (47/26). no carlos. rvsp 32 echo 07/2016: HR 69 bpm. Asymmetric septal hypertrophy (predom basal) 1.5 cm. EF 65-70%. Mod-sev LVOT obs at rest (3.7, PG 55/MG 28), unable to assess for CARLOS. Mild RV dil. Nl RV fn. Mild ana. 1+ AR. Very Severe (5.1, PG 104/MG 65 ), Mod MAC, mimimal functional MS, 1+ MR. Mild-mod TR, mod-sev pHTN. 08/2015 ADRIAN: Nl lv/rv, CARLOS. LVOT obstruction (although envelope suggested predominantly from ). Moderate (PG 50 mmHg). Minimal MR. Mod-sev atheroma of aorta. mild pHTN 07/2015 TTE: Hyperdynamic LV. Sigmoid septum with dynamic LVOT obstruction. + CARLOS (no MR). Pseudonormalizaiton. Nl RV. Mod . RVSP 54. 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 acute diastolic chf, le edema, copd: -was on torsemide 40 qd -here with vol overload now, continue lasix 40 iv qd, monitor daily wts, chem7 -copd tx per pulm HCM with severe LVOT obstruction/CARLOS - s/p septal ablation [facility] 10/2016 s/p PPM - outpatient follow up Aortic stenosis - mod to severe, has refused TAVR evaluation recently cad, remote pci: - [facility] 10/2016 -cont statin, plavix, bb, imdur, asa - not on ACEI due to prior low BPs -nl lvef on recent outpt echo -no signs acs htn: -cont home meds hld: -cont statin pad, le stent: -stable, cont home cardiac meds
--- NOTE | 2019-05-01 14:16 | PN ---
Progress Note (short form) - Note Progress Note: PULMONARY Breathing better today. Less coughing. Vital Signs Period Temp Pulse Resp BP Sys/Benito Pulse Ox Last 24 Hr 98 F-98.3 F 61-71 18-20 103-117/44-72 96-98 Intake & Output 04/28/19 04/29/19 04/30/19 05/01/19 23:59 23:59 23:59 23:59 Intake Total 100 0 Output Total 350 Balance 100 -350 Weight 89.84 kg 91.796 kg Gen: NAD in chair Heart: RRR Lung: decreased breath sounds at the bases Abd: soft, nontender Ext: + edema CBC, BMP 05/01/19 07:05 05/01/19 07:05 Active Medications Acetaminophen (Tylenol -) 650 mg PO Q6H PRN PRN Reason: PAIN Albuterol/Ipratropium (Duoneb -) 1 amp NEB Q4H PRN PRN Reason: SHORTNESS OF BREATH Last Admin: 05/01/19 05:37 Dose: 1 amp Allopurinol (Zyloprim -) 100 mg PO DAILY [facility] Last Admin: 05/01/19 09:25 Dose: 100 mg Aspirin (Asa -) 81 mg PO AM [facility] Last Admin: 05/01/19 07:19 Dose: 81 mg Atorvastatin Calcium (Lipitor -) 20 mg PO HS [facility] Last Admin: 04/30/19 22:44 Dose: 20 mg Clopidogrel Bisulfate (Plavix -) 75 mg PO DAILY [facility] Last Admin: 05/01/19 09:24 Dose: 75 mg Docusate Sodium (Colace -) 100 mg PO BID [facility] Last Admin: 05/01/19 09:24 Dose: 100 mg Enoxaparin Sodium (Lovenox -) 40 mg SQ DAILY [facility] Last Admin: 05/01/19 09:27 Dose: 40 mg Furosemide (Lasix Injection -) 40 mg IVPUSH DAILY [facility] Last Admin: 05/01/19 09:26 Dose: 40 mg Azithromycin (Zithromax 500mg Ivpb (Pre-Docked)) 500 mg in 250 mls @ 250 mls/ hr IVPB DAILY [facility] Last Admin: 05/01/19 10:58 Dose: 250 mls/hr Ceftriaxone Sodium 1 gm/ (Dextrose) 50 mls @ 100 mls/hr IVPB DAILY [facility] Last Admin: 05/01/19 09:25 Dose: 100 mls/hr Isosorbide Mononitrate (Imdur -) 30 mg PO DAILY [facility] Last Admin: 05/01/19:24 Dose: 30 mg Methylprednisolone Sodium Succinate (Solu-Medrol -) 60 mg IVPUSH Q6H-IV [facility] Last Admin: 05/01/19 09:20 Dose: 60 mg Metoprolol Succinate (Toprol Xl -) 100 mg PO BID [facility] Last Admin: 05/01/19 09:25 Dose: 100 mg Pantoprazole Sodium (Protonix -) 40 mg PO DAILY [facility] Last Admin: 05/01/19:24 Dose: 40 mg A/P Acute on Chronic Diastolic Heart Failure Hypertrophic Cardiomyopathy Aortic Stenosis s/p PPM CAD PAD COPD HTN DM Hyperlipidemia - continue lasix - monitor urine output, creatinine - daily weights - O2 to keep SpO2 >90% - inhaled bronchodilators as needed - on empiric antibiotics, less likely pneumonia, can d/c if cultures negative - can d/c steroids - DVT prophylaxis
[2019-05-01] MEDS: ATORVASTATIN CA 20 MG TABLET (FP) PO SCH (21:16)
[2019-05-02] MEDS: methylPREDNISolone NA SUCC 40 MG/1 ML VIAL IVPUSH SCH ×2 (03:22→09:22)
[2019-05-02] MEDS: ASPIRIN 81 MG CHEWABLE TABLETS PO SCH (06:12)
[2019-05-02 07:59] LABS: CALCIUM 8.4 mg/dL (8.5-10.1); CREATININE 1.2 mg/dL (0.55-1.3); POTASSIUM 5.6 mmol/L (3.5-5.1)
[2019-05-02] MEDS ORDERED: cefTRIAXone SODIUM 1 GM VIAL ONE (09:20)
[2019-05-02] MEDS ORDERED: DEXTROSE 5%-WATER - 50 ML IVPB ONE (09:21)
[2019-05-02] MEDS: FUROSEMIDE 40 MG/4 ML INJECTABLE VIAL IVPUSH SCH (09:24)
[2019-05-02] MEDS: CEFTRIAXONE 1 GM in DEXTROSE 5%-WATER - 50 ML IVPB SCH (09:26)
[2019-05-02] MEDS: ALLOPURINOL 100 MG TABLET (FP) PO SCH (09:31)
[2019-05-02] MEDS: ENOXAPARIN NA (PORCINE) 40 MG/0.4 ML DISP.SYRIN SQ SCH (09:31)
[2019-05-02] MEDS: CLOPIDOGREL BISULFATE 75 MG TABLET (FP) PO SCH (09:32)
[2019-05-02] MEDS: PANTOPRAZOLE 40 MG TABLET (FP) PO SCH (09:32)
[2019-05-02] MEDS: DOCUSATE SODIUM 100 MG CAPSULE (FP) PO SCH ×2 (09:32→21:57)
[2019-05-02] MEDS: ISOSORBIDE MONONITRATE 30 MG TAB.SR.24H (FP) PO SCH (09:32)
[2019-05-02] MEDS: AZITHROMYCIN IVPB 500 MG/250 ML BAG IVPB SCH (10:36)
--- NOTE | 2019-05-02 10:57 | PN ---
Progress Note, Physician Chief Complaint: sitting in chair Says he feels "little better" No CP, dizziness, palps History of Present Illness: BP low at baseline - Current Medication List Current Medications: Active Medications Acetaminophen (Tylenol -) 650 mg PO Q6H PRN PRN Reason: PAIN Albuterol/Ipratropium (Duoneb -) 1 amp NEB Q4H PRN PRN Reason: SHORTNESS OF BREATH Last Admin: 05/01/19 20:00 Dose: 1 amp Allopurinol (Zyloprim -) 100 mg PO DAILY [facility] Last Admin: 05/02/19 09:31 Dose: 100 mg Aspirin (Asa -) 81 mg PO AM [facility] Last Admin: 05/02/19 06:12 Dose: 81 mg Atorvastatin Calcium (Lipitor -) 20 mg PO HS [facility] Last Admin: 05/01/19 21:16 Dose: 20 mg Clopidogrel Bisulfate (Plavix -) 75 mg PO DAILY [facility] Last Admin: 05/02/19 09:32 Dose: 75 mg Docusate Sodium (Colace -) 100 mg PO BID [facility] Last Admin: 05/02/19 09:32 Dose: 100 mg Enoxaparin Sodium (Lovenox -) 40 mg SQ DAILY [facility] Last Admin: 05/02/19 09:31 Dose: 40 mg Furosemide (Lasix Injection -) 40 mg IVPUSH DAILY [facility] Last Admin: 05/02/19 09:24 Dose: 40 mg Azithromycin (Zithromax 500mg Ivpb (Pre-Docked)) 500 mg in 250 mls @ 250 mls/ hr IVPB DAILY [facility] Last Admin: 05/02/19 10:36 Dose: 250 mls/hr Ceftriaxone Sodium 1 gm/ (Dextrose) 50 mls @ 100 mls/hr IVPB DAILY [facility] Last Admin: 05/02/19 09:26 Dose: 100 mls/hr Isosorbide Mononitrate (Imdur -) 30 mg PO DAILY [facility] Last Admin: 05/02/19 09:32 Dose: 30 mg Methylprednisolone Sodium Succinate (Solu-Medrol -) 60 mg IVPUSH Q6H-IV [facility] Last Admin: 05/02/19 09:22 Dose: 60 mg Metoprolol Succinate (Toprol Xl -) 100 mg PO BID [facility] Last Admin: 05/02/19 09:32 Dose: 100 mg Pantoprazole Sodium (Protonix -) 40 mg PO DAILY [facility] Last Admin: 05/02/19 09:32 Dose: 40 mg - Objective Vital Signs: Vital Signs Temperature 97.3 F L 05/02/19 06:00 Pulse Rate 74 05/02/19 06:00 Respiratory Rate 18 05/02/19 06:00 Blood Pressure 96/50 L 05/02/19 06:00 O2 Sat by Pulse Oximetry (%) 98 05/01/19 21:00 Constitutional: Yes: No Distress Cardiovascular: Yes: Regular Rate and Rhythm, Murmur (loud systolic murmur RSB c /w ) Gastrointestinal: Yes: Soft Edema: No Neurological: Yes: Alert ...Motor Strength: WNL Labs: CBC, BMP 05/01/19 07:05 05/02/19 06:45 INR, PTT INR 1.14 (0.83-1.09) H 04/30/19 06:12 Assessment/Plan KG: sinus, old RBBB, LAFB, no sig change from prior 07/2016 cardiac MRI: moderate basal septal hypertrophy (up to 1.6 cm). nl lv size/fn. (EF 73%). +LVOT flow acceleration and CARLOS. Nl RV. No scar/edema. + CARLOS, mild MR. mild-mod (1.5 cm2 by planimetry). mild lae. mild asc ao dil (3.9 cm). TTE [facility] [place] 10/2016: mild lvh. nl lv/rv. size/fn. grade I diastolic dysfunction. lvot vti/Ao vti 0.3. mod as (sev calc), jossy 1.3 (47/26). no carlos. rvsp 32 echo 07/2016: HR 69 bpm. Asymmetric septal hypertrophy (predom basal) 1.5 cm. EF 65-70%. Mod-sev LVOT obs at rest (3.7, PG 55/MG 28), unable to assess for CARLOS. Mild RV dil. Nl RV fn. Mild ana. 1+ AR. Very Severe (5.1, PG 104/MG 65 ), Mod MAC, mimimal functional MS, 1+ MR. Mild-mod TR, mod-sev pHTN. 08/2015 ADRIAN: Nl lv/rv, CARLOS. LVOT obstruction (although envelope suggested predominantly from ). Moderate (PG 50 mmHg). Minimal MR. Mod-sev atheroma of aorta. mild pHTN 07/2015 TTE: Hyperdynamic LV. Sigmoid septum with dynamic LVOT obstruction. + CARLOS (no MR). Pseudonormalizaiton. Nl RV. Mod . RVSP 54. 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 acute diastolic chf, le edema, copd: -was on torsemide 40 qd -here with vol overload now, continue lasix 40 iv qd, monitor daily wts ( although do no seem accurate as they are variable , up and down despite clinical improvement), chem7 -copd tx per pulm HCM with severe LVOT obstruction/CARLOS: - s/p septal ablation [facility] [place] 10/2016 s/p PPM: - outpatient follow up Aortic stenosis: - mod to severe, has refused TAVR evaluation recently cad, remote pci: - s/[facility] 2006[facility] on cath 10/2016 -cont statin, plavix, bb, imdur, asa (on PPI now as well with steroids) - not on ACEI due to prior low BPs -nl lvef on recent outpt echo -no signs acs htn: -cont home meds hld: -cont statin pad, le stent: -stable, cont home cardiac meds
--- NOTE | 2019-05-02 11:27 | PN ---
Progress Note (short form) - Note Progress Note: PULMONARY Sitting in chair w legs elevated Gen: Appears chronically ill Heart: RRR Lung: decreased breath sounds at the bases/scattered wheeze Abd: soft, nontender Ext: +2 edema lower ext labs/meds/cardiac consult/echo/notes reviewed A/P Acute on Chronic Diastolic Heart Failure Hypertrophic Cardiomyopathy Aortic Stenosis refuses tavr s/p PPM CAD PAD COPD HTN DM Hyperlipidemia - continue lasix - monitor urine output, creatinine - daily weights - O2 to keep SpO2 >90% - inhaled bronchodilators as needed - on empiric antibiotics, less likely pneumonia, can d/c if cultures negative - can d/c steroids - DVT prophylaxis Nickolas NGO MD
[2019-05-02] MEDS ORDERED: SODIUM POLYSTYRENE SULFONATE 15 GM/60 ML BOTTLE PO ONE (11:58)
--- NOTE | 2019-05-02 11:58 | PN ---
Progress Note (short form) - Note Progress Note: pt seen/ examined sitting in chair still sob denies cp chronic ill appearance Obese all f/u noted Vital Signs Temp 97.3 F L 05/02/19 06:00 Pulse 74 05/02/19 06:00 Resp 18 05/02/19 06:00 BP 96/50 L 05/02/19 06:00 Pulse Ox 98 05/01/19 21:00 Intake & Output 05/01/19 05/01/19 05/02/19 11:59 23:59 11:59 Intake Total 0 300 Output Total 150 200 Balance -150 100 Weight 202 lb 6 oz 206 lb Intake: IV 0 SL 0 IVPB 300 Output: Urine 150 200 Void 150 200 Other: Voiding Method Urinal Urinal # Unmeasured Voids Void 1 1 Bowel Movement No No Weight Measurement Method Built in Bedscale Built in Bedscale Active Medications Acetaminophen (Tylenol -) 650 mg PO Q6H PRN PRN Reason: PAIN Albuterol/Ipratropium (Duoneb -) 1 amp NEB Q4H PRN PRN Reason: SHORTNESS OF BREATH Last Admin: 05/01/19 20:00 Dose: 1 amp Allopurinol (Zyloprim -) 100 mg PO DAILY [facility] Last Admin: 05/02/19 09:31 Dose: 100 mg Aspirin (Asa -) 81 mg PO AM [facility] Last Admin: 05/02/19 06:12 Dose: 81 mg Atorvastatin Calcium (Lipitor -) 20 mg PO HS [facility] Last Admin: 05/01/19 21:16 Dose: 20 mg Clopidogrel Bisulfate (Plavix -) 75 mg PO DAILY [facility] Last Admin: 05/02/19 09:32 Dose: 75 mg Docusate Sodium (Colace -) 100 mg PO BID [facility] Last Admin: 05/02/19 09:32 Dose: 100 mg Enoxaparin Sodium (Lovenox -) 40 mg SQ DAILY [facility] Last Admin: 05/02/19 09:31 Dose: 40 mg Furosemide (Lasix Injection -) 40 mg IVPUSH DAILY [facility] Last Admin: 05/02/19 09:24 Dose: 40 mg Azithromycin (Zithromax 500mg Ivpb (Pre-Docked)) 500 mg in 250 mls @ 250 mls/ hr IVPB DAILY [facility] Last Admin: 05/02/19 10:36 Dose: 250 mls/hr Ceftriaxone Sodium 1 gm/ (Dextrose) 50 mls @ 100 mls/hr IVPB DAILY [facility] Last Admin: 05/02/19 09:26 Dose: 100 mls/hr Isosorbide Mononitrate (Imdur -) 30 mg PO DAILY [facility] Last Admin: 05/02/19 09:32 Dose: 30 mg Metoprolol Succinate (Toprol Xl -) 100 mg PO BID [facility] Last Admin: 05/02/19 09:32 Dose: 100 mg Pantoprazole Sodium (Protonix -) 40 mg PO DAILY [facility] Last Admin: 05/02/19 09:32 Dose: 40 mg CBC, BMP 05/01/19 07:05 05/02/19 06:45 Microbiology 04/30/19 09:30 Blood Culture - Preliminary Blood - Peripheral Venous NO GROWTH OBTAINED AFTER 48 HOURS, INCUBATION TO CONTINUE FOR 3 DAYS. 04/30/19 09:30 Blood Culture - Preliminary Blood - Peripheral Venous NO GROWTH OBTAINED AFTER 48 HOURS, INCUBATION TO CONTINUE FOR 3 DAYS. Physical Exam S1 s2 RRR Lungs -- Diminished at bases Abd-soft, NT edema decreased PLAN continue iv lasix iv solumedrol-- d/c kayexalate today repeat BMP tomorrow repeat cxr-am consider d/c abx in am continue lasix add basal Insulin-- bgm noted will follow Problem List - Problems (1) Acute exacerbation of chronic obstructive pulmonary disease (COPD) Code(s): J44.1 - CHRONIC OBSTRUCTIVE PULMONARY DISEASE W (ACUTE) EXACERBATION (2) CHF exacerbation Code(s): I50.9 - HEART FAILURE, UNSPECIFIED Qualifiers: Heart failure type: unspecified Qualified Code(s): I50.9 - Heart failure, unspecified (3) Pneumonia Code(s): J18.9 - PNEUMONIA, UNSPECIFIED ORGANISM Qualifiers: Pneumonia type: due to unspecified organism Laterality: right Lung location: lower lobe of lung Qualified Code(s): J18.1 - Lobar pneumonia, unspecified organism (4) CAD (coronary artery disease) Code(s): I25.10 - ATHSCL HEART DISEASE OF [place] CORONARY ARTERY W/O ANG PCTRS Qualifiers: Coronary Disease-Associated Artery/Lesion type: [place] coronary artery Associated angina: without angina pectoris (5) CKD (chronic kidney disease) Code(s): N18.9 - CHRONIC KIDNEY DISEASE, UNSPECIFIED
[2019-05-02] MEDS ORDERED: INSULIN (NOVOLOG) ASPART 100 UNITS/ML 10ML VIAL ONE (16:40)
[2019-05-02] MEDS: INSULIN SLIDING SCALE (NOVOLOG) 1 VIAL SQ SCH (16:41)
[2019-05-02] MEDS ORDERED: PT OWN MED DRAWER 7, Y5N ONE (16:47)
[2019-05-02] MEDS: ALBUTEROL SO4 2.5/IPRATROPIUM 0.5 INH SOL 3 ML VIAL.NEB. NEB PRN (21:23)
[2019-05-02] MEDS: ATORVASTATIN CA 20 MG TABLET (FP) PO SCH (21:57)
[2019-05-03] MEDS: ASPIRIN 81 MG CHEWABLE TABLETS PO SCH (06:20)
[2019-05-03] MEDS: INSULIN SLIDING SCALE (NOVOLOG) 1 VIAL SQ SCH ×2 (06:21→16:08)
[2019-05-03 08:03] LABS: BASO % 0.2 % (0-2.0); EOS % 0.8 % (0-4.5); HEMATOCRIT 29.5 % (35.4-49); HEMOGLOBIN 9.6 GM/dL (11.7-16.9); LYMPH % 21.8 % (8-40); MCH 29.6 pg (25.7-33.7); MCHC 32.5 g/dl (32.0-35.9); MEAN CELL VOLUME 91.2 fl (80-96); MEAN PLT VOLUME 9.4 fl (7.5-11.1); MONO % 8.3 % (3.8-10.2); NEUT % 68.9 % (42.8-82.8); PLATELET COUNT 239 K/MM3 (134-434); RBC 3.24 M/mm3 (4.00-5.60); RDW 16.8 % (11.9-15.9); WHITE BLOOD COUNT 6.6 K/mm3 (4.0-10.0)
[2019-05-03 08:06] LABS: ALBUMIN 2.7 g/dl (3.4-5.0); BILIRUBIN,TOTAL 0.2 mg/dL (0.2-1); CALCIUM 8.5 mg/dL (8.5-10.1); CREATININE 1.2 mg/dL (0.55-1.3); POTASSIUM 4.4 mmol/L (3.5-5.1); TOT PROT 5.8 g/dl (6.4-8.2)
[2019-05-03] MEDS ORDERED: DEXTROSE 5%-WATER - 50 ML IVPB ONE (09:40)
[2019-05-03] MEDS ORDERED: cefTRIAXone SODIUM 1 GM VIAL ONE (09:40)
[2019-05-03] MEDS: ENOXAPARIN NA (PORCINE) 40 MG/0.4 ML DISP.SYRIN SQ SCH (09:43)
[2019-05-03] MEDS: CEFTRIAXONE 1 GM in DEXTROSE 5%-WATER - 50 ML IVPB SCH (09:43)
[2019-05-03] MEDS: FUROSEMIDE 40 MG/4 ML INJECTABLE VIAL IVPUSH SCH (09:43)
[2019-05-03] MEDS: PANTOPRAZOLE 40 MG TABLET (FP) PO SCH (09:44)
[2019-05-03] MEDS: ISOSORBIDE MONONITRATE 30 MG TAB.SR.24H (FP) PO SCH (09:44)
[2019-05-03] MEDS: DOCUSATE SODIUM 100 MG CAPSULE (FP) PO SCH ×2 (09:44→21:06)
[2019-05-03] MEDS: CLOPIDOGREL BISULFATE 75 MG TABLET (FP) PO SCH (09:44)
[2019-05-03] MEDS: ALLOPURINOL 100 MG TABLET (FP) PO SCH (09:44)
--- NOTE | 2019-05-03 10:03 | PN ---
Progress Note, Physician Chief Complaint: sob History of Present Illness: still feels sob "a lot" at rest--like has a lot of phlegm in lower chest but cannot get it out. no cp. legs swollen no palp, syncope no cigs - Current Medication List Current Medications: Active Medications Acetaminophen (Tylenol -) 650 mg PO Q6H PRN PRN Reason: PAIN Albuterol/Ipratropium (Duoneb -) 1 amp NEB Q4H PRN PRN Reason: SHORTNESS OF BREATH Last Admin: 05/02/19 21:23 Dose: 1 amp Allopurinol (Zyloprim -) 100 mg PO DAILY [facility] Last Admin: 05/03/19 09:44 Dose: 100 mg Aspirin (Asa -) 81 mg PO AM [facility] Last Admin: 05/03/19 06:20 Dose: 81 mg Atorvastatin Calcium (Lipitor -) 20 mg PO HS [facility] Last Admin: 05/02/19 21:57 Dose: 20 mg Clopidogrel Bisulfate (Plavix -) 75 mg PO DAILY [facility] Last Admin: 05/03/19 09:44 Dose: 75 mg Docusate Sodium (Colace -) 100 mg PO BID [facility] Last Admin: 05/03/19 09:44 Dose: 100 mg Enoxaparin Sodium (Lovenox -) 40 mg SQ DAILY [facility] Last Admin: 05/03/19 09:43 Dose: 40 mg Furosemide (Lasix Injection -) 40 mg IVPUSH DAILY [facility] Last Admin: 05/03/19 09:43 Dose: 40 mg Azithromycin (Zithromax 500mg Ivpb (Pre-Docked)) 500 mg in 250 mls @ 250 mls/ hr IVPB DAILY [facility] Last Admin: 05/02/19 10:36 Dose: 250 mls/hr Ceftriaxone Sodium 1 gm/ (Dextrose) 50 mls @ 100 mls/hr IVPB DAILY [facility] Last Admin: 05/03/19 09:43 Dose: 100 mls/hr Insulin Aspart (Novolog Vial Sliding Scale -) [facility]; [facility] Last Admin: 05/03/19 06:21 Dose: Not Given Isosorbide Mononitrate (Imdur -) 30 mg PO DAILY [facility] Last Admin: 05/03/19 09:44 Dose: 30 mg Metoprolol Succinate (Toprol Xl -) 100 mg PO BID [facility] Last Admin: 05/03/19 09:44 Dose: 100 mg Pantoprazole Sodium (Protonix -) 40 mg PO DAILY [facility] Last Admin: 05/03/19 09:44 Dose: 40 mg - Objective Vital Signs: Vital Signs Temperature 97.6 F 05/02/19 17:15 Pulse Rate 73 05/02/19 17:15 Respiratory Rate 18 05/02/19 17:15 Blood Pressure 116/64 05/02/19 22:00 O2 Sat by Pulse Oximetry (%) 98 05/02/19 21:00 Constitutional: Yes: No Distress, Calm Eyes: No: Sclera Icterus HENT: No: Nasal Congestion Cardiovascular: Yes: Regular Rate and Rhythm, Murmur (soft sounds. 2/6 KEN[place]ON lusb , + s2 split), S1, S2, Other (PMI non diplaced). No: Gallop Respiratory: Yes: CTA Bilaterally. No: Accessory Muscle Use, Rales, Wheezes Gastrointestinal: Yes: Normal Bowel Sounds, Soft. No: Tenderness Musculoskeletal: Yes: Other (No kyphosis) Extremities: No: Cold, Cyanosis Edema: Yes (2+ pretib) Integumentary: No: Jaundice Neurological: Yes: Alert, Oriented (x3) Psychiatric: No: Agitated Labs: CBC, BMP 05/03/19 06:33 05/03/19 06:33 INR, PTT INR 1.14 (0.83-1.09) H 04/30/19 06:12 Assessment/Plan 07/2016 cardiac MRI: moderate basal septal hypertrophy (up to 1.6 cm). nl lv size/fn. (EF 73%). +LVOT flow acceleration and CARLOS. Nl RV. No scar/edema. + CARLOS, mild MR. mild-mod (1.5 cm2 by planimetry). mild lae. mild asc ao dil (3.9 cm). TTE [facility] 10/2016: mild lvh. nl lv/rv. size/fn. grade I diastolic dysfunction. lvot vti/Ao vti 0.3. mod as (sev calc), jossy 1.3 (). no carlos. rvsp 32 echo 07/2016: HR 69 bpm. Asymmetric septal hypertrophy (predom basal) 1.5 cm. EF 65-70%. Mod-sev LVOT obs at rest (3.7, PG 55/MG 28), unable to assess for CARLOS. Mild RV dil. Nl RV fn. Mild ana. 1+ AR. Very Severe (5.1, PG 104/MG 65 ), Mod MAC, mimimal functional MS, 1+ MR. Mild-mod TR, mod-sev pHTN. [facility] 2013: patent dRCA stent; 70-80% mRCA--Promus LEONIDES; mild dz LAD and CFX; nl EF MIBI 10/19 (maria eugenia): no STs, no isch; nl EF.eg ebody Echo 04/26: nl LV. nl RV. moderate . mild TR. RVSP 50-60. 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 -remains likely volume-up: CXR with bibasilar congestion/effusion--no signif change on 05/03 followup. ongoing sob and edema. bedscale wts here are suspect in accuracy, though above prior 03/27 hospital bedscale wt range. denies brisk diuresis response to lasix 40 iv qd. labs stable. increase lasix 80 iv qd first dose now. -a.e. 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 if persists on echo once well-diuresed, would consider oximetry (walking (e.g. 6MWT) and nocturnal (overnight oximetry +/- sleep study))--outpt f/u with dr tripp s/p PPM: - outpatient follow up Aortic stenosis: - mod to severe by history, has refused TAVR evaluation recently - echo here c/w moderate , preserved S2 split on exam--outpt f/u with dr tripp cad, remote pci: -s/p BMS to dRCA 2006, LEONIDES to mRCA 2013. all patent on cath 10/2016 -cont statin, plavix, bb, imdur, asa (on PPI now as well with steroids) -not on ACEI due to prior low BPs -no signs acs here pad, le stent: -stable, cont home cardiac meds
[2019-05-03] MEDS: AZITHROMYCIN IVPB 500 MG/250 ML BAG IVPB SCH (10:31)
--- NOTE | 2019-05-03 10:38 | PN ---
Progress Note (short form) - Note Progress Note: feels better Vital Signs - 24 hr 05/02/19 05/03/19 05/03/19 22:00 09:00 15:00 Temperature 97.8 F 97.1 F L Pulse Rate 59 L 81 Respiratory 20 18 Rate Blood Pressure 116/64 104/50 L 104/56 L O2 Sat by Pulse 94 L Oximetry (%) 05/03/19 17:06 Temperature 98.4 F Pulse Rate 73 Respiratory 20 Rate Blood Pressure 104/42 L O2 Sat by Pulse Oximetry (%) Current Medications Generic Name Dose Route Start Last Admin Trade Name Freq PRN Reason Stop Dose Admin Acetaminophen 650 mg 04/30/19 11:16 Tylenol - PO Q6H PRN PAIN Albuterol/Ipratropium 1 amp 04/30/19 11:14 05/03/19 20:06 Duoneb - NEB 1 amp Q4H PRN Administration SHORTNESS OF BREATH Allopurinol 100 mg 05/01/19 10:00 05/03/19 09:44 Zyloprim - PO 100 mg DAILY [facility] Administration Aspirin 81 mg 05/01/19 07:00 05/03/19 06:20 Asa - PO 81 mg AM [facility] Administration Atorvastatin Calcium 20 mg 04/30/19 22:00 05/02/19 21:57 Lipitor - PO 20 mg HS [facility] Administration Benzocaine/Menthol 1 each 05/03/19 10:56 05/03/19 12:12 Cepacol Lozenge - MM 1 each PRN PRN Administration SORE THROAT Clopidogrel Bisulfate 75 mg 05/01/19 10:00 05/03/19 09:44 Plavix - PO 75 mg DAILY [facility] Administration Docusate Sodium 100 mg 04/30/19 22:00 05/03/19 09:44 Colace - PO 100 mg BID [facility] Administration Enoxaparin Sodium 40 mg 05/01/19 10:00 05/03/19 09:43 Lovenox - SQ 40 mg DAILY [facility] Administration Furosemide 80 mg 05/03/19 12:05 Lasix Injection - IVPUSH DAILY [facility] Azithromycin 500 mg in 250 mls @ 250 mls/hr 05/01/19 10:00 05/03/19 10:31 Zithromax 500mg Ivpb (Pre-Docked) IVPB 250 mls/hr DAILY [facility] Administration Ceftriaxone Sodium 1 gm/ 50 mls @ 100 mls/hr 05/01/19 10:00 05/03/19 09:43 Dextrose IVPB 100 mls/hr DAILY [facility] Administration Insulin Aspart 1 vial 05/02/19 16:30 05/03/19 16:08 Novolog Vial Sliding Scale - SQ 4 units BIDAC [facility] Administration Protocol Isosorbide Mononitrate 30 mg 05/01/19 10:00 05/03/19 09:44 Imdur - PO 30 mg DAILY [facility] Administration Metoprolol Succinate 100 mg 04/30/19 22:00 05/03/19 09:44 Toprol Xl - PO 100 mg BID [facility] Administration Pantoprazole Sodium 40 mg 05/01/19 10:00 05/03/19 09:44 Protonix - PO 40 mg DAILY [facility] Administration Laboratory Results - last 24 hr 05/03/19 05/03/19 05/03/19 06:19 06:33 06:33 WBC 6.6 RBC 3.24 L Hgb 9.6 L Hct 29.5 L MCV 91.2 MCH 29.6 MCHC 32.5 RDW 16.8 H Plt Count 239 D MPV 9.4 Absolute Neuts (auto) 4.6 Neutrophils % 68.9 D Lymphocytes % 21.8 D Monocytes % 8.3 D Eosinophils % 0.8 D Basophils % 0.2 Nucleated RBC % 0 Sodium 139 Potassium 4.4 Chloride 102 Carbon Dioxide 34 H Anion Gap 3 L BUN 34.0 H Creatinine 1.2 Est GFR (CKD-EPI)AfAm 63.97 Est GFR (CKD-EPI)NonAf 55.20 POC Glucometer 119 Random Glucose 123 H Calcium 8.5 Total Bilirubin 0.2 AST 10 L ALT 19 Alkaline Phosphatase 73 Total Protein 5.8 L Albumin 2.7 L 05/03/19 16:03 WBC RBC Hgb Hct MCV MCH MCHC RDW Plt Count MPV Absolute Neuts (auto) Neutrophils % Lymphocytes % Monocytes % Eosinophils % Basophils % Nucleated RBC % Sodium Potassium Chloride Carbon Dioxide Anion Gap BUN Creatinine Est GFR (CKD-EPI)AfAm Est GFR (CKD-EPI)NonAf POC Glucometer 203 Random Glucose Calcium Total Bilirubin AST ALT Alkaline Phosphatase Total Protein Albumin S1 s2 RRR Lungs ronchi+ Abd-soft, NT edema decreased PLAn nebs iv solumedrol cardiology and Pulmonary eval noted Echo-- EF normal Problem List - Problems (1) Acute exacerbation of chronic obstructive pulmonary disease (COPD) Code(s): J44.1 - CHRONIC OBSTRUCTIVE PULMONARY DISEASE W (ACUTE) EXACERBATION (2) CHF exacerbation Code(s): I50.9 - HEART FAILURE, UNSPECIFIED Qualifiers: Heart failure type: unspecified Qualified Code(s): I50.9 - Heart failure, unspecified (3) Pneumonia Code(s): J18.9 - PNEUMONIA, UNSPECIFIED ORGANISM Qualifiers: Pneumonia type: due to unspecified organism Laterality: right Lung location: lower lobe of lung Qualified Code(s): J18.1 - Lobar pneumonia, unspecified organism (4) CAD (coronary artery disease) Code(s): I25.10 - ATHSCL HEART DISEASE OF [place] CORONARY ARTERY W/O ANG PCTRS Qualifiers: Coronary Disease-Associated Artery/Lesion type: [place] coronary artery Associated angina: without angina pectoris (5) CKD (chronic kidney disease) Code(s): N18.9 - CHRONIC KIDNEY DISEASE, UNSPECIFIED
--- NOTE | 2019-05-03 11:01 | PN ---
Progress Note (short form) - Note Progress Note: PULMONARY More short of breath today. Not using oxygen, saturating 72% on room air. Vital Signs Period Temp Pulse Resp BP Sys/Bneito Pulse Ox Last 24 Hr 97.3 F-97.6 F 73-84 18-18 106-116/50-64 98 Intake & Output 04/30/19 05/01/19 05/02/19 05/03/19 23:59 23:59 23:59 23:59 Intake Total 100 300 700 0 Output Total 350 1850 200 Balance -200 Weight 89.84 kg 91.796 kg 93.44 kg 85.321 kg Gen: mildly tachypneic with speaking Heart: RRR Lung: decreased breath sounds at the bases Abd: soft, nontender Ext: + edema CBC, BMP 05/03/19 06:33 05/03/19 06:33 Active Medications Acetaminophen (Tylenol -) 650 mg PO Q6H PRN PRN Reason: PAIN Albuterol/Ipratropium (Duoneb -) 1 amp NEB Q4H PRN PRN Reason: SHORTNESS OF BREATH Last Admin: 05/02/19 21:23 Dose: 1 amp Allopurinol (Zyloprim -) 100 mg PO DAILY [facility] Last Admin: 05/03/19 09:44 Dose: 100 mg Aspirin (Asa -) 81 mg PO AM [facility] Last Admin: 05/03/19 06:20 Dose: 81 mg Atorvastatin Calcium (Lipitor -) 20 mg PO HS [facility] Last Admin: 05/02/19 21:57 Dose: 20 mg Benzocaine/Menthol (Cepacol Lozenge -) 1 each MM PRN PRN PRN Reason: SORE THROAT Clopidogrel Bisulfate (Plavix -) 75 mg PO DAILY [facility] Last Admin: 05/03/19 09:44 Dose: 75 mg Docusate Sodium (Colace -) 100 mg PO BID [facility] Last Admin: 05/03/19 09:44 Dose: 100 mg Enoxaparin Sodium (Lovenox -) 40 mg SQ DAILY [facility] Last Admin: 05/03/19 09:43 Dose: 40 mg Furosemide (Lasix Injection -) 40 mg IVPUSH DAILY [facility] Last Admin: 05/03/19 09:43 Dose: 40 mg Azithromycin (Zithromax 500mg Ivpb (Pre-Docked)) 500 mg in 250 mls @ 250 mls/ hr IVPB DAILY [facility] Last Admin: 05/03/19 10:31 Dose: 250 mls/hr Ceftriaxone Sodium 1 gm/ (Dextrose) 50 mls @ 100 mls/hr IVPB DAILY [facility] Last Admin: 05/03/19 09:43 Dose: 100 mls/hr Insulin Aspart (Novolog Vial Sliding Scale -) [facility]; Protocol Last Admin: 05/03/19 06:21 Dose: Not Given Isosorbide Mononitrate (Imdur -) 30 mg PO DAILY [facility] Last Admin: 05/03/19 09:44 Dose: 30 mg Metoprolol Succinate (Toprol Xl -) 100 mg PO BID [facility] Last Admin: 05/03/19 09:44 Dose: 100 mg Pantoprazole Sodium (Protonix -) 40 mg PO DAILY [facility] Last Admin: 05/03/19 09:44 Dose: 40 mg A/P Acute on Chronic Diastolic Heart Failure Hypertrophic Cardiomyopathy Aortic Stenosis s/p PPM CAD PAD COPD HTN DM Hyperlipidemia - continue lasix, will give additional dose this PM - monitor urine output, creatinine - daily weights - O2 to keep SpO2 >90% - inhaled bronchodilators as needed - on empiric antibiotics, less likely pneumonia, can d/c - DVT prophylaxis
[2019-05-03] MEDS: BENZOCAINE/MENTH/CETYLPYRD CL 1 EACH LOZENGE MM PRN (12:12)
[2019-05-03] MEDS: ALBUTEROL SO4 2.5/IPRATROPIUM 0.5 INH SOL 3 ML VIAL.NEB. NEB PRN ×2 (12:20→20:06)
[2019-05-03] MEDS ORDERED: FUROSEMIDE 40 MG/4 ML INJECTABLE VIAL IVPUSH ONE (16:00)
[2019-05-03] MEDS ORDERED: INSULIN (NOVOLOG) ASPART 100 UNITS/ML 10ML VIAL ONE (16:05)
[2019-05-03] MEDS: ATORVASTATIN CA 20 MG TABLET (FP) PO SCH (21:06)
[2019-05-04] MEDS: BENZOCAINE/MENTH/CETYLPYRD CL 1 EACH LOZENGE MM PRN (01:41)
[2019-05-04] MEDS: INSULIN SLIDING SCALE (NOVOLOG) 1 VIAL SQ SCH ×2 (06:06→16:53)
[2019-05-04] MEDS: ASPIRIN 81 MG CHEWABLE TABLETS PO SCH (06:06)
[2019-05-04 07:30] LABS: BLOOD UREA NITROGEN 24.4 mg/dL (7-18); CALCIUM 8.6 mg/dL (8.5-10.1); POTASSIUM 4.6 mmol/L (3.5-5.1)
--- NOTE | 2019-05-04 09:34 | PN ---
Progress Note (short form) - Note Progress Note: has coughing, phlegm Vital Signs - 24 hr 05/03/19 05/03/19 05/03/19 15:00 17:06 21:00 Temperature 97.1 F L 98.4 F Pulse Rate 81 73 Respiratory 18 20 Rate Blood Pressure 104/56 L 104/42 L O2 Sat by Pulse 98 Oximetry (%) 05/04/19 06:17 Temperature 97.8 F Pulse Rate 62 Respiratory 18 Rate Blood Pressure 123/45 L O2 Sat by Pulse Oximetry (%) Current Medications Generic Name Dose Route Start Last Admin Trade Name Freq PRN Reason Stop Dose Admin Acetaminophen 650 mg 04/30/19 11:16 Tylenol - PO Q6H PRN PAIN Albuterol/Ipratropium 1 amp 04/30/19 11:14 05/03/19 20:06 Duoneb - NEB 1 amp Q4H PRN Administration SHORTNESS OF BREATH Allopurinol 100 mg 05/01/19 10:00 05/03/19 09:44 Zyloprim - PO 100 mg DAILY [facility] Administration Aspirin 81 mg 05/01/19 07:00 05/04/19 06:06 Asa - PO 81 mg AM [facility] Administration Atorvastatin Calcium 20 mg 04/30/19 22:00 05/03/19 21:06 Lipitor - PO 20 mg HS [facility] Administration Benzocaine/Menthol 1 each 05/03/19 10:56 05/04/19 01:41 Cepacol Lozenge - MM 1 each PRN PRN Administration SORE THROAT Clopidogrel Bisulfate 75 mg 05/01/19 10:00 05/03/19 09:44 Plavix - PO 75 mg DAILY [facility] Administration Docusate Sodium 100 mg 04/30/19 22:00 05/03/19 21:06 Colace - PO 100 mg BID [facility] Administration Enoxaparin Sodium 40 mg 05/01/19 10:00 05/03/19 09:43 Lovenox - SQ 40 mg DAILY [facility] Administration Furosemide 80 mg 05/03/19 12:05 Lasix Injection - IVPUSH DAILY [facility] Guaifenesin 600 mg 05/04/19 10:00 Mucinex - PO BID [facility] Azithromycin 500 mg in 250 mls @ 250 mls/hr 05/01/19 10:00 05/03/19 10:31 Zithromax 500mg Ivpb (Pre-Docked) IVPB 250 mls/hr DAILY [facility] Administration Ceftriaxone Sodium 1 gm/ 50 mls @ 100 mls/hr 05/01/19 10:00 05/03/19 09:43 Dextrose IVPB 100 mls/hr DAILY [facility] Administration Insulin Aspart 1 vial 05/02/19 16:30 05/04/19 06:06 Novolog Vial Sliding Scale - SQ Not Given [facility]IDAC [facility] Protocol Isosorbide Mononitrate 30 mg 05/01/19 10:00 05/03/19 09:44 Imdur - PO 30 mg DAILY [facility] Administration Metoprolol Succinate 100 mg 04/30/19 22:00 05/03/19 21:06 Toprol Xl - PO 100 mg BID [facility] Administration Pantoprazole Sodium 40 mg 05/01/19 10:00 05/03/19 09:44 Protonix - PO 40 mg DAILY [facility] Administration Laboratory Results - last 24 hr 05/03/19 05/04/19 05/04/19 16:03 05:32 05:42 Sodium 142 Potassium 4.6 Chloride 101 Carbon Dioxide 36 H Anion Gap 4 L BUN 24.4 H Creatinine 1.0 Est GFR (CKD-EPI)AfAm 79.75 Est GFR (CKD-EPI)NonAf 68.81 POC Glucometer 203 141 Random Glucose 134 H Calcium 8.6 S1 s2 RRR Lungs ronchi+ Abd-soft, NT edema decreased PLAn continue iv lasix dc antibiotics nebs repeat BMP tomorrow cardiology and Pulmonary eval noted Echo-- EF normal Problem List - Problems (1) Acute exacerbation of chronic obstructive pulmonary disease (COPD) Code(s): J44.1 - CHRONIC OBSTRUCTIVE PULMONARY DISEASE W (ACUTE) EXACERBATION (2) CHF exacerbation Code(s): I50.9 - HEART FAILURE, UNSPECIFIED Qualifiers: Heart failure type: unspecified Qualified Code(s): I50.9 - Heart failure, unspecified (3) Pneumonia Code(s): J18.9 - PNEUMONIA, UNSPECIFIED ORGANISM Qualifiers: Pneumonia type: due to unspecified organism Laterality: right Lung location: lower lobe of lung Qualified Code(s): J18.1 - Lobar pneumonia, unspecified organism (4) CAD (coronary artery disease) Code(s): I25.10 - ATHSCL HEART DISEASE OF [place] CORONARY ARTERY W/O ANG PCTRS Qualifiers: Coronary Disease-Associated Artery/Lesion type: [place] coronary artery Associated angina: without angina pectoris (5) CKD (chronic kidney disease) Code(s): N18.9 - CHRONIC KIDNEY DISEASE, UNSPECIFIED
--- NOTE | 2019-05-04 09:54 | PN ---
Progress Note, Physician Chief Complaint: sob History of Present Illness: breathing bad all night, felt and heard phlegm/rumbling but couldn't expectorate it. better sitting in chair today. didn't urinate a lot after yesterday's lasix 80 iv dose. today he urinated a lot, already filled up the urinal at bedside. legs still swollen no cp, palpit. - Current Medication List Current Medications: Active Medications Acetaminophen (Tylenol -) 650 mg PO Q6H PRN PRN Reason: PAIN Albuterol/Ipratropium (Duoneb -) 1 amp NEB Q4H PRN PRN Reason: SHORTNESS OF BREATH Last Admin: 05/03/19 20:06 Dose: 1 amp Allopurinol (Zyloprim -) 100 mg PO DAILY [facility] Last Admin: 05/03/19 09:44 Dose: 100 mg Aspirin (Asa -) 81 mg PO AM [facility] Last Admin: 05/04/19 06:06 Dose: 81 mg Atorvastatin Calcium (Lipitor -) 20 mg PO HS [facility] Last Admin: 05/03/19 21:06 Dose: 20 mg Benzocaine/Menthol (Cepacol Lozenge -) 1 each MM PRN PRN PRN Reason: SORE THROAT Last Admin: 05/04/19 01:41 Dose: 1 each Clopidogrel Bisulfate (Plavix -) 75 mg PO DAILY [facility] Last Admin: 05/03/19 09:44 Dose: 75 mg Docusate Sodium (Colace -) 100 mg PO BID [facility] Last Admin: 05/03/19 21:06 Dose: 100 mg Enoxaparin Sodium (Lovenox -) 40 mg SQ DAILY [facility] Last Admin: 05/03/19 09:43 Dose: 40 mg Furosemide (Lasix Injection -) 80 mg IVPUSH DAILY [facility] Guaifenesin (Mucinex -) 600 mg PO BID [facility] Azithromycin (Zithromax 500mg Ivpb (Pre-Docked)) 500 mg in 250 mls @ 250 mls/ hr IVPB DAILY [facility] Last Admin: 05/03/19 10:31 Dose: 250 mls/hr Ceftriaxone Sodium 1 gm/ (Dextrose) 50 mls @ 100 mls/hr IVPB DAILY [facility] Last Admin: 05/03/19 09:43 Dose: 100 mls/hr Insulin Aspart (Novolog Vial Sliding Scale -) [facility]; Protocol Last Admin: 05/04/19 06:06 Dose: Not Given Isosorbide Mononitrate (Imdur -) 30 mg PO DAILY [facility] Last Admin: 05/03/19 09:44 Dose: 30 mg Metoprolol Succinate (Toprol Xl -) 100 mg PO BID [facility] Last Admin: 05/03/19 21:06 Dose: 100 mg Pantoprazole Sodium (Protonix -) 40 mg PO DAILY [facility] Last Admin: 05/03/19 09:44 Dose: 40 mg - Objective Vital Signs: Vital Signs Temperature 97.8 F 05/04/19 06:17 Pulse Rate 62 05/04/19 06:17 Respiratory Rate 18 05/04/19 06:17 Blood Pressure 123/45 L 05/04/19 06:17 O2 Sat by Pulse Oximetry (%) 98 05/03/19 21:00 Constitutional: Yes: No Distress, Calm, Obese Cardiovascular: Yes: Regular Rate and Rhythm, Murmur (2/6 KENYON lusb, + S2 split) , S1, S2. No: Gallop Respiratory: Yes: Regular. No: CTA Bilaterally, Accessory Muscle Use, Rales, Rhonchi, Wheezes Extremities: No: Cold Edema: Yes (3+ ankles) Neurological: Yes: Alert, Oriented Psychiatric: No: Agitated Labs: CBC, BMP 05/03/19 06:33 05/04/19 05:42 INR, PTT INR 1.14 (0.83-1.09) H 04/30/19 06:12 Assessment/Plan 07/2016 cardiac MRI: moderate basal septal hypertrophy (up to 1.6 cm). nl lv size/fn. (EF 73%). +LVOT flow acceleration and CARLOS. Nl RV. No scar/edema. + CARLOS, mild MR. mild-mod (1.5 cm2 by planimetry). mild lae. mild asc ao dil (3.9 cm). TTE [facility] 10/2016: mild lvh. nl lv/rv. size/fn. grade I diastolic dysfunction. lvot vti/Ao vti 0.3. mod as (sev calc), jossy 1.3 (47/26). no carlos. rvsp 32 echo 07/2016: HR 69 bpm. Asymmetric septal hypertrophy (predom basal) 1.5 cm. EF 65-70%. Mod-sev LVOT obs at rest (3.7, PG 55/MG 28), unable to assess for CARLOS. Mild RV dil. Nl RV fn. Mild ana. 1+ AR. Very Severe (5.1, PG 104/MG 65 ), Mod MAC, mimimal functional MS, 1+ MR. Mild-mod TR, mod-sev pHTN. [facility] 2013: patent dRCA stent; 70-80% mRCA--Promus LEONIDES; mild dz LAD and CFX; nl EF MIBI 10/19 (maria eugenia): no STs, no isch; nl EF.eg ebody L/RHC 11/2017: wedge normal (13), mild pulm HTN (38/12). nonobstructive LAD/LCX/ RCA. neg Rakeshckenra[place]hugh. Echo 04/26: nl LV. nl RV. moderate . mild TR. RVSP 50-60. 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 -05/03: remains likely volume-up: CXR with bibasilar congestion/effusion--no signif change on 05/03 study. ongoing sob and edema. bedscale wts here are suspect in accuracy, though above prior 03/27 hospital bedscale wt range. denies brisk diuresis response to lasix 40 iv qd. labs stable. increased to lasix 80 iv qd. -05/04: no useful weights. labs stable. signif UOP after lasix 80 iv dose today. repeat this afternoon for lasix 80 iv bid today. -a.e. 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 if persists on echo once well-diuresed, would consider oximetry (walking (e.g. 6MWT) and nocturnal (overnight oximetry +/- sleep study))--outpt f/u with dr tripp s/p PPM: - outpatient follow up Aortic stenosis: - mod to severe by history, has refused TAVR evaluation recently - echo here c/w moderate , preserved S2 split on exam--outpt f/u with dr tripp cad, remote pci: -s/p BMS to dRCA 2006, LEONIDES to mRCA 2013. all patent on cath 10/2016 -cont statin, plavix, bb, imdur, asa (on PPI now as well with steroids) -not on ACEI due to prior low BPs -no signs acs here pad, le stent: -stable, cont home cardiac meds
[2019-05-04] MEDS ORDERED: DEXTROSE 5%-WATER - 50 ML IVPB ONE (10:07)
[2019-05-04] MEDS ORDERED: cefTRIAXone SODIUM 1 GM VIAL ONE (10:07)
[2019-05-04] MEDS: ALLOPURINOL 100 MG TABLET (FP) PO SCH (10:16)
[2019-05-04] MEDS: guaiFENesin 600 MG TABLET.ER (FP) PO SCH ×2 (10:16→21:02)
[2019-05-04] MEDS: CLOPIDOGREL BISULFATE 75 MG TABLET (FP) PO SCH (10:16)
[2019-05-04] MEDS: DOCUSATE SODIUM 100 MG CAPSULE (FP) PO SCH ×2 (10:16→21:02)
[2019-05-04] MEDS: AZITHROMYCIN IVPB 500 MG/250 ML BAG IVPB SCH (10:17)
[2019-05-04] MEDS: PANTOPRAZOLE 40 MG TABLET (FP) PO SCH (10:17)
[2019-05-04] MEDS: ISOSORBIDE MONONITRATE 30 MG TAB.SR.24H (FP) PO SCH (10:17)
[2019-05-04] MEDS: CEFTRIAXONE 1 GM in DEXTROSE 5%-WATER - 50 ML IVPB SCH (10:18)
[2019-05-04] MEDS: FUROSEMIDE 40 MG/4 ML INJECTABLE VIAL IVPUSH SCH (10:18)
[2019-05-04] MEDS: ENOXAPARIN NA (PORCINE) 40 MG/0.4 ML DISP.SYRIN SQ SCH (10:19)
--- NOTE | 2019-05-04 11:35 | PN ---
Progress Note (short form) - Note Progress Note: PULMONARY Still short of breath and nonproductive cough. Vital Signs Period Temp Pulse Resp BP Sys/Benito Pulse Ox Last 24 Hr 97.1 F-98.4 F 62-81 18-20 104-123/42-56 94-98 Intake & Output 05/01/19 05/02/19 05/03/19 05/04/19 23:59 23:59 23:59 23:59 Intake Total 300 700 900 200 Output Total 350 1850 1200 Balance -50 -1150 -300 200 Weight 91.796 kg 93.44 kg 85.321 kg 92.59 kg Gen: mildly tachypneic with speaking Heart: RRR Lung: decreased breath sounds at the bases Abd: soft, nontender Ext: + edema CBC, BMP 05/03/19 06:33 05/04/19 05:42 Active Medications Acetaminophen (Tylenol -) 650 mg PO Q6H PRN PRN Reason: PAIN Albuterol/Ipratropium (Duoneb -) 1 amp NEB Q4H PRN PRN Reason: SHORTNESS OF BREATH Last Admin: 05/03/19 20:06 Dose: 1 amp Allopurinol (Zyloprim -) 100 mg PO DAILY [facility] Last Admin: 05/04/19 10:16 Dose: 100 mg Aspirin (Asa -) 81 mg PO AM [facility] Last Admin: 05/04/19 06:06 Dose: 81 mg Atorvastatin Calcium (Lipitor -) 20 mg PO HS [facility] Last Admin: 05/03/19 21:06 Dose: 20 mg Benzocaine/Menthol (Cepacol Lozenge -) 1 each MM PRN PRN PRN Reason: SORE THROAT Last Admin: 05/04/19 01:41 Dose: 1 each Clopidogrel Bisulfate (Plavix -) 75 mg PO DAILY [facility] Last Admin: 05/04/19 10:16 Dose: 75 mg Docusate Sodium (Colace -) 100 mg PO BID [facility] Last Admin: 05/04/19 10:16 Dose: 100 mg Enoxaparin Sodium (Lovenox -) 40 mg SQ DAILY [facility] Last Admin: 05/04/19 10:19 Dose: 40 mg Furosemide (Lasix Injection -) 80 mg IVPUSH DAILY [facility] Last Admin: 05/04/19 10:18 Dose: 80 mg Guaifenesin (Mucinex -) 600 mg PO BID [facility] Last Admin: 05/04/19 10:16 Dose: 600 mg Azithromycin (Zithromax 500mg Ivpb (Pre-Docked)) 500 mg in 250 mls @ 250 mls/ hr IVPB DAILY [facility] Last Admin: 05/04/19 10:17 Dose: 250 mls/hr Ceftriaxone Sodium 1 gm/ (Dextrose) 50 mls @ 100 mls/hr IVPB DAILY [facility] Last Admin: 05/04/19 10:18 Dose: 100 mls/hr Insulin Aspart (Novolog Vial Sliding Scale -) [facility]; Protocol Last Admin: 05/04/19 06:06 Dose: Not Given Isosorbide Mononitrate (Imdur -) 30 mg PO DAILY [facility] Last Admin: 05/04/19 10:17 Dose: 30 mg Metoprolol Succinate (Toprol Xl -) 100 mg PO BID [facility] Last Admin: 05/04/19 10:17 Dose: 100 mg Pantoprazole Sodium (Protonix -) 40 mg PO DAILY [facility] Last Admin: 05/04/19 10:17 Dose: 40 mg A/P Acute on Chronic Diastolic Heart Failure Hypertrophic Cardiomyopathy Aortic Stenosis s/p PPM CAD PAD COPD HTN DM Hyperlipidemia - continue lasix - monitor urine output, creatinine - daily weights - O2 to keep SpO2 >90% - inhaled bronchodilators as needed - trial of BiPAP - on empiric antibiotics, less likely pneumonia, can d/c - DVT prophylaxis
[2019-05-04] MEDS ORDERED: FUROSEMIDE 40 MG/4 ML INJECTABLE VIAL IVPUSH ONE (16:00)
[2019-05-04] MEDS: ALBUTEROL SO4 2.5/IPRATROPIUM 0.5 INH SOL 3 ML VIAL.NEB. NEB PRN (19:47)
[2019-05-04] MEDS: ATORVASTATIN CA 20 MG TABLET (FP) PO SCH (21:02)
[2019-05-05] MEDS: ASPIRIN 81 MG CHEWABLE TABLETS PO SCH (06:34)
[2019-05-05 07:17] LABS: BLOOD UREA NITROGEN 16.2 mg/dL (7-18); CALCIUM 8.2 mg/dL (8.5-10.1); POTASSIUM 4.3 mmol/L (3.5-5.1)
[2019-05-05] MEDS: ALBUTEROL SO4 2.5/IPRATROPIUM 0.5 INH SOL 3 ML VIAL.NEB. NEB PRN ×2 (07:25→22:03)
--- NOTE | 2019-05-05 09:32 | PN ---
Progress Note (short form) - Note Progress Note: OOB to chair on RA in NAD. Reports breathing feels better today. Less cough and SOB. Intake & Output 05/02/19 05/03/19 05/04/19 05/05/19 23:59 23:59 23:59 23:59 Intake Total 749 096 6909 100 Output Total 1850 1200 3700 300 Balance -1150 -300 -1940 -200 Weight 206 lb 188 lb 1.6 oz 204 lb 2 oz 203 lb 4 oz Last Vital Signs Temp Pulse Resp BP Pulse Ox 97 F L 68 20 114/53 L 93 L 05/05/19 06:39 05/05/19 01:58 05/05/19 06:39 05/05/19 06:39 05/05/19 07:25 Active Medications Acetaminophen (Tylenol -) 650 mg PO Q6H PRN PRN Reason: PAIN Albuterol/Ipratropium (Duoneb -) 1 amp NEB Q4H PRN PRN Reason: SHORTNESS OF BREATH Last Admin: 05/05/19 07:25 Dose: 1 amp Allopurinol (Zyloprim -) 100 mg PO DAILY [facility] Last Admin: 05/04/19 10:16 Dose: 100 mg Aspirin (Asa -) 81 mg PO AM [facility] Last Admin: 05/05/19 06:34 Dose: 81 mg Atorvastatin Calcium (Lipitor -) 20 mg PO HS [facility] Last Admin: 05/04/19 21:02 Dose: 20 mg Benzocaine/Menthol (Cepacol Lozenge -) 1 each MM PRN PRN PRN Reason: SORE THROAT Last Admin: 05/04/19 01:41 Dose: 1 each Clopidogrel Bisulfate (Plavix -) 75 mg PO DAILY [facility] Last Admin: 05/04/19 10:16 Dose: 75 mg Docusate Sodium (Colace -) 100 mg PO BID [facility] Last Admin: 05/04/19 21:02 Dose: 100 mg Enoxaparin Sodium (Lovenox -) 40 mg SQ DAILY [facility] Last Admin: 05/04/19 10:19 Dose: 40 mg Furosemide (Lasix Injection -) 80 mg IVPUSH DAILY [facility] Last Admin: 05/04/19 10:18 Dose: 80 mg Guaifenesin (Mucinex -) 600 mg PO BID [facility] Last Admin: 10/27/19 21:02 Dose: 600 mg Insulin Aspart (Novolog Vial Sliding Scale -) 1 vial SQ BIDAC [facility]; Protocol Last Admin: 05/04/19 16:53 Dose: 2 units Isosorbide Mononitrate (Imdur -) 30 mg PO DAILY [facility] Last Admin: 05/04/19 10:17 Dose: 30 mg Metoprolol Succinate (Toprol Xl -) 100 mg PO BID [facility] Last Admin: 05/04/19 21:02 Dose: 100 mg Pantoprazole Sodium (Protonix -) 40 mg PO DAILY [facility] Last Admin: 05/04/19 10:17 Dose: 40 mg Gen: OOB to chair, NAD Heart: RRR Lung: decreased breath sounds at the bases, few scattered rhonchi Abd: soft, nontender Ext: + edema Laboratory Results - last 24 hr 05/04/19 05/05/19 16:52 06:00 Sodium 142 Potassium 4.3 Chloride 99 Carbon Dioxide 39 H Anion Gap 3 L BUN 16.2 Creatinine 1.0 Est GFR (CKD-EPI)AfAm 79.75 Est GFR (CKD-EPI)NonAf 68.81 POC Glucometer 184 Random Glucose 136 H Calcium 8.2 L A/P Acute on Chronic Diastolic Heart Failure Hypertrophic Cardiomyopathy Aortic Stenosis s/p PPM CAD PAD COPD HTN DM Hyperlipidemia - Lasix - monitor urine output, creatinine - daily weights - O2 to keep SpO2 >90% - inhaled bronchodilators as needed - NIPPV PRN - Monitor off ABX - DVT prophylaxis Dr Oquendo
[2019-05-05] MEDS: INSULIN SLIDING SCALE (NOVOLOG) 1 VIAL SQ SCH ×2 (10:04→16:34)
[2019-05-05] MEDS: ALLOPURINOL 100 MG TABLET (FP) PO SCH (10:15)
[2019-05-05] MEDS: CLOPIDOGREL BISULFATE 75 MG TABLET (FP) PO SCH (10:15)
[2019-05-05] MEDS: ENOXAPARIN NA (PORCINE) 40 MG/0.4 ML DISP.SYRIN SQ SCH (10:15)
[2019-05-05] MEDS: ISOSORBIDE MONONITRATE 30 MG TAB.SR.24H (FP) PO SCH (10:15)
[2019-05-05] MEDS: FUROSEMIDE 40 MG/4 ML INJECTABLE VIAL IVPUSH SCH ×2 (10:15→16:35)
[2019-05-05] MEDS: DOCUSATE SODIUM 100 MG CAPSULE (FP) PO SCH ×2 (10:15→21:31)
[2019-05-05] MEDS: PANTOPRAZOLE 40 MG TABLET (FP) PO SCH (10:15)
[2019-05-05] MEDS: guaiFENesin 600 MG TABLET.ER (FP) PO SCH ×2 (10:16→21:31)
--- NOTE | 2019-05-05 16:27 | PN ---
Progress Note (short form) - Note Progress Note: s: sob improving, edema stable. no chest pain, palps, dizziness. urinating more today Current Medications Acetaminophen (Tylenol -) 650 mg PO Q6H PRN PRN Reason: PAIN Albuterol/Ipratropium (Duoneb -) 1 amp NEB Q4H PRN PRN Reason: SHORTNESS OF BREATH Last Admin: 05/05/19 07:25 Dose: 1 amp Allopurinol (Zyloprim -) 100 mg PO DAILY [facility] Last Admin: 05/05/19 10:15 Dose: 100 mg Aspirin (Asa -) 81 mg PO AM [facility] Last Admin: 05/05/19 06:34 Dose: 81 mg Atorvastatin Calcium (Lipitor -) 20 mg PO HS [facility] Last Admin: 05/04/19 21:02 Dose: 20 mg Benzocaine/Menthol (Cepacol Lozenge -) 1 each MM PRN PRN PRN Reason: SORE THROAT Last Admin: 05/04/19 01:41 Dose: 1 each Clopidogrel Bisulfate (Plavix -) 75 mg PO DAILY [facility] Last Admin: 05/05/19 10:15 Dose: 75 mg Docusate Sodium (Colace -) 100 mg PO BID [facility] Last Admin: 05/05/19 10:15 Dose: 100 mg Enoxaparin Sodium (Lovenox -) 40 mg SQ DAILY [facility] Last Admin: 05/05/19 10:15 Dose: 40 mg Furosemide (Lasix Injection -) 80 mg IVPUSH BID@0600,1400 [facility] Guaifenesin (Mucinex -) 600 mg PO BID [facility] Last Admin: 05/05/19 10:16 Dose: 600 mg Insulin Aspart (Novolog Vial Sliding Scale -) [facility]; Protocol Last Admin: 05/05/19 10:04 Dose: Not Given Isosorbide Mononitrate (Imdur -) 30 mg PO DAILY [facility] Last Admin: 05/05/19 10:15 Dose: 30 mg Metoprolol Succinate (Toprol Xl -) 100 mg PO BID [facility] Last Admin: 05/05/19 10:15 Dose: 100 mg Pantoprazole Sodium (Protonix -) 40 mg PO DAILY [facility] Last Admin: 05/05/19 10:15 Dose: 40 mg Vital Signs Period Temp Pulse Resp BP Sys/Benito Pulse Ox Last 24 Hr 97 F-98.9 F 68-77 20-22 94-114/41-64 93-98 Constitutional: Yes: No Distress, Calm, Obese Cardiovascular: Yes: Regular Rate and Rhythm, Murmur (2/6 KENYON lusb, + S2 split) , S1, S2. No: Gallop Respiratory: Yes: Regular. No: CTA Bilaterally, Accessory Muscle Use, Rales, Rhonchi, Wheezes Extremities: No: Cold Edema: Yes (3+ ankles) Neurological: Yes: Alert, Oriented Psychiatric: No: Agitated no jaundice, diaphoresis Assessment/Plan 07/2016 cardiac MRI: moderate basal septal hypertrophy (up to 1.6 cm). nl lv size/fn. (EF 73%). +LVOT flow acceleration and CARLOS. Nl RV. No scar/edema. + CARLOS, mild MR. mild-mod (1.5 cm2 by planimetry). mild lae. mild asc ao dil (3.9 cm). TTE [facility] 10/2016: mild lvh. nl lv/rv. size/fn. grade I diastolic dysfunction. lvot vti/Ao vti 0.3. mod as (sev calc), jossy 1.3 (47/26). no carlos. rvsp 32 echo 07/2016: HR 69 bpm. Asymmetric septal hypertrophy (predom basal) 1.5 cm. EF 65-70%. Mod-sev LVOT obs at rest (3.7, PG 55/MG 28), unable to assess for CARLOS. Mild RV dil. Nl RV fn. Mild ana. 1+ AR. Very Severe (5.1, PG 104/MG 65 ), Mod MAC, mimimal functional MS, 1+ MR. Mild-mod TR, mod-sev pHTN. [facility] 2013: patent dRCA stent; 70-80% mRCA--Promus LEONIDES; mild dz LAD and CFX; nl EF MIBI 10/19 (maria eugenia): no STs, no isch; nl EF.eg ebody L/RHC 11/2017: wedge normal (13), mild pulm HTN (38/12). nonobstructive LAD/LCX/ RCA. neg [place]ugh. Echo 04/26: nl LV. nl RV. moderate . mild TR. RVSP 50-60. 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 acute diastolic chf, h/o HCM, pulm HTN: -known h/o mitral CARLOS with LVOT obstruction s/p septal ablation [facility] 2016--no LVOT gradient noted on echo here -was on torsemide 40 qd at home -here with vol overload now, bnp 1700 (prior range 9975-5558). -a.e. 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 if persists on echo once well-diuresed, would consider oximetry (walking (e.g. 6MWT) and nocturnal (overnight oximetry +/- sleep study))--outpt f/u - increase lasix to 80 mg IV BID, monitor daily weights, Cr, lytes s/p PPM: - outpatient follow up Aortic stenosis: - mod to severe by history, has refused TAVR evaluation recently - echo here c/w moderate , preserved S2 split on exam--outpt f/u with dr josee pederson, remote pci: -[facility] 10/2016 -cont statin, plavix, bb, imdur, asa (on PPI now as well with steroids) -not on ACEI due to prior low BPs -no signs acs here pad, le stent: -stable, cont home cardiac meds
[2019-05-05] MEDS ORDERED: INSULIN (NOVOLOG) ASPART 100 UNITS/ML 10ML VIAL ONE (16:33)
--- NOTE | 2019-05-05 18:20 | PN ---
Progress Note (short form) - Note Progress Note: pt seen/ examined sitting in chair feels ok no distress eating dinner Chart reviewed Lasix increased today Vital Signs Temp 98.8 F 05/05/19 17:24 Pulse 77 05/05/19 17:24 Resp 20 05/05/19 17:24 BP 116/51 L 05/05/19 17:24 Pulse Ox 98 05/05/19 09:00 Intake & Output 05/04/19 05/05/19 05/05/19 23:59 11:59 23:59 Intake Total 1560 100 Output Total 3700 300 600 Balance -2140 -200 -600 Weight 203 lb 4 oz Intake: IV 0 0 SL 0 0 IVPB 450 Oral 1110 100 TPN/PPN 0 Output: Urine 3700 300 600 Void 3700 300 600 Other: Voiding Method Urinal Urinal Bowel Movement Yes Yes # Bowel Movements 1 1 Active Medications Acetaminophen (Tylenol -) 650 mg PO Q6H PRN PRN Reason: PAIN Albuterol/Ipratropium (Duoneb -) 1 amp NEB Q4H PRN PRN Reason: SHORTNESS OF BREATH Last Admin: 05/05/19 07:25 Dose: 1 amp Allopurinol (Zyloprim -) 100 mg PO DAILY [facility] Last Admin: 05/05/19 10:15 Dose: 100 mg Aspirin (Asa -) 81 mg PO AM [facility] Last Admin: 05/05/19 06:34 Dose: 81 mg Atorvastatin Calcium (Lipitor -) 20 mg PO HS [facility] Last Admin: 05/04/19 21:02 Dose: 20 mg Benzocaine/Menthol (Cepacol Lozenge -) 1 each MM PRN PRN PRN Reason: SORE THROAT Last Admin: 05/04/19 01:41 Dose: 1 each Clopidogrel Bisulfate (Plavix -) 75 mg PO DAILY [facility] Last Admin: 05/05/19 10:15 Dose: 75 mg Docusate Sodium (Colace -) 100 mg PO BID [facility] Last Admin: 05/05/19 10:15 Dose: 100 mg Enoxaparin Sodium (Lovenox -) 40 mg SQ DAILY [facility] Last Admin: 05/05/19 10:15 Dose: 40 mg Furosemide (Lasix Injection -) 80 mg IVPUSH BID@0600,1400 [facility] Last Admin: 05/05/19 16:35 Dose: 80 mg Guaifenesin (Mucinex -) 600 mg PO BID [facility] Last Admin: 05/05/19 10:16 Dose: 600 mg Insulin Aspart (Novolog Vial Sliding Scale -) [facility]; Protocol Last Admin: 05/05/19 16:34 Dose: 4 units Isosorbide Mononitrate (Imdur -) 30 mg PO DAILY [facility] Last Admin: 05/05/19 10:15 Dose: 30 mg Metoprolol Succinate (Toprol Xl -) 100 mg PO BID [facility] Last Admin: 05/05/19 10:15 Dose: 100 mg Pantoprazole Sodium (Protonix -) 40 mg PO DAILY [facility] Last Admin: 05/05/19 10:15 Dose: 40 mg CBC, BMP 05/03/19 06:33 05/05/19 06:00 ct abd-- No acute pathology/ Renal cysts Physical Exam S1 s2 RRR Lungs - Diminished Abd-soft, NT edema decreased PLAn continue iv lasix-- Increased by cardiology today off antibiotics nebs monitor BMP u/s kidneys will follow d/w RN also Problem List - Problems (1) Acute exacerbation of chronic obstructive pulmonary disease (COPD) Code(s): J44.1 - CHRONIC OBSTRUCTIVE PULMONARY DISEASE W (ACUTE) EXACERBATION (2) CHF exacerbation Code(s): I50.9 - HEART FAILURE, UNSPECIFIED Qualifiers: Heart failure type: unspecified Qualified Code(s): I50.9 - Heart failure, unspecified (3) Pneumonia Code(s): J18.9 - PNEUMONIA, UNSPECIFIED ORGANISM Qualifiers: Pneumonia type: due to unspecified organism Laterality: right Lung location: lower lobe of lung Qualified Code(s): J18.1 - Lobar pneumonia, unspecified organism (4) CAD (coronary artery disease) Code(s): I25.10 - ATHSCL HEART DISEASE OF [place] CORONARY ARTERY W/O ANG PCTRS Qualifiers: Coronary Disease-Associated Artery/Lesion type: [place] coronary artery Associated angina: without angina pectoris (5) CKD (chronic kidney disease) Code(s): N18.9 - CHRONIC KIDNEY DISEASE, UNSPECIFIED
[2019-05-05] MEDS: ATORVASTATIN CA 20 MG TABLET (FP) PO SCH (21:32)
[2019-05-06] MEDS: ASPIRIN 81 MG CHEWABLE TABLETS PO SCH (06:00)
[2019-05-06] MEDS: INSULIN SLIDING SCALE (NOVOLOG) 1 VIAL SQ SCH ×2 (06:00→17:47)
[2019-05-06] MEDS: FUROSEMIDE 40 MG/4 ML INJECTABLE VIAL IVPUSH SCH ×2 (06:00→14:41)
[2019-05-06] MEDS: ALBUTEROL SO4 2.5/IPRATROPIUM 0.5 INH SOL 3 ML VIAL.NEB. NEB PRN ×2 (08:09→21:05)
[2019-05-06 08:41] LABS: BLOOD UREA NITROGEN 14.5 mg/dL (7-18); CALCIUM 8.3 mg/dL (8.5-10.1); CREATININE 0.9 mg/dL (0.55-1.3); POTASSIUM 4.2 mmol/L (3.5-5.1)
--- NOTE | 2019-05-06 09:42 | PN ---
Progress Note (short form) - Note Progress Note: OOB to chair on RA in NAD. Reports breathing feels about the same today. Less cough and SOB. Intake & Output 05/03/19 05/04/19 05/05/19 05/06/19 23:59 23:59 23:59 23:59 Intake Total 900 1760 300 0 Output Total 1200 3700 1740 Balance -300 -1940 -1440 0 Weight 188 lb 1.6 oz 204 lb 2 oz 203 lb 4 oz Last Vital Signs Temp Pulse Resp BP Pulse Ox 98.6 F 72 20 110/58 L 92 L 05/06/19 07:10 05/06/19 07:10 05/06/19 07:10 05/06/19 07:10 05/06/19 08:08 Active Medications Acetaminophen (Tylenol -) 650 mg PO Q6H PRN PRN Reason: PAIN Albuterol/Ipratropium (Duoneb -) 1 amp NEB Q4H PRN PRN Reason: SHORTNESS OF BREATH Last Admin: 05/06/19 08:09 Dose: 1 amp Allopurinol (Zyloprim -) 100 mg PO DAILY [facility] Last Admin: 05/05/19 10:15 Dose: 100 mg Aspirin (Asa -) 81 mg PO AM [facility] Last Admin: 05/06/19 06:00 Dose: 81 mg Atorvastatin Calcium (Lipitor -) 20 mg PO HS [facility] Last Admin: 05/05/19 21:32 Dose: 20 mg Benzocaine/Menthol (Cepacol Lozenge -) 1 each MM PRN PRN PRN Reason: SORE THROAT Last Admin: 05/04/19 01:41 Dose: 1 each Clopidogrel Bisulfate (Plavix -) 75 mg PO DAILY [facility] Last Admin: 05/05/19 10:15 Dose: 75 mg Docusate Sodium (Colace -) 100 mg PO BID [facility] Last Admin: 05/05/19 21:31 Dose: 100 mg Enoxaparin Sodium (Lovenox -) 40 mg SQ DAILY [facility] Last Admin: 05/05/19 10:15 Dose: 40 mg Furosemide (Lasix Injection -) 80 mg IVPUSH BID@0600,1400 [facility] Last Admin: 05/06/19 06:00 Dose: 80 mg Guaifenesin (Mucinex -) 600 mg PO BID [facility] Last Admin: 05/05/19 21:31 Dose: 600 mg Insulin Aspart (Novolog Vial Sliding Scale -) [facility]; Protocol Last Admin: 05/06/19 06:00 Dose: Not Given Isosorbide Mononitrate (Imdur -) 30 mg PO DAILY [facility] Last Admin: 05/05/19 10:15 Dose: 30 mg Metoprolol Succinate (Toprol Xl -) 100 mg PO BID [facility] Last Admin: 05/05/19 21:32 Dose: 100 mg Pantoprazole Sodium (Protonix -) 40 mg PO DAILY [facility] Last Admin: 05/05/19 10:15 Dose: 40 mg Gen: OOB to chair, NAD Heart: RRR Lung: decreased breath sounds at the bases, few scattered rhonchi Abd: soft, nontender Ext: + edema Laboratory Results - last 24 hr 05/05/19 05/06/19 05/06/19 16:22 05:57 07:20 Sodium 142 Potassium 4.2 Chloride 97 L Carbon Dioxide 41 H Anion Gap 3 L BUN 14.5 Creatinine 0.9 Est GFR (CKD-EPI)AfAm 90.58 Est GFR (CKD-EPI)NonAf 78.15 POC Glucometer 205 139 Random Glucose 146 H Calcium 8.3 L A/P Acute on Chronic Diastolic Heart Failure Hypertrophic Cardiomyopathy Aortic Stenosis s/p PPM CAD PAD COPD HTN DM Hyperlipidemia PAH Probable OSAS - Lasix - monitor urine output, creatinine - daily weights - O2 to keep SpO2 >90% - inhaled bronchodilators as needed - NIPPV PRN - Monitor off ABX - DVT prophylaxis - Will need formal sleep apnea testing after DC and stable Dr Oquendo
[2019-05-06] MEDS: CLOPIDOGREL BISULFATE 75 MG TABLET (FP) PO SCH (10:58)
[2019-05-06] MEDS: guaiFENesin 600 MG TABLET.ER (FP) PO SCH ×2 (10:58→21:11)
[2019-05-06] MEDS: ALLOPURINOL 100 MG TABLET (FP) PO SCH (10:58)
[2019-05-06] MEDS: DOCUSATE SODIUM 100 MG CAPSULE (FP) PO SCH ×2 (10:58→21:11)
[2019-05-06] MEDS: PANTOPRAZOLE 40 MG TABLET (FP) PO SCH (10:58)
[2019-05-06] MEDS: ENOXAPARIN NA (PORCINE) 40 MG/0.4 ML DISP.SYRIN SQ SCH (10:59)
[2019-05-06] MEDS: ISOSORBIDE MONONITRATE 30 MG TAB.SR.24H (FP) PO SCH (10:59)
[2019-05-06] MEDS: BENZOCAINE/MENTH/CETYLPYRD CL 1 EACH LOZENGE MM PRN (11:02)
--- NOTE | 2019-05-06 11:31 | PN ---
Progress Note (short form) - Note Progress Note: has coughing, phlegm no sob says he feels something stuck in lower chest trying to get it coughed out depressed Vital Signs - 24 hr 05/05/19 05/05/19 05/05/19 14:00 14:05 17:24 Temperature 98.9 F 98.8 F Pulse Rate 75 72 77 Respiratory 20 20 Rate Blood Pressure 104/45 L 100/60 116/51 L O2 Sat by Pulse Oximetry (%) 05/05/19 05/06/19 05/06/19 21:00 07:10 08:08 Temperature 98.6 F Pulse Rate 80 72 Respiratory 20 20 Rate Blood Pressure 97/60 110/58 L O2 Sat by Pulse 98 92 L Oximetry (%) Intake & Output 05/03/19 05/04/19 05/05/19 05/06/19 23:59 23:59 23:59 23:59 Intake Total 900 1760 300 0 Output Total 1200 3700 1740 Balance -300 -1940 -1440 0 Weight 188 lb 1.6 oz 204 lb 2 oz 203 lb 4 oz Current Medications Generic Name Dose Route Start Last Admin Trade Name Freq PRN Reason Stop Dose Admin Acetaminophen 650 mg 04/30/19 11:16 Tylenol - PO Q6H PRN PAIN Albuterol/Ipratropium 1 amp 04/30/19 11:14 05/06/19 08:09 Duoneb - NEB 1 amp Q4H PRN Administration SHORTNESS OF BREATH Allopurinol 100 mg 05/01/19 10:00 05/06/19 10:58 Zyloprim - PO 100 mg DAILY [facility] Administration Aspirin 81 mg 05/01/19 07:00 05/06/19 06:00 Asa - PO 81 mg AM G[facility] Administration Atorvastatin Calcium 20 mg 04/30/19 22:00 05/05/19 21:32 Lipitor - PO 20 mg HS G[facility] Administration Benzocaine/Menthol 1 each 05/03/19 10:56 05/06/19 11:02 Cepacol Lozenge - MM 1 each PRN PRN Administration SORE THROAT Clopidogrel Bisulfate 75 mg 05/01/19 10:00 05/06/19 10:58 Plavix - PO 75 mg DAILY [facility] Administration Docusate Sodium 100 mg 04/30/19 22:00 05/06/19 10:58 Colace - PO 100 mg BID G[facility] Administration Enoxaparin Sodium 40 mg 05/01/19 10:00 05/06/19 10:59 Lovenox - SQ 40 mg DAILY [facility] Administration Furosemide 80 mg 05/05/19 16:30 05/06/19 06:00 Lasix Injection - IVPUSH 80 mg BID@0600,1400 [facility] Administration Guaifenesin 600 mg 05/04/19 10:00 05/06/19 10:58 Mucinex - PO 600 mg BID [facility] Administration Insulin Aspart 1 vial 05/02/19 16:30 05/06/19 06:00 Novolog Vial Sliding Scale - SQ Not Given BIDAC [facility] Protocol Isosorbide Mononitrate 30 mg 05/01/19 10:00 05/06/19 10:59 Imdur - PO 30 mg DAILY [facility] Administration Metoprolol Succinate 100 mg 04/30/19 22:00 05/06/19 10:59 Toprol Xl - PO 100 mg BID G[facility] Administration Pantoprazole Sodium 40 mg 05/01/19 10:00 05/06/19 10:58 Protonix - PO 40 mg DAILY GAVIN Administration Laboratory Results - last 24 hr 05/05/19 05/06/19 05/06/19 16:22 05:57 07:20 Sodium 142 Potassium 4.2 Chloride 97 L Carbon Dioxide 41 H Anion Gap 3 L BUN 14.5 Creatinine 0.9 Est GFR (CKD-EPI)AfAm 90.58 Est GFR (CKD-EPI)NonAf 78.15 POC Glucometer 205 139 Random Glucose 146 H Calcium 8.3 L S1 s2 RRR Lungs ronchi+ Abd-soft, NT edema decreased PLAn continue iv lasix BID renal function stable weights are not properly being checked dc antibiotics nebs start zoloft for depression OOB daily Problem List - Problems (1) Acute exacerbation of chronic obstructive pulmonary disease (COPD) Code(s): J44.1 - CHRONIC OBSTRUCTIVE PULMONARY DISEASE W (ACUTE) EXACERBATION (2) CHF exacerbation Code(s): I50.9 - HEART FAILURE, UNSPECIFIED Qualifiers: Heart failure type: unspecified Qualified Code(s): I50.9 - Heart failure, unspecified (3) Pneumonia Code(s): J18.9 - PNEUMONIA, UNSPECIFIED ORGANISM Qualifiers: Pneumonia type: due to unspecified organism Laterality: right Lung location: lower lobe of lung Qualified Code(s): J18.1 - Lobar pneumonia, unspecified organism (4) CAD (coronary artery disease) Code(s): I25.10 - ATHSCL HEART DISEASE OF [place] CORONARY ARTERY W/O ANG PCTRS Qualifiers: Coronary Disease-Associated Artery/Lesion type: [place] coronary artery Associated angina: without angina pectoris (5) CKD (chronic kidney disease) Code(s): N18.9 - CHRONIC KIDNEY DISEASE, UNSPECIFIED
--- NOTE | 2019-05-06 12:26 | PN ---
Progress Note (short form) - Note Progress Note: s: edema improving, sob stable. feels it's hard to cough up mucus. no chest pain, palps, dizziness. Current Medications Acetaminophen (Tylenol -) 650 mg PO Q6H PRN PRN Reason: PAIN Albuterol/Ipratropium (Duoneb -) 1 amp NEB Q4H PRN PRN Reason: SHORTNESS OF BREATH Last Admin: 05/06/19 08:09 Dose: 1 amp Allopurinol (Zyloprim -) 100 mg PO DAILY [facility] Last Admin: 05/06/19 10:58 Dose: 100 mg Aspirin (Asa -) 81 mg PO AM [facility] Last Admin: 05/06/19 06:00 Dose: 81 mg Atorvastatin Calcium (Lipitor -) 20 mg PO HS [facility] Last Admin: 05/05/19 21:32 Dose: 20 mg Benzocaine/Menthol (Cepacol Lozenge -) 1 each MM PRN PRN PRN Reason: SORE THROAT Last Admin: 05/06/19 11:02 Dose: 1 each Clopidogrel Bisulfate (Plavix -) 75 mg PO DAILY [facility] Last Admin: 05/06/19 10:58 Dose: 75 mg Docusate Sodium (Colace -) 100 mg PO BID [facility] Last Admin: 05/06/19 10:58 Dose: 100 mg Enoxaparin Sodium (Lovenox -) 40 mg SQ DAILY [facility] Last Admin: 05/06/19 10:59 Dose: 40 mg Furosemide (Lasix Injection -) 80 mg IVPUSH BID@0600,1400 [facility] Last Admin: 05/06/19 06:00 Dose: 80 mg Guaifenesin (Mucinex -) 600 mg PO BID [facility] Last Admin: 05/06/19 10:58 Dose: 600 mg Insulin Aspart (Novolog Vial Sliding Scale -) 1 vial SQ BIDAC [facility]; Protocol Last Admin: 05/06/19 06:00 Dose: Not Given Isosorbide Mononitrate (Imdur -) 30 mg PO DAILY [facility] Last Admin: 05/06/19 10:59 Dose: 30 mg Metoprolol Succinate (Toprol Xl -) 100 mg PO BID [facility] Last Admin: 05/06/19 10:59 Dose: 100 mg Pantoprazole Sodium (Protonix -) 40 mg PO DAILY [facility] Last Admin: 05/06/19 10:58 Dose: 40 mg Sertraline HCl (Zoloft -) 25 mg PO DAILY [facility] Vital Signs Period Temp Pulse Resp BP Sys/Benito Pulse Ox Last 24 Hr 98.6 F-98.9 F 72-80 20-20 97-116/45-60 92-98 Constitutional: Yes: No Distress, Calm, Obese Cardiovascular: Yes: Regular Rate and Rhythm, Murmur (2/6 KENYON lusb, + S2 split) , S1, S2. No: Gallop Respiratory: Yes: Regular. No: CTA Bilaterally, Accessory Muscle Use, Rales, Rhonchi, Wheezes Extremities: No: Cold Edema: Yes (3+ ankles) Neurological: Yes: Alert, Oriented Psychiatric: No: Agitated no jaundice, diaphoresis Assessment/Plan 07/2016 cardiac MRI: moderate basal septal hypertrophy (up to 1.6 cm). nl lv size/fn. (EF 73%). +LVOT flow acceleration and CARLOS. Nl RV. No scar/edema. + CARLOS, mild MR. mild-mod (1.5 cm2 by planimetry). mild lae. mild asc ao dil (3.[address] cm). [facility] 10/2016: mild lvh. nl lv/rv. size/fn. grade I diastolic dysfunction. lvot vti/Ao vti 0.3. mod as (sev calc), jossy 1.3 (47/26). no carlos. rvsp 32 echo 07/2016: HR 69 bpm. Asymmetric septal hypertrophy (predom basal) 1.5 cm. EF 65-70%. Mod-sev LVOT obs at rest (3.7, PG 55/MG 28), unable to assess for CARLOS. Mild RV dil. Nl RV fn. Mild ana. 1+ AR. Very Severe (5.1, PG 104/MG 65 ), Mod MAC, mimimal functional MS, 1+ MR. Mild-mod TR, mod-sev pHTN. [facility] 2013: patent dRCA stent; 70-80% mRCA--Promus LEONIDES; mild dz LAD and CFX; nl EF MIBI 10/19 (maria eugenia): no STs, no isch; nl EF.eg ebody L/RHC 11/2017: wedge normal (13), mild pulm HTN (38/12). nonobstructive LAD/LCX/ RCA. neg [place]. Echo 04/26: nl LV. nl RV. moderate . mild TR. RVSP 50-60. a/p: 83 m hx cad s/p pci (most recent was leonides to 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 2016--no LVOT gradient noted on echo here -was on torsemide 40 qd at home -here with vol overload now, bnp 1700 (prior range 7874-1458). -a.e. 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 if persists on echo once well-diuresed, would consider oximetry (walking (e.g. 6MWT) and nocturnal (overnight oximetry +/- sleep study))--outpt f/u - cont lasix 80 mg IV BID, monitor daily weights, Cr, lytes, edema improving s/p PPM: - outpatient follow up Aortic stenosis: - mod to severe by history, has refused TAVR evaluation recently - echo here c/w moderate , preserved S2 split on exam--outpt f/u with dr josee pederson, remote pci: -s/p BMS to [facility] 2006, LEONIDES to [facility] 2013. all patent on cath 10/2016 -cont statin, plavix, bb, imdur, asa (on PPI now as well with steroids) -not on ACEI due to prior low BPs -no signs acs here pad, le stent: -stable, cont home cardiac meds
[2019-05-06] MEDS: SERTRALINE HCL 25 MG TABLET (FP) PO SCH (14:41)
[2019-05-06] MEDS: ATORVASTATIN CA 20 MG TABLET (FP) PO SCH (21:11)
[2019-05-07] MEDS: FUROSEMIDE 40 MG/4 ML INJECTABLE VIAL IVPUSH SCH ×2 (06:08→15:29)
[2019-05-07] MEDS: ASPIRIN 81 MG CHEWABLE TABLETS PO SCH (06:08)
[2019-05-07] MEDS: ACETAMINOPHEN 325 MG TABLET (FP) PO PRN ×2 (06:08→15:28)
[2019-05-07] MEDS: INSULIN SLIDING SCALE (NOVOLOG) 1 VIAL SQ SCH ×2 (06:22→17:56)
[2019-05-07 08:57] LABS: BLOOD UREA NITROGEN 16.7 mg/dL (7-18); CALCIUM 8.3 mg/dL (8.5-10.1); CREATININE 0.9 mg/dL (0.55-1.3)
--- NOTE | 2019-05-07 10:42 | PN ---
Progress Note (short form) - Note Progress Note: has coughing, phlegm no sob pain in left ankle-- unable to walk due to pain wants to cough out phlegm Vital Signs - 24 hr 05/06/19 05/06/19 05/06/19 14:40 15:00 17:02 Temperature 98.7 F 99.3 F Pulse Rate 72 67 67 Respiratory 18 18 20 Rate Blood Pressure 103/56 L 100/49 L 115/51 L O2 Sat by Pulse Oximetry (%) 05/06/19 05/06/19 05/06/19 19:35 20:55 21:00 Temperature 98.6 F Pulse Rate 72 69 Respiratory 16 Rate Blood Pressure 115/55 L 108/47 L O2 Sat by Pulse 96 Oximetry (%) 05/06/19 05/07/19 05/07/19 22:00 02:10 06:44 Temperature 98.4 F 98.9 F Pulse Rate 70 76 Respiratory 20 20 Rate Blood Pressure 97/45 L 128/66 O2 Sat by Pulse 98 Oximetry (%) 05/07/19 09:45 Temperature 98.9 F Pulse Rate 94 H Respiratory 18 Rate Blood Pressure 104/43 L O2 Sat by Pulse Oximetry (%) Current Medications Generic Name Dose Route Start Last Admin Trade Name Freq PRN Reason Stop Dose Admin Acetaminophen 650 mg 04/30/19 11:16 05/07/19 06:08 Tylenol - PO 650 mg Q6H PRN Administration PAIN Albuterol/Ipratropium 1 amp 04/30/19 11:14 05/06/19 21:05 Duoneb - NEB 1 amp Q4H PRN Administration SHORTNESS OF BREATH Allopurinol 100 mg 05/01/19 10:00 05/06/19 10:58 Zyloprim - PO 100 mg DAILY GAVIN Administration Aspirin 81 mg 05/01/19 07:00 05/07/19 06:08 Asa - PO 81 mg AM [facility] Administration Atorvastatin Calcium 20 mg 04/30/19 22:00 05/06/19 21:11 Lipitor - PO 20 mg HS GAVIN Administration Benzocaine/Menthol 1 each 05/03/19 10:56 05/06/19 11:02 Cepacol Lozenge - MM 1 each PRN PRN Administration SORE THROAT Clopidogrel Bisulfate 75 mg 05/01/19 10:00 05/06/19 10:58 Plavix - PO 75 mg DAILY [facility] Administration Docusate Sodium 100 mg 04/30/19 22:00 05/06/19 21:11 Colace - PO 100 mg BID GAVIN Administration Enoxaparin Sodium 40 mg 05/01/19 10:00 05/06/19 10:59 Lovenox - SQ 40 mg DAILY G[facility]IN Administration Furosemide 80 mg 05/05/19 16:30 05/07/19 06:08 Lasix Injection - IVPUSH 80 mg BID@0600,1400 [facility] Administration Guaifenesin 600 mg 05/04/19 10:00 05/06/19 21:11 Mucinex - PO 600 mg BID GAVIN Administration Insulin Aspart 1 vial 05/02/19 16:30 05/07/19 06:22 Novolog Vial Sliding Scale - SQ Not Given BIDAC [facility] Protocol Isosorbide Mononitrate 30 mg 05/01/19 10:00 05/06/19 10:59 Imdur - PO 30 mg DAILY [facility] Administration Metoprolol Succinate 100 mg 04/30/19 22:00 05/06/19 21:10 Toprol Xl - PO 100 mg BID GAVIN Administration Pantoprazole Sodium 40 mg 05/01/19 10:00 05/06/19 10:58 Protonix - PO 40 mg DAILY G[facility]IN Administration Sertraline HCl 25 mg 05/06/19 12:15 05/06/19 14:41 Zoloft - PO 25 mg DAILY G[facility]IN Administration Laboratory Results - last 24 hr 05/06/19 05/07/19 05/07/19 17:29 06:18 07:22 Sodium 140 Potassium 4.0 Chloride 98 Carbon Dioxide 38 H Anion Gap 3 L BUN 16.7 Creatinine 0.9 Est GFR (CKD-EPI)AfAm 90.58 Est GFR (CKD-EPI)NonAf 78.15 POC Glucometer 122 130 Random Glucose 147 H Calcium 8.3 L Intake & Output 05/04/19 05/05/19 05/06/19 05/07/19 23:59 23:59 23:59 23:59 Intake Total 1760 300 0 0 Output Total 3700 1740 100 Balance -1940 -1440 -100 0 Weight 204 lb 2 oz 203 lb 4 oz 194 lb 5 oz S1 s2 RRR Lungs ronchi+ Abd-soft, NT edema decreased PLAN continue iv lasix BID renal function stable pt tolerating lasix start prednisone for acute gout add mucomyst in nebs dc antibiotics nebs on zoloft for depression OOB daily Problem List - Problems (1) Acute exacerbation of chronic obstructive pulmonary disease (COPD) Code(s): J44.1 - CHRONIC OBSTRUCTIVE PULMONARY DISEASE W (ACUTE) EXACERBATION (2) CHF exacerbation Code(s): I50.9 - HEART FAILURE, UNSPECIFIED Qualifiers: Heart failure type: unspecified Qualified Code(s): I50.9 - Heart failure, unspecified (3) Pneumonia Code(s): J18.9 - PNEUMONIA, UNSPECIFIED ORGANISM Qualifiers: Pneumonia type: due to unspecified organism Laterality: right Lung location: lower lobe of lung Qualified Code(s): J18.1 - Lobar pneumonia, unspecified organism (4) CAD (coronary artery disease) Code(s): I25.10 - ATHSCL HEART DISEASE OF [place] CORONARY ARTERY W/O ANG PCTRS Qualifiers: Coronary Disease-Associated Artery/Lesion type: [place] coronary artery Associated angina: without angina pectoris (5) CKD (chronic kidney disease) Code(s): N18.9 - CHRONIC KIDNEY DISEASE, UNSPECIFIED
--- NOTE | 2019-05-07 11:37 | PN ---
Progress Note (short form) - Note Progress Note: s:edema worse today, complains of ankle pain. breathing better. no chest pain, palps, dizziness. Current Medications Acetaminophen (Tylenol -) 650 mg PO Q6H PRN PRN Reason: PAIN Last Admin: 05/07/19 06:08 Dose: 650 mg Acetylcysteine (Mucomyst 20 Oral / Inh Use Only*) 600 mg NEB RQID [facility] Albuterol Sulfate (Ventolin 0.083% Nebulizer Soln -) 1 amp NEB Q4H PRN PRN Reason: SHORTNESS OF BREATH Allopurinol (Zyloprim -) 100 mg PO DAILY [facility] Last Admin: 05/06/19 10:58 Dose: 100 mg Aspirin (Asa -) 81 mg PO AM [facility] Last Admin: 05/07/19 06:08 Dose: 81 mg Atorvastatin Calcium (Lipitor -) 20 mg PO HS [facility] Last Admin: 05/06/19 21:11 Dose: 20 mg Benzocaine/Menthol (Cepacol Lozenge -) 1 each MM PRN PRN PRN Reason: SORE THROAT Last Admin: 05/06/19 11:02 Dose: 1 each Clopidogrel Bisulfate (Plavix -) 75 mg PO DAILY [facility] Last Admin: 05/06/19 10:58 Dose: 75 mg Docusate Sodium (Colace -) 100 mg PO BID [facility] Last Admin: 05/06/19 21:11 Dose: 100 mg Enoxaparin Sodium (Lovenox -) 40 mg SQ DAILY [facility] Last Admin: 05/06/19 10:59 Dose: 40 mg Furosemide (Lasix Injection -) 80 mg IVPUSH BID@0600,1400 [facility] Last Admin: 05/07/19 06:08 Dose: 80 mg Guaifenesin (Mucinex -) 600 mg PO BID [facility] Last Admin: 05/06/19 21:11 Dose: 600 mg Insulin Aspart ([facility] Vial Sliding [facility] -) [facility] Last Admin: 05/07/19 06:22 Dose: Not Given Isosorbide Mononitrate (Imdur -) 30 mg PO DAILY [facility] Last Admin: 05/06/19 10:59 Dose: 30 mg Metoprolol Succinate (Toprol Xl -) 100 mg PO BID [facility] Last Admin: 05/06/19 21:10 Dose: 100 mg Pantoprazole Sodium (Protonix -) 40 mg PO DAILY [facility] Last Admin: 05/06/19 10:58 Dose: 40 mg Prednisone (Deltasone -) 40 mg PO DAILY [facility] Sertraline HCl (Zoloft -) 25 mg PO DAILY [facility] Last Admin: 05/06/19 14:41 Dose: 25 mg Vital Signs Period Temp Pulse Resp BP Sys/Benito Pulse Ox Last 24 Hr 98.1 F-99.3 F 67-94 16-20 97-128/41-66 96-98 Constitutional: Yes: No Distress, Calm, Obese Cardiovascular: Yes: Regular Rate and Rhythm, Murmur (2/6 KENYON lusb, + S2 split) , S1, S2. No: Gallop Respiratory: Yes: Regular. No: CTA Bilaterally, Accessory Muscle Use, Rales, Rhonchi, Wheezes Extremities: No: Cold Edema: Yes (3+ ankles) Neurological: Yes: Alert, Oriented Psychiatric: No: Agitated no jaundice, diaphoresis Assessment/Plan 07/2016 cardiac MRI: moderate basal septal hypertrophy (up to 1.6 cm). nl lv size/fn. (EF 73%). +LVOT flow acceleration and CARLOS. Nl RV. No scar/edema. + CARLOS, mild MR. mild-mod (1.5 cm2 by planimetry). mild lae. mild asc ao dil (3.9 cm). [facility] 10/2016: mild lvh. nl lv/rv. size/fn. grade I diastolic dysfunction. lvot vti/Ao vti 0.3. mod as (sev calc), jossy 1.3 (47/26). no carlos. rvsp 32 echo 07/2016: HR 69 bpm. Asymmetric septal hypertrophy (predom basal) 1.5 cm. EF 65-70%. Mod-sev LVOT obs at rest (3.7, PG 55/MG 28), unable to assess for CARLOS. Mild RV dil. Nl RV fn. Mild ana. 1+ AR. Very Severe (5.1, PG 104/MG 65 ), Mod MAC, mimimal functional MS, 1+ MR. Mild-mod TR, mod-sev pHTN. [facility] 2013: patent dRCA stent; 70-80% mRCA--Promus LEONIDES; mild dz LAD and CFX; nl EF MIBI 4/13 (maria eugenia): no STs, no isch; nl EF.eg ebody L/RHC 11/2017: wedge normal (13), mild pulm HTN (38/12). nonobstructive LAD/LCX/ RCA. neg Bradlydomenicmariedarryl. Echo 04/26: nl LV. nl RV. moderate . mild TR. RVSP 50-60. 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 -a.e. 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 if persists on echo once well-diuresed, would consider oximetry (walking (e.g. 6MWT) and nocturnal (overnight oximetry +/- sleep study))--outpt f/u - cont lasix 80 mg IV BID, monitor daily weights, Cr, lytes ankle pain, gout - likely gout flare, manage per primary, on prednisone s/p PPM: - outpatient follow up Aortic stenosis: - mod to severe by history, has refused TAVR evaluation recently - echo here c/w moderate , preserved S2 split on exam--outpt f/u with dr josee pederson, remote pci: -[facility] on [facility] 10/2016 -cont statin, plavix, bb, imdur, asa (on PPI now as well with steroids) -not on ACEI due to prior low BPs -no signs acs here pad, le stent: -stable, cont home cardiac meds
[2019-05-07] MEDS: ENOXAPARIN NA (PORCINE) 40 MG/0.4 ML DISP.SYRIN SQ SCH (11:50)
[2019-05-07] MEDS: CLOPIDOGREL BISULFATE 75 MG TABLET (FP) PO SCH (11:51)
[2019-05-07] MEDS: ALLOPURINOL 100 MG TABLET (FP) PO SCH (11:51)
[2019-05-07] MEDS: guaiFENesin 600 MG TABLET.ER (FP) PO SCH ×2 (11:51→21:48)
[2019-05-07] MEDS: PANTOPRAZOLE 40 MG TABLET (FP) PO SCH (11:51)
[2019-05-07] MEDS: predniSONE 20 MG TABLET (UD) PO SCH (11:51)
[2019-05-07] MEDS: SERTRALINE HCL 25 MG TABLET (FP) PO SCH (11:51)
[2019-05-07] MEDS: ISOSORBIDE MONONITRATE 30 MG TAB.SR.24H (FP) PO SCH (11:52)
[2019-05-07] MEDS: DOCUSATE SODIUM 100 MG CAPSULE (FP) PO SCH ×2 (11:52→21:47)
[2019-05-07] MEDS: ACETYLCYSTEINE 20% 200MG/ML 4 ML VIAL *FOR ORAL / INH USE ONLY NEB SCH ×3 (11:54→22:31)
[2019-05-07] MEDS: ALBUTEROL SO4 0.083% IH SOL 2.5 MG/3 ML VIAL.NEB. NEB PRN ×2 (11:54→16:46)
--- NOTE | 2019-05-07 14:34 | PN ---
Progress Note (short form) - Note Progress Note: PULMONARY States breathing better. c/o left foot pain. Vital Signs Period Temp Pulse Resp BP Sys/Benito Pulse Ox Last 24 Hr 98.1 F-99.3 F 67-94 16-20 97-128/41-66 96-98 Gen: less tachypneic Heart: RRR Lung: decreased breath sounds at the bases Abd: soft, nontender Ext: + edema CBC, BMP 05/03/19 06:33 05/07/19 07:22 Active Medications Acetaminophen (Tylenol -) 650 mg PO Q6H PRN PRN Reason: PAIN Last Admin: 05/07/19 06:08 Dose: 650 mg Acetylcysteine (Mucomyst 20 Oral / Inh Use Only*) 600 mg NEB RQID [facility] Last Admin: 05/07/19 11:54 Dose: 600 mg Albuterol Sulfate (Ventolin 0.083% Nebulizer Soln -) 1 amp NEB Q4H PRN PRN Reason: SHORTNESS OF BREATH Last Admin: 05/07/19 11:54 Dose: 1 amp Allopurinol (Zyloprim -) 100 mg PO DAILY [facility] Last Admin: 05/07/19 11:51 Dose: 100 mg Aspirin (Asa -) 81 mg PO AM [facility] Last Admin: 05/07/19 06:08 Dose: 81 mg Atorvastatin Calcium (Lipitor -) 20 mg PO HS [facility] Last Admin: 05/06/19 21:11 Dose: 20 mg Benzocaine/Menthol (Cepacol Lozenge -) 1 each MM PRN PRN PRN Reason: SORE THROAT Last Admin: 05/06/19 11:02 Dose: 1 each Clopidogrel Bisulfate (Plavix -) 75 mg PO DAILY [facility] Last Admin: 05/07/19 11:51 Dose: 75 mg Docusate Sodium (Colace -) 100 mg PO BID [facility] Last Admin: 05/07/19 11:52 Dose: 100 mg Enoxaparin Sodium (Lovenox -) 40 mg SQ DAILY [facility] Last Admin: 05/07/19 11:50 Dose: 40 mg Furosemide (Lasix Injection -) 80 mg IVPUSH BID@0600,1400 [facility] Last Admin: 05/07/19 06:08 Dose: 80 mg Guaifenesin (Mucinex -) 600 mg PO BID [facility] Last Admin: 05/07/19 11:51 Dose: 600 mg Insulin Aspart ([facility] Sliding [facility] -) [facility] Last Admin: 05/07/19 06:22 Dose: Not Given Isosorbide Mononitrate (Imdur -) 30 mg PO DAILY [facility] Last Admin: 05/07/19 11:52 Dose: 30 mg Metoprolol Succinate (Toprol Xl -) 100 mg PO BID [facility] Last Admin: 05/07/19 11:51 Dose: Not Given Pantoprazole Sodium (Protonix -) 40 mg PO DAILY [facility] Last Admin: 05/07/19 11:51 Dose: 40 mg Prednisone (Deltasone -) 40 mg PO DAILY [facility] Last Admin: 05/07/19 11:51 Dose: 40 mg Sertraline HCl (Zoloft -) 25 mg PO DAILY [facility] Last Admin: 05/07/19 11:51 Dose: 25 mg A/P Acute on Chronic Diastolic Heart Failure Hypertrophic Cardiomyopathy Aortic Stenosis s/p PPM CAD PAD COPD HTN DM Hyperlipidemia - continue lasix - monitor urine output, creatinine - daily weights - O2 to keep SpO2 >90% - inhaled bronchodilators as needed - BiPAP as needed - DVT prophylaxis
[2019-05-07] MEDS ORDERED: INSULIN (NOVOLOG) ASPART 100 UNITS/ML 10ML VIAL ONE (18:05)
[2019-05-07] MEDS: ATORVASTATIN CA 20 MG TABLET (FP) PO SCH (21:47)
[2019-05-08] MEDS: INSULIN SLIDING SCALE (NOVOLOG) 1 VIAL SQ SCH ×2 (06:14→17:57)
[2019-05-08] MEDS: FUROSEMIDE 40 MG/4 ML INJECTABLE VIAL IVPUSH SCH ×2 (06:15→14:48)
[2019-05-08] MEDS: ASPIRIN 81 MG CHEWABLE TABLETS PO SCH (06:15)
[2019-05-08] MEDS: ACETYLCYSTEINE 20% 200MG/ML 4 ML VIAL *FOR ORAL / INH USE ONLY NEB SCH ×4 (07:30→20:32)
--- NOTE | 2019-05-08 10:19 | PN ---
Progress Note (short form) - Note Progress Note: OOB to chair on RA in NAD. Reports breathing feels a little better today. Less cough and SOB. Intake & Output 05/05/19 05/06/19 05/07/19 05/08/19 23:59 23:59 23:59 23:59 Intake Total 300 0 400 0 Output Total 1740 100 920 Balance -1440 -100 -520 0 Weight 203 lb 4 oz 194 lb 229 lb Last Vital Signs Temp Pulse Resp BP Pulse Ox 98 F 86 20 109/58 L 95 05/08/19 07:00 05/08/19 07:00 05/08/19 07:00 05/08/19 07:00 05/08/19 07:38 Active Medications Acetaminophen (Tylenol -) 650 mg PO Q6H PRN PRN Reason: PAIN Last Admin: 05/07/19 15:28 Dose: 650 mg Acetylcysteine (Mucomyst 20 Oral / Inh Use Only*) 600 mg NEB RQID [facility] Last Admin: 05/08/19 07:30 Dose: Not Given Albuterol Sulfate (Ventolin 0.083% Nebulizer Soln -) 1 amp NEB Q4H PRN PRN Reason: SHORTNESS OF BREATH Last Admin: 05/07/19 16:46 Dose: 1 amp Allopurinol (Zyloprim -) 100 mg PO DAILY [facility] Last Admin: 05/07/19 11:51 Dose: 100 mg Aspirin (Asa -) 81 mg PO AM [facility] Last Admin: 05/08/19 06:15 Dose: 81 mg Atorvastatin Calcium (Lipitor -) 20 mg PO HS [facility] Last Admin: 05/07/19 21:47 Dose: 20 mg Benzocaine/Menthol (Cepacol Lozenge -) 1 each MM PRN PRN PRN Reason: SORE THROAT Last Admin: 05/06/19 11:02 Dose: 1 each Clopidogrel Bisulfate (Plavix -) 75 mg PO DAILY [facility] Last Admin: 05/07/19 11:51 Dose: 75 mg Docusate Sodium (Colace -) 100 mg PO BID [facility] Last Admin: 05/07/19 21:47 Dose: 100 mg Enoxaparin Sodium (Lovenox -) 40 mg SQ DAILY [facility] Last Admin: 05/07/19 11:50 Dose: 40 mg Furosemide (Lasix Injection -) 80 mg IVPUSH BID@0600,1400 [facility] Last Admin: 05/08/19 06:15 Dose: 80 mg Guaifenesin (Mucinex -) 600 mg PO BID [facility] Last Admin: 05/07/19 21:48 Dose: 600 mg Insulin Aspart (Novolog Vial Sliding Scale -) [facility] Protocol Last Admin: 05/08/19 06:14 Dose: 2 units Isosorbide Mononitrate (Imdur -) 30 mg PO DAILY [facility] Last Admin: 05/07/19 11:52 Dose: 30 mg Metoprolol Succinate (Toprol Xl -) 100 mg PO BID [facility] Last Admin: 05/07/19 21:47 Dose: 100 mg Pantoprazole Sodium (Protonix -) 40 mg PO DAILY [facility] Last Admin: 05/07/19 11:51 Dose: 40 mg Prednisone (Deltasone -) 40 mg PO DAILY [facility] Last Admin: 05/07/19 11:51 Dose: 40 mg Sertraline HCl (Zoloft -) 25 mg PO DAILY [facility] Last Admin: 05/07/19 11:51 Dose: 25 mg Gen: OOB to chair, NAD Heart: RRR Lung: decreased breath sounds at the bases, few scattered rhonchi Abd: soft, nontender Ext: improving edema Laboratory Results - last 24 hr 05/07/19 05/07/19 05/08/19 16:50 21:20 06:12 POC Glucometer 277 329 172 A/P Acute on Chronic Diastolic Heart Failure Hypertrophic Cardiomyopathy Aortic Stenosis s/p PPM CAD PAD COPD HTN DM Hyperlipidemia PAH Probable OSAS - Lasix - monitor urine output, creatinine - daily weights - O2 to keep SpO2 >90% - inhaled bronchodilators as needed - NIPPV PRN - Monitor off ABX - DVT prophylaxis - Prednisone - Will need formal sleep apnea testing after DC and stable Dr Oquendo
[2019-05-08] MEDS ORDERED: PT OWN MED DRAWER 7, Y5N ONE (10:33)
[2019-05-08] MEDS: ENOXAPARIN NA (PORCINE) 40 MG/0.4 ML DISP.SYRIN SQ SCH (10:39)
[2019-05-08] MEDS: DOCUSATE SODIUM 100 MG CAPSULE (FP) PO SCH ×2 (10:39→21:15)
[2019-05-08] MEDS: ALLOPURINOL 100 MG TABLET (FP) PO SCH (10:39)
[2019-05-08] MEDS: CLOPIDOGREL BISULFATE 75 MG TABLET (FP) PO SCH (10:39)
[2019-05-08] MEDS: PANTOPRAZOLE 40 MG TABLET (FP) PO SCH (10:39)
[2019-05-08] MEDS: ISOSORBIDE MONONITRATE 30 MG TAB.SR.24H (FP) PO SCH (10:39)
[2019-05-08] MEDS: guaiFENesin 600 MG TABLET.ER (FP) PO SCH ×2 (10:39→21:15)
[2019-05-08] MEDS: SERTRALINE HCL 25 MG TABLET (FP) PO SCH (10:39)
[2019-05-08] MEDS: predniSONE 20 MG TABLET (UD) PO SCH (10:39)
[2019-05-08] MEDS: ALBUTEROL SO4 0.083% IH SOL 2.5 MG/3 ML VIAL.NEB. NEB PRN ×3 (11:36→20:32)
--- NOTE | 2019-05-08 11:56 | PN ---
Progress Note (short form) - Note Progress Note: s: sob improving. no cp palps dizzy Current Medications Generic Name Dose Route Start Last Admin Trade Name Freq PRN Reason Stop Dose Admin Acetaminophen 650 mg 04/30/19 11:16 05/07/19 15:28 Tylenol - PO 650 mg Q6H PRN Administration PAIN Acetylcysteine 600 mg 05/07/19 12:00 05/08/19 11:35 Mucomyst 20 Oral / Inh Use Only* NEB 600 mg RQID G[facility]IN Administration Albuterol Sulfate 1 amp 05/07/19 10:50 05/08/19 11:36 Ventolin 0.083% Nebulizer Soln - NEB 1 amp Q4H PRN Administration SHORTNESS OF BREATH Allopurinol 100 mg 05/01/19 10:00 05/08/19 10:39 Zyloprim - PO 100 mg DAILY [facility] Administration Aspirin 81 mg 05/01/19 07:00 05/08/19 06:15 Asa - PO 81 mg AM [facility] Administration Atorvastatin Calcium 20 mg 04/30/19 22:00 05/07/19 21:47 Lipitor - PO 20 mg HS [facility] Administration Benzocaine/Menthol 1 each 05/03/19 10:56 05/06/19 11:02 Cepacol Lozenge - MM 1 each PRN PRN Administration SORE THROAT Clopidogrel Bisulfate 75 mg 05/01/19 10:00 05/08/19 10:39 Plavix - PO 75 mg DAILY [facility] Administration Docusate Sodium 100 mg 04/30/19 22:00 05/08/19 10:39 Colace - PO 100 mg BID [facility] Administration Enoxaparin Sodium 40 mg 05/01/19 10:00 05/08/19 10:39 Lovenox - SQ 40 mg DAILY [facility] Administration Furosemide 80 mg 05/05/19 16:30 05/08/19 06:15 Lasix Injection - IVPUSH 80 mg BID@0600,1400 [facility] Administration Guaifenesin 600 mg 05/04/19 10:00 05/08/19 10:39 Mucinex - PO 600 mg BID [facility] Administration Insulin Aspart 1 vial 05/02/19 16:30 05/08/19 06:14 Novolog Vial Sliding Scale - SQ 2 units BIDAC [facility] Administration Protocol Isosorbide Mononitrate 30 mg 05/01/19 10:00 05/08/19 10:39 Imdur - PO 30 mg DAILY [facility] Administration Metoprolol Succinate 100 mg 04/30/19 22:00 05/08/19 10:39 Toprol Xl - PO 100 mg BID [facility] Administration Pantoprazole Sodium 40 mg 05/01/19 10:00 05/08/19 10:39 Protonix - PO 40 mg DAILY [facility] Administration Prednisone 40 mg 05/07/19 10:45 05/08/19 10:39 Deltasone - PO 40 mg DAILY [facility] Administration Sertraline HCl 25 mg 05/06/19 12:15 05/08/19 10:39 Zoloft - PO 25 mg DAILY [facility] Administration Vital Signs Period Temp Pulse Resp BP Sys/[place]ito Pulse Ox Last 24 Hr 98 F-99.5 F 67-86 14-20 93-140/44-67 94-98 nad, no jvd rrr s1 s2 + murmur cta bl nl eff aaox3 1+ le edema b/l, no c/c abd nt nd pos bs no diaphoresis/jaundice CBC, BMP 05/03/19 06:33 05/07/19 07:22 07/2016 cardiac MRI: moderate basal septal hypertrophy (up to 1.6 cm). nl lv size/fn. (EF 73%). +LVOT flow acceleration and CARLOS. Nl RV. No scar/edema. + CARLOS, mild MR. mild-mod (1.5 cm2 by planimetry). mild lae. mild asc ao dil (3.9 cm). [facility] 10/2016: mild lvh. nl lv/rv. size/fn. grade I diastolic dysfunction. lvot vti/Ao vti 0.3. mod as (sev calc), jossy 1.3 (). no carlos. rvsp 32 echo 07/2016: HR 69 bpm. Asymmetric septal hypertrophy (predom basal) 1.5 cm. EF 65-70%. Mod-sev LVOT obs at rest (3.7, PG 55/MG 28), unable to assess for CARLOS. Mild RV dil. Nl RV fn. Mild ana. 1+ AR. Very Severe (5.1, PG 104/MG 65 ), Mod MAC, mimimal functional MS, 1+ MR. Mild-mod TR, mod-sev pHTN. [facility] 2013: patent dRCA stent; 70-80% mRCA--Promus LEONIDES; mild dz LAD and CFX; nl EF MIBI 10/19 (maria eugenia): no STs, no isch; nl EF.eg ebody L/RHC 11/2017: wedge normal (13), mild pulm HTN (38/12). nonobstructive LAD/LCX/ RCA. neg E[place]ia. Echo 04/26: nl LV. nl RV. moderate . mild TR. RVSP 50-60. 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 -a.e. 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 if persists on echo once well-diuresed, would consider oximetry (walking (e.g. 6MWT) and nocturnal (overnight oximetry +/- sleep study))--outpt f/u - cont lasix 80 mg IV BID, monitor daily weights, Cr, lytes ankle pain, gout - likely gout flare, manage per primary, on prednisone s/p PPM: - outpatient follow up Aortic stenosis: - mod to severe by history, has refused TAVR evaluation recently - echo here c/w moderate , preserved S2 split on exam--outpt f/u with dr josee pederson, remote pci: -s/[facility] 2006[facility] all [facility] on cath 10/2016 -cont statin, plavix, bb, imdur, asa (on PPI now as well with steroids) -not on ACEI due to prior low BPs -no signs acs here pad, le stent: -stable, cont home cardiac meds
--- NOTE | 2019-05-08 12:29 | PN ---
Progress Note (short form) - Note Progress Note: has coughing, phlegm no sob pain in left ankle better after prednisone wants to cough out phlegm daughter at bedside Tells me that the difficulty coughing out phlegm is a chronic problem for 30 years was a heavy smoker Vital Signs - 24 hr 05/07/19 05/07/19 05/07/19 17:06 18:48 18:51 Temperature 99.5 F 98.4 F Pulse Rate 67 72 Respiratory 20 14 Rate Blood Pressure 140/67 93/44 L O2 Sat by Pulse 98 Oximetry (%) 05/07/19 05/07/19 05/07/19 19:10 21:00 22:00 Temperature Pulse Rate 77 Respiratory 20 Rate Blood Pressure 107/53 L O2 Sat by Pulse 94 L 94 L Oximetry (%) 05/08/19 05/08/19 05/08/19 07:00 07:38 09:00 Temperature 98 F Pulse Rate 86 Respiratory 20 Rate Blood Pressure 109/58 L O2 Sat by Pulse 95 97 Oximetry (%) 05/08/19 05/08/19 11:00 14:00 Temperature 98.2 F 97.5 F L Pulse Rate 62 82 Respiratory 18 18 Rate Blood Pressure 108/43 L 90/65 O2 Sat by Pulse Oximetry (%) Current Medications Generic Name Dose Route Start Last Admin Trade Name Freq PRN Reason Stop Dose Admin Acetaminophen 650 mg 04/30/19 11:16 05/07/19 15:28 Tylenol - PO 650 mg Q6H PRN Administration PAIN Acetylcysteine 600 mg 05/07/19 12:00 05/08/19 11:35 Mucomyst 20 Oral / Inh Use Only* NEB 600 mg RQID [facility] Administration Albuterol Sulfate 1 amp 05/07/19 10:50 05/08/19 11:36 Ventolin 0.083% Nebulizer Soln - NEB 1 amp Q4H PRN Administration SHORTNESS OF BREATH Allopurinol 100 mg 05/01/19 10:00 05/08/19 10:39 Zyloprim - PO 100 mg DAILY [facility] Administration Aspirin 81 mg 05/01/19 07:00 05/08/19 06:15 Asa - PO 81 mg AM [facility] Administration Atorvastatin Calcium 20 mg 04/30/19 22:00 05/07/19 21:47 Lipitor - PO 20 mg HS [facility] Administration Benzocaine/Menthol 1 each 05/03/19 10:56 05/06/19 11:02 Cepacol Lozenge - MM 1 each PRN PRN Administration SORE THROAT Clopidogrel Bisulfate 75 mg 05/01/19 10:00 05/08/19 10:39 Plavix - PO 75 mg DAILY [facility] Administration Docusate Sodium 100 mg 04/30/19 22:00 05/08/19 10:39 Colace - PO 100 mg BID [facility] Administration Enoxaparin Sodium 40 mg 05/01/19 10:00 05/08/19 10:39 Lovenox - SQ 40 mg DAILY [facility] Administration Furosemide 80 mg 05/05/19 16:30 05/08/19 14:48 Lasix Injection - IVPUSH 80 mg BID@0600,1400 [facility] Administration Guaifenesin 600 mg 05/04/19 10:00 05/08/19 10:39 Mucinex - PO 600 mg BID [facility] Administration Insulin Aspart 1 vial 05/02/19 16:30 05/08/19 06:14 Novolog Vial Sliding Scale - SQ 2 units BIDAC [facility] Administration Protocol Isosorbide Mononitrate 30 mg 05/01/19 10:00 05/08/19 10:39 Imdur - PO 30 mg DAILY [facility] Administration Metoprolol Succinate 100 mg 04/30/19 22:00 05/08/19 10:39 Toprol Xl - PO 100 mg BID [facility] Administration Pantoprazole Sodium 40 mg 05/01/19 10:00 05/08/19 10:39 Protonix - PO 40 mg DAILY [facility] Administration Prednisone 40 mg 05/07/19 10:45 05/08/19 10:39 Deltasone - PO 40 mg DAILY [facility] Administration Sertraline HCl 25 mg 05/06/19 12:15 05/08/19 10:39 Zoloft - PO 25 mg DAILY [facility] Administration Laboratory Results - last 24 hr 05/07/19 05/07/19 05/08/19 16:50 21:20 06:12 POC Glucometer 277 329 172 Laboratory Results - last 24 hr 05/07/19 05/07/19 05/08/19 16:50 21:20 06:12 POC Glucometer 277 329 172 S1 s2 RRR Lungs ronchi+ Abd-soft, NT edema decreased PLAN continue iv lasix BID renal function stable pt tolerating lasix taper prednisone for acute gout add mucomyst in nebs dc antibiotics nebs on zoloft for depression OOB daily Problem List - Problems (1) Acute exacerbation of chronic obstructive pulmonary disease (COPD) Code(s): J44.1 - CHRONIC OBSTRUCTIVE PULMONARY DISEASE W (ACUTE) EXACERBATION (2) CHF exacerbation Code(s): I50.9 - HEART FAILURE, UNSPECIFIED Qualifiers: Heart failure type: unspecified Qualified Code(s): I50.9 - Heart failure, unspecified (3) Pneumonia Code(s): J18.9 - PNEUMONIA, UNSPECIFIED ORGANISM Qualifiers: Pneumonia type: due to unspecified organism Laterality: right Lung location: lower lobe of lung Qualified Code(s): J18.1 - Lobar pneumonia, unspecified organism (4) CAD (coronary artery disease) Code(s): I25.10 - ATHSCL HEART DISEASE OF [place] CORONARY ARTERY W/O ANG PCTRS Qualifiers: Coronary Disease-Associated Artery/Lesion type: [place] coronary artery Associated angina: without angina pectoris (5) CKD (chronic kidney disease) Code(s): N18.9 - CHRONIC KIDNEY DISEASE, UNSPECIFIED
[2019-05-08] MEDS: ATORVASTATIN CA 20 MG TABLET (FP) PO SCH (21:15)
[2019-05-09] MEDS: INSULIN SLIDING SCALE (NOVOLOG) 1 VIAL SQ SCH ×2 (06:30→17:45)
[2019-05-09] MEDS: ASPIRIN 81 MG CHEWABLE TABLETS PO SCH (06:30)
[2019-05-09] MEDS: FUROSEMIDE 40 MG/4 ML INJECTABLE VIAL IVPUSH SCH ×2 (06:30→14:13)
[2019-05-09] MEDS ORDERED: INSULIN (NOVOLOG) ASPART 100 UNITS/ML 10ML VIAL ONE (06:55)
[2019-05-09 07:46] LABS: CALCIUM 8.4 mg/dL (8.5-10.1); CREATININE 1.1 mg/dL (0.55-1.3); POTASSIUM 4.5 mmol/L (3.5-5.1)
[2019-05-09] MEDS: ALBUTEROL SO4 0.083% IH SOL 2.5 MG/3 ML VIAL.NEB. NEB PRN ×4 (08:23→19:54)
[2019-05-09] MEDS: ACETYLCYSTEINE 20% 200MG/ML 4 ML VIAL *FOR ORAL / INH USE ONLY NEB SCH ×4 (08:24→19:54)
[2019-05-09] MEDS: DOCUSATE SODIUM 100 MG CAPSULE (FP) PO SCH ×2 (09:50→21:21)
[2019-05-09] MEDS: guaiFENesin 600 MG TABLET.ER (FP) PO SCH ×2 (09:51→21:21)
[2019-05-09] MEDS: CLOPIDOGREL BISULFATE 75 MG TABLET (FP) PO SCH (09:51)
[2019-05-09] MEDS: ALLOPURINOL 100 MG TABLET (FP) PO SCH (09:51)
[2019-05-09] MEDS: SERTRALINE HCL 25 MG TABLET (FP) PO SCH (09:51)
[2019-05-09] MEDS: ENOXAPARIN NA (PORCINE) 40 MG/0.4 ML DISP.SYRIN SQ SCH (09:51)
[2019-05-09] MEDS: ISOSORBIDE MONONITRATE 30 MG TAB.SR.24H (FP) PO SCH (09:52)
[2019-05-09] MEDS: PANTOPRAZOLE 40 MG TABLET (FP) PO SCH (09:52)
[2019-05-09] MEDS ORDERED: predniSONE 20 MG TABLET (UD) PO SCH (10:00)
--- NOTE | 2019-05-09 12:18 | PN ---
Progress Note, Physician Chief Complaint: feeling better no SOB, CP, still some ankle edema History of Present Illness: weight is down Creat at baseline BP overall trend at baseline - Current Medication List Current Medications: Active Medications Acetaminophen (Tylenol -) 650 mg PO Q6H PRN PRN Reason: PAIN Last Admin: 05/07/19 15:28 Dose: 650 mg Acetylcysteine (Mucomyst 20 Oral / Inh Use Only*) 600 mg NEB RQID [facility] Last Admin: 05/09/19 11:36 Dose: 600 mg Albuterol Sulfate (Ventolin 0.083% Nebulizer Soln -) 1 amp NEB Q4H PRN PRN Reason: SHORTNESS OF BREATH Last Admin: 05/09/19 11:35 Dose: 1 amp Allopurinol (Zyloprim -) 100 mg PO DAILY [facility] Last Admin: 05/09/19 09:51 Dose: 100 mg Aspirin (Asa -) 81 mg PO AM [facility] Last Admin: 05/09/19 06:30 Dose: 81 mg Atorvastatin Calcium (Lipitor -) 20 mg PO HS [facility] Last Admin: 05/08/19 21:15 Dose: 20 mg Benzocaine/Menthol (Cepacol Lozenge -) 1 each MM PRN PRN PRN Reason: SORE THROAT Last Admin: 05/06/19 11:02 Dose: 1 each Clopidogrel Bisulfate (Plavix -) 75 mg PO DAILY [facility] Last Admin: 05/09/19 09:51 Dose: 75 mg Docusate Sodium (Colace -) 100 mg PO BID [facility] Last Admin: 05/09/19 09:50 Dose: 100 mg Enoxaparin Sodium (Lovenox -) 40 mg SQ DAILY [facility] Last Admin: 05/09/19 09:51 Dose: 40 mg Furosemide (Lasix Injection -) 80 mg IVPUSH BID@0600,1400 [facility] Last Admin: 05/09/19 06:30 Dose: 80 mg Guaifenesin (Mucinex -) 600 mg PO BID [facility] Last Admin: 05/09/19 09:51 Dose: 600 mg Insulin Aspart (Novolog Vial Sliding Scale -) [facility]; Protocol Last Admin: 05/09/19 06:30 Dose: 2 units Isosorbide Mononitrate (Imdur -) 30 mg PO DAILY [facility] Last Admin: 05/09/19 09:52 Dose: Not Given Metoprolol Succinate (Toprol Xl -) 100 mg PO BID [facility] Last Admin: 05/09/19 09:52 Dose: Not Given Pantoprazole Sodium (Protonix -) 40 mg PO DAILY [facility] Last Admin: 05/09/19 09:52 Dose: 40 mg Prednisone (Deltasone -) 30 mg PO DAILY [facility] Last Admin: 05/09/19 09:50 Dose: 30 mg Sertraline HCl (Zoloft -) 25 mg PO DAILY [facility] Last Admin: 05/09/19 09:51 Dose: 25 mg - Objective Vital Signs: Vital Signs Temperature 98 F 05/09/19 10:00 Pulse Rate 62 05/09/19 10:00 Respiratory Rate 22 H 05/09/19 10:00 Blood Pressure 93/39 L 05/09/19 10:00 O2 Sat by Pulse Oximetry (%) 95 05/09/19 09:00 Constitutional: Yes: No Distress Cardiovascular: Yes: Regular Rate and Rhythm, Murmur Respiratory: Yes: CTA Bilaterally (no rales.) Gastrointestinal: Yes: Soft Edema: Yes Edema: LLE: 2+ (ankle), RLE: 2+ (ankle) Peripheral Pulses WNL: Yes Neurological: Yes: Alert, Oriented Labs: CBC, BMP 05/03/19 06:33 05/09/19 06:15 INR, PTT INR 1.14 (0.83-1.09) H 04/30/19 06:12 Laboratory Tests 05/09/19 06:15 Sodium 139 Potassium 4.5 Creatinine 1.1 Assessment/Plan DATA: 07/2016 cardiac MRI: moderate basal septal hypertrophy (up to 1.6 cm). nl lv size/fn. (EF 73%). +LVOT flow acceleration and CARLOS. Nl RV. No scar/edema. + CARLOS, mild MR. mild-mod (1.5 cm2 by planimetry). mild lae. mild asc ao dil (3.9 cm). [facility] 10/2016: mild lvh. nl lv/rv. size/fn. grade I diastolic dysfunction. lvot vti/Ao vti 0.3. mod as (sev calc), jossy 1.3 (/). no carlos. rvsp 32 echo 07/2016: HR 69 bpm. Asymmetric septal hypertrophy (predom basal) 1.5 cm. EF 65-70%. Mod-sev LVOT obs at rest (3.7, PG 55/MG 28), unable to assess for CARLOS. Mild RV dil. Nl RV fn. Mild ana. 1+ AR. Very Severe (5.1, PG 104/MG 65 ), Mod MAC, mimimal functional MS, 1+ MR. Mild-mod TR, mod-sev pHTN. [facility] 2013: patent dRCA stent; 70-80% mRCA--Promus LEONIDES; mild dz LAD and CFX; nl EF MIBI 10/19 (maria eugenia): no STs, no isch; nl EF.eg ebody L/RHC 11/2017: wedge normal (13), mild pulm HTN (38/12). nonobstructive LAD/LCX/ RCA. neg [place]. Echo 04/26: nl LV. nl RV. moderate . mild TR. RVSP 50-60. 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 -a.e. 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 if persists on echo once well-diuresed, would consider oximetry (walking (e.g. 6MWT) and nocturnal (overnight oximetry +/- sleep study))--outpt f/u - cont lasix 80 mg IV BID, monitor daily weights, Cr, lytes; can likely transition to PO over weekend ankle pain, gout: - likely gout flare, manage per primary, on prednisone s/p PPM: - outpatient follow up Aortic stenosis: - mod to severe by history, has refused TAVR evaluation recently - echo here c/w moderate , preserved S2 split on exam--outpt f/u with dr tripp cad, remote pci: -s/p BMS to [facility] 2006, LEONIDES to mRCA 2013. all patent on most recent cath -cont statin, plavix, bb, imdur, asa (on PPI now as well with steroids) -not on ACEI due to prior low BPs -no signs acs here pad, le stent: -stable, cont home cardiac meds
--- NOTE | 2019-05-09 12:43 | PN ---
Progress Note (short form) - Note Progress Note: PULONARY OOB TO CHAIR EATING LUNCH SUBJECTIVE IMPROVEMENT VSS/AFEBRILE Gen: NAD Heart: RRR Lung: decreased breath sounds at the bases, few scattered rhonchi Abd: soft, nontender Ext: improving edema LABS/MEDS/NOTES/REVIEWED A/P Acute on Chronic Diastolic Heart Failure Hypertrophic Cardiomyopathy Aortic Stenosis s/p PPM CAD PAD COPD HTN DM Hyperlipidemia PAH Probable OSAS - Lasix - monitor urine output, creatinine - daily weights - O2 to keep SpO2 >90% - inhaled bronchodilators as needed - NIPPV PRN - Monitor off ABX - DVT prophylaxis - Prednisone - Will need formal sleep apnea testing after DC and stable R HUBER TINAJERO
--- NOTE | 2019-05-09 13:50 | PN ---
Progress Note (short form) - Note Progress Note: pt seen/ examined in tele chart is reviewed case d/w Rn/Dr. Carmichael. sitting in chair still fells sob chronic ill appearance Vital Signs Temp 98 F 05/09/19 10:00 Pulse 62 05/09/19 10:00 Resp 22 H 05/09/19 10:00 BP 93/39 L 05/09/19 10:00 Pulse Ox 95 05/09/19 09:00 Intake & Output 05/08/19 05/09/19 05/09/19 23:59 11:59 23:59 Intake Total 0 50 Balance 0 50 Weight 186 lb 6.4 oz Intake: IV 0 SL 0 IVPB 50 Other: Voiding Method Urinal Bowel Movement No No Weight Measurement Method Chair Scale Active Medications Acetaminophen (Tylenol -) 650 mg PO Q6H PRN PRN Reason: PAIN Last Admin: 05/07/19 15:28 Dose: 650 mg Acetylcysteine (Mucomyst 20 Oral / Inh Use Only*) 600 mg NEB RQID [facility] Last Admin: 05/09/19 11:36 Dose: 600 mg Albuterol Sulfate (Ventolin 0.083% Nebulizer Soln -) 1 amp NEB Q4H PRN PRN Reason: SHORTNESS OF BREATH Last Admin: 05/09/19 11:35 Dose: 1 amp Allopurinol (Zyloprim -) 100 mg PO DAILY [facility] Last Admin: 05/09/19 09:51 Dose: 100 mg Aspirin (Asa -) 81 mg PO AM [facility] Last Admin: 05/09/19 06:30 Dose: 81 mg Atorvastatin Calcium (Lipitor -) 20 mg PO HS [facility] Last Admin: 05/08/19 21:15 Dose: 20 mg Benzocaine/Menthol (Cepacol Lozenge -) 1 each MM PRN PRN PRN Reason: SORE THROAT Last Admin: 05/06/19 11:02 Dose: 1 each Clopidogrel Bisulfate (Plavix -) 75 mg PO DAILY [facility] Last Admin: 05/09/19 09:51 Dose: 75 mg Docusate Sodium (Colace -) 100 mg PO BID [facility] Last Admin: 05/09/19 09:50 Dose: 100 mg Enoxaparin Sodium (Lovenox -) 40 mg SQ DAILY [facility] Last Admin: 05/09/19 09:51 Dose: 40 mg Furosemide (Lasix Injection -) 80 mg IVPUSH BID@0600,1400 [facility] Last Admin: 05/09/19 06:30 Dose: 80 mg Guaifenesin (Mucinex -) 600 mg PO BID [facility] Last Admin: 05/09/19 09:51 Dose: 600 mg Insulin Aspart (Novolog Vial Sliding Scale -) [facility] Protocol Last Admin: 05/09/19 06:30 Dose: 2 units Isosorbide Mononitrate (Imdur -) 30 mg PO DAILY [facility] Last Admin: 05/09/19 09:52 Dose: Not Given Metoprolol Succinate (Toprol Xl -) 100 mg PO BID [facility] Last Admin: 05/09/19 09:52 Dose: Not Given Pantoprazole Sodium (Protonix -) 40 mg PO DAILY [facility] Last Admin: 05/09/19 09:52 Dose: 40 mg Prednisone (Deltasone -) 30 mg PO DAILY [facility] Last Admin: 05/09/19 09:50 Dose: 30 mg Sertraline HCl (Zoloft -) 25 mg PO DAILY [facility] Last Admin: 05/09/19 09:51 Dose: 25 mg CBC, BMP 05/03/19 06:33 05/09/19 06:15 Physical Exam Awake S1 s2 RRR Lungs ronchi+ Abd-soft, NT edema decreased PLAN continue iv lasix BID renal function stable off abx nebs taper prednisone on zoloft for depression OOB daily Monitor labs will follow Problem List - Problems (1) Acute exacerbation of chronic obstructive pulmonary disease (COPD) Code(s): J44.1 - CHRONIC OBSTRUCTIVE PULMONARY DISEASE W (ACUTE) EXACERBATION (2) CHF exacerbation Code(s): I50.9 - HEART FAILURE, UNSPECIFIED Qualifiers: Heart failure type: unspecified Qualified Code(s): I50.9 - Heart failure, unspecified (3) Pneumonia Code(s): J18.9 - PNEUMONIA, UNSPECIFIED ORGANISM Qualifiers: Pneumonia type: due to unspecified organism Laterality: right Lung location: lower lobe of lung Qualified Code(s): J18.1 - Lobar pneumonia, unspecified organism (4) CAD (coronary artery disease) Code(s): I25.10 - ATHSCL HEART DISEASE OF [place] CORONARY ARTERY W/O ANG PCTRS Qualifiers: Coronary Disease-Associated Artery/Lesion type: [place] coronary artery Associated angina: without angina pectoris (5) CKD (chronic kidney disease) Code(s): N18.9 - CHRONIC KIDNEY DISEASE, UNSPECIFIED
[2019-05-09] MEDS: ATORVASTATIN CA 20 MG TABLET (FP) PO SCH (21:21)
[2019-05-10] MEDS: FUROSEMIDE 40 MG/4 ML INJECTABLE VIAL IVPUSH SCH ×2 (06:23→15:18)
[2019-05-10] MEDS: ASPIRIN 81 MG CHEWABLE TABLETS PO SCH (06:24)
[2019-05-10] MEDS: INSULIN SLIDING SCALE (NOVOLOG) 1 VIAL SQ SCH ×2 (06:27→18:22)
[2019-05-10] MEDS: ACETYLCYSTEINE 20% 200MG/ML 4 ML VIAL *FOR ORAL / INH USE ONLY NEB SCH ×4 (08:10→20:05)
[2019-05-10] MEDS: ALBUTEROL SO4 0.083% IH SOL 2.5 MG/3 ML VIAL.NEB. NEB PRN ×2 (08:10→20:07)
[2019-05-10] MEDS: ISOSORBIDE MONONITRATE 30 MG TAB.SR.24H (FP) PO SCH (10:15)
[2019-05-10] MEDS: CLOPIDOGREL BISULFATE 75 MG TABLET (FP) PO SCH (10:21)
[2019-05-10] MEDS: ACETAMINOPHEN 325 MG TABLET (FP) PO PRN (10:21)
[2019-05-10] MEDS: ALLOPURINOL 100 MG TABLET (FP) PO SCH (10:21)
[2019-05-10] MEDS: DOCUSATE SODIUM 100 MG CAPSULE (FP) PO SCH ×2 (10:21→21:15)
[2019-05-10] MEDS: PANTOPRAZOLE 40 MG TABLET (FP) PO SCH (10:21)
[2019-05-10] MEDS: SERTRALINE HCL 25 MG TABLET (FP) PO SCH (10:21)
[2019-05-10] MEDS: guaiFENesin 600 MG TABLET.ER (FP) PO SCH ×2 (10:22→21:15)
[2019-05-10] MEDS: ENOXAPARIN NA (PORCINE) 40 MG/0.4 ML DISP.SYRIN SQ SCH (10:22)
[2019-05-10] MEDS: predniSONE 20 MG TABLET (UD) PO SCH (10:25)
--- NOTE | 2019-05-10 12:25 | PN ---
Progress Note (short form) - Note Progress Note: PULONARY OOB TO CHAIR SUBJECTIVE IMPROVEMENT VSS/AFEBRILE Gen: NAD Heart: RRR Lung: decreased breath sounds at the bases, few scattered rhonchi Abd: soft, nontender Ext: improving edema LABS/MEDS/NOTES/REVIEWED A/P Acute on Chronic Diastolic Heart Failure Hypertrophic Cardiomyopathy Aortic Stenosis s/p PPM CAD PAD COPD HTN DM Hyperlipidemia PAH Probable OSAS - Lasix - monitor urine output, creatinine/bp - daily weights - O2 to keep SpO2 >90% - inhaled bronchodilators as needed - NIPPV PRN - Monitor off ABX - DVT prophylaxis - Prednisone - Will need formal sleep apnea testing after DC and stable R HUBER TINAJERO
--- NOTE | 2019-05-10 14:56 | PN ---
Progress Note (short form) - Note Progress Note: PT SEEN/ EXAMINED AWAKE/ COMFORTABLE FEELS BETTER Vital Signs Temp 98.1 F 05/10/19 10:00 Pulse 57 L 05/10/19 10:00 Resp 18 05/10/19 10:00 BP 92/40 L 05/10/19 10:00 Pulse Ox 94 L 05/10/19 08:14 Intake & Output 05/09/19 05/10/19 05/10/19 23:59 11:59 23:59 Intake Total 0 Output Total 600 Balance -600 Weight 190 lb Intake: IV 0 SL 0 Output: Urine 600 Void 600 Other: Voiding Method Urinal Urinal Bowel Movement No No Weight Measurement Method Built in [facility] Active Medications Acetaminophen (Tylenol -) 650 mg PO Q6H PRN PRN Reason: PAIN Last Admin: 05/10/19 10:21 Dose: 650 mg Acetylcysteine (Mucomyst 20 Oral / Inh Use Only*) 600 mg NEB RQID [facility] Last Admin: 05/10/19 13:10 Dose: 600 mg Albuterol Sulfate (Ventolin 0.083% Nebulizer Soln -) 1 amp NEB Q4H PRN PRN Reason: SHORTNESS OF BREATH Last Admin: 05/10/19 08:10 Dose: 1 amp Allopurinol (Zyloprim -) 100 mg PO DAILY [facility] Last Admin: 05/10/19 10:21 Dose: 100 mg Aspirin (Asa -) 81 mg PO AM [facility] Last Admin: 05/10/19 06:24 Dose: 81 mg Atorvastatin Calcium (Lipitor -) 20 mg PO HS [facility] Last Admin: 05/09/19 21:21 Dose: 20 mg Benzocaine/Menthol (Cepacol Lozenge -) 1 each MM PRN PRN PRN Reason: SORE THROAT Last Admin: 05/06/19 11:02 Dose: 1 each Clopidogrel Bisulfate (Plavix -) 75 mg PO DAILY [facility] Last Admin: 05/10/19 10:21 Dose: 75 mg Docusate Sodium (Colace -) 100 mg PO BID [facility] Last Admin: 05/10/19 10:21 Dose: 100 mg Enoxaparin Sodium (Lovenox -) 40 mg SQ DAILY [facility] Last Admin: 05/10/19 10:22 Dose: 40 mg Furosemide (Lasix Injection -) 80 mg IVPUSH BID@0600,1400 [facility] Last Admin: 05/10/19 06:23 Dose: 80 mg Guaifenesin (Mucinex -) 600 mg PO BID [facility] Last Admin: 05/10/19 10:22 Dose: 600 mg Insulin Aspart (Novolog Vial Sliding Scale -) [facility]; Protocol Last Admin: 05/10/19 06:27 Dose: Not Given Isosorbide Mononitrate (Imdur -) 30 mg PO DAILY [facility] Last Admin: 05/10/19 10:15 Dose: Not Given Metoprolol Succinate (Toprol Xl -) 100 mg PO BID [facility] Last Admin: 05/10/19 10:15 Dose: Not Given Pantoprazole Sodium (Protonix -) 40 mg PO DAILY [facility] Last Admin: 05/10/19 10:21 Dose: 40 mg Prednisone (Deltasone -) 20 mg PO DAILY [facility] Last Admin: 05/10/19 10:25 Dose: 20 mg Sertraline HCl (Zoloft -) 25 mg PO DAILY [facility] Last Admin: 05/10/19 10:21 Dose: 25 mg CBC, BMP 05/03/19 06:33 05/09/19 06:15 Physical Exam Awake S1 s2 RRR Lungs ronchi+ Abd-soft, NT edema decreased PLAN continue iv lasix BID-- taper dose renal function stable off abx nebs tapering prednisone on zoloft for depression OOB daily Monitor labs will follow Problem List - Problems (1) Acute exacerbation of chronic obstructive pulmonary disease (COPD) Code(s): J44.1 - CHRONIC OBSTRUCTIVE PULMONARY DISEASE W (ACUTE) EXACERBATION (2) CHF exacerbation Code(s): I50.9 - HEART FAILURE, UNSPECIFIED Qualifiers: Heart failure type: unspecified Qualified Code(s): I50.9 - Heart failure, unspecified (3) Pneumonia Code(s): J18.9 - PNEUMONIA, UNSPECIFIED ORGANISM Qualifiers: Pneumonia type: due to unspecified organism Laterality: right Lung location: lower lobe of lung Qualified Code(s): J18.1 - Lobar pneumonia, unspecified organism (4) CAD (coronary artery disease) Code(s): I25.10 - ATHSCL HEART DISEASE OF [place] CORONARY ARTERY W/O ANG PCTRS Qualifiers: Coronary Disease-Associated Artery/Lesion type: [place] coronary artery Associated angina: without angina pectoris (5) CKD (chronic kidney disease) Code(s): N18.9 - CHRONIC KIDNEY DISEASE, UNSPECIFIED
[2019-05-10] MEDS: ATORVASTATIN CA 20 MG TABLET (FP) PO SCH (21:15)
[2019-05-11] MEDS: ASPIRIN 81 MG CHEWABLE TABLETS PO SCH (06:03)
[2019-05-11] MEDS: INSULIN SLIDING SCALE (NOVOLOG) 1 VIAL SQ SCH ×2 (06:03→17:38)
[2019-05-11] MEDS: FUROSEMIDE 40 MG/4 ML INJECTABLE VIAL IVPUSH SCH ×2 (06:03→15:41)
[2019-05-11] MEDS: ACETYLCYSTEINE 20% 200MG/ML 4 ML VIAL *FOR ORAL / INH USE ONLY NEB SCH ×4 (07:05→20:20)
[2019-05-11] MEDS: ALBUTEROL SO4 0.083% IH SOL 2.5 MG/3 ML VIAL.NEB. NEB PRN ×4 (07:05→20:20)
--- NOTE | 2019-05-11 09:50 | PN ---
Progress Note, Physician Chief Complaint: sitting in chair No distress Feet still swollen No CP, SOB beyond baseline. - Current Medication List Current Medications: Active Medications Acetaminophen (Tylenol -) 650 mg PO Q6H PRN PRN Reason: PAIN Last Admin: 05/10/19 10:21 Dose: 650 mg Acetylcysteine (Mucomyst 20 Oral / Inh Use Only*) 600 mg NEB RQID [facility] Last Admin: 05/11/19 07:05 Dose: 600 mg Albuterol Sulfate (Ventolin 0.083% Nebulizer Soln -) 1 amp NEB Q4H PRN PRN Reason: SHORTNESS OF BREATH Last Admin: 05/11/19 07:05 Dose: 1 amp Allopurinol (Zyloprim -) 100 mg PO DAILY [facility] Last Admin: 05/10/19 10:21 Dose: 100 mg Aspirin (Asa -) 81 mg PO AM [facility] Last Admin: 05/11/19 06:03 Dose: 81 mg Atorvastatin Calcium (Lipitor -) 20 mg PO HS [facility] Last Admin: 05/10/19 21:15 Dose: 20 mg Benzocaine/Menthol (Cepacol Lozenge -) 1 each MM PRN PRN PRN Reason: SORE THROAT Last Admin: 05/06/19 11:02 Dose: 1 each Clopidogrel Bisulfate (Plavix -) 75 mg PO DAILY [facility] Last Admin: 05/10/19 10:21 Dose: 75 mg Docusate Sodium (Colace -) 100 mg PO BID [facility] Last Admin: 05/10/19 21:15 Dose: 100 mg Enoxaparin Sodium (Lovenox -) 40 mg SQ DAILY [facility] Last Admin: 05/10/19 10:22 Dose: 40 mg Furosemide (Lasix Injection -) 40 mg IVPUSH BID@0600,1400 [facility] Last Admin: 05/11/19 06:03 Dose: 40 mg Guaifenesin (Mucinex -) 600 mg PO BID [facility] Last Admin: 05/10/19 21:15 Dose: 600 mg Insulin Aspart (Novolog Vial Sliding Scale -) [facility]; Protocol Last Admin: 05/11/19 06:03 Dose: 2 units Isosorbide Mononitrate (Imdur -) 30 mg PO DAILY [facility] Last Admin: 05/10/19 10:15 Dose: Not Given Metoprolol Succinate (Toprol Xl -) 100 mg PO BID [facility] Last Admin: 05/10/19 21:15 Dose: 100 mg Pantoprazole Sodium (Protonix -) 40 mg PO DAILY [facility] Last Admin: 05/10/19 10:21 Dose: 40 mg Prednisone (Deltasone -) 20 mg PO DAILY [facility] Last Admin: 05/10/19 10:25 Dose: 20 mg Sertraline HCl (Zoloft -) 25 mg PO DAILY [facility] Last Admin: 05/10/19 10:21 Dose: 25 mg - Objective Vital Signs: Vital Signs Temperature 98.3 F 05/10/19 19:22 Pulse Rate 62 05/10/19 19:22 Respiratory Rate 20 05/10/19 21:00 Blood Pressure 103/43 L 05/10/19 19:22 O2 Sat by Pulse Oximetry (%) 98 05/10/19 22:39 Constitutional: Yes: No Distress Cardiovascular: Yes: Regular Rate and Rhythm, Murmur Respiratory: Yes: CTA Bilaterally, Other (no rales) Gastrointestinal: Yes: Soft (distended, nontender) Edema: Yes Edema: LLE: 2+ (ankle level), RLE: 2+ (ankle level) Neurological: Yes: Alert, Oriented Labs: CBC, BMP 05/03/19 06:33 05/09/19 06:15 INR, PTT INR 1.14 (0.83-1.09) H 04/30/19 06:12 Assessment/Plan DATA: 07/2016 cardiac MRI: moderate basal septal hypertrophy (up to 1.6 cm). nl lv size/fn. (EF 73%). +LVOT flow acceleration and CARLOS. Nl RV. No scar/edema. + CARLOS, mild MR. mild-mod (1.5 cm2 by planimetry). mild lae. mild asc ao dil (3.9 cm). TTE [facility] 10/2016: mild lvh. nl lv/rv. size/fn. grade I diastolic dysfunction. lvot vti/Ao vti 0.3. mod as (sev calc), jossy 1.3 (). no carlos. rvsp 32 echo 07/2016: HR 69 bpm. Asymmetric septal hypertrophy (predom basal) 1.5 cm. EF 65-70%. Mod-sev LVOT obs at rest (3.7, PG 55/MG 28), unable to assess for CARLOS. Mild RV dil. Nl RV fn. Mild ana. 1+ AR. Very Severe (5.1, PG 104/MG 65 ), Mod MAC, mimimal functional MS, 1+ MR. Mild-mod TR, mod-sev pHTN. [facility] 2013: patent dRCA stent; 70-80% mRCA--Promus LEONIDES; mild dz LAD and CFX; nl EF MIBI 10/19 (maria eugenia): no STs, no isch; nl EF.eg ebody L/RHC 11/2017: wedge normal (13), mild pulm HTN (38/12). nonobstructive LAD/LCX/ RCA. neg [place]. Echo 04/26: nl LV. nl RV. moderate . mild TR. RVSP 50-60. 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 -a.e. 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 if persists on echo once well-diuresed, would consider oximetry (walking (e.g. 6MWT) and nocturnal (overnight oximetry +/- sleep study))--outpt f/u - Lasix decreased to 40mg IV BID; plan to transition to PO on 05/12 -Check lytes/ renal function ankle pain, gout: - likely gout flare, manage per primary, on prednisone s/p PPM: - outpatient follow up Aortic stenosis: - mod to severe by history, has refused TAVR evaluation recently - echo here c/w moderate , preserved S2 split on exam--outpt f/u with dr tripp cad, remote pci: -s/p BMS to dRCA 2006, LEONIDES to mRCA 2013. all patent on most recent cath -cont statin, plavix, bb, imdur, asa (on PPI now as well with steroids) -not on ACEI due to prior low BPs -no signs acs here pad, le stent: -stable, cont home cardiac meds
[2019-05-11 11:36] LABS: BLOOD UREA NITROGEN 32.2 mg/dL (7-18); CALCIUM 9.1 mg/dL (8.5-10.1); CREATININE 1.2 mg/dL (0.55-1.3); POTASSIUM 4.5 mmol/L (3.5-5.1)
--- NOTE | 2019-05-11 12:14 | PN ---
Progress Note (short form) - Note Progress Note: pt seen/ examined feels better. daughter at bedside Vital Signs Temp 98.3 F 05/10/19 19:22 Pulse 62 05/10/19 19:22 Resp 20 05/10/19 21:00 BP 103/43 L 05/10/19 19:22 Pulse Ox 98 05/10/19 22:39 Intake & Output 05/11/19 05/11/19 05/11/19 00:59 11:59 23:59 Intake Total Output Total Balance Intake: Oral Output: Urine Void Other: Voiding Method # Unmeasured Voids Void Bowel Movement Active Medications Acetaminophen (Tylenol -) 650 mg PO Q6H PRN PRN Reason: PAIN Last Admin: 05/10/19 10:21 Dose: 650 mg Acetylcysteine (Mucomyst 20 Oral / Inh Use Only*) 600 mg NEB RQID [facility] Last Admin: 05/11/19 11:41 Dose: 600 mg Albuterol Sulfate (Ventolin 0.083% Nebulizer Soln -) 1 amp NEB Q4H PRN PRN Reason: SHORTNESS OF BREATH Last Admin: 05/11/19 11:41 Dose: 1 amp Allopurinol (Zyloprim -) 100 mg PO DAILY [facility] Last Admin: 05/10/19 10:21 Dose: 100 mg Aspirin (Asa -) 81 mg PO AM [facility] Last Admin: 05/11/19 06:03 Dose: 81 mg Atorvastatin Calcium (Lipitor -) 20 mg PO HS [facility] Last Admin: 05/10/19 21:15 Dose: 20 mg Benzocaine/Menthol (Cepacol Lozenge -) 1 each MM PRN PRN PRN Reason: SORE THROAT Last Admin: 05/06/19 11:02 Dose: 1 each Clopidogrel Bisulfate (Plavix -) 75 mg PO DAILY [facility] Last Admin: 05/10/19 10:21 Dose: 75 mg Docusate Sodium (Colace -) 100 mg PO BID [facility] Last Admin: 05/10/19 21:15 Dose: 100 mg Enoxaparin Sodium (Lovenox -) 40 mg SQ DAILY [facility] Last Admin: 05/10/19 10:22 Dose: 40 mg Furosemide (Lasix Injection -) 40 mg IVPUSH BID@0600,1400 [facility] Last Admin: 05/11/19 06:03 Dose: 40 mg Guaifenesin (Mucinex -) 600 mg PO BID [facility] Last Admin: 05/10/19 21:15 Dose: 600 mg Insulin Aspart (Novolog Vial Sliding Scale -) [facility]; Protocol Last Admin: 05/11/19 06:03 Dose: 2 units Isosorbide Mononitrate (Imdur -) 30 mg PO DAILY [facility] Last Admin: 05/10/19 10:15 Dose: Not Given Metoprolol Succinate (Toprol Xl -) 100 mg PO BID [facility] Last Admin: 05/10/19 21:15 Dose: 100 mg Pantoprazole Sodium (Protonix -) 40 mg PO DAILY [facility] Last Admin: 05/10/19 10:21 Dose: 40 mg Prednisone (Deltasone -) 10 mg PO DAILY [facility] Sertraline HCl (Zoloft -) 25 mg PO DAILY [facility] Last Admin: 05/10/19 10:21 Dose: 25 mg CBC, BMP 05/03/19 06:33 05/11/19 11:05 Physical Exam Alert/ awake S1 s2 RRR-- [place] + - Aortic area Lungs -- clear Abd-soft, NT edema ++ PLAN continue iv lasix BID-- renal function stable off abx nebs tapering prednisone on zoloft for depression OOB daily Monitor labs will follow d/w daughter also Problem List - Problems (1) Acute exacerbation of chronic obstructive pulmonary disease (COPD) Code(s): J44.1 - CHRONIC OBSTRUCTIVE PULMONARY DISEASE W (ACUTE) EXACERBATION (2) CHF exacerbation Code(s): I50.9 - HEART FAILURE, UNSPECIFIED Qualifiers: Heart failure type: unspecified Qualified Code(s): I50.9 - Heart failure, unspecified (3) Pneumonia Code(s): J18.9 - PNEUMONIA, UNSPECIFIED ORGANISM Qualifiers: Pneumonia type: due to unspecified organism Laterality: right Lung location: lower lobe of lung Qualified Code(s): J18.1 - Lobar pneumonia, unspecified organism (4) CAD (coronary artery disease) Code(s): I25.10 - ATHSCL HEART DISEASE OF [place] CORONARY ARTERY W/O ANG PCTRS Qualifiers: Coronary Disease-Associated Artery/Lesion type: [place] coronary artery Associated angina: without angina pectoris (5) CKD (chronic kidney disease) Code(s): N18.9 - CHRONIC KIDNEY DISEASE, UNSPECIFIED
[2019-05-11] MEDS: ENOXAPARIN NA (PORCINE) 40 MG/0.4 ML DISP.SYRIN SQ SCH (12:15)
[2019-05-11] MEDS: PANTOPRAZOLE 40 MG TABLET (FP) PO SCH (12:17)
[2019-05-11] MEDS: SERTRALINE HCL 25 MG TABLET (FP) PO SCH (12:18)
[2019-05-11] MEDS: DOCUSATE SODIUM 100 MG CAPSULE (FP) PO SCH ×2 (12:18→21:07)
[2019-05-11] MEDS: predniSONE 20 MG TABLET (UD) PO SCH (12:18)
[2019-05-11] MEDS: ACETAMINOPHEN 325 MG TABLET (FP) PO PRN (12:18)
[2019-05-11] MEDS: CLOPIDOGREL BISULFATE 75 MG TABLET (FP) PO SCH (12:18)
[2019-05-11] MEDS: ALLOPURINOL 100 MG TABLET (FP) PO SCH (12:18)
[2019-05-11] MEDS: ISOSORBIDE MONONITRATE 30 MG TAB.SR.24H (FP) PO SCH (12:19)
[2019-05-11] MEDS: guaiFENesin 600 MG TABLET.ER (FP) PO SCH ×2 (12:19→21:08)
--- NOTE | 2019-05-11 13:31 | PN ---
Progress Note (short form) - Note Progress Note: PULONARY OOB TO CHAIR VSS/AFEBRILE Gen: NAD Heart: RRR Lung: decreased breath sounds at the bases, few scattered rhonchi Abd: soft, nontender Ext: improving edema LABS/MEDS/NOTES/REVIEWED A/P Acute on Chronic Diastolic Heart Failure Hypertrophic Cardiomyopathy Aortic Stenosis s/p PPM CAD PAD COPD HTN DM Hyperlipidemia PAH Probable OSAS - Lasix - monitor urine output, creatinine/bp - daily weights - O2 to keep SpO2 >90% - inhaled bronchodilators as needed - NIPPV PRN - Monitor off ABX - DVT prophylaxis - Prednisone - Will need formal sleep apnea testing after DC and stable R HUBER TINAJERO
[2019-05-11] MEDS: ATORVASTATIN CA 20 MG TABLET (FP) PO SCH (21:07)
[2019-05-12] MEDS: INSULIN SLIDING SCALE (NOVOLOG) 1 VIAL SQ SCH ×2 (06:26→16:51)
[2019-05-12] MEDS: FUROSEMIDE 40 MG/4 ML INJECTABLE VIAL IVPUSH SCH (06:26)
[2019-05-12] MEDS: predniSONE 20 MG TABLET (UD) PO SCH (06:26)
[2019-05-12] MEDS: ASPIRIN 81 MG CHEWABLE TABLETS PO SCH (06:26)
[2019-05-12] MEDS: ACETYLCYSTEINE 20% 200MG/ML 4 ML VIAL *FOR ORAL / INH USE ONLY NEB SCH ×4 (08:29→21:19)
--- NOTE | 2019-05-12 09:39 | PN ---
Progress Note (short form) - Note Progress Note: PULMONARY States breathing better but still some dyspnea with exertion. Vital Signs Period Temp Pulse Resp BP Sys/Benito Pulse Ox Last 24 Hr 98.2 F-976 F 54-63 18-20 94-112/42-51 98-98 Intake & Output 05/10/19 05/11/19 05/11/19 05/12/19 00:59 00:59 23:59 23:59 Intake Total 100 Output Total 280 Balance -180 Weight 84.425 kg Gen: less tachypneic Heart: RRR Lung: decreased breath sounds at the bases Abd: soft, nontender Ext: + edema CBC, BMP 05/03/19 06:33 05/11/19 11:05 Active Medications Acetaminophen (Tylenol -) 650 mg PO Q6H PRN PRN Reason: PAIN Last Admin: 05/11/19 12:18 Dose: 650 mg Acetylcysteine (Mucomyst 20 Oral / Inh Use Only*) 600 mg NEB RQID [facility] Last Admin: 05/12/19 08:29 Dose: Not Given Albuterol Sulfate (Ventolin 0.083% Nebulizer Soln -) 1 amp NEB Q4H PRN PRN Reason: SHORTNESS OF BREATH Last Admin: 05/11/19 20:20 Dose: 1 amp Allopurinol (Zyloprim -) 100 mg PO DAILY [facility] Last Admin: 05/11/19 12:18 Dose: 100 mg Aspirin (Asa -) 81 mg PO AM [facility] Last Admin: 05/12/19 06:26 Dose: 81 mg Atorvastatin Calcium (Lipitor -) 20 mg PO HS [facility] Last Admin: 05/11/19 21:07 Dose: 20 mg Benzocaine/Menthol (Cepacol Lozenge -) 1 each MM PRN PRN PRN Reason: SORE THROAT Last Admin: 05/06/19 11:02 Dose: 1 each Clopidogrel Bisulfate (Plavix -) 75 mg PO DAILY [facility] Last Admin: 05/11/19 12:18 Dose: 75 mg Docusate Sodium (Colace -) 100 mg PO BID [facility] Last Admin: 05/11/19 21:07 Dose: 100 mg Enoxaparin Sodium (Lovenox -) 40 mg SQ DAILY [facility] Last Admin: 05/11/19 12:15 Dose: 40 mg Furosemide (Lasix Injection -) 40 mg IVPUSH BID@0600,1400 [facility] Last Admin: 05/12/19 06:26 Dose: 40 mg Guaifenesin (Mucinex -) 600 mg PO BID [facility] Last Admin: 05/11/19 21:08 Dose: 600 mg Insulin Aspart (Novolog Vial Sliding Scale -) [facility]; Protocol Last Admin: 05/12/19 06:26 Dose: Not Given Isosorbide Mononitrate (Imdur -) 30 mg PO DAILY [facility] Last Admin: 05/11/19 12:19 Dose: Not Given Metoprolol Succinate (Toprol Xl -) 100 mg PO BID [facility] Last Admin: 05/11/19 21:07 Dose: 100 mg Pantoprazole Sodium (Protonix -) 40 mg PO DAILY [facility] Last Admin: 05/11/19 12:17 Dose: 40 mg Prednisone (Deltasone -) 10 mg PO DAILY [facility] Last Admin: 05/12/19 06:26 Dose: 10 mg Sertraline HCl (Zoloft -) 25 mg PO DAILY [facility] Last Admin: 05/11/19 12:18 Dose: 25 mg A/P Acute on Chronic Diastolic Heart Failure Hypertrophic Cardiomyopathy Aortic Stenosis s/p PPM CAD PAD COPD HTN DM Hyperlipidemia Anemia - continue lasix - monitor urine output, creatinine - daily weights - repeat CXR today - O2 to keep SpO2 >90% - inhaled bronchodilators as needed - BiPAP as needed - DVT prophylaxis
[2019-05-12] MEDS: ENOXAPARIN NA (PORCINE) 40 MG/0.4 ML DISP.SYRIN SQ SCH (10:17)
[2019-05-12] MEDS: CLOPIDOGREL BISULFATE 75 MG TABLET (FP) PO SCH (10:17)
[2019-05-12] MEDS: PANTOPRAZOLE 40 MG TABLET (FP) PO SCH (10:17)
[2019-05-12] MEDS: ALLOPURINOL 100 MG TABLET (FP) PO SCH (10:17)
[2019-05-12] MEDS: ISOSORBIDE MONONITRATE 30 MG TAB.SR.24H (FP) PO SCH (10:17)
[2019-05-12] MEDS: SERTRALINE HCL 25 MG TABLET (FP) PO SCH (10:17)
[2019-05-12] MEDS: guaiFENesin 600 MG TABLET.ER (FP) PO SCH ×2 (10:18→21:19)
[2019-05-12] MEDS: DOCUSATE SODIUM 100 MG CAPSULE (FP) PO SCH ×2 (10:18→21:19)
--- NOTE | 2019-05-12 10:39 | PN ---
Progress Note (short form) - Note Progress Note: awake/ comfortable swelling - feet/ legs persists pt and pt daughter now considering surgery denies cp breathing better Vital Signs Temp 98.4 F 05/12/19 10:15 Pulse 59 L 05/12/19 10:15 Resp 20 05/12/19 10:15 BP 100/36 L 05/12/19 10:15 Pulse Ox 98 05/12/19 02:15 Intake & Output 05/11/19 05/11/19 05/12/19 11:59 23:59 11:59 Intake Total 860 400 Output Total 100 680 Balance 760 -280 Weight 186 lb 2 oz Intake: Oral 860 400 Output: Urine 100 680 Void 100 680 Other: Voiding Method Urinal Urinal # Unmeasured Voids Void 1 1 Bowel Movement No Yes Weight Measurement Method Built in [facility] Active Medications Acetaminophen (Tylenol -) 650 mg PO Q6H PRN PRN Reason: PAIN Last Admin: 05/11/19 12:18 Dose: 650 mg Acetylcysteine (Mucomyst 20 Oral / Inh Use Only*) 600 mg NEB RQID [facility] Last Admin: 05/12/19 08:29 Dose: Not Given Albuterol Sulfate (Ventolin 0.083% Nebulizer Soln -) 1 amp NEB Q4H PRN PRN Reason: SHORTNESS OF BREATH Last Admin: 05/11/19 20:20 Dose: 1 amp Allopurinol (Zyloprim -) 100 mg PO DAILY [facility] Last Admin: 05/12/19 10:17 Dose: 100 mg Aspirin (Asa -) 81 mg PO AM [facility] Last Admin: 05/12/19 06:26 Dose: 81 mg Atorvastatin Calcium (Lipitor -) 20 mg PO HS [facility] Last Admin: 05/11/19 21:07 Dose: 20 mg Benzocaine/Menthol (Cepacol Lozenge -) 1 each MM PRN PRN PRN Reason: SORE THROAT Last Admin: 05/06/19 11:02 Dose: 1 each Clopidogrel Bisulfate (Plavix -) 75 mg PO DAILY [facility] Last Admin: 05/12/19 10:17 Dose: 75 mg Docusate Sodium (Colace -) 100 mg PO BID [facility] Last Admin: 05/12/19 10:18 Dose: 100 mg Enoxaparin Sodium (Lovenox -) 40 mg SQ DAILY [facility] Last Admin: 05/12/19 10:17 Dose: 40 mg Furosemide (Lasix Injection -) 40 mg IVPUSH BID@0600,1400 [facility] Last Admin: 05/12/19 06:26 Dose: 40 mg Guaifenesin (Mucinex -) 600 mg PO BID [facility] Last Admin: 05/12/19 10:18 Dose: 600 mg Insulin Aspart (Novolog Vial Sliding Scale -) [facility]; Protocol Last Admin: 05/12/19 06:26 Dose: Not Given Isosorbide Mononitrate (Imdur -) 30 mg PO DAILY [facility] Last Admin: 05/12/19 10:17 Dose: 30 mg Metoprolol Succinate (Toprol Xl -) 100 mg PO BID [facility] Last Admin: 05/12/19 10:17 Dose: 100 mg Pantoprazole Sodium (Protonix -) 40 mg PO DAILY [facility] Last Admin: 05/12/19 10:17 Dose: 40 mg Prednisone (Deltasone -) 10 mg PO DAILY [facility] Last Admin: 05/12/19 06:26 Dose: 10 mg Sertraline HCl (Zoloft -) 25 mg PO DAILY [facility] Last Admin: 05/12/19 10:17 Dose: 25 mg CBC, BMP 05/03/19 06:33 05/11/19 11:05 Physical Exam Alert/ awake S1 s2 RRR-- [place] + - Aortic area Lungs -- clear Abd-soft, NT edema ++ PLAN continue iv lasix BID-- renal function stable off abx nebs tapering prednisone on zoloft for depression OOB daily Monitor labs will follow Cardiology to follow regarding further plans Problem List - Problems (1) Acute exacerbation of chronic obstructive pulmonary disease (COPD) Code(s): J44.1 - CHRONIC OBSTRUCTIVE PULMONARY DISEASE W (ACUTE) EXACERBATION (2) CHF exacerbation Code(s): I50.9 - HEART FAILURE, UNSPECIFIED Qualifiers: Heart failure type: unspecified Qualified Code(s): I50.9 - Heart failure, unspecified (3) Pneumonia Code(s): J18.9 - PNEUMONIA, UNSPECIFIED ORGANISM Qualifiers: Pneumonia type: due to unspecified organism Laterality: right Lung location: lower lobe of lung Qualified Code(s): J18.1 - Lobar pneumonia, unspecified organism (4) CAD (coronary artery disease) Code(s): I25.10 - ATHSCL HEART DISEASE OF [place] CORONARY ARTERY W/O ANG PCTRS Qualifiers: Coronary Disease-Associated Artery/Lesion type: [place] coronary artery Associated angina: without angina pectoris (5) CKD (chronic kidney disease) Code(s): N18.9 - CHRONIC KIDNEY DISEASE, UNSPECIFIED
[2019-05-12] MEDS: ACETAMINOPHEN 325 MG TABLET (FP) PO PRN (11:59)
[2019-05-12] MEDS: BENZOCAINE/MENTH/CETYLPYRD CL 1 EACH LOZENGE MM PRN (12:00)
--- NOTE | 2019-05-12 12:14 | PN ---
Progress Note, Physician Chief Complaint: cough, sob History of Present Illness: cough nearly gone. sob much better--now ambulating more, notices mild sob when exerts or moves no cp no more leg swelling - Current Medication List Current Medications: Active Medications Acetaminophen (Tylenol -) 650 mg PO Q6H PRN PRN Reason: PAIN Last Admin: 05/12/19 11:59 Dose: 650 mg Acetylcysteine (Mucomyst 20 Oral / Inh Use Only*) 600 mg NEB RQID [facility] Last Admin: 05/12/19 11:54 Dose: 600 mg Albuterol Sulfate (Ventolin 0.083% Nebulizer Soln -) 1 amp NEB Q4H PRN PRN Reason: SHORTNESS OF BREATH Last Admin: 05/11/19 20:20 Dose: 1 amp Allopurinol (Zyloprim -) 100 mg PO DAILY [facility] Last Admin: 05/12/19 10:17 Dose: 100 mg Aspirin (Asa -) 81 mg PO AM [facility] Last Admin: 05/12/19 06:26 Dose: 81 mg Atorvastatin Calcium (Lipitor -) 20 mg PO HS [facility] Last Admin: 05/11/19 21:07 Dose: 20 mg Benzocaine/Menthol (Cepacol Lozenge -) 1 each MM PRN PRN PRN Reason: SORE THROAT Last Admin: 05/12/19 12:00 Dose: 1 each Clopidogrel Bisulfate (Plavix -) 75 mg PO DAILY [facility] Last Admin: 05/12/19 10:17 Dose: 75 mg Docusate Sodium (Colace -) 100 mg PO BID [facility] Last Admin: 05/12/19 10:18 Dose: 100 mg Enoxaparin Sodium (Lovenox -) 40 mg SQ DAILY [facility] Last Admin: 05/12/19 10:17 Dose: 40 mg Furosemide (Lasix Injection -) 40 mg IVPUSH BID@0600,1400 [facility] Last Admin: 05/12/19 06:26 Dose: 40 mg Guaifenesin (Mucinex -) 600 mg PO BID [facility] Last Admin: 05/12/19 10:18 Dose: 600 mg Insulin Aspart (Novolog Vial Sliding Scale -) [facility]; Protocol Last Admin: 05/12/19 06:26 Dose: Not Given Isosorbide Mononitrate (Imdur -) 30 mg PO DAILY [facility] Last Admin: 05/12/19 10:17 Dose: 30 mg Metoprolol Succinate (Toprol Xl -) 100 mg PO BID [facility] Last Admin: 05/12/19 10:17 Dose: 100 mg Pantoprazole Sodium (Protonix -) 40 mg PO DAILY [facility] Last Admin: 05/12/19 10:17 Dose: 40 mg Prednisone (Deltasone -) 10 mg PO DAILY [facility] Last Admin: 05/12/19 06:26 Dose: 10 mg Sertraline HCl (Zoloft -) 25 mg PO DAILY [facility] Last Admin: 05/12/19 10:17 Dose: 25 mg - Objective Vital Signs: Vital Signs Temperature 98.4 F 05/12/19 10:15 Pulse Rate 59 L 05/12/19 10:15 Respiratory Rate 20 05/12/19 10:15 Blood Pressure 100/36 L 05/12/19 10:15 O2 Sat by Pulse Oximetry (%) 98 05/12/19 02:15 Constitutional: Yes: Well Nourished, No Distress, Calm, Obese Cardiovascular: Yes: Regular Rate and Rhythm, Murmur, S1, S2. No: Gallop Respiratory: Yes: Regular, CTA Bilaterally. No: Accessory Muscle Use, Rales, Wheezes Extremities: No: Cold Edema: No Neurological: Yes: Alert, Oriented Psychiatric: No: Agitated Labs: CBC, BMP 05/03/19 06:33 05/11/19 11:05 INR, PTT INR 1.14 (0.83-1.09) H 04/30/19 06:12 Assessment/Plan DATA: 07/2016 cardiac MRI: moderate basal septal hypertrophy (up to 1.6 cm). nl lv size/fn. (EF 73%). +LVOT flow acceleration and CARLOS. Nl RV. No scar/edema. + CARLOS, mild MR. mild-mod (1.5 cm2 by planimetry). mild lae. mild asc ao dil (3.9 cm). TTE [facility] 10/2016: mild lvh. nl lv/rv. size/fn. grade I diastolic dysfunction. lvot vti/Ao vti 0.3. mod as (sev calc), jossy 1.3 (). no carlos. rvsp 32 echo 07/2016: HR 69 bpm. Asymmetric septal hypertrophy (predom basal) 1.5 cm. EF 65-70%. Mod-sev LVOT obs at rest (3.7, PG 55/MG 28), unable to assess for CARLOS. Mild RV dil. Nl RV fn. Mild ana. 1+ AR. Very Severe (5.1, PG 104/MG 65 ), Mod MAC, mimimal functional MS, 1+ MR. Mild-mod TR, mod-sev pHTN. L/RHC 11/2017: wedge normal (13), mild pulm HTN (38/12). nonobstructive LAD/LCX/ RCA. neg [place]. Echo 04/26: nl LV. nl RV. moderate . mild TR. RVSP 50-60. 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 acute diastolic chf, h/o HCM, pulm HTN: -known h/o mitral CARLOS with LVOT obstruction s/p septal ablation [facility] 2016--no LVOT gradient noted on echo here -was on torsemide 40 qd at home -here with vol overload now, bnp 1700 (prior range 4918-0158). -a.e. 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 if persists on echo once well-diuresed, would consider oximetry (walking (e.g. 6MWT) and nocturnal (overnight oximetry +/- sleep study))--outpt f/u - Lasix decreased to 40mg IV BID (05/10) sec to mildly incr bun/creat, gout flare here. -05/12: bedscale wts only. bun/creat up slightly more (30s/1.2). change to lasix 40 po bid -outpt f/u with dr tripp in approx 1 week: to titrate lasix as needed, and discuss repeat TAVR eval (disc'd plan with her) ankle pain, gout: - likely gout flare, manage per primary, on prednisone s/p PPM: - outpatient follow up Aortic stenosis: - mod to severe by history, has refused TAVR evaluation recently - echo here c/w moderate , preserved S2 split on exam--outpt f/u with dr josee pederson, remote pci: -s/p BMS to [facility] 2006, LEONIDES to mRCA 2013. all patent on most recent cath -cont statin, plavix, bb, imdur, asa (on PPI now as well with steroids) -not on ACEI due to prior low BPs -no signs acs here pad, le stent: -stable, cont home cardiac meds ok for d/c from cv standpoint
[2019-05-12 12:30] VITALS: BMI 30.9
[2019-05-12] MEDS: FUROSEMIDE 40 MG TABLET (FP) PO SCH (14:22)
[2019-05-12] MEDS: ALBUTEROL SO4 0.083% IH SOL 2.5 MG/3 ML VIAL.NEB. NEB PRN ×2 (15:49→21:19)
[2019-05-12] MEDS: ATORVASTATIN CA 20 MG TABLET (FP) PO SCH (21:19)
[2019-05-13] MEDS: FUROSEMIDE 40 MG TABLET (FP) PO SCH ×2 (05:43→13:39)
[2019-05-13] MEDS: ASPIRIN 81 MG CHEWABLE TABLETS PO SCH (06:05)
[2019-05-13] MEDS: INSULIN SLIDING SCALE (NOVOLOG) 1 VIAL SQ SCH (06:05)
[2019-05-13] MEDS: ACETYLCYSTEINE 20% 200MG/ML 4 ML VIAL *FOR ORAL / INH USE ONLY NEB SCH ×2 (07:30→12:26)
--- NOTE | 2019-05-13 10:10 | DS ---
Physical Examination Vital Signs: Vital Signs Temperature 98.7 F 05/13/19 09:10 Pulse Rate 70 05/13/19 09:10 Respiratory Rate 18 05/13/19 09:10 Blood Pressure 100/40 L 05/13/19 09:10 O2 Sat by Pulse Oximetry (%) 97 05/13/19 00:00 Constitutional: Yes: No Distress, Calm Cardiovascular: Yes: Regular Rate and Rhythm Respiratory: Yes: Diminished Gastrointestinal: Yes: Normal Bowel Sounds, Soft, Abdomen, Obese. No: Tenderness Edema: Yes (decreased) Labs: CBC, BMP 05/03/19 06:33 05/11/19 11:05 Discharge Summary Problems reviewed: Yes Reason For Visit: COPD,PNEUMONIA Current Active Problems Acute exacerbation of chronic obstructive pulmonary disease (COPD) (Acute) CHF exacerbation (Acute) Pneumonia (Acute) Hospital Course: Admitted for CHF decompensation , COPD exacerbation Seen by Pulmonary and cardiology Was initially started on IV solumedrol and IV antibiotics-- later discontinued on IV lasix Pt presented with more symptoms of CHF than COPD he was on high doses of IV lasix BID--> renal function remained stable he diuresed well-- weight is now 188lbs He has Aortic stenosis and will be considering repair as outpt He ambulated with PT today -- no SOB on exertion-- his O2 sat on RA-- 89--95% tolerating CPAP at night-- he will require CPAP at NC Pt is stable for dc -- needs to follow up with Cardiology in 1 week to discuss about TAVR Plan of Treatment: -outpt f/u with dr tripp in approx 1 week: to titrate lasix as needed, and discuss repeat TAVR eval (disc'd plan with her) Condition: Fair - Instructions Diet, Activity, Other Instructions: outpt f/u with dr tripp in approx 1 week: to titrate lasix as needed, and discuss repeat TAVR eval (disc'd plan with her) CPAP at night-- IPAP - 10,EPAP-- 5 FiO2-- 40 % rate 14 Referrals: Jose Aguirre MD [Primary Care Provider] - Disposition: [facility] - Home Medications Comprehensive Discharge Medication List: Ambulatory Orders Acetaminophen [Tylenol] 650 mg PO QID PRN 04/30/19 Albuterol 2.5/Ipratropium 0.5 [Duoneb -] 1 amp NEB BID 04/30/19 Allopurinol [Zyloprim -] 100 mg PO DAILY 04/30/19 Arginine/Ascorbate Sod/Poonam AC [Arginaid Powder] 1 each PO DAILY 04/30/19 Aspirin 81 mg PO AM 04/30/19 Atorvastatin Ca [Lipitor] 20 mg PO HS 04/30/19 Clopidogrel Bisulfate [Plavix -] 75 mg PO DAILY 04/30/19 Colchicine 0.6 mg PO Q2D 04/30/19 Docusate Sodium [Colace] 100 mg PO BID 04/30/19 Furosemide [Lasix] 40 mg PO BID 04/30/19 Guaifenesin [Mucinex -] 600 mg PO BID 04/30/19 Insulin Lispro [Humalog] 100 unit SQ AC 04/30/19 Isosorbide Mononitrate [Isosorbide Mononitrate ER] 30 mg PO DAILY 04/30/19 Lidocaine 5% Patch [Lidoderm Patch -] 1 patch TP DAILY 04/30/19 Metoprolol Succinate [Toprol Xl] 100 mg PO BID 04/30/19 Multivitamin,Ther and Minerals [Vitamin and Minerals] 1 each PO DAILY 04/30/19 Pantoprazole Sodium 40 mg PO DAILY 04/30/19 Salmeterol/Fluticasone [Advair 100Mcg/50Mcg -] 1 inh IH AM 04/30/19 Tiotropium [place] [Spiriva] 1 inh PO DAILY 04/30/19
--- NOTE | 2019-05-13 10:49 | PN ---
Progress Note (short form) - Note Progress Note: PULMONARY States breathing better but still some dyspnea with exertion. Vital Signs Period Temp Pulse Resp BP Sys/Benito Pulse Ox Last 24 Hr 98.2 F-976 F 54-63 18-20 94-112/42-51 98-98 Intake & Output 05/10/19 05/11/19 05/11/19 05/12/19 00:59 00:59 23:59 23:59 Intake Total 100 Output Total 280 Balance -180 Weight 84.425 kg Gen: less tachypneic Heart: RRR, +harsh systolic murmur Lung: decreased breath sounds at the bases Abd: soft, nontender Ext: distal edema CBC, BMP 05/03/19 06:33 05/11/19 11:05 Active Medications Acetaminophen (Tylenol -) 650 mg PO Q6H PRN PRN Reason: PAIN Last Admin: 05/11/19 12:18 Dose: 650 mg Acetylcysteine (Mucomyst 20 Oral / Inh Use Only*) 600 mg NEB RQID [facility] Last Admin: 05/12/19 08:29 Dose: Not Given Albuterol Sulfate (Ventolin 0.083% Nebulizer Soln -) 1 amp NEB Q4H PRN PRN Reason: SHORTNESS OF BREATH Last Admin: 05/11/19 20:20 Dose: 1 amp Allopurinol (Zyloprim -) 100 mg PO DAILY [facility] Last Admin: 05/11/19 12:18 Dose: 100 mg Aspirin (Asa -) 81 mg PO AM [facility] Last Admin: 05/12/19 06:26 Dose: 81 mg Atorvastatin Calcium (Lipitor -) 20 mg PO HS [facility] Last Admin: 05/11/19 21:07 Dose: 20 mg Benzocaine/Menthol (Cepacol Lozenge -) 1 each MM PRN PRN PRN Reason: SORE THROAT Last Admin: 05/06/19 11:02 Dose: 1 each Clopidogrel Bisulfate (Plavix -) 75 mg PO DAILY [facility] Last Admin: 05/11/19 12:18 Dose: 75 mg Docusate Sodium (Colace -) 100 mg PO BID [facility] Last Admin: 05/11/19 21:07 Dose: 100 mg Enoxaparin Sodium (Lovenox -) 40 mg SQ DAILY [facility] Last Admin: 05/11/19 12:15 Dose: 40 mg Furosemide (Lasix Injection -) 40 mg IVPUSH BID@0600,1400 [facility] Last Admin: 05/12/19 06:26 Dose: 40 mg Guaifenesin (Mucinex -) 600 mg PO BID [facility] Last Admin: 05/11/19 21:08 Dose: 600 mg Insulin Aspart (Novolog Vial Sliding Scale -) [facility]; Protocol Last Admin: 05/12/19 06:26 Dose: Not Given Isosorbide Mononitrate (Imdur -) 30 mg PO DAILY [facility] Last Admin: 05/11/19 12:19 Dose: Not Given Metoprolol Succinate (Toprol Xl -) 100 mg PO BID [facility] Last Admin: 05/11/19 21:07 Dose: 100 mg Pantoprazole Sodium (Protonix -) 40 mg PO DAILY [facility] Last Admin: 05/11/19 12:17 Dose: 40 mg Prednisone (Deltasone -) 10 mg PO DAILY [facility] Last Admin: 05/12/19 06:26 Dose: 10 mg Sertraline HCl (Zoloft -) 25 mg PO DAILY [facility] Last Admin: 05/11/19 12:18 Dose: 25 mg A/P Acute on Chronic Diastolic Heart Failure Hypertrophic Cardiomyopathy Aortic Stenosis s/p PPM CAD PAD COPD HTN DM Hyperlipidemia Anemia - continue lasix - monitor urine output, creatinine - daily weights - O2 to keep SpO2 >90% - inhaled bronchodilators as needed - DVT prophylaxis - d/c planning in progress
[2019-05-13] MEDS: ISOSORBIDE MONONITRATE 30 MG TAB.SR.24H (FP) PO SCH (10:59)
[2019-05-13] MEDS: predniSONE 20 MG TABLET (UD) PO SCH (11:11)
[2019-05-13] MEDS: guaiFENesin 600 MG TABLET.ER (FP) PO SCH (11:51)
[2019-05-13] MEDS: SERTRALINE HCL 25 MG TABLET (FP) PO SCH (11:52)
[2019-05-13] MEDS: DOCUSATE SODIUM 100 MG CAPSULE (FP) PO SCH (11:52)
[2019-05-13] MEDS: PANTOPRAZOLE 40 MG TABLET (FP) PO SCH (11:52)
[2019-05-13] MEDS: CLOPIDOGREL BISULFATE 75 MG TABLET (FP) PO SCH (11:53)
[2019-05-13] MEDS: ALLOPURINOL 100 MG TABLET (FP) PO SCH (11:53)
[2019-05-13] MEDS: ENOXAPARIN NA (PORCINE) 40 MG/0.4 ML DISP.SYRIN SQ SCH (11:55)
[2019-05-13] MEDS ORDERED: INSULIN (NOVOLOG) ASPART 100 UNITS/ML 10ML VIAL ONE (12:21)
--- NOTE | 2019-05-13 12:45 | PN ---
Progress Note (short form) - Note Progress Note: s: no chest pain, palps, dizziness, dyspnea Current Medications Acetaminophen (Tylenol -) 650 mg PO Q6H PRN PRN Reason: PAIN Last Admin: 05/12/19 11:59 Dose: 650 mg Acetylcysteine (Mucomyst 20 Oral / Inh Use Only*) 600 mg NEB RQID [facility] Last Admin: 05/13/19 12:26 Dose: 600 mg Albuterol Sulfate (Ventolin 0.083% Nebulizer Soln -) 1 amp NEB Q4H PRN PRN Reason: SHORTNESS OF BREATH Last Admin: 05/12/19 21:19 Dose: 1 amp Allopurinol (Zyloprim -) 100 mg PO DAILY [facility] Last Admin: 05/13/19 11:53 Dose: 100 mg Aspirin (Asa -) 81 mg PO AM [facility] Last Admin: 05/13/19 06:05 Dose: 81 mg Atorvastatin Calcium (Lipitor -) 20 mg PO HS [facility] Last Admin: 05/12/19 21:19 Dose: 20 mg Benzocaine/Menthol (Cepacol Lozenge -) 1 each MM PRN PRN PRN Reason: SORE THROAT Last Admin: 05/12/19 12:00 Dose: 1 each Clopidogrel Bisulfate (Plavix -) 75 mg PO DAILY [facility] Last Admin: 05/13/19 11:53 Dose: 75 mg Docusate Sodium (Colace -) 100 mg PO BID [facility] Last Admin: 05/13/19 11:52 Dose: 100 mg Enoxaparin Sodium (Lovenox -) 40 mg SQ DAILY [facility] Last Admin: 05/13/19 11:55 Dose: 40 mg Furosemide (Lasix -) 40 mg PO BID@0600,1400 [facility] Last Admin: 05/13/19 05:43 Dose: 40 mg Guaifenesin (Mucinex -) 600 mg PO BID [facility] Last Admin: 05/13/19 11:51 Dose: 600 mg Insulin Aspart (Novolog Vial Sliding Scale -) [facility]; Protocol Last Admin: 05/13/19 06:05 Dose: Not Given Isosorbide Mononitrate (Imdur -) 30 mg PO DAILY [facility] Last Admin: 05/13/19 10:59 Dose: Not Given Metoprolol Succinate (Toprol Xl -) 100 mg PO BID [facility] Last Admin: 05/13/19 10:59 Dose: Not Given Pantoprazole Sodium (Protonix -) 40 mg PO DAILY [facility] Last Admin: 05/13/19 11:52 Dose: 40 mg Sertraline HCl (Zoloft -) 25 mg PO DAILY [facility] Last Admin: 05/13/19 11:52 Dose: 25 mg Vital Signs Period Temp Pulse Resp BP Sys/Benito Pulse Ox Last 24 Hr 97.4 F-98.7 F 56-70 18-20 92-105/36-48 91-97 Constitutional: Yes: Well Nourished, No Distress, Calm, Obese Cardiovascular: Yes: Regular Rate and Rhythm, Murmur, S1, S2. No: Gallop Respiratory: Yes: Regular, CTA Bilaterally. No: Accessory Muscle Use, Rales, Wheezes Extremities: No: Cold Edema: No Neurological: Yes: Alert, Oriented Psychiatric: No: Agitated no jaundice, diaphoresis Assessment/Plan DATA: 07/2016 cardiac MRI: moderate basal septal hypertrophy (up to 1.6 cm). nl lv size/fn. (EF 73%). +LVOT flow acceleration and CARLOS. Nl RV. No scar/edema. + CARLOS, mild MR. mild-mod (1.5 cm2 by planimetry). mild lae. mild asc ao dil (3.9 cm). TTE [facility] 10/2016: mild lvh. nl lv/rv. size/fn. grade I diastolic dysfunction. lvot vti/Ao vti 0.3. mod as (sev calc), jossy 1.3 (47/26). no carlos. rvsp 32 echo 07/2016: HR 69 bpm. Asymmetric septal hypertrophy (predom basal) 1.5 cm. EF 65-70%. Mod-sev LVOT obs at rest (3.7, PG 55/MG 28), unable to assess for CARLOS. Mild RV dil. Nl RV fn. Mild ana. 1+ AR. Very Severe (5.1, PG 104/MG 65 ), Mod MAC, mimimal functional MS, 1+ MR. Mild-mod TR, mod-sev pHTN. L/[facility]HC 11/2017: wedge normal (13), mild pulm HTN (38/12). nonobstructive LAD/LCX/ RCA. neg [place]. Echo 04/26: nl LV. nl RV. moderate . mild TR. RVSP 50-60. 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 -a.e. 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 if persists on echo once well-diuresed, would consider oximetry (walking (e.g. 6MWT) and nocturnal (overnight oximetry +/- sleep study))--outpt f/u - Lasix decreased to 40mg IV BID (05/10) sec to mildly incr bun/creat, gout flare here. - cont lasix 40 mg PO BID - had been seen at [facility] in the past for TAVR evaluation and was not compliant with follow up, he is willing now. will plan to follow up as outpatient - follow up in 1-2 weeks for labs, evaluate volume status ankle pain, gout: - likely gout flare, manage per primary, on prednisone s/p PPM: - outpatient follow up Aortic stenosis: - mod to severe by history, has refused TAVR evaluation recently - echo here c/w moderate , preserved S2 split on exam--outpt f/u with dr josee pederson, remote pci: -s/p BMS to [facility] 2006, LEONIDES to mRCA 2013. all patent on most recent cath -cont statin, plavix, bb, imdur, asa (on PPI now as well with steroids) -not on ACEI due to prior low BPs -no signs acs here pad, le stent: -stable, cont home cardiac meds stable for d/c from cv standpoint
[2019-05-13 15:51] VITALS: BP 103/45; PULSE 56; TEMP 98.4
== END 2019-05-13 15:56 | DRG 291 ==
LOC: JER 05:56 → JERBED 10:14 → J8W 15:25
PROVIDERS: ADMIT Internal Medicine; ATTEND Internal Medicine
DX: I13.0 Hypertensive heart and chronic kidney disease with heart failure and stage 1 through stage 4 chronic kidney disease, or unspecified chronic kidney disease (principal); I50.33 Acute on chronic diastolic (congestive) heart failure; J44.1 Chronic obstructive pulmonary disease with (acute) exacerbation; I45.2 Bifascicular block; I42.2 Other hypertrophic cardiomyopathy; I25.10 Atherosclerotic heart disease of native coronary artery without angina pectoris; E11.9 Type 2 diabetes mellitus without complications; I87.2 Venous insufficiency (chronic) (peripheral); I27.20 Pulmonary hypertension, unspecified; I35.0 Nonrheumatic aortic (valve) stenosis; E78.5 Hyperlipidemia, unspecified; D64.9 Anemia, unspecified; E66.9 Obesity, unspecified; Z68.31 Body mass index [BMI] 31.0-31.9, adult; N18.9 Chronic kidney disease, unspecified; Z98.61 Coronary angioplasty status
CPT/HCPCS: 36415; 71045-TC-FY; 74019-TC-FY; 74176-TC; 76775-TC; 80048; 80053; 82550; 82962; 83880; 84484; 85025; 85610; 85730; 87040; 93005; 93010; 93306-TC; 94640; 94660; 97116-GP; 97161-GP; 99283-25

== ENCOUNTER 2020-05-17 11:47 | Emergency (ER) | payer OTHER, MEDICARE ==
[2020-05-17] MEDS ORDERED: DIPHTH,PERTUSS(ACELL),TET 0.5 ML DISP.SYRIN IM ONE ×2 (11:53→12:44)
[2020-05-17 11:57] VITALS: BP 112/62; PULSE 80; TEMP 99.1; BMI 27.4
[2020-05-17 13:43] LABS: BASO % 0.9 % (0-2.0); EOS % 2.3 % (0-4.5); HEMATOCRIT 34.9 % (35.4-49); HEMOGLOBIN 11.2 GM/dL (11.7-16.9); LYMPH % 16.3 % (8-40); MCH 27.1 pg (25.7-33.7); MCHC 32.2 g/dl (32.0-35.9); MEAN CELL VOLUME 84.4 fl (80-96); MEAN PLT VOLUME 9.4 fl (7.5-11.1); MONO % 8.8 % (3.8-10.2); NEUT % 71.7 % (42.8-82.8); PLATELET COUNT 219 K/MM3 (134-434); RBC 4.14 M/mm3 (4.00-5.60); RDW 19.5 % (11.9-15.9); WHITE BLOOD COUNT 6.3 K/mm3 (4.0-10.0)
[2020-05-17 13:57] LABS: INR 1.09 (0.83-1.09); PROTHROMBIN TIME (PATIENT) 13.4 SEC (9.7-13.0)
[2020-05-17 14:15] LABS: POTASSIUM 4.1 mmol/L (3.5-5.1)
[2020-05-17 14:17] LABS: CALCIUM 9.6 mg/dL (8.5-10.1)
[2020-05-17 14:18] LABS: ALBUMIN 4.2 g/dl (3.4-5.0)
[2020-05-17 14:21] LABS: CREATININE 2.1 mg/dL (0.55-1.3)
[2020-05-17 14:23] LABS: BILIRUBIN,TOTAL 0.6 mg/dL (0.2-1)
[2020-05-17 14:24] LABS: TOT PROT 7.2 g/dl (6.4-8.2)
== END 2020-05-17 14:55 | disposition home or self-care (01) ==
LOC: JER 11:47
PROC: 3E0234Z Introduction of Serum, Toxoid and Vaccine into Muscle, Percutaneous Approach (ICD-10-PCS; principal; 2020-05-17)
DX: R79.1 Abnormal coagulation profile (principal)
CPT/HCPCS: 36415; 80053; 85025; 85610; 90715; 99284-25

== ENCOUNTER 2020-10-04 11:15 | Inpatient (IN) | payer OTHER, MEDICARE ==
[2020-10-04 12:23] LABS: BASO % 0.8 % (0-2.0); EOS % 6.9 % (0-4.5); HEMATOCRIT 33.7 % (35.4-49); LYMPH % 25.2 % (8-40); MCH 29.3 pg (25.7-33.7); MCHC 32.6 g/dl (32.0-35.9); MEAN CELL VOLUME 89.8 fl (80-96); MEAN PLT VOLUME 9.1 fl (7.5-11.1); MONO % 11.9 % (3.8-10.2); NEUT % 55.2 % (42.8-82.8); PLATELET COUNT 142 K/MM3 (134-434); RBC 3.76 M/mm3 (4.00-5.60); RDW 18.8 % (11.9-15.9); WHITE BLOOD COUNT 4.3 K/mm3 (4.0-10.0)
[2020-10-04] MEDS ORDERED: ALBUTEROL SO4 2.5/IPRATROPIUM 0.5 INH SOL 3 ML VIAL.NEB. NEB ONE ×4 (12:24→19:41)
[2020-10-04] MEDS: ALBUTEROL SO4 2.5/IPRATROPIUM 0.5 INH SOL 3 ML VIAL.NEB. NEB SCH ×4 (12:33→19:46)
[2020-10-04 12:38] LABS: POTASSIUM 5.2 mmol/L (3.5-5.1)
[2020-10-04 12:41] LABS: ALBUMIN 3.4 g/dl (3.4-5.0)
[2020-10-04 12:42] LABS: BLOOD UREA NITROGEN 28.8 mg/dL (7-18); CALCIUM 9.1 mg/dL (8.5-10.1)
[2020-10-04 12:44] LABS: CREATININE 1.1 mg/dL (0.55-1.3)
[2020-10-04 12:46] LABS: BILIRUBIN,TOTAL 0.4 mg/dL (0.2-1); TOT PROT 6.5 g/dl (6.4-8.2)
[2020-10-04 12:49] LABS: N-TERMINAL BNP 1037.4 pg/ml (5-450)
[2020-10-04] MEDS ORDERED: CEFTRIAXONE 1 GM in DEXTROSE 5%-WATER - 100 ML IVPB ONE (12:54)
[2020-10-04] MEDS ORDERED: AZITHROMYCIN IVPB 500 MG in DEXTROSE 5%-WATER - 250 ML IVPB ONE (12:57)
[2020-10-04] MEDS ORDERED: AZITHROMYCIN IVPB 500 MG/250 ML BAG IVPB ONE (13:24)
[2020-10-04] MEDS ORDERED: VANCOMYCIN 1 GM in D5W (PRE-DOCKED) 1,000 MG/250 ML IVPB ONE (13:31)
[2020-10-04] MEDS ORDERED: PIPERACILLIN/TAZOB 3.375 GM 3.375 GM in DEXTROSE 5%-WATER - 50 ML IVPB ONE (13:32)
[2020-10-04] MEDS ORDERED: PIPERACILLIN/TAZOB 3.375 GM 3.375 GM/50 ML BAG IVPB ONE (13:36)
[2020-10-04] MEDS ORDERED: VANCOMYCIN 500 MG VIAL (RESTRICTED TO ID ONLY) ONE (13:48)
[2020-10-04] MEDS ORDERED: ALBUTEROL SO4 2.5/IPRATROPIUM 0.5 INH SOL 3 ML VIAL.NEB. NEB SCH (14:00)
[2020-10-04] MEDS ORDERED: FUROSEMIDE 40 MG/4 ML INJECTABLE VIAL IVPUSH ONE (14:09)
[2020-10-04] MEDS ORDERED: ALBUTEROL SO4 0.083% IH SOL 2.5 MG/3 ML VIAL.NEB. NEB PRN (14:20)
[2020-10-04] MEDS ORDERED: FUROSEMIDE 40 MG/4 ML INJECTABLE VIAL ONE (14:38)
[2020-10-04] MEDS ORDERED: HEPARIN NA (PORCINE) 5,000 UNITS/ML 1ML VIAL ONE (21:55)
[2020-10-04] MEDS ORDERED: ATORVASTATIN CA 20 MG TABLET (FP) ONE (21:55)
[2020-10-04] MEDS ORDERED: ATORVASTATIN CA 20 MG TABLET (FP) PO SCH (22:00)
[2020-10-04] MEDS: HEPARIN NA (PORCINE) 5,000 UNITS/ML 1ML VIAL SQ SCH (22:04)
[2020-10-05 01:02] VITALS: BMI 30.7
[2020-10-05] MEDS ORDERED: ASPIRIN 81 MG CHEWABLE TABLETS PO SCH (07:00)
[2020-10-05] MEDS: FUROSEMIDE 40 MG/4 ML INJECTABLE VIAL IVPUSH SCH ×2 (07:08→13:21)
[2020-10-05] MEDS ORDERED: CLOPIDOGREL BISULFATE 75 MG TABLET (FP) PO SCH (10:00)
[2020-10-05] MEDS ORDERED: APIXABAN 2.5 MG TABLET PO SCH (10:45)
[2020-10-05] MEDS: ALBUTEROL SO4 2.5/IPRATROPIUM 0.5 INH SOL 3 ML VIAL.NEB. NEB SCH ×2 (10:50→20:20)
[2020-10-05] MEDS: PANTOPRAZOLE 40 MG TABLET PO SCH (10:57)
[2020-10-05] MEDS: HEPARIN NA (PORCINE) 5,000 UNITS/ML 1ML VIAL SQ SCH (10:59)
[2020-10-05] MEDS: ISOSORBIDE MONONITRATE 30 MG TAB.SR.24H (FP) PO SCH (10:59)
[2020-10-05 11:53] LABS: BASO % 0.7 % (0-2.0); EOS % 6.1 % (0-4.5); HEMATOCRIT 33.9 % (35.4-49); HEMOGLOBIN 10.7 GM/dL (11.7-16.9); MCH 28.5 pg (25.7-33.7); MCHC 31.5 g/dl (32.0-35.9); MEAN CELL VOLUME 90.4 fl (80-96); NEUT % 62.2 % (42.8-82.8); PLATELET COUNT 148 K/MM3 (134-434); RBC 3.75 M/mm3 (4.00-5.60); WHITE BLOOD COUNT 4.2 K/mm3 (4.0-10.0)
[2020-10-05 12:07] LABS: POTASSIUM 4.4 mmol/L (3.5-5.1)
[2020-10-05 12:12] LABS: ALBUMIN 3.3 g/dl (3.4-5.0); CALCIUM 9.1 mg/dL (8.5-10.1)
[2020-10-05 12:15] LABS: CREATININE 1.2 mg/dL (0.55-1.3)
[2020-10-05 12:17] LABS: BILIRUBIN,TOTAL 0.4 mg/dL (0.2-1); TOT PROT 6.3 g/dl (6.4-8.2)
[2020-10-05] MEDS: ERYTHROMYCIN 0.5% OPHTHALMIC OINTMENT 3.5 GM TUBE OD SCH (15:00)
[2020-10-05] MEDS ORDERED: TORSEMIDE 20 MG TABLET (FP) PO SCH (18:00)
[2020-10-05] MEDS: APIXABAN 2.5 MG TABLET PO SCH (21:22)
[2020-10-05] MEDS: ATORVASTATIN CA 40 MG TABLET (FP) PO SCH (21:23)
[2020-10-05] MEDS: METOPROLOL TARTRATE 25 MG TABLET (FP) PO SCH (21:23)
[2020-10-05] MEDS: BUDESONIDE/FORMETEROL FUMARATE 160/4.5 mcg INHALER IH SCH (21:23)
[2020-10-06] MEDS: FUROSEMIDE 40 MG/4 ML INJECTABLE VIAL IVPUSH SCH ×2 (06:19→13:33)
[2020-10-06 07:20] LABS: HEMATOCRIT 28.5 % (35.4-49); HEMOGLOBIN 9.2 GM/dL (11.7-16.9); MCH 28.7 pg (25.7-33.7); MCHC 32.2 g/dl (32.0-35.9); MEAN CELL VOLUME 89.2 fl (80-96); MEAN PLT VOLUME 9.2 fl (7.5-11.1); PLATELET COUNT 119 K/MM3 (134-434); RBC 3.19 M/mm3 (4.00-5.60); RDW 18.8 % (11.9-15.9); WHITE BLOOD COUNT 3.8 K/mm3 (4.0-10.0)
[2020-10-06 07:43] LABS: POTASSIUM 4.5 mmol/L (3.5-5.1)
[2020-10-06] MEDS: ALBUTEROL SO4 2.5/IPRATROPIUM 0.5 INH SOL 3 ML VIAL.NEB. NEB SCH ×2 (08:05→20:50)
[2020-10-06 08:07] LABS: BLOOD UREA NITROGEN 30.3 mg/dL (7-18); CALCIUM 8.3 mg/dL (8.5-10.1); MAGNESIUM 1.9 mg/dL (1.8-2.4)
[2020-10-06 08:10] LABS: CREATININE 1.3 mg/dL (0.55-1.3); PHOSPHOROUS 4.2 mg/dL (2.5-4.9)
[2020-10-06] MEDS ORDERED: METOPROLOL TARTRATE 25 MG TABLET (FP) PO SCH (10:00)
[2020-10-06] MEDS ORDERED: PATIENT'S OWN MEDICATION (NON-FORMULARY) (Triamterene/Hydrochlorothiazid [Triamterene-Hctz PO SCH (10:00)
[2020-10-06] MEDS: APIXABAN 2.5 MG TABLET PO SCH ×2 (10:13→21:31)
[2020-10-06] MEDS: AMIODARONE HCL 200 MG TABLET PO SCH (10:13)
[2020-10-06] MEDS: PANTOPRAZOLE 40 MG TABLET PO SCH (10:14)
[2020-10-06] MEDS: ISOSORBIDE MONONITRATE 30 MG TAB.SR.24H (FP) PO SCH (10:14)
[2020-10-06] MEDS: METOPROLOL TARTRATE 25 MG TABLET (FP) PO SCH ×2 (10:14→21:32)
[2020-10-06] MEDS: ERYTHROMYCIN 0.5% OPHTHALMIC OINTMENT 3.5 GM TUBE OD SCH ×3 (10:14→21:31)
[2020-10-06] MEDS: BUDESONIDE/FORMETEROL FUMARATE 160/4.5 mcg INHALER IH SCH ×2 (10:30→21:32)
[2020-10-06] MEDS: COLCHICINE 0.6 MG CAP PO SCH (10:33)
[2020-10-06] MEDS: TRIAMTERENE AND HCTZ - 37.5 MG/25 MG CAPSULE PO SCH (10:35)
[2020-10-06] MEDS: POLYETHYLENE GLYCOL 3350 119 GM BTL PO SCH ×2 (12:06→21:32)
[2020-10-06] MEDS: DOCUSATE SODIUM 100 MG CAPSULE (FP) PO SCH ×2 (18:30→21:31)
[2020-10-06] MEDS: ATORVASTATIN CA 40 MG TABLET (FP) PO SCH (21:31)
[2020-10-06] MEDS ORDERED: APIXABAN 5 MG TABLET PO SCH (22:00)
[2020-10-07] MEDS: ERYTHROMYCIN 0.5% OPHTHALMIC OINTMENT 3.5 GM TUBE OD SCH ×3 (06:36→22:00)
[2020-10-07] MEDS: FUROSEMIDE 40 MG/4 ML INJECTABLE VIAL IVPUSH SCH ×2 (06:36→14:01)
[2020-10-07 07:48] LABS: BASO % 0.7 % (0-2.0); EOS % 4.7 % (0-4.5); HEMATOCRIT 31.3 % (35.4-49); HEMOGLOBIN 10.3 GM/dL (11.7-16.9); LYMPH % 24.5 % (8-40); MCH 29.3 pg (25.7-33.7); MCHC 32.9 g/dl (32.0-35.9); MEAN CELL VOLUME 89.1 fl (80-96); MONO % 9.8 % (3.8-10.2); NEUT % 60.3 % (42.8-82.8); PLATELET COUNT 130 K/MM3 (134-434); RBC 3.51 M/mm3 (4.00-5.60); RDW 18.7 % (11.9-15.9); WHITE BLOOD COUNT 4.2 K/mm3 (4.0-10.0)
[2020-10-07] MEDS: ALBUTEROL SO4 2.5/IPRATROPIUM 0.5 INH SOL 3 ML VIAL.NEB. NEB SCH ×2 (08:01→20:20)
[2020-10-07 08:14] LABS: POTASSIUM 4.5 mmol/L (3.5-5.1)
[2020-10-07 08:16] LABS: ALBUMIN 3.2 g/dl (3.4-5.0); BLOOD UREA NITROGEN 37.2 mg/dL (7-18); CALCIUM 9.1 mg/dL (8.5-10.1)
[2020-10-07 08:19] LABS: CREATININE 1.4 mg/dL (0.55-1.3)
[2020-10-07 08:20] LABS: PHOSPHOROUS 4.2 mg/dL (2.5-4.9)
[2020-10-07 08:21] LABS: BILIRUBIN,TOTAL 0.3 mg/dL (0.2-1); TOT PROT 6.1 g/dl (6.4-8.2)
[2020-10-07] MEDS ORDERED: PT OWN MED DRAWER 7, Y5N ONE ×2 (09:00→12:24)
[2020-10-07] MEDS: POLYETHYLENE GLYCOL 3350 119 GM BTL PO SCH (09:32)
[2020-10-07] MEDS: DOCUSATE SODIUM 100 MG CAPSULE (FP) PO SCH ×2 (09:32→21:16)
[2020-10-07] MEDS: APIXABAN 2.5 MG TABLET PO SCH ×2 (09:32→21:16)
[2020-10-07] MEDS: ISOSORBIDE MONONITRATE 30 MG TAB.SR.24H (FP) PO SCH (09:33)
[2020-10-07] MEDS: METOPROLOL TARTRATE 25 MG TABLET (FP) PO SCH ×2 (09:33→21:16)
[2020-10-07] MEDS: AMIODARONE HCL 200 MG TABLET PO SCH (09:33)
[2020-10-07] MEDS: PANTOPRAZOLE 40 MG TABLET PO SCH (09:33)
[2020-10-07] MEDS: BUDESONIDE/FORMETEROL FUMARATE 160/4.5 mcg INHALER IH SCH ×2 (10:30→21:21)
[2020-10-07] MEDS: TRIAMTERENE AND HCTZ - 37.5 MG/25 MG CAPSULE PO SCH (12:28)
[2020-10-07] MEDS: LACTULOSE 20 GM/30 ML UDC (FOR ORAL USE ONLY) PO SCH ×2 (15:56→21:17)
[2020-10-07] MEDS: ATORVASTATIN CA 40 MG TABLET (FP) PO SCH (21:16)
[2020-10-07] MEDS: SENNOSIDES 8.6MG TABLET (FP) PO SCH (21:17)
[2020-10-07] MEDS: guaiFENesin 600 MG TABLET.ER (FP) PO SCH (21:17)
[2020-10-08] MEDS: ERYTHROMYCIN 0.5% OPHTHALMIC OINTMENT 3.5 GM TUBE OD SCH ×2 (06:05→13:34)
[2020-10-08] MEDS: ALBUTEROL SO4 2.5/IPRATROPIUM 0.5 INH SOL 3 ML VIAL.NEB. NEB SCH (07:45)
[2020-10-08 08:14] LABS: POTASSIUM 4.2 mmol/L (3.5-5.1)
[2020-10-08 08:30] LABS: BLOOD UREA NITROGEN 40.5 mg/dL (7-18); CALCIUM 8.8 mg/dL (8.5-10.1)
[2020-10-08 08:33] LABS: CREATININE 1.5 mg/dL (0.55-1.3)
[2020-10-08] MEDS ORDERED: PT OWN MED DRAWER 7, Y5N ONE (09:44)
[2020-10-08] MEDS ORDERED: FUROSEMIDE 40 MG/4 ML INJECTABLE VIAL IVPUSH SCH (10:00)
[2020-10-08] MEDS: ISOSORBIDE MONONITRATE 30 MG TAB.SR.24H (FP) PO SCH (11:03)
[2020-10-08] MEDS: DOCUSATE SODIUM 100 MG CAPSULE (FP) PO SCH (11:03)
[2020-10-08] MEDS: COLCHICINE 0.6 MG CAP PO SCH (11:03)
[2020-10-08] MEDS: METOPROLOL TARTRATE 25 MG TABLET (FP) PO SCH (11:03)
[2020-10-08] MEDS: AMIODARONE HCL 200 MG TABLET PO SCH (11:04)
[2020-10-08] MEDS: guaiFENesin 600 MG TABLET.ER (FP) PO SCH (11:04)
[2020-10-08] MEDS: TRIAMTERENE AND HCTZ - 37.5 MG/25 MG CAPSULE PO SCH (11:04)
[2020-10-08] MEDS: PANTOPRAZOLE 40 MG TABLET PO SCH (11:04)
[2020-10-08] MEDS: APIXABAN 2.5 MG TABLET PO SCH (11:04)
[2020-10-08] MEDS: LACTULOSE 20 GM/30 ML UDC (FOR ORAL USE ONLY) PO SCH (11:05)
[2020-10-08] MEDS: BUDESONIDE/FORMETEROL FUMARATE 160/4.5 mcg INHALER IH SCH (11:05)
[2020-10-08] MEDS: SENNOSIDES 8.6MG TABLET (FP) PO SCH (11:05)
[2020-10-08 11:46] VITALS: BP 111/43; PULSE 64; TEMP 98.1
== END 2020-10-08 16:58 | disposition home or self-care (01) | DRG 291 ==
LOC: JER 11:15 → JERBED 11:44 → J4W 10-05 01:00
PROVIDERS: ADMIT Internal Medicine; ATTEND Student in an Organized Health Care Education/Training Program
DX: I13.0 Hypertensive heart and chronic kidney disease with heart failure and stage 1 through stage 4 chronic kidney disease, or unspecified chronic kidney disease (principal); I50.23 Acute on chronic systolic (congestive) heart failure; J44.1 Chronic obstructive pulmonary disease with (acute) exacerbation; R18.8 Other ascites; J44.9 Chronic obstructive pulmonary disease, unspecified; E78.5 Hyperlipidemia, unspecified; I73.9 Peripheral vascular disease, unspecified; H00.19 Chalazion unspecified eye, unspecified eyelid; J39.8 Other specified diseases of upper respiratory tract; G47.33 Obstructive sleep apnea (adult) (pediatric); N18.9 Chronic kidney disease, unspecified; E11.22 Type 2 diabetes mellitus with diabetic chronic kidney disease; I25.10 Atherosclerotic heart disease of native coronary artery without angina pectoris; K59.00 Constipation, unspecified; K21.9 Gastro-esophageal reflux disease without esophagitis; E66.9 Obesity, unspecified; Z68.30 Body mass index [BMI] 30.0-30.9, adult; Z95.5 Presence of coronary angioplasty implant and graft; E87.70 Fluid overload, unspecified
CPT/HCPCS: 36415; 70360-TC-FY; 71045-TC-FY; 80048; 80053; 83735; 83880; 84100; 85025; 85027; 86682; 87804; 93005; 93010; 93306-TC; 94640; 97116-GP; 97161-GP; 99285-25; C9803; J1644; U0003; U0005